=== PATIENT | male | born 1945 | race Caucasian/White ===

== ENCOUNTER 2017-12-29 08:28 | Emergency (ER) | payer MEDICARE, OTHER, SELFPAY ==
[2017-12-29 08:30] VITALS: BP 152/112; PULSE 110; RESP 18; TEMP 36.9; O2SAT 99
--- NOTE | 2017-12-29 08:52 | DI.RAD.S_ITS ---
PROCEDURE: XR CHEST 1V INDICATIONS: chest pain TECHNIQUE: One view of the chest was acquired. COMPARISON: [facility], , CHEST 1 VIEW, 06/30/2017, 16:51. FINDINGS: Surgical changes and devices: Median sternotomy has been performed. Lungs and pleura: No pleural effusions or pneumothorax. Lungs are clear. Mediastinum: Mediastinal contours appear normal. Heart size is normal. Bones and chest wall: No suspicious bony lesions. Overlying soft tissues appear unremarkable. IMPRESSION: No acute process. Dictated by: Mila Strickland M.D. on 12/29/2017 at 9:28 Approved by: Mila Strickland M.D. on 12/29/2017 at 9:28
--- NOTE | 2017-12-29 09:01 | ED_ITS ---
HPI - General Adult General Chief complaint: Hypertension Stated complaint: 'BLOOD PRESSURE PROBLEMS' Time Seen by Provider: 12/29/17 08:34 Source: patient Mode of arrival: ambulatory Limitations: no limitations History of Present Illness HPI narrative: Patient is a 72-year-old male who presents with shaking. He took 6 tablets of AlphaViril over the counter medication for erectile dysfunction. Directions today to take for in the morning and do not exceed 6 in 24 hr. He took the pills at 7:00 a.m. about 30 min later he started shaking. He is shaking and controlled bleed. He denies any chest pain or shortness of breath no tongue swelling lip swelling or difficulty breathing. He is diaphoretic. He has never taking these pills before. He did take Cialis yesterday but no other medications. Related Data Home Medications Medication Instructions Recorded Confirmed tadalafil [Cialis] 20 mg PO PRN #0 03/20/13 irbesartan [Avapro] 300 mg PO QAM #0 11/25/16 acyclovir [Zovirax] 5 % TOPICAL Q4H PRN #0 11/28/16 aspirin 81 mg PO QDAY #0 05/24/17 docusate sodium 3 tab PO QAM #0 05/24/17 arginine HCl (L-arginine) 1,000 mg PO #0 06/09/17 clonidine HCl 0.1 mg PO PRN PRN #0 06/09/17 hydromorphone [Dilaudid] 1 mg PO PRN #0 06/09/17 [CLONIDINE] 750 mcg #0 06/13/17 diltiazem HCl [Cartia XT] 120 mg PO QDAY #0 06/13/17 diltiazem HCl [Cartia XT] 180 mg PO QDAY #0 06/13/17 hydromorphone #112 06/13/17 mupirocin #22 06/13/17 testosterone cypionate #9 06/13/17 [Depo-Testosterone] Allergies Allergy/AdvReac Type Severity Reaction Status Date / Time morphine [MORPHINE] Allergy Intermediate BLISTERS Unverified 10/23/17 12:01 aspartame AdvReac Severe SEVERE Unverified 10/23/17 12:01 [From NUTRASWEET ASPARTAME] HEADACHES gabapentin [GABAPENTIN] AdvReac Severe SEVERE Unverified 10/23/17 12:01 AGITATION, DEPRESSION, ANXIETY hydrochlorothiazide AdvReac Severe HEADACHES Unverified 10/23/17 12:01 [HYDROCHLOROTHIAZIDE] hydrocodone [HYDROCODONE] AdvReac Severe SEVERE Unverified 10/23/17 12:01 HEADACHES metoprolol [METOPROLOL] AdvReac Severe HEADACHES Unverified 10/23/17 12:01 omeprazole [OMEPRAZOLE] AdvReac Severe SEVERE Unverified 10/23/17 12:01 HEADACHES & DIZZINESS oxycodone [OXYCODONE] AdvReac Severe HEADACHES Unverified 10/23/17 12:01 ACID BLOCKERS AdvReac Severe SEVERE Uncoded 10/23/17 12:01 HEADACHES & DIZZINESS Review of Systems Review of Systems All systems reviewed & are unremarkable except as noted in HPI and below Constitutional Reports body ache(s), Denies fever(s) and Denies headache(s) Eyes Denies change in vision, Denies eye discharge, Denies irritation and Denies loss of vision ENT Ears, Nose, Mouth, and Throat: Denies headache(s), Denies lip swelling, Denies throat swelling and Denies tongue swelling Cardiovascular Denies chest pain, Denies irregular heart rhythm, Denies lightheadedness, Denies palpitations and Denies orthopnea Respiratory Denies wheezing Gastrointestinal Gastrointestinal: Denies abdominal pain, Denies change in bowel habits, Denies diarrhea, Denies nausea and Denies vomiting Genitourinary Reports system reviewed and no additional complaints, except as docu, Reports difficulty with ejaculations, Reports erectile dysfunction, Denies testicular mass, Denies testicular pain, Denies urinary frequency and Denies other ( Current Erection) Musculoskeletal Denies back pain, Denies muscle weakness, Denies numbness and Denies tingling Integumentary/Breasts Denies pruritus, Denies erythema, Denies rash and Denies skin swelling Neurologic Denies headache(s), Denies loss of vision, Denies numbness and Denies tingling Endocrine Denies palpitations Allergic/Immunologic Denies lip swelling, Denies throat swelling, Denies tongue swelling and Denies wheezing [facility] Social History Smoking Status: Never smoker Exam Initial Vital Signs Initial Vital Signs: Vital Signs Temperature 98.4 F 12/29/17 08:30 Pulse Rate 110 H 12/29/17 08:30 Respiratory Rate 18 12/29/17 08:30 Blood Pressure 152/112 H 12/29/17 08:30 Pulse Oximetry 99 12/29/17 08:30 GENERAL: Alert elderly male diaphoretic shaking all over his body HEENT: Head atraumatic,EOMI, pupils reactive, face symmetric, moist mucous membranes CARDIOVASCULAR: Regular rate and rhythm without murmurs, rubs or gallops. RESPIRATORY: Breath sounds equal bilaterally, no wheezes rales or rhonchi. ABDOMEN: Soft, nontender. Normoactive bowel sounds all 4 quadrants. No guarding or rebound. : No CVA tenderness EXTREMITIES: Normal range of motion, no clubbing or edema. Neurovascularly intact NEUROLOGICAL: Alert and oriented x4.Normal gait and speech. Cranial nerves II through XII grossly intact. SKIN: Warm, dry, no laceration, no petechiae, no rashes or lesions. No urticaria. Course Orders Ordered: ED Orders 12/29/17 08:41 EKG-12 Lead Stat 12/29/17 08:52 XR chest 1V Stat EKG-12 Lead Stat 12/29/17 09:00 Complete Blood Count AUTO DIFF Stat Comprehensive Metabolic Panel Stat Lipase Stat Troponin with CK Cardiac Panel Stat Discontinued Medications Diphenhydramine HCl (Benadryl) 50 mg PO NOW ONE Stop: 12/29/17 08:53 Last Admin: 12/29/17 09:23 Dose: 50 mg Sodium Chloride (Normal Saline 0.9%) 1,000 mls @ 1,000 mls/hr IV BOLUS ONE Stop: 12/29/17 09:51 Last Infusion: 12/29/17 10:39 Dose: 1,000 mls/hr Admin: 12/29/17 09:22 Dose: 1,000 mls/hr Sodium Chloride (Normal Saline 0.9%) 1,000 mls @ 150 mls/hr IV CONT JENNY Last Admin: 12/29/17 10:40 Dose: Prednisone (Deltasone) 60 mg PO NOW ONE Stop: 12/29/17 08:53 Last Admin: 12/29/17 09:05 Dose: 60 mg Vital Signs - 8 hr 12/29/17 08:30 12/29/17 09:28 12/29/17 09:55 Temperature 98.4 F Pulse Rate 110 H 92 H 93 H Respiratory Rate 18 15 18 Blood Pressure 152/112 H Blood Pressure [Left Arm] 159/76 H 152/88 H Pulse Oximetry 99 97 99 Medical Decision Making MDM Narrative Medical decision making narrative: Patient is feeling much much better. No longer shaking. He likely had a reaction to on this [id number] medication which actually has white but and mushrooms boat straw and other for this. He does have a history of having a reaction to multiple medications. Does not seem to be a severe anaphylactic reaction. I recommend that he not take them anymore. Lab Data Result diagrams: 12/29/17 09:00 12/29/17 09:00 Lab Results 12/29/17 12/29/17 Range/Units 09:00 09:00 WBC 8.3 (4.5-11.0) X10^3/uL RBC 5.51 (4.5-5.9) X10^6/uL Hgb 16.1 (13.5-17.5) g/dL Hct 48.4 (41-53) % MCV 87.8 (80-100) fL MCH 29.3 (26-34) PG MCHC 33.4 (30-36) % RDW 16.0 H (11.6-14.8) % Plt Count 196 (150-400) X10^3/uL Neut % (Auto) 72.6 (50-75) % Lymph % (Auto) 14.9 L (25-40) % [place] % (Auto) 9.9 (3-14) % Eos % (Auto) 2.0 (2-4) % Baso % (Auto) 0.6 (0-2) % Neut # (Auto) 6000 H (1344-3337) /uL Sodium 145 (137-145) mmol/L Potassium 4.0 (3.4-5.1) mmol/L Chloride 106 (98-107) mmol/L Carbon Dioxide 27 (22-32) mmol/L BUN 26 H (9-20) mg/dL Creatinine 1.10 (0.66-1.25) mg/dL Estimated GFR > 60.0 (>60) mL/min BUN/Creatinine Ratio 23.6 H (6-22) Glucose 83 (80-110) mg/dL Calcium 9.8 (8.4-10.2) mg/dL Total Bilirubin 0.6 (0.2-1.3) mg/dL AST 29 (17-59) IU/L ALT 28 (21-72) IU/L Alkaline Phosphatase 96 (38-126) U/L Total Creatine Kinase 209 H (55-170) U/L CK-MB (CK-2) 3.44 H (<2.37) ng/mL CK-MB (CK-2) Rel Index 1.6 (1.5-5.0) % Troponin I < 0.012 (0.01-0.034) ng/mL Total Protein 8.2 (6.3-8.2) g/dL Albumin 4.7 (3.5-5.0) g/dL Globulin 3.5 (1.7-4.1) g/dL Albumin/Globulin Ratio 1.3 (1.0-2.8) Lipase 134 (23-300) U/L Imaging Data Chest x-ray: Radiologist's impression: PROCEDURE: XR CHEST 1V INDICATIONS: chest pain TECHNIQUE: One view of the chest was acquired. COMPARISON: [facility], CHEST 1 VIEW, 06/30/2017, 16:51. FINDINGS: Surgical changes and devices: Median sternotomy has been performed. Lungs and pleura: No pleural effusions or pneumothorax. Lungs are clear. Mediastinum: Mediastinal contours appear normal. Heart size is normal. Bones and chest wall: No suspicious bony lesions. Overlying soft tissues appear unremarkable. IMPRESSION: No acute process. Dictated by: Mila Strickland M.D. on 12/29/2017 at 9:28 ECG Data Attestation: I personally reviewed and interpreted this ECG as follows: Prior ECG tracings: available for review Interpretation: EKG 1. A lot of artifact no acute ST changes appears sinus rate of 105 EKG 2. Sinus rhythm rate 83, much better from previous EKGs Discharge Plan Departure Patient Disposition: Home, Self-Care Clinical Impression: Medication reaction Discharge Date/Time: 12/29/17 10:45 Interventions: ED Discharge Assessment Last Done: 12/29/17 10:41 Instructions: DI for Adverse Drug Reaction -- Other Activity Restrictions/Additional Instructions: *You have been diagnosed with medication reaction *What to do: Do not take this medication any more *Continue to take medications as directed *Follow up with your primary care provider in 2-3 days *Return to ER if you should have any new, worsening or concerning symptoms Prescriptions: No Action tadalafil [Cialis] 20 MG tablet 20 mg PO PRN Qty: 0 RF: 0 irbesartan [Avapro] 300 MG tablet 300 mg PO QAM Qty: 0 RF: 0 acyclovir [Zovirax] 5 % ointment 5 % Topical Q4H PRNQty: 0 RF: 0 aspirin 81 MG tablet,delayed release (DR/EC) 81 mg PO QDAY Qty: 0 RF: 0 docusate sodium 100 MG capsule 3 tab PO QAM Qty: 0 RF: 0 hydromorphone [Dilaudid] 1 MG/1 ML liquid 1 mg PO PRNQty: 0 RF: 0 clonidine HCl 0.1 MG tablet 0.1 mg PO PRN PRNQty: 0 RF: 0 arginine HCl (L-arginine) 1,000 MG tablet 1,000 mg PO Qty: 0 RF: 0 diltiazem HCl [Cartia XT] 120 MG capsule,extended release 24hr 120 mg PO QDAY Qty: 0 RF: 0 diltiazem HCl [Cartia XT] 180 MG capsule,extended release 24hr 180 mg PO QDAY Qty: 0 RF: 0 mupirocin 2 % ointment Qty: 22 RF: 0 testosterone cypionate [Depo-Testosterone] 200 MG/1 ML oil Qty: 9 RF: 0 hydromorphone 4 MG tablet Qty: 112 RF: 0 [CLONIDINE] 750 mcg Qty: 0 RF: 0 Referrals: Raghu Brennan MD [Primary Care Provider] - Franki Correa MD [Non-Staff] -
[2017-12-29] MEDS: predniSONE 20 MG TABLET 60 MG PO (09:05)
[2017-12-29 09:14] LABS: Add Manual Diff / Slide Review NO; Basophils Percent Auto 0.6 % (0-2); Hematocrit 48.4 % (41-53); Hemoglobin 16.1 g/dL (13.5-17.5); Lymphocytes Percent Auto 14.9 % (25-40); Mean Corpuscular HGB Conc 33.4 % (30-36); Mean Corpuscular Hemoglobin 29.3 PG (26-34); Mean Corpuscular Volume 87.8 fL (80-100); Monocytes Percent Auto 9.9 % (3-14); Neutrophils Absolute Auto 6000 /uL (3000-5900); Neutrophils Percent Auto 72.6 % (50-75); Platelet Count 196 X10^3/uL (150-400); Red Blood Cell Count 5.51 X10^6/uL (4.5-5.9); White Blood Cell Count 8.3 X10^3/uL (4.5-11.0)
[2017-12-29] MEDS: SODIUM CHLORIDE 0.9% 1,000 ML 1000 ML IV (09:22)
[2017-12-29] MEDS: diphenhydrAMINE 50 MG CAPSULE PO (09:23)
[2017-12-29 09:25] LABS: Alanine Aminotransferase 28 IU/L (21-72); Albumin 4.7 g/dL (3.5-5.0); Albumin Globulin Ratio 1.3 (1.0-2.8); Alkaline Phosphatase 96 U/L (38-126); Aspartate Aminotransferase 29 IU/L (17-59); BUN Creatinine Ratio 23.6 (6-22); Bilirubin Total 0.6 mg/dL (0.2-1.3); Blood Urea Nitrogen 26 mg/dL (9-20); Calcium 9.8 mg/dL (8.4-10.2); Carbon Dioxide 27 mmol/L (22-32); Chloride 106 mmol/L (98-107); Creatine Kinase 209 U/L (55-170); Estimated Glomerular Filt Rate > 60.0 mL/min (>60); Globulin 3.5 g/dL (1.7-4.1); Glucose 83 mg/dL (80-110); HEMOLYSIS 35 (0-50); Lipase 134 U/L (23-300); Sodium 145 mmol/L (137-145); Total Protein 8.2 g/dL (6.3-8.2)
[2017-12-29 09:28] VITALS: BP 159/76; PULSE 92; RESP 15; O2SAT 97
[2017-12-29 09:40] LABS: CKMB % Relative Index 1.6 % (1.5-5.0); Creatine Kinase MB 3.44 ng/mL (<2.37)
[2017-12-29 09:44] LABS: Troponin I < 0.012 ng/mL (0.01-0.034)
[2017-12-29 09:55] VITALS: BP 152/88; PULSE 93; RESP 18; O2SAT 99
== END 2017-12-29 10:45 | disposition home or self-care (01) ==
PROVIDERS: Emergency Provider Emergency Medicine; Family Provider Family Medicine; PCP Family Medicine
DX: I10 Essential (primary) hypertension (principal); T50.905A Adverse effect of unspecified drugs, medicaments and biological substances, initial encounter
CPT/HCPCS: 36591; 71045; 80053; 81003; 82550; 82553; 83690; 84484; 85025; 93005; 96360; 99283; 99285

== ENCOUNTER 2018-01-19 11:23 | Emergency (ER) | payer MEDICARE, OTHER, SELFPAY ==
--- NOTE | 2018-01-19 11:31 | DI.RAD.S_ITS ---
PROCEDURE: XR CHEST 1V INDICATIONS: chest pain TECHNIQUE: One view of the chest was acquired. COMPARISON: None. FINDINGS: Surgical changes and devices: Sternotomy wires, and spinal electrodes noted.. Lungs and pleura: No pleural effusions or pneumothorax. Lungs are clear. Mediastinum: Mediastinal contours appear normal. Heart size is normal. Bones and chest wall: No suspicious bony lesions. Overlying soft tissues appear unremarkable. IMPRESSION: No acute disease. Dictated by: Samir Bryant M.D. on 01/19/2018 at 13:06 Approved by: Samir Bryant M.D. on 01/19/2018 at 13:07
[2018-01-19 11:40] VITALS: PULSE 82; RESP 19; O2SAT 99
--- NOTE | 2018-01-19 11:56 | ED.CHESTPAIN ---
HPI - Chest Pain General Chief Complaint: Chest Pain Stated Complaint: chest tightness, sweating, high BP/pulse Time Seen by Provider: 01/19/18 11:55 Source: patient Mode of arrival: ambulatory Limitations: no limitations History of Present Illness HPI narrative: Patient is a [age]-year-old male with known coronary artery disease presenting with chest pain. He says he was sitting at [employer] when he felt the chest pain and he got sweaty and decided to come to the ER. His pain did not radiate anywhere he denies any palpable insert. The chest pain lasted until he got to the ER now he is chest pain-free. He said 2 days ago he was helping a friend move and moving boxes he was sweaty and working hard then he will total knee look like he was having a heart attack but he said he felt fine. Related Data Home Medications Medication Instructions Recorded Confirmed tadalafil [Cialis] 20 mg PO PRN #0 03/20/13 irbesartan [Avapro] 300 mg PO QAM #0 11/25/16 acyclovir [Zovirax] 5 % TOPICAL Q4H PRN #0 11/28/16 aspirin 81 mg PO QDAY #0 05/24/17 docusate sodium 3 tab PO QAM #0 05/24/17 arginine HCl (L-arginine) 1,000 mg PO #0 06/09/17 clonidine HCl 0.1 mg PO PRN PRN #0 06/09/17 hydromorphone [Dilaudid] 1 mg PO PRN #0 06/09/17 [CLONIDINE] 750 mcg #0 06/13/17 diltiazem HCl [Cartia XT] 120 mg PO QDAY #0 06/13/17 diltiazem HCl [Cartia XT] 180 mg PO QDAY #0 06/13/17 hydromorphone #112 06/13/17 mupirocin #22 06/13/17 testosterone cypionate #9 06/13/17 [Depo-Testosterone] nifedipine [Procardia] 20 mg PO TID 01/19/18 01/19/18 Allergies Allergy/AdvReac Type Severity Reaction Status Date / Time morphine [MORPHINE] Allergy Intermediate BLISTERS Unverified 10/23/17 12:01 aspartame AdvReac Severe SEVERE Unverified 10/23/17 12:01 [From NUTRASWEET ASPARTAME] HEADACHES gabapentin [GABAPENTIN] AdvReac Severe SEVERE Unverified 10/23/17 12:01 AGITATION, DEPRESSION, ANXIETY hydrochlorothiazide AdvReac Severe HEADACHES Unverified 10/23/17 12:01 [HYDROCHLOROTHIAZIDE] hydrocodone [HYDROCODONE] AdvReac Severe SEVERE Unverified 10/23/17 12:01 HEADACHES metoprolol [METOPROLOL] AdvReac Severe HEADACHES Unverified 10/23/17 12:01 omeprazole [OMEPRAZOLE] AdvReac Severe SEVERE Unverified 10/23/17 12:01 HEADACHES & DIZZINESS oxycodone [OXYCODONE] AdvReac Severe HEADACHES Unverified 10/23/17 12:01 ACID BLOCKERS AdvReac Severe SEVERE Uncoded 10/23/17 12:01 HEADACHES & DIZZINESS Review of Systems Review of Systems GENERAL: Denies chills, fatigue, malaise, fever, sweats, travel HEENT: Denies sinus pain, ear pain, sore throat, difficulty swallowing, neck pain RESPIRATORY: Denies dyspnea, cough, wheezing, hemoptysis, sputum. CARDIOVASCULAR: See HPI GASTROINTESTINAL: Denies nausea, vomiting, abdominal pain, diarrhea, constipation, melena. : Denies dysuria, frequency, incontinence, hematuria, urinary retention, flank pain. MUSCULOSKELETAL: Denies weakness, joint pain, or bony pain SKIN: No rash, no erythema, no pruritus NEUROLOGIC: Denies weakness, dizziness, headache, numbness, change in speech, confusion PSYCHIATRIC: No concerning psychosocial issues. 12 point review of systems is negative except for those stated above and HPI [facility] Social History Smoking Status: Never smoker Exam Initial Vital Signs Initial Vital Signs: Vital Signs Pulse Rate 82 01/19/18 11:40 Respiratory Rate 19 01/19/18 11:40 Pulse Oximetry 99 01/19/18 11:40 GENERAL: Alert Well appearing elderly male HEENT: Head atraumatic,EOMI, pupils reactive neck is supple CARDIOVASCULAR: Regular rate and rhythm without murmurs, rubs or gallops. RESPIRATORY: Breath sounds equal bilaterally, no wheezes rales or rhonchi. ABDOMEN: Soft, nontender. Normoactive bowel sounds all 4 quadrants. No guarding or rebound. EXTREMITIES: Normal range of motion, no clubbing or edema. Neurovascularly intact NEUROLOGICAL: Alert and oriented x4.Normal gait and speech. Cranial nerves II through XII grossly intact. SKIN: Warm, dry, no laceration, no petechiae, no rashes or lesions. Course Orders Ordered: ED Orders 01/19/18 11:31 XR chest 1V Stat EKG-12 Lead Stat 01/19/18 11:50 Comprehensive Metabolic Panel Stat Lipase Stat Troponin & CK Cardiac Panel Stat 01/19/18 12:20 Complete Blood Count AUTO DIFF Stat Partial Thromboplastin Time Stat Prothrombin Time INR Stat 01/19/18 12:33 EKG-12 Lead Stat 01/19/18 13:50 Troponin I Stat Vital Signs - 8 hr 01/19/18 11:40 01/19/18 12:00 01/19/18 13:00 Pulse Rate 82 82 76 Respiratory Rate 19 19 14 Blood Pressure Blood Pressure [Left Arm] 138/96 H 141/97 H Pulse Oximetry 99 95 01/19/18 13:30 01/19/18 14:47 Pulse Rate 75 71 Respiratory Rate 15 16 Blood Pressure 165/76 H Blood Pressure [Left Arm] 146/100 H Pulse Oximetry 100 97 MDM - Chest Pain Medical Records Data Attestation: I reviewed the patient's medical records. Lab Data Attestation: I reviewed the patient's lab results. Result diagrams: 01/19/18 12:20 01/19/18 11:50 Lab Results 01/19/18 01/19/18 01/19/18 Range/Units 11:50 12:20 12:20 WBC 6.2 (4.5-11.0) X10^3/uL RBC 5.42 (4.5-5.9) X10^6/uL Hgb 16.0 (13.5-17.5) g/dL Hct 47.7 (41-53) % MCV 88.1 (80-100) fL MCH 29.5 (26-34) PG MCHC 33.5 (30-36) % RDW 14.2 (11.6-14.8) % Plt Count 207 (150-400) X10^3/uL Neut % (Auto) 72.9 (50-75) % Lymph % (Auto) 16.8 L (25-40) % [place] % (Auto) 8.8 (3-14) % Eos % (Auto) 0.9 L (2-4) % Baso % (Auto) 0.6 (0-2) % Neut # (Auto) 4500 (6340-6435) /uL PT 12.1 (10.1-12.7) SECONDS INR 1.1 (0.9-1.3) APTT 26 L (26.4-36.2) SECONDS Sodium 142 (137-145) mmol/L Potassium 4.6 (3.4-5.1) mmol/L Chloride 104 (98-107) mmol/L Carbon Dioxide 27 (22-32) mmol/L BUN 21 H (9-20) mg/dL Creatinine 1.00 (0.66-1.25) mg/dL Estimated GFR > 60.0 (>60) mL/min BUN/Creatinine Ratio 21.0 (6-22) Glucose 106 (80-110) mg/dL Calcium 9.6 (8.4-10.2) mg/dL Total Bilirubin 1.1 (0.2-1.3) mg/dL AST 28 (17-59) IU/L ALT 26 (21-72) IU/L Alkaline Phosphatase 81 (38-126) U/L Total Creatine Kinase 172 H (55-170) U/L CK-MB (CK-2) 3.10 H (<2.37) ng/mL CK-MB (CK-2) Rel Index 1.8 (1.5-5.0) % Troponin I < 0.012 (0.01-0.034) ng/mL Total Protein 8.0 (6.3-8.2) g/dL Albumin 4.7 (3.5-5.0) g/dL Globulin 3.3 (1.7-4.1) g/dL Albumin/Globulin Ratio 1.4 (1.0-2.8) Lipase 91 (23-300) U/L 01/19/18 Range/Units 13:50 WBC (4.5-11.0) X10^3/uL RBC (4.5-5.9) X10^6/uL Hgb (13.5-17.5) g/dL Hct (41-53) % MCV (80-100) fL MCH (26-34) PG MCHC (30-36) % RDW (11.6-14.8) % Plt Count (150-400) X10^3/uL Neut % (Auto) (50-75) % Lymph % (Auto) (25-40) % [place] % (Auto) (3-14) % Eos % (Auto) (2-4) % Baso % (Auto) (0-2) % Neut # (Auto) (5837-1599) /uL PT (10.1-12.7) SECONDS INR (0.9-1.3) APTT (26.4-36.2) SECONDS Sodium (137-145) mmol/L Potassium (3.4-5.1) mmol/L Chloride (98-107) mmol/L Carbon Dioxide (22-32) mmol/L BUN (9-20) mg/dL Creatinine (0.66-1.25) mg/dL Estimated GFR (>60) mL/min BUN/Creatinine Ratio (6-22) Glucose (80-110) mg/dL Calcium (8.4-10.2) mg/dL Total Bilirubin (0.2-1.3) mg/dL AST (17-59) IU/L ALT (21-72) IU/L Alkaline Phosphatase (38-126) U/L Total Creatine Kinase (55-170) U/L CK-MB (CK-2) (<2.37) ng/mL CK-MB (CK-2) Rel Index (1.5-5.0) % Troponin I < 0.012 (0.01-0.034) ng/mL Total Protein (6.3-8.2) g/dL Albumin (3.5-5.0) g/dL Globulin (1.7-4.1) g/dL Albumin/Globulin Ratio (1.0-2.8) Lipase (23-300) U/L Imaging Data Chest x-ray: Radiologist's impression: PROCEDURE: XR CHEST 1V INDICATIONS: chest pain TECHNIQUE: One view of the chest was acquired. COMPARISON: None. FINDINGS: Surgical changes and devices: Sternotomy wires, and spinal electrodes noted.. Lungs and pleura: No pleural effusions or pneumothorax. Lungs are clear. Mediastinum: Mediastinal contours appear normal. Heart size is normal. Bones and chest wall: No suspicious bony lesions. Overlying soft tissues appear unremarkable. IMPRESSION: No acute disease. Dictated by: Samir Bryant M.D. on 01/19/2018 at 13:06 ECG Data Attestation: I personally reviewed and interpreted this ECG as follows: Prior ECG tracings: available for review Interpretation: EKG 1.: Sinus rhythm rate 78 Q-waves anterior and inferiorly noted similar to previous EKGs, R-wave in AVR an S wave in aVL which is not seen in previous EKG EKG 2. Sinus rhythm rate 79 similar to previous breast not AVR and aVL remained unchanged however these 2 EKGs are just minutes apart The EKG 3. Time 1:06 p.m.. Normal sinus rhythm rate 66 Q-waves remained in inferior leads, AVR and aVL leads now appear as a do in all previous EKG Likely these leads were reversed. MDM Narrative Medical decision making narrative: Patient has 2-troponins no further episodes of chest pain. Though he does have a history of CABG and coronary artery disease. 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 He also is noncompliant with his blood pressure medications and adjust as he sees fit. I also strongly recommend that he discuss all the blood pressure pill regimen with his [employer]person [employer] and take medications as instructed. I discussed all findings with the patient. Education has been performed regarding treatment plan, diagnosis, warning signs and symptoms and all concerns have been addressed. Verbally agree with and understood all of the above. Discharge Plan Departure Patient Disposition: Home, Self-Care Clinical Impression: Atypical chest pain, Hypertension Discharge Date/Time: 01/19/18 14:48 Interventions: ED Discharge Assessment Last Done: 01/19/18 14:47 Instructions: High Blood Pressure, DI for Atypical Chest Pain Activity Restrictions/Additional Instructions: *You have been diagnosed with hypertension, atypical chest pain *What to do: Discussed with your salesperson [employer] about you're blood pressure medications, you may also require a stress test *Continue to take medications as directed *Follow up with your primary care provider in 2-3 days *Return to ER if you should have worsening or atypical chest pain, especially rest or any new, worsening or concerning symptoms Prescriptions: No Action tadalafil [Cialis] 20 MG tablet 20 mg PO PRN Qty: 0 RF: 0 irbesartan [Avapro] 300 MG tablet 300 mg PO QAM Qty: 0 RF: 0 acyclovir [Zovirax] 5 % ointment 5 % Topical Q4H PRNQty: 0 RF: 0 aspirin 81 MG tablet,delayed release (DR/EC) 81 mg PO QDAY Qty: 0 RF: 0 docusate sodium 100 MG capsule 3 tab PO QAM Qty: 0 RF: 0 hydromorphone [Dilaudid] 1 MG/1 ML liquid 1 mg PO PRN (Reason: Breakthrough Pain, Severe) Qty: 0 RF: 0 clonidine HCl 0.1 MG tablet 0.1 mg PO PRN PRNQty: 0 RF: 0 arginine HCl (L-arginine) 1,000 MG tablet 1,000 mg PO Qty: 0 RF: 0 diltiazem HCl [Cartia XT] 120 MG capsule,extended release 24hr 120 mg PO QDAY Qty: 0 RF: 0 diltiazem HCl [Cartia XT] 180 MG capsule,extended release 24hr 180 mg PO QDAY Qty: 0 RF: 0 mupirocin 2 % ointment Qty: 22 RF: 0 testosterone cypionate [Depo-Testosterone] 200 MG/1 ML oil Qty: 9 RF: 0 hydromorphone 4 MG tablet Qty: 112 RF: 0 [CLONIDINE] 750 mcg Qty: 0 RF: 0 nifedipine [Procardia] 10 mg Capsule 20 mg PO TID RF: 0 Referrals: Raghu Brennan MD [Primary Care Provider] - Franki Correa MD [Non-Staff] -
[2018-01-19 12:00] VITALS: BP 138/96; PULSE 82; RESP 19
[2018-01-19 12:16] LABS: Alanine Aminotransferase 26 IU/L (21-72); Albumin 4.7 g/dL (3.5-5.0); Albumin Globulin Ratio 1.4 (1.0-2.8); Alkaline Phosphatase 81 U/L (38-126); Aspartate Aminotransferase 28 IU/L (17-59); Bilirubin Total 1.1 mg/dL (0.2-1.3); Blood Urea Nitrogen 21 mg/dL (9-20); Calcium 9.6 mg/dL (8.4-10.2); Carbon Dioxide 27 mmol/L (22-32); Chloride 104 mmol/L (98-107); Creatine Kinase 172 U/L (55-170); Estimated Glomerular Filt Rate > 60.0 mL/min (>60); Globulin 3.3 g/dL (1.7-4.1); Glucose 106 mg/dL (80-110); HEMOLYSIS 26 (0-50); Lipase 91 U/L (23-300); Potassium 4.6 mmol/L (3.4-5.1); Sodium 142 mmol/L (137-145)
[2018-01-19 12:31] LABS: CKMB % Relative Index 1.8 % (1.5-5.0)
[2018-01-19 12:31] LABS: Add Manual Diff / Slide Review NO; Basophils Percent Auto 0.6 % (0-2); Eosinophils Percent Auto 0.9 % (2-4); Hematocrit 47.7 % (41-53); Lymphocytes Percent Auto 16.8 % (25-40); Mean Corpuscular HGB Conc 33.5 % (30-36); Mean Corpuscular Hemoglobin 29.5 PG (26-34); Mean Corpuscular Volume 88.1 fL (80-100); Monocytes Percent Auto 8.8 % (3-14); Neutrophils Absolute Auto 4500 /uL (3000-5900); Neutrophils Percent Auto 72.9 % (50-75); Platelet Count 207 X10^3/uL (150-400); Red Blood Cell Count 5.42 X10^6/uL (4.5-5.9); Red Cell Distribution Width 14.2 % (11.6-14.8); White Blood Cell Count 6.2 X10^3/uL (4.5-11.0)
[2018-01-19 12:32] LABS: Troponin I < 0.012 ng/mL (0.01-0.034)
[2018-01-19 12:39] LABS: INR 1.1 (0.9-1.3); Prothrombin Time 12.1 SECONDS (10.1-12.7)
[2018-01-19 12:41] LABS: PTT Partial Thromboplastin Tim 26 SECONDS (26.4-36.2)
[2018-01-19 13:00] VITALS: BP 141/97; PULSE 76; RESP 14; O2SAT 95
--- NOTE | 2018-01-19 13:15 | PC.NURSE ---
RT completed second EKG and took to [facility]
[2018-01-19 13:30] VITALS: BP 146/100; PULSE 75; RESP 15; O2SAT 100
[2018-01-19 14:22] LABS: Troponin I < 0.012 ng/mL (0.01-0.034)
[2018-01-19 14:47] VITALS: BP 165/76; PULSE 71; RESP 16; O2SAT 97
== END 2018-01-19 14:48 | disposition home or self-care (01) ==
PROVIDERS: Emergency Provider Emergency Medicine; Family Provider Family Medicine; PCP Family Medicine
DX: I10 Essential (primary) hypertension (principal); R07.89 Other chest pain
CPT/HCPCS: 36415; 36591; 71045; 80053; 82550; 82553; 83690; 84484; 85025; 85610; 85730; 93005; 99283; 99285

== ENCOUNTER → 2018-03-07 13:39 | Outpatient (CLI) | payer MEDICARE, OTHER, SELFPAY ==
--- NOTE | 2018-03-07 15:32 | PM.TREADMILL ---
Cardiac Stress Test Report Referral & Results Date Patient Seen: 03/07/18 Requesting provider: Franki Correa Rest ECG: poor R-wave progression Procedure Note: After both written and verbal informed consent the patient had an IV started by the diagnostic imaging RN and then was hooked up to the treadmill monitoring system. The patient was then injected with the Ana scan material. The Cardiolite was then immediately administered. Additional 2-3 minutes was spent monitoring the patient. The patient had a normal response to all infused materials. Impression: Normal response to infuse materials. Perfusion imaging to be reported separately Please note: Actual ECG tracings can be found in the PACS system.
--- NOTE | 2018-03-12 14:54 | DI.NM.S_ITS ---
DATE OF SERVICE: 03/07/2018 REFERRING PHYSICIAN: Bety Correa MD PROCEDURE: Nuclear cardiac stress study. INDICATIONS: Patient is a 72-year-old male with a prior history of coronary artery bypass graft surgery. Nuclear cardiac stress study is performed to for follow-up evaluation. STRESS TEST: This gentleman is given a pharmacologic stress study using Lexiscan injection. He received 25.6 mCi of technetium-99 Myoview for the pharmacologic stress study on 03/07 and returned on 03/10 for the resting examination receiving an additional 24.5 mCi. No diagnostic EKG changes or complaints of chest discomfort noted on the record. FINDINGS: Raw Data: Raw data imaging demonstrate a mild amount of up-and-down motion artifact. No other significant artifact noted. Overall image quality is fair. Quantitative Gated SPECT Imaging: Gated images demonstrate a normal size ventricle with an end-diastolic volume of 165 cc. Overall ejection fraction estimated at 65%. No clear-cut regional wall motion abnormalities are noted. Quantitative Perfusion SPECT Imaging: Myocardial perfusion imaging demonstrates a mild amount of diaphragmatic tissue attenuation artifact. No other convincing perfusion abnormalities are identified that would suggest ischemia or scar. IMPRESSION: Normal nuclear cardiac stress study with normal-appearing left ventricular function and with no obvious significant perfusion abnormality that would suggest previous infarction or residual or recurrent significant ischemia. Chad Boyd - Hannah/ doc#: [id number]/job#: [id number] dd: 03/10/2018 16:26:00 dt: 03/12/2018 14:41:00 DICTATING MD/COPIES TO: Nicholas Solitario MD COPIES MNE: VALENTINA
--- NOTE | 2018-03-13 07:54 | DI.NM.S_ITS ---
DATE OF SERVICE: 03/07/2018 ORDERING PROVIDER: Franki Correa MD PROCEDURE PERFORMED: Pharmacologic vasodilator stress and rest myocardial perfusion imaging with gating to assess ejection fraction and regional wall motion. INDICATIONS: The patient is a 72-year-old male status post CABG in 07/2015 requires preoperative evaluation prior to ENT surgery. CARDIAC STRESS: Per protocol, 0.4 mg of regadenoson was infused with a normal hemodynamic response. He had no anginal symptoms. His resting ECG shows normal sinus rhythm with normal ST segments and there are no significant ST-segment shifts or arrhythmias with stress. Per protocol, 25.6 mCi of technetium-99 Myoview was injected and the patient was imaged 15 minutes later using a gated SPECT acquisition protocol. He returned 3 days later and was re-injected with an additional 24.5 mCi of technetium-99 Myoview and was imaged 30 minutes later, again using a gated SPECT acquisition protocol. FINDINGS: 1. Raw Data: There is fairly good myocardial tracer uptake, although with a suggestion of some diaphragmatic attenuation. The lung/heart ratio is normal at 0.28 with a normal TID ratio of 0.94. 2. Quantitative Gated SPECT: Post stress ejection fraction is estimated at 65% without any focal wall motion abnormality. Specifically, the proximal inferior wall grossly appears to have normal contractility, although sub-optimally imaged. The resting ejection fraction is 53%, although visually appears to be quite similar to the post stress images. Left ventricular volumes appear to be moderately enlarged with a resting end-diastolic volume of 159 mL. 3. Myocardial Perfusion Imaging: Post stress supine images shows a fairly normal myocardial perfusion, although with a mild perfusion defect in the proximal portion of the inferior wall in a pattern that would be consistent with diaphragmatic attenuation, although this defect persists to a slight degree on the prone images suggesting it could reflect a true perfusion defect. The resting images show an identical perfusion pattern to that of the post stress supine images without any areas of improvement. CONCLUSION: 1. Probable normal myocardial perfusion study for ischemia. 2. Mild fixed proximal inferior perfusion defect that most likely reflects diaphragmatic attenuation, although persists to slight degree on the prone images, and thus a previous nontransmural proximal inferior wall infarction cannot be entirely excluded but there is no evidence for any significant myocardial ischemia. 3. Normal left ventricular systolic function although with moderately enlarged left ventricular volumes. 4. No angina or ECG evidence of ischemia with pharmacologic vasodilator stress. Chad Boyd - Viviana/ doc#: [id number]/job#: [id number] dd: 03/12/2018 16:05:00 dt: 03/12/2018 16:12:00 DICTATING MD/COPIES TO: Sammy Aguila MD; Franki Correa MD; [facility] COPIES MNE: JOYA; Franki Correa MD cc: [facility]
== END ==
PROVIDERS: Family Provider Family Medicine; PCP Family Medicine; Visit Provider Internal Medicine Cardiovascular Disease
DX: I25.10 Atherosclerotic heart disease of native coronary artery without angina pectoris (principal)
CPT/HCPCS: 78452; 93016; 93017; 93018; A9502; J2785

== ENCOUNTER → 2018-03-20 07:37 | Outpatient (CLI) | payer MEDICARE, OTHER, SELFPAY ==
[2018-03-20 08:33] LABS: Cholesterol 160 mg/dL (140-199); HDL Cholesterol 33 mg/dL (40-60); LDL Cholesterol Calculated 110 mg/dL (<100); Triglycerides 84 mg/dL (35-150)
[2018-03-24 10:29] LABS: Testosterone Free 143.6 pg/mL (30.0-135.0); Testosterone Total 655 ng/dL (250-1100)
== END ==
PROVIDERS: Family Provider Family Medicine; PCP Family Medicine; Visit Provider Family Medicine
DX: R79.89 Other specified abnormal findings of blood chemistry (principal); E78.5 Hyperlipidemia, unspecified
CPT/HCPCS: 36415; 80061; 84402; 84403

== ENCOUNTER → 2018-04-19 14:56 | Outpatient (CLI) | payer MEDICARE, OTHER, SELFPAY ==
[2018-04-19 15:21] LABS: Add Manual Diff / Slide Review NO; Basophils Percent Auto 0.7 % (0-2); Eosinophils Percent Auto 1.1 % (2-4); Hematocrit 46.3 % (41-53); Hemoglobin 15.3 g/dL (13.5-17.5); Lymphocytes Percent Auto 13.8 % (25-40); Mean Corpuscular HGB Conc 33.1 % (30-36); Mean Corpuscular Hemoglobin 28.7 PG (26-34); Mean Corpuscular Volume 86.6 fL (80-100); Monocytes Percent Auto 8.1 % (3-14); Neutrophils Absolute Auto 8200 /uL (3000-5900); Neutrophils Percent Auto 76.3 % (50-75); Platelet Count 152 X10^3/uL (150-400); Red Blood Cell Count 5.34 X10^6/uL (4.5-5.9); Red Cell Distribution Width 14.9 % (11.6-14.8); White Blood Cell Count 10.7 X10^3/uL (4.5-11.0)
[2018-04-19 15:37] LABS: C-Reactive Protein Quant 2.1 mg/dL (<1.0)
[2018-04-19 16:23] LABS: Erythrocyte Sedimentation Rate 5 MM/HR (0-15)
== END ==
PROVIDERS: Family Provider Family Medicine; PCP Family Medicine; Visit Provider Physician Assistant
DX: R51 Headache (principal)
CPT/HCPCS: 36415; 85025; 85651; 86140

== ENCOUNTER → 2018-04-30 12:00 | Outpatient (CLI) | payer MEDICARE, OTHER, SELFPAY ==
[2018-04-30 14:28] LABS: Erythrocyte Sedimentation Rate 7 MM/HR (0-15)
== END ==
PROVIDERS: PCP Family Medicine; Visit Provider Family Medicine
DX: R51 Headache (principal)
CPT/HCPCS: 36415; 85651

== ENCOUNTER → 2018-06-18 10:18 | Outpatient (CLI) | payer MEDICARE, OTHER, SELFPAY | PROVIDERS: PCP Family Medicine; Visit Provider Family Medicine | DX: D89.40 Mast cell activation, unspecified (principal) | CPT/HCPCS: 36415; 83520 ==

== ENCOUNTER 2018-07-23 18:34 | Emergency (ER) | payer MEDICARE, OTHER, SELFPAY ==
[2018-07-23 18:39] VITALS: PULSE 99; RESP 20; TEMP 36.6; O2SAT 99
[2018-07-23] MEDS: HYDROMORPHONE 2 MG INJ 1 MG SUBCUT (19:01)
[2018-07-23 19:18] VITALS: BP 144/86
--- NOTE | 2018-07-23 19:57 | ED.OVERDOSE ---
HPI - Overdose General Chief Complaint: Toxicology Problem Stated Complaint: states really bad reaction to C-naltrexone Time Seen by Provider: 07/23/18 18:49 Source: patient Mode of arrival: ambulatory Limitations: no limitations History of Present Illness HPI Narrative: Patient states that he has been having chills and ?jerks? since taking naltrexone for headache. Patient has been seeing a neurologist for ongoing headaches for the last several months. Patient has chronic arachnoiditis of lumbar spinal canal and has a nerve stimulator and a Dilaudid pump for this. He has had extensive workup for his headaches, including MRI and myelogram, with all normal results. Patient states his headaches are present 04/02, and have become debilitating. He states his neurologist told him that he (the neurologist) is at his wits end as far as coming up with ideas for treatment of the headaches, and that the patient will probably need to go to [facility] or some other specialty center. However, the Neurology thought that naltrexone might help with the headache, because it had helped in another case for somebody who had recently been on opiates. Patient took his 1st dose today of 2.5 mg, and thinks it might have helped his headache a little bit, but has given him the current symptoms of jerking and shivering. Patient denies nausea, vomiting, pain, or fevers. He was not ill prior to taking the naltrexone 2.5 hr ago. No other complaints at this time. Related Data Home Medications Medication Instructions Recorded Confirmed tadalafil [Cialis] 20 mg PO PRN #0 03/20/13 07/22/18 acyclovir [Zovirax] 5 % TOPICAL Q4H PRN #0 11/28/16 07/22/18 clonidine HCl 0.1 mg PO PRN PRN #0 06/09/17 07/22/18 [CLONIDINE] 750 mcg #0 06/13/17 07/22/18 mupirocin #22 06/13/17 07/22/18 testosterone cypionate #9 06/13/17 07/22/18 [Depo-Testosterone] amlodipine 5 mg-atorvastatin 10 mg 1 tab PO DAILY 03/18/18 07/22/18 tablet bupivacaine (PF) 0.25 % 2 mL/hour CONTINUOUS EPIDURAL ml 04/19/18 07/22/18 120 mL infiltrat,fix rate elast pump acetazolamide 125 mg tablet 31 mg PO BID tab 06/18/18 07/22/18 carvedilol 12.5 mg tablet 12.5 mg PO ONCE tab 06/18/18 07/22/18 carvedilol 6.25 mg tablet 6.25 mg PO ONCE tab 06/18/18 07/22/18 Previous Rx's Medication Instructions Recorded naltrexone 50 mg tablet 25 mg PO DAILY #30 tab 07/22/18 Allergies Allergy/AdvReac Type Severity Reaction Status Date / Time morphine [MORPHINE] Allergy Intermediate BLISTERS Verified 07/22/18 10:04 aspartame AdvReac Severe SEVERE Verified 07/22/18 10:04 [From NUTRASWEET ASPARTAME] HEADACHES gabapentin [GABAPENTIN] AdvReac Severe SEVERE Verified 07/22/18 10:04 AGITATION, DEPRESSION, ANXIETY hydrochlorothiazide AdvReac Severe HEADACHES Verified 07/22/18 10:04 [HYDROCHLOROTHIAZIDE] hydrocodone [HYDROCODONE] AdvReac Severe SEVERE Verified 07/22/18 10:04 HEADACHES metoprolol [METOPROLOL] AdvReac Severe HEADACHES Verified 07/22/18 10:04 omeprazole [OMEPRAZOLE] AdvReac Severe SEVERE Verified 07/22/18 10:04 HEADACHES & DIZZINESS oxycodone [OXYCODONE] AdvReac Severe HEADACHES Verified 07/22/18 10:04 ACID BLOCKERS AdvReac Severe SEVERE Uncoded 07/22/18 10:04 HEADACHES & DIZZINESS Review of Systems Constitutional Denies chills, Denies fever(s), Denies lethargy and Denies weakness Eyes Denies change in vision, Denies eye discharge, Denies irritation and Denies loss of vision ENT Ears, Nose, Mouth, and Throat: Denies change in voice, Denies neck pain and Denies sore throat Cardiovascular Denies chest pain, Denies irregular heart rhythm, Denies lightheadedness, Denies palpitations, Denies dyspnea, Denies dyspnea on exertion and Denies orthopnea Respiratory Denies cough, Denies dyspnea, Denies dyspnea on exertion and Denies wheezing Gastrointestinal Gastrointestinal: Denies abdominal pain, Denies change in bowel habits, Denies diarrhea, Denies nausea and Denies vomiting Genitourinary Denies hematuria, Denies flank pain, Denies urinary incontinence and Denies urinary urgency Musculoskeletal Denies neck pain Comments: Spasms Integumentary/Breasts Denies pruritus, Denies erythema, Denies rash and Denies wounds Neurologic Denies confusion, Denies loss of vision and Denies weakness Psychiatric Denies anxiety, Denies confusion, Denies depression, Denies homicidal ideation and Denies suicidal ideation Endocrine Denies palpitations Hematologic/Lymphatic Denies easy bruising Allergic/Immunologic Denies wheezing PFSH Medical History Obstructive sleep apnea of adult (Chronic) Hypersomnia (Inactive) Primary insomnia (Chronic) Social History marital status: Smoking Status: Never smoker alcohol intake: never substance use type: does not use Comment: Surgical history: Nerve stimulator placement Pain pump placement Exam Initial Vital Signs Initial Vital Signs: Vital Signs Temperature 97.9 F 07/23/18 18:39 Pulse Rate 99 H 07/23/18 18:39 Respiratory Rate 20 07/23/18 18:39 Pulse Oximetry 99 07/23/18 18:39 Const General: cooperative and well developed Nutritional Appearance: well nourished Orientation: alert, awake, oriented x3 and not confused Other: Patient is in no distress, but appears mildly uncomfortable. HENMT Head: normocephalic and atraumatic Ears: external ears normal and TM's normal bilaterally Nose: external nose normal and No nasal discharge Face and sinus: sinuses nontender, face symmetric, no sinus tenderness and No dry mucous membranes Mouth: oral mucosae normal and moist mucous membranes Teeth and gingiva: dentition normal Throat: tonsils normal and uvula midline Eyes General: appearance normal, both eyes and all related structures Eyelids: eyelids normal Conjunctivae: conjunctivae normal Sclera: sclerae normal Pupils: PERRL EOM: EOM intact bilaterally Neck Neck: normal visual inspection, trachea midline, No lymphadenopathy, No midline deformity and No JVD Lymphatic: No lymphedema Chest Chest: normal inspection of the chest Resp Effort & Inspection: normal respiratory effort, able to speak in complete sentences, no respiratory distress and no use of accessory muscles Auscultation: clear to auscultation bilaterally, no rales, no rhonchi and no wheezes Cardio Rate: regular rate Rhythm: regular rhythm Heart Sounds: no click, no gallops, no murmurs and no rubs Pulses: normal peripheral pulses GI Inspection: non-distended Palpation: soft, no hepatosplenomegaly, No guarding, No pulsatile mass and No tender Auscultation: normal bowel sounds Back/Spine/Pelvis Back: No CVA tenderness Cervical Spine: cervical ROM normal and No pain with cervical ROM Thoracic/Lumbar Spine: thoracic and lumbar spine normal to inspection Skin General: no rashes or lesions noted, No jaundice and No petechiae Neuro General: alert, oriented x3, gait normal and no focal motor deficits Speech: speech normal Gait: normal gait Motor: muscle tone normal throughout and strength 5/5 throughout Sensory Exam: no sensory deficits noted Other: Patient has occasional whole body jerks, and does exhibit piloerection. Extrem General: full ROM, no clubbing, cyanosis or edema, no pedal edema and no calf tenderness Psych Appearance: well kempt Mental Status: mental status grossly normal Attitude: cooperative Thought Content: normal and suicidality Judgment: judgment good Course Course Narrative: Patient was hemodynamically stable, and other than some discomfort and the muscle jerks and peel or erection, did not exhibit severe symptoms of opiate withdrawal. He was given a total of 4 mg of subcutaneous Dilaudid to help fend off symptoms. We have discussed that he will most likely need to speak with his specialist to determine what the next step in his treatment should be. Patient was agreeable to this plan. He stated he felt completely better after receiving the Dilaudid, and I felt he was stable for discharge home. We have discussed the usual indications for return. Orders Ordered: Discontinued Medications Hydromorphone HCl (Dilaudid) 1 mg SUBCUT NOW ONE Stop: 07/23/18 18:46 Last Admin: 07/23/18 19:01 Dose: 1 mg Hydromorphone HCl (Dilaudid) 3 mg SUBCUT NOW ONE Stop: 07/23/18 19:56 Last Admin: 07/23/18 20:04 Dose: 3 mg Vital Signs - 8 hr 07/23/18 18:39 07/23/18 19:18 07/23/18 20:41 Temperature 97.9 F Pulse Rate 99 H 76 Respiratory Rate 20 16 Blood Pressure [Left Arm] 144/86 H 166/92 H Pulse Oximetry 99 100 MDM - Overdose Medical Records Attestation: I reviewed the patient's medical records. Discharge Plan Departure Patient Disposition: Home Clinical Impression: Opiate withdrawal, Adverse drug effect Discharge Date/Time: 07/23/18 21:02 Interventions: ED Discharge Assessment Last Done: 07/23/18 21:12 Instructions: DI for Adverse Drug Reaction -- Other Prescriptions: No Action bupivacaine (PF) 0.25 % 2 mL/hr 120 mL elastomeric pump,fixed rate Continuous Epidural RF: 0 tadalafil [Cialis] 20 MG tablet 20 mg PO PRN Qty: 0 RF: 0 acyclovir [Zovirax] 5 % ointment 5 % Topical Q4H PRNQty: 0 RF: 0 clonidine HCl 0.1 MG tablet 0.1 mg PO PRN PRNQty: 0 RF: 0 mupirocin 2 % ointment Qty: 22 RF: 0 testosterone cypionate [Depo-Testosterone] 200 MG/1 ML oil Qty: 9 RF: 0 [CLONIDINE] 750 mcg Qty: 0 RF: 0 amlodipine-atorvastatin 5-10 mg tablet 1 tab PO DAILY RF: 0 acetazolamide 125 mg tablet 31 mg PO BID RF: 0 carvedilol 6.25 mg tablet 6.25 mg PO ONCE RF: 0 naltrexone 50 mg tablet 25 mg PO DAILY Qty: 30 RF: 1 carvedilol 12.5 mg tablet 12.5 mg PO ONCE RF: 0 Referrals: Raghu Brennan MD [Primary Care Provider] -
[2018-07-23] MEDS: HYDROMORPHONE 2 MG INJ 3 MG SUBCUT (20:04)
[2018-07-23 20:41] VITALS: BP 166/92; PULSE 76; RESP 16; O2SAT 100
== END 2018-07-23 21:02 | disposition home or self-care (01) ==
PROVIDERS: Emergency Provider Emergency Medicine; Family Provider Family Medicine; PCP Family Medicine
DX: F11.23 Opioid dependence with withdrawal (principal); T50.7X1A Poisoning by analeptics and opioid receptor antagonists, accidental (unintentional), initial encounter
CPT/HCPCS: 99282; 99283; J1170

== ENCOUNTER → 2018-10-13 11:35 | Outpatient (CLI) | payer MEDICARE, OTHER, SELFPAY ==
--- NOTE | 2018-10-13 11:42 | DI.CT.S_ITS ---
PROCEDURE: CT LUMBAR SPINE WO CON INDICATIONS: SPINAL STENOSIS LUMBAR REGION TECHNIQUE: Noncontrast 3 mm thick sections acquired from the T12 level to the sacrum. Sagittal and coronal reformats were constructed. For radiation dose reduction, the following was used: automated exposure control. COMPARISON: [facility] [place], CR, XR LUMBAR SPINE 2 OR 3 VIEWS, 01/16/2018, 14:36. [facility], CT, L-SPINE WITHOUT CONTRAST, 02/07/2016, 12:12. [facility] [place], CR, XR LUMBAR SPINE 2 OR 3 VIEWS, 10/09/2018, 16:53. [facility] [place], CR, XR LUMBAR SPINE 2 OR 3 VIEWS, 11/19/2017, 9:06. [facility] [place], CR, XR LUMBAR SPINE 2 OR 3 VIEWS, 09/04/2017, 10:03. [facility] [place], CR, XR LUMBAR SPINE 2 OR 3 VIEWS, 07/03/2017, 13:44. FINDINGS: Image quality: Excellent. Bones: There is normal bony alignment. There is straightening of normal cervical spine curvature. Chronic L3 compression deformity is stable compared to CT scan obtained 02/07/2016. Postsurgical changes compatible with L2-L5 posterior and interbody fusion are noted. Orthopedic hardware is intact. No lucencies at the bone hardware interface. No acute vertebral body compression fractures. No suspicious lytic or blastic bony lesions. No pars defects. A neural stimulator lead enters the spinal canal at the L1-2 level with tip extending to the level of the T12 vertebral body. T12-L1: Slight loss of disc height. Mild, diffuse disc bulge. No central stenosis. No neural foraminal narrowing. No definite neural impingement. L1-L2: Slight loss of disc height. Vacuum disc phenomenon. Mild, diffuse disc bulge. Mild bilateral facet hypertrophy. Mild to moderate narrowing of the central canal. Mild bilateral neural foraminal narrowing. No definite neural impingement. L2-L3: Status post fusion in partial left facetectomy. Posterior disc osteophyte complex. Mild narrowing of the central canal. Mild bilateral neural foraminal narrowing. No definite neural impingement.. L3-L4: Status post fusion and partial left facetectomy. Mild narrowing of the central canal. Moderate right and mild left neural foraminal narrowing. No definite neural impingement. L4-L5: Status post fusion. Moderate bilateral facet hypertrophy. No central stenosis. Mild bilateral neural foraminal narrowing. No definite neural impingement. L5-S1: Status post fusion. Mild bilateral facet hypertrophy. No central stenosis. No neural foraminal narrowing. No definite neural impingement. Soft tissues: No retroperitoneal masses. There is a 3.0 x 8.4 cm walled off fluid collection in the posterior left paraspinal soft tissues the level of the L2-L4 vertebral bodies. Visualized aorta is normal in caliber. Neural stimulator noted in the posterior subcutaneous fat of the right upper pelvis. IMPRESSION: 1. Postsurgical changes. 2. Multilevel degenerative disease. 3. Multilevel facet arthropathy. 4. Mild to moderate L1-L2 Central canal narrowing. Mild L2-L3 and L3-L4 central canal narrowing. 4. Moderate right and mild left L3-L4 neural foraminal narrowing. Mild bilateral L1-L2, L2-L3 and L4-L5 neural foraminal narrowing. 5. No definite neural impingement. 6. 3.8 x 8.4 cm walled fluid collection in the posterior left paraspinal soft tissues the level of the L2-L4 vertebral bodies. Findings represent postsurgical seroma/hematoma, however infected fluid collection cannot be differentiated by imaging alone. Dictated by: Cici Morrison MD, PhD on 10/13/2018 at 15:11 Approved by: Cici Morrison MD, PhD on 10/13/2018 at 15:21
== END ==
PROVIDERS: PCP Family Medicine; Visit Provider Orthopaedic Surgery Orthopaedic Surgery of the Spine
DX: M48.061 Spinal stenosis, lumbar region without neurogenic claudication (principal); M51.36 Other intervertebral disc degeneration, lumbar region; M47.816 Spondylosis without myelopathy or radiculopathy, lumbar region; Z98.1 Arthrodesis status; M96.842 Postprocedural seroma of a musculoskeletal structure following a musculoskeletal system procedure
CPT/HCPCS: 72131

== ENCOUNTER → 2018-10-30 08:11 | Outpatient (CLI) | payer MEDICARE, OTHER, SELFPAY ==
[2018-10-30 09:25] LABS: Hematocrit 48.4 % (41-53); Hemoglobin 16.1 g/dL (13.5-17.5); Mean Corpuscular HGB Conc 33.2 % (30-36); Mean Corpuscular Hemoglobin 29.7 PG (26-34); Mean Corpuscular Volume 89.5 fL (80-100); Platelet Count 164 X10^3/uL (150-400); Red Blood Cell Count 5.41 X10^6/uL (4.5-5.9); Red Cell Distribution Width 14.9 % (11.6-14.8)
[2018-10-30 09:45] LABS: BUN Creatinine Ratio 17.3 (6-22); Blood Urea Nitrogen 19 mg/dL (9-20); Calcium 9.2 mg/dL (8.4-10.2); Carbon Dioxide 29 mmol/L (22-32); Chloride 102 mmol/L (98-107); Estimated Glomerular Filt Rate > 60.0 mL/min (>60); Glucose 104 mg/dL (80-110); HEMOLYSIS < 15 (0-50); Potassium 4.4 mmol/L (3.4-5.1); Sodium 139 mmol/L (137-145)
== END ==
PROVIDERS: PCP Family Medicine; Visit Provider Orthopaedic Surgery Orthopaedic Surgery of the Spine
DX: Z01.818 Encounter for other preprocedural examination (principal); R51 Headache
CPT/HCPCS: 36415; 80048; 85027; 93005; 93010; 99214

== ENCOUNTER 2018-11-10 06:12 | Inpatient (IN) | payer MEDICARE, OTHER, SELFPAY ==
[2018-11-05 13:28] VITALS: BMI 30.3
[2018-11-10] VITALS (19 sets, daily range): BP systolic 113–180; BP diastolic 71–113; PULSE 64–95; RESP 11–98; TEMP 36.2–37.3; O2SAT 92–99; BMI 30.3
--- NOTE | 2018-11-10 | DI.RAD.S_ITS ---
PROCEDURE: XR LUMBAR SPINE 2-3V INDICATIONS: L2-3 TLIF TECHNIQUE: 4 views of the lumbar spine were acquired. COMPARISON: [facility], CR, L-SPINE 2-3 VIEWS, 06/09/2017, 11:50. [facility], CR, L-SPINE 2-3 VIEWS, 05/30/2017, 15:37. FINDINGS: Bones: 5 [id number] vertebrae are present. There is normal bony alignment established by revision of posterior fusion procedure involving the lumbosacral spine. Extension of the right-sided fusion pedicle screws and vertical fixation krystle appears to have been performed in addition to placement of a midline L1-L2 interbody disc prosthesis, cage type. The fixation on the right spans from L1-S1. That on the left spans from L2-L5 as was previously the case.. No vertebral body compression fractures. No suspicious bony lesions. Soft tissues: Overlying bowel gas pattern is normal. No suspicious soft tissue calcifications. IMPRESSION: Revision spine fusion as discussed, normal alignment established. Interbody cage disc fixation devices are seen at L1-2, L2-3, and L4-5. Dictated by: Donnie Fagan M.D. on 11/10/2018 at 11:53 Approved by: Donnie Fagan M.D. on 11/10/2018 at 12:01
[2018-11-10] MEDS: LACTATED RINGERS 1,000 ML 42 ML IV ×2 (07:10→09:34)
[2018-11-10] MEDS: CEFAZOLIN 2 GM/100 ML FROZ.PIGGY IV ×3 (08:06→23:41)
--- NOTE | 2018-11-10 08:37 | SUR.OPER ---
Prone on spine table, head in foam head support, padded chest and pelvic supports, gel pad at knees, lower legs supported by pillows; nipples, genitalia and toes free of pressure, arms secured on foam padded arm boards at <90 degrees abduction. Tape over blanket at thigh secured to table.
[2018-11-10] MEDS: BUPIVACAINE LIPOSOME 266 MG/20 ML VIAL INJ (08:45)
[2018-11-10] MEDS: BUPIVACAINE 0.25% W/ EPI (PF) 10 ML VIAL 30 ML INJ (08:47)
[2018-11-10] MEDS: ACETAMINOPHEN IV 1,000 MG/100 ML VIAL 400 MG IV (09:31)
--- NOTE | 2018-11-10 11:25 | PM.OP.1 ---
Operative Date/Time/Diagnoses Date of procedure: 11/10/18 Time of procedure: 08:03 Pre-op diagnosis: 1. Hx of L2-5 fusion with adjacent level degeneration 2. L2-3, L5-S1 pseudoarthrosis 3. L1-2, L2-3, L3-4, L4-5, L5-S1 spinal stenosis 4. L1-2, L2-3, L3-4, L4-5, L5-S1 spondylosis with radiculopathy Post-op diagnosis: same Procedure & Clinicians Procedure: 1. L1-2 posterolateral and posterior interbody fusion 2. L1-2 interbody cage placement. 3. L2-3, L5-S1 posterolateral fusion 4. L2-5 posterior segmental instrumentation removal 5. L1-2, L2-3, L3-4, L4-5, L5-S1 posterior segemental instrumentation with pedicle screws placement 6. L2-3, L5-S1 right hemilaminectomy 7. [place] of bone marrow from iliac crest using Jamshidi needle 8. Utilization of microsurgical technique and operating microscope Same procedure as scheduled: Yes Indications: Patient has been having chronic back pain and worsening lumbar radiculopathy. Patient had previous lumbar fusion with significantly improved pain until the last 6 months. Patient failed multiple conservative management with worsening pain weakness and numbness in her lower extremity. Patient has been having difficulty performing activity of daily living. After discussing risks benefits of treatment options, patient elected proceed with surgery. Surgeon: Laci Sorensen Surgical Pathologist: Letitia Riggs Click Yes if Unassisted: No Anesthesia Type: General Operative Notes Closure Type: primary Specimen(s): none sent Prosthetic devices, grafts, tissues, transplants, or devices: Globus revolve screws, Rise cage Applied: catheter Estimated Blood Loss (mL): 150 Blood products transfused: none Procedure in detail: Patient was seen in the preoperative area. Risks and benefits of the surgery was discussed with the patient. Informed consent was obtained from the patient and placed in the chart. Surgical site was marked. Patient was taken to the operative room. General anesthesia was administered. Prophylactic antibiotic was given to the patient less than 30 min before the incision was made. Patient was placed into a prone position on the Angelo table. Patient's back was then prepped and draped in the sterile fashion. Time-out was performed at this time. Using patient's previous scar incision was made over the L1-2, L2-3, L3-4, L4-5, L5-S1 interval on the right side. Fascia was incised in line with skin incision. Patient's previously placed hardware over the L2-5 level was identified by dissecting down to the level the hardware using a Bovie and a Almanza. The locking caps which was removed using globus screwdriver. The locking krystle was then removed from the tulips of the pedicle screws using a Gail. The pedicle screws were then removed using the screwdriver. The screws were found to have good purchase. The Globus and MARS retractors was then placed into the wound and docked onto the L1 lamina using C-arm guidance. Using microsurgical technique and operating microscope a laminectomy facetectomy was performed by removing the L1 lamina and the L1-2 facet. The disc space at L1-2 level was identified next. And a total diskectomy was performed at L1-2 level. The endplates were decorticated using a rasp and shaver. The total diskectomy and decortication was performed at L1-2 level in order to to accomplish a L1-2 fusion. The local bone from the laminectomy and facetectomy was saved for local bone grafting. After the total diskectomy and decortication was completed, Bio4 bone graft material was combined with local bone that was harvested earlier. At this time, a separate skin is incision was made over the iliac crest. A Jamshidi needle was inserted into the iliac crest through a separate skin incision. 5 cc of bone marrow aspiration was obtained through the separate skin incision using a Jamshidi needle from the iliac crest. The bone marrow aspiration was combined with local bone and the Bio4 bone grafting material. The bone grafting material was placed into the L1-2 interbody space along with a expandable cage. The cage was expanded to its maximum height using the torque limiting screwdriver. The fusion mass on the left side was exposed by performing a right-sided hemilaminectomy at L2-3, L5-S1 level. The hemilaminectomy was performed using the Kerrison rongeur to undercut the lamina as well removing additional epidural scar tissue for purpose of decompressing the epidural space. The fusion mass was explored and was found have visible motion indicating pseudoarthrosis. Globus MARS retractor was inserted and docked onto the L1-2, L2-3, L5-S1 posterolateral gutter. Using the power drill, posterior-lateral decortication was performed at L1-2, L2-3, L5-S1 level until bleeding cortical bone was identified. The remaining bone grafting material was placed into the L1-2, L2-3, L5-S1 posterior lateral gutter he order to accomplish posterolateral fusion at the L1-2, L2-3, L5-S1 level. Using the double C-arm technique, pedicle screws were placed into the L1, L2, L3, L4, L5, S1 pedicles. This was done by placing the Jamshidi needle into the pedicles, then placing the guidewires over the Jamshidi needle, and finally placing the cannulated screws over the guidewires. After the pedicle screws were placed, a titanium krystle was locked into the heads of the pedicle screws using locking caps and torque limiting screwdriver. After all the hardware was placed, and confirmed with AP and lateral C-arm imaging, the wound was then irrigated with sterile normal saline and packed with Ray-Leobardo gauze for 3 min to accomplish hemostasis. After the gauze was removed the deep fascia was closed with #1 Vicryl suture. The subcutaneous layer was closed with 2-0 Vicryl. The skin was closed with skin suzie. Patient tolerated the procedure well. There were no complications. Complications: none Condition: stable Disposition: PACU Plan for aftercare: Admit to inpatient hospital
[2018-11-10] MEDS: HYDROMORPHONE 2 MG INJ 0.5 MG IV (12:19)
--- NOTE | 2018-11-10 12:27 | SUR.PHASEI ---
awake and responding, BIPAP off per pts. request, states pain at tolerable level declines pain medication, denies nause.
[2018-11-10] MEDS: SODIUM CHLORIDE 0.9% 1,000 ML 100 ML IV ×2 (13:39→23:41)
--- NOTE | 2018-11-10 14:37 | CM.DANOTE ---
DCP/Assessment: Reviewed chart. Patient is a 72yr old male admitted to . for spine surgery peformed today by . PCP is Dr. Brennan. Primary payor is 1)Medicare 2)[employer]. Met with patient explained CM/SW role. Patient alert and oriented during visit but in visible pain. RN aware. Patient reports that he plans to go home when medically stable. Patient resides with his spouse/Tessy and has been primarily I in ADL's. Patient uses a cane on occasion and continues to drive. Patient reports that he has had approximately 9 spinal surgeries and 20 procedures on his back. Patient aware of his limitations and is hopeful that this surgery will help. Patient has a total of 14 stairs at his residence. Patient aware he will need stair training prior to d/c. Notified patient that CM team will continue to follow for any d/c planning needs that may arise. P: Anticipate home when stable. 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 Yes Advance Directives on File Yes History Provided By Patient Medical Record Prior Living Arrangements House Household Members spouse Type of transporation used prior to Drives own vehicle admit Independent with ADL's Yes Is patient alert and oriented? Yes Caregiver for Another No DME Already Rented / Owned Cane Comment Pending progress with therapy. Discharge Plan Home Transportation Arrangement Family to provide transportation. Additional Comment Therapy evaluation pending. Patient had spine surgery today. Whiteboard Updated in Patient Room with Yes name and ext. # of Belt And Link Shop Supervisor Review Status In Process Next Review Type Continued Stay Review Pre-Anesthesia Assessment Start: 11/05/18 13:28 Freq: Status: Active Protocol: Document 11/05/18 13:28 CAB (Rec: 11/05/18 15:08 CAB [id number]) Pre-Anesthesia Assessment PAC Comment Pt has a spinal cord stimulator and pain pump implanted. Patient will bring remote to turn off spinal cord stimulator day of surgery Patient Also Known As (SALAS Webster Patient Information Reviewed Via Phone Assessment Assessment Completed With Patient Diagnostic Results BMP/CMP CBC EKG Comment Labs/ECG @[facility] 4/18/19 Primary Care Provider Raghu Brennan Seen Specialist in Last 12 Months Yes Specialist Seen Infantry Operations Specialist Orthopedist Other Comment Neurology for headaches, pain specialist/Dr. Yang Primary Language Palauan Scrap Worker Required No Height 185.42 cm Weight 104.326 kg Body Mass Index (BMI) 30.3 Hearing Ability Hard of Hearing Use of Hearing Aid Visual Assist Magnifying Glass Barriers to Learning None Other Aids Yes: BiPAP Hx Anesthesia Reactions No Hx Family Anesthesia Reaction No Hx Malignant Hyperthermia No Hx Blood Transfusions No Comment Pt has a spinal cord stimulator and pain pump implanted Anesthesia Review Requested Yes: Prior review, second review r/t comorbidities Elect Equip Maint Eng No alcohol intake never Smoking Status Never smoker Substance Use Type does not use Pain Present Pain Reported Musculoskeletal Symptoms Abnormal Gait Back Pain Difficulty Walking Joint Pain Muscle Cramps Muscle Spasms Muscle Weakness Numbness Tingling History of Falling (Recent or History of No ) Patient is completely paralyzed or No completely immobile Prosthesis or Orthotic Device Cane Mental Status Oriented to own ability Is patient on oxygen? No Does patient have PAUL/SOB No Hx Sleep Apnea Yes CPAP/BIPAP use prescribed and used routinely Will Bring CPAP/BIPAP DOS Yes Currently Taking a Beta Ney Yes: Carvedilol Can You Climb a Flight of Stairs Without Yes SOB Hx Chest Pain No Hx SOB No Hx Syncope or Dizziness No Anti-Coagulant Therapy No Has a Infantry Operations Specialist Yes: Dr. Correa-last visit 03/20 Cardiac Testing Yes: ZIO patch 07/24/17, NUC stress @[facility] 03/07/18 Hx Pacemaker/ICD No Pacemaker Rep Required? No Diet Type At Home Regular dysphagia No Urinary Catheter Present No Hx Urinary Self Catheterization No Diabetes No Hx Drug Resistant Organism No Presence of External or Internal Medical Yes: Spinal cord stimulator, Devices pain pump, bilateral eye lens, BiPAP Have you traveled outside the [place] in the last 30 days? Marital Status Lives With spouse Prior Living Arrangements House Number of Floors (Floors) Two Floors Support System Friend(s) Spouse Does the Patient Have Assistance After Yes Surgery Patient Discharge Plan Description Return Home Comment Pt not advised on length of stay per surgeon's office Feels Safe in Current Environment Yes Been Physically Hurt or Threatened By a No Person in Current Environment Do you have thoughts of harming yourself None or others? Are you currently considering suicide? No Do you have a plan to hurt yourself or No Plan others? Do You Have Any Spiritual Beliefs That No May Affect Your HC Choices? Do You Have Any Cultural Practices That No May Affect Your HC Choices? Who Can We Speak to About Patient's Care Family, friends Identifying Code for Release of Patient Declines to issue Information Health Care Proxy/Next of Kin Xena () Health Care Proxy or [phone] Emergency Contact Name Xena () Emergency Contact or [phone] Advance Directives? Yes Advance Directives on File Yes PAC Instructions Durable medical equipment Medications to take/avoid Nasal antibiotic No ETOH/petroleum product on skin DOS NPO Post-op transportation Pre-surgical wash Sensory aids Sturdy shoes/comfortable clothes Do not bring valuables and remove jewelry
--- NOTE | 2018-11-10 15:28 | PC.NURSE ---
1250 Patient arived from PACU, VSS, on RA, awake and alert but reports this all feels like a dream. Dressing to back CDI. Mcelroy in place and intact, clear yellow urine draining. Moving all extremitites, and +CMS. Tolerating water, denies N/V. Oriented to room and call light, fall precautions in place. Bed alarm active for safety.
--- NOTE | 2018-11-10 16:20 | PT.IIE ---
Current Diagnoses Spinal stenosis, lumbar region without neurogenic claudication (11/10/18) Postlaminectomy syndrome, not elsewhere classified (11/10/18) Other complications of procedures, not elsewhere classified, subsequent encounter (11/10/18) Arthrodesis status (11/10/18) Surgery Performed Operation Date: 11/10/18 07:45 Actual Procedures p L2-3,L3-4,L4-5 HWR,Explor fusion, L1-2 TLIF, L1-S1 PSF w/Instru, I&D of Lumbar - Laci Sorensen MD Surgical History (Last Updated 11/05/18 @ 14:20 by Virginie Montalvo RN) History of bilateral knee arthroplasty (Acute) History of lumbar surgery (Acute) Hx of sinus surgery (Acute 03/12/18) S/P CABG x 2 (Acute ~07/2015) S/P insertion of spinal cord stimulator (Acute ~2002) Status post bilateral cataract extraction (Acute ~10/2014) Medical History (Last Updated 11/05/18 @ 14:25 by Virginie Montalvo RN) Obstructive sleep apnea of adult (Chronic) Hypersomnia (Inactive) Primary insomnia (Chronic) Arachnoiditis (Acute) Cardiac murmur (Acute) KLUTI KAAH (hard of hearing) (Acute) HTN (hypertension) (Acute) Postoperative atrial fibrillation (Acute) Statin intolerance (Acute) Tachycardia (Acute) Physical Therapy Inpatient Evaluation/Re-Eval M1 PT/OT-IP Prior Functional Status Start: 11/10/18 15:53 Freq: NEEDED Status: Active Protocol: Document 11/10/18 15:10 (Rec: 11/10/18 16:20 [id number]) Medical Review Prior Functional Status Medical History Reviewed Yes Diet/Fluid Consistency Regular Communication No deficits noted. Able to make needs known Mobility and Gait Pt was an independent ambulator at home and community. Pt uses SPC sometimes depends on his back pain. Standing upright/ prolonged walking tends to worsen his back pain. Activities of Daily Living and IADL's Independent with ADLs and IADLs. Pt's does assist grocery shop sometimes by carrying groceries. Pt was able to drive, manage medication and go to bank. Social History Household Members spouse Living Arrangements House Number of Floors (Floors) Two Floors Number of Stairs To Enter/Railing? Daylight basement house with no MONTY 7 steps to the landing and 7 after to mainfloor with R railing Home Environment Standard Height Toilet Walk in Shower Home Equipment Front Wheel Walker Straight Cane Tub Transfer Associate Publisher Held Shower Liner Inserter Grab Bars In Shower Employment Status Retired Additional Social History Comment Pt lives with his in [facility]. His is also active and independent with a SPC. Pt had a very complicated surgical hx since 2002. Pt had a total of 46 surgeries in total since then primarily due to his back pain. Pt also had B TKA. Pt states this is his 9th back surgeries and he had internal pain pump and spinal cord neurostimulator for chronic pain management. PMH also includes arachnoiditis. M2 PT-IP Current Condition Start: 11/10/18 15:53 Freq: NEEDED Status: Active Protocol: Document 11/10/18 15:10 HH (Rec: 11/10/18 16:20 [id number]) Physical Therapy Current Condition Current Condition Evaluation Date 11/10/18 Treatment Diagnosis L1-L2 TLIF, I&D, impaired gait and activity tolerance Onset Date 11/10/18 Precautions Lumbar Precautions Log Roll No Twisting Limit Bending Lifting Restriction of 10 lbs Gait Belt above Incisional Area Weight Bearing Status Weight Bearing Status Weight Bear as Tolerated M3 PT-IP Subjective Start: 11/10/18 15:53 Freq: NEEDED Status: Active Protocol: Document 11/10/18 15:10 HH (Rec: 11/10/18 16:20 [id number]) Subjective Physical Therapy Visit Type Type Initial Evaluation Visit Start Time 15:10 Visit Stop Time 16:50 Total Visit Minutes 40 Notes Per RN, pt arrived 1300 pm and has been repositioning himself in bed. Number of TEXTILE COLORIST DYER Visits 0 Physical Therapy Visit Comments Patient Comments My pain is 9/10 but pt does not have any facial grimacing/ screaming for pain during session Patient Goals To return home with his . Therapy Pain Assessment Pain When Pain Assessed During Mobility Pain Present Pain Present Pain Reported Location Lower Back Intensity 9 Scale Used Numeric (1 - 10) Description Acute Pain Management Techniques Modification of Treatment Re-positioning Timing of Activity with Medications M4 PT-IP Mobility and Gait Start: 11/10/18 15:53 Freq: NEEDED Status: Active Protocol: Document 11/10/18 15:10 HH (Rec: 11/10/18 16:20 [id number]) PT-Bed Mobility Assessment Rolling Type of Rolling Log Rolling Roll to Right Level of Assist Standby Assistance Supine to Sit Supine to Sit Standby Assistance Scooting Scooting to Edge of Bed Standby Assistance PT-Transfer Assessment Sit to and From Stand Sit to and from Stand Contact Guard Assistance Use of Upper Extremities Equipment Transfer Assistive Device Gait Belt Front Wheeled Walker Orthotic/Prosthetic Devices or Brace: No Transfers Transfer Destination Bed Chair Transfer Technique Stand Step Pivot Transfer Ability Level of Assist Contact Guard Assistance Comments Mobility Comments Pt's BP 170s/100s upon assessment but returned to 150s/90s after mobility. Pt able to recall precautions 3/3 and performed log roll to get OOB. Pt able to transfer bed< > chair with FWW CGA and stand step pivot. Pt is very steady and mobilize safely. Gait Assessment Gait Gait Assistance Required: Contact Guard Assist Distance (Feet) 150 Able to Maintain Weight Bearing Status Yes During Gait Assistive Devices Assistive Device Gait Belt Front Wheeled Walker Orthotic/Prosthetic Devices or Brace: No Gait Deviations General Gait Pattern Decreased Stride Length Decreased Feet Clearance Flexed Trunk Factors Limiting Gait Function Factors Limiting Gait Function Decreased Activity Tolerance Decreased Strength Limited Range of Motion Pain Comments Gait Comments Pt amb from R side of EOB to hallway and returned to bedside chair for a total of 150 feet with FWW CGA. Pt presents slight flexed trunk during amb but he was very steady and did not show acute distress/ LOB. Stair Climbing Assessment Comments Stair Climbing Comments did not attempt. PT-Balance Assessment Sitting Balance and Reactions Static Sitting Balance Ability Normal Dynamic Sitting Balance Ability Normal Standing Balance and Reactions Static Standing Balance Ability Good Dynamic Standing Balance Ability Good Device Used FWW M5 PT-IP Objective Assessments Start: 11/10/18 15:53 Freq: NEEDED Status: Active Protocol: Document 11/10/18 15:10 (Rec: 11/10/18 16:20 [id number]) Orientation Orientation/Cognition Level of Alertness Alert Orientation Name Age Birthday Month Date Year Day of Week Place Situation Language Function Ability No Deficits Noted Safety Awareness Understands Safety Issues Memory Description No Deficits Noted Gross Range of Motion Upper Extremity ROM Assessment Within Functional Limits Lower Extremity ROM Assessment Within Functional Limits Strength Upper Extremity Strength Assessment Within Functional Limits Lower Extremity Strength Assessment Within Functional Limits Coordination Assessment Gross Coordination Gross Coordination WNL Sensation Assessment Sensation Gross Sensation Right LE Impaired Left LE Impaired Light Touch Intact Proprioception (Position) Intact Sensation Description Numbness Comments Sensation Comments c/o slight numbness at B top of thighs Muscle Tone Muscle Tone WNL Yes M6 PT-IP Treatment Start: 11/10/18 15:53 Freq: NEEDED Status: Active Protocol: Document 11/10/18 15:10 HH (Rec: 11/10/18 16:20 [id number]) Physical Therapy Treatment Exercises Exercises Ankle Pumps Quad Sets Straight Leg Raises Education Education Provided Precautions Weight Bearing Status Post-Op Packet Safety M7 PT-IP Assessment and Plan Start: 11/10/18 15:53 Freq: NEEDED Status: Active Protocol: Document 11/10/18 15:10 HH (Rec: 11/10/18 16:20 [id number]) PT Summary Assessment and Plan Potential Rehabilitation Potential Excellent Status of Condition at Evaluation Stable Summary Impairments Pain ROM Strength Bed Mobility Transfers Gait Activity Tolerance Assessment Summary Pt is a 72yo POD#1 L1-2 TLIF who has chronic and complicated surgical hx for his chronic pain. However, pt is low complexity for PT yuri who needed overall CGA for bed mob, transfer and ambulation with FWW. Pt appears very steady and no acute distress but his BP apparently ranged from 150-170s/ 90-100s during session and asymptomatic. Pt did c/o pain 03/24 but did not show any facial grimacing/ calling out behaviors. Pt is expected to be d/c home with his 's assistance once he is medically stable and able to climb 14 steps with R railing. He might also need DME for raised toilet seat. Goals Bed Mobility Goal Independent Transfer Goal Independent Front Wheeled Walker Gait Goal Independent Front Wheel Walker Gait Distance 300 Other Goals climb stairs 14 steps in total with R railing SBA Days to Meet Goals 5 Frequency of Treatment Frequency Of Treatment Twice a Day Treatment Plan Physical Therapy Treatment Plan Bed Mobility Training Transfer Training Gait Training Therapeutic Exercise Balance Retraining Post Op Education Discharge Planning Hot or Cold Pack Other Recommendations and Next Treatment bed mob, transfer, gait Focus training and stair climbing as neema Recommendations To Nursing Amount of Assist Needed 1 Person Assist Discharge Recommendations PT Discharge Recommendations Home with Assistance Other Discharge Recommendations Pt is expected to be d/c home with his 's assistance once he is medically stable and able to climb 14 steps with R railing. He might also need DME for raised toilet seat with armrest. Equipment Needed for Home Before raised toilet seat with Discharge armrest
[2018-11-10] MEDS: HYDROMORPHONE 2 MG TABLET 4 MG PO (16:41)
[2018-11-10] MEDS: HYDROMORPHONE 0.5 MG INJ IV (18:42)
--- NOTE | 2018-11-10 19:31 | PC.NURSE ---
bakari note pt up ambulating with PT, then sitting in chair. Pt reports that he now has numbness in both legs, new since surgery. Pt able to freely move at ankles, hips and knees. Called Dr. Mey ramos to report. Per her report, if pt is able to move all joints, just continue to monitor. Pt still having 8-9/[address] Ramos again to discuss pain med regimen. New orders received.
[2018-11-10] MEDS: HYDROMORPHONE 4 MG TABLET 8 MG PO (20:01)
[2018-11-10] MEDS: CARVEDILOL 12.5 MG TABLET PO (20:53)
[2018-11-10] MEDS: DOCUSATE 100 MG CAPSULE PO (20:53)
[2018-11-10] MEDS: SENNOSIDES 8.6 MG TABLET 17.2 MG PO (20:53)
[2018-11-10] MEDS: HYDROMORPHONE 0.5 MG INJ 1 MG IV (23:46)
[2018-11-11 05:10] LABS: Hematocrit 43.4 % (41-53); Hemoglobin 14.6 g/dL (13.5-17.5)
[2018-11-11] MEDS: HYDROMORPHONE 0.5 MG INJ 1 MG IV (06:13)
[2018-11-11 06:14] VITALS: BP 152/83; PULSE 74; RESP 18; TEMP 36.8; O2SAT 99
[2018-11-11 07:27] VITALS: BP 151/84; PULSE 74; RESP 18; TEMP 36.6; O2SAT 99
[2018-11-11] MEDS: AMLODIPINE 5 MG TABLET PO (08:49)
[2018-11-11] MEDS: BENAZEPRIL 5 MG TABLET 10 MG PO (08:49)
[2018-11-11] MEDS: DOCUSATE 100 MG CAPSULE PO (08:50)
[2018-11-11] MEDS: CARVEDILOL 6.25 MG TABLET PO (08:50)
[2018-11-11] MEDS: HYDROMORPHONE 2 MG TABLET 8 MG PO (08:51)
--- NOTE | 2018-11-11 09:58 | PM.DS.1 ---
History of Present Illness Date Patient Seen: 11/11/18 Time Patient Seen: 09:58 Chief complaint: [id number] Narrative: Hospital day 2, postop day 1 following L2-3, L5-S1 right hemilaminectomy; L1-2 TLIF; L2 through L5 posterior screw removal and L1 through S1 posterior screw fixation by Dr. Sorensen. Patient has remained stable postoperatively. Has been ambulating out of bed. did well with physical therapy today. the patient feels he is ready to be discharged home today. Discharge Providers Date of admission: 11/10/18 06:12 Discharge Date: 11/11/18 Primary care physician: Raghu Brennan MD Consults: 11/05/18 15:08 Consult to Anesthesiology Routine Comment: Consulting Provider: Anesthesiologist Reason for consultation: PAC Courtesy re: Comorbidities 11/10/18 07:15 Consult to Respiratory Therapy Evaluate & Treat Comment: Physician Instructions: Evaluate and treat 11/10/18 12:50 Consult to Occupational Therapy Evaluate & Treat Comment: Physician Instructions: Evaluate and treat Consult to Physical Therapy Evaluate & Treat Comment: Physician Instructions: Evaluate and Treat Discharge provider: Keenan Aguirre PA-C Summary Discharge Diagnosis: Status post L2-3, L5-S1 right hemilaminectomy; L1-2 TLIF with cage; L2 through L5 posterior screw removal and L1 through S1 posterior screw fixation. Hospital Course: Patient brought to hospital on 11/10/2018 for above-noted surgery. He remained stable postoperatively. Progressed well with physical therapy. Pain well controlled. Ready for discharge home on postop day 1. Status at Discharge Cognitive/behavioral status at discharge: oriented Functional status at discharge: uses cane/walker Overall status at discharge: patient is progressing back to baseline Time Spent with Patient Less than 30 minutes Exam Vital Signs (past 8 hours): - 11/11/18 06:14 11/11/18 07:27 Temperature 98.2 F 98 F Pulse Rate 74 74 Respiratory Rate 18 18 Blood Pressure 152/83 H 151/84 H Pulse Oximetry 99 99 Oxygen Delivery Method Room Air Oxygen Flow Rate 0 Narrative Exam Narrative: Alert, oriented no acute distress sitting in chair having breakfast. Back. Dressing to lumbar area is dry with a small area shadowing. No signs of infection or inflammation. Legs. No calf pain or swelling. Pulses symmetrical. Good sensation to touch to lower legs. Patient able do full leg extension from sitting position bilateral. Good strength on foot dorsiflexion plantar flexion. Objective Labs Result Diagrams: 11/11/18 04:42 Labs: Laboratory Results - last 24 hr 11/10/18 11/11/18 12:00 04:42 Hgb 14.6 Hct 43.4 Nasal Screen MRSA (PCR) Negative for mrsa Discharge Plan Discharge Plan Patient Disposition: Home Discharge comment: Discharge home after cleared by PT. Ambulate as tolerated. Avoid excessive bending or twisting of lumbar spine. no lifting or carrying more than 5-10 lb. Patient to avoid any jarring activity to his back. CovRsite dressing to lumbar incision. Discharge Med Rec/Prescriptions Prescriptions: New hydromorphone 2 mg Tablet 8 mg PO Q6H PRN (Reason: Pain, Severe (7-10)) Qty: 30 RF: 0 Continued bupivacaine (PF) 0.25 % 2 mL/hr 120 mL elastomeric pump,fixed rate 3.15 mg Continuous Epidural DAILY RF: 0 tadalafil [Cialis] 20 MG tablet 20 mg PO PRN PRN (Reason: sexual activity) Qty: 0 RF: 0 acyclovir [Zovirax] 5 % ointment 5 % Topical Q4H PRN (Reason: Fever blisters) Qty: 0 RF: 0 testosterone cypionate [Depo-Testosterone] 200 MG/1 ML oil 0.5 ml subcut [id number] Qty: 9 RF: 0 carvedilol 6.25 mg Tablet 18.75 mg PO SEEINSTR RF: 0 acyclovir 200 mg Capsule 200 mg PO 5XD PRN (Reason: Fever blisters) RF: 0 amlodipine-benazepril 5-10 mg capsule 1 cap PO QAM RF: 0 hydromorphone 4 mg tablet 4 mg PO Q6H PRN (Reason: pain) RF: 0 Emgality Pen 120 mg/mL pen injector 1 dose subcut QMONTH RF: 0 dilaudid Continuous Epidural CONT RF: 0 aspirin [Aspirin Low Dose] 81 mg tablet,delayed release (DR/EC) 81 mg PO DAILY RF: 0 Follow up/Referrals: Raghu Brennan MD [Primary Care Provider] - Provider Discharge Instructions Diet: Diet as Tolerated Activity: Ambulate as tolerated. Use walker as needed. no excessive bending or twisting of lumbar spine. no lifting or carrying more than 5-10 lb. No jarring activity to low back. Cold/Heat Therapy: Cold pack to lumbar areas needed. Skin/Wound/Dressing Care Report to your healthcare provider any signs of infection, such as:: chills, fever, night sweats, increased pain, unusual drainage and unusual redness Dressing: Keep CovRsite dressing to lumbar incision until postop visit. Visit Report/Discharge Packet Instructions: DI for Transforaminal Lumbar Interbody Fusion Discharge Data Primary Care Provider: Raghu Brennan Attending Provider: Laci Sorensen Admit Date/Time: 11/10/18 06:12
--- NOTE | 2018-11-11 10:02 | P.DS_ITS ---
History of Present Illness Date Patient Seen: 11/11/18 Time Patient Seen: 09:58 Chief complaint: [id number] Narrative: Hospital day 2, postop day 1 following L2-3, L5-S1 right hemilaminectomy; L1-2 TLIF; L2 through L5 posterior screw removal and L1 through S1 posterior screw fixation by Dr. Sorensen. Patient has remained stable postoperatively. Has been ambulating out of bed. did well with physical therapy today. the patient feels he is ready to be discharged home today. Discharge Providers Date of admission: 11/10/18 06:12 Discharge Date: 11/11/18 Primary care physician: Raghu Brennan MD Consults: 11/05/18 15:08 Consult to Anesthesiology Routine Comment: Consulting Provider: Anesthesiologist Reason for consultation: PAC Courtesy re: Comorbidities 11/10/18 07:15 Consult to Respiratory Therapy Evaluate & Treat Comment: Physician Instructions: Evaluate and treat 11/10/18 12:50 Consult to Occupational Therapy Evaluate & Treat Comment: Physician Instructions: Evaluate and treat Consult to Physical Therapy Evaluate & Treat Comment: Physician Instructions: Evaluate and Treat Discharge provider: Keenan Aguirre PA-C Summary Discharge Diagnosis: Status post L2-3, L5-S1 right hemilaminectomy; L1-2 TLIF with cage; L2 through L5 posterior screw removal and L1 through S1 posterior screw fixation. Hospital Course: Patient brought to hospital on 11/10/2018 for above-noted surgery. He remained stable postoperatively. Progressed well with physical the rapy. Pain well controlled. Ready for discharge home on postop day 1. Status at Discharge Cognitive/behavioral status at discharge: oriented Functional status at discharge: uses cane/walker Overall status at discharge: patient is progressing back to baseline Time Spent with Patient Less than 30 minutes Exam Vital Signs (past 8 hours): - 11/11/18 06:14 11/11/18 07:27 Temperature 98.2 F 98 F Pulse Rate 74 74 Respiratory Rate 18 18 Blood Pressure 152/83 H 151/84 H Pulse Oximetry 99 99 Oxygen Delivery Method Room Air Oxygen Flow Rate 0 Narrative Exam Narrative: Alert, oriented no acute distress sitting in chair having breakfast. Back. Dressing to lumbar area is dry with a small area shadowing. No signs of infection or inflammation. Legs. No calf pain or swelling. Pulses symmetrical. Good sensation to touch to lower legs. Patient able do full leg extension from sitting position bilateral. Good strength on foot dorsiflexion plantar flexion. Objective Labs Result Diagrams: 11/11/18 04:42 Labs: Laboratory Results - last 24 hr 11/10/18 11/11/18 12:00 04:42 Hgb 14.6 Hct 43.4 Nasal Screen MRSA (PCR) Negative for mrsa Discharge Plan Discharge Plan Patient Disposition: Home Discharge comment: Discharge home after cleared by PT. Ambulate as tolerated. Avoid excessive bending or twisting of lumbar spine. no lifting or carrying more than 5-10 lb. Patient to avoid any jarring activity to his back. CovRsite dressing to lumbar incision. Discharge Med Rec/Prescriptions Prescriptions: New hydromorphone 2 mg Tablet 8 mg PO Q6H PRN (Reason: Pain, Severe (7-10)) Qty: 30 RF: 0 Continued bupivacaine (PF) 0.25 % 2 mL/hr 120 mL elastomeric pump,fixed rate 3.15 mg Continuous Epidural DAILY RF: 0 tadalafil [Cialis] 20 MG tablet 20 mg PO PRN PRN (Reason: sexual activity) Qty: 0 RF: 0 acyclovir [Zovirax] 5 % ointment 5 % Topical Q4H PRN (Reason: Fever blisters) Qty: 0 RF: 0 testosterone cypionate [Depo-Testosterone] 200 MG/1 ML oil 0.5 ml subcut [id number] Qty: 9 RF: 0 carvedilol 6.25 mg Tablet 18.75 mg PO SEEINSTR RF: 0 acyclovir 200 mg Capsule 200 mg PO 5XD PRN (Reason: Fever blisters) RF: 0 amlodipine-benazepril 5-10 mg capsule 1 cap PO QAM RF: 0 hydromorphone 4 mg tablet 4 mg PO Q6H PRN (Reason: pain) RF: 0 Emgality Pen 120 mg/mL pen injector 1 dose subcut QMONTH RF: 0 dilaudid Continuous Epidural CONT RF: 0 aspirin [Aspirin Low Dose] 81 mg tablet,delayed release (DR/EC) 81 mg PO DAILY RF: 0 Follow up/Referrals: Raghu Brennan MD [Primary Care Provider] - Provider Discharge Instructions Diet: Diet as Tolerated Activity: Ambulate as tolerated. Use walker as needed. no excessive bending or twisting of lumbar spine. no lifting or carrying more than 5-10 lb. No jarring activity to low back. Cold/Heat Therapy: Cold pack to lumbar areas needed. Skin/Wound/Dressing Care Report to your healthcare provider any signs of infection, such as:: chills, fever, night sweats, increased pain, unusual drainage and unusual redness Dressing: Keep CovRsite dressing to lumbar incision until postop visit. Visit Report/Discharge Packet Instructions: DI for Transforaminal Lumbar Interbody Fusion Discharge Data Primary Care Provider: Raghu Brennan Attending Provider: Laci Sorensen Admit Date/Time: 11/10/18 06:12
--- NOTE | 2018-11-11 11:42 | PT.IPTN ---
Current Diagnoses Spinal stenosis, lumbar region without neurogenic claudication (11/10/18) Postlaminectomy syndrome, not elsewhere classified (11/10/18) Other complications of procedures, not elsewhere classified, subsequent encounter (11/10/18) Arthrodesis status (11/10/18) Surgery Performed Operation Date: 11/10/18 07:45 Actual Procedures p L2-3,L3-4,L4-5 HWR,Explor fusion, L1-2 TLIF, L1-S1 PSF w/Instru, I&D of Lumbar - Laci Sorensen MD Physical Therapy Treatment Note M2 PT-IP Current Condition Start: 11/10/18 15:53 Freq: NEEDED Status: Active Protocol: Document 11/10/18 15:10 HH (Rec: 11/10/18 16:20 HH [id number]) Physical Therapy Current Condition Current Condition Evaluation Date 11/10/18 Treatment Diagnosis L1-L2 TLIF, I&D, impaired gait and activity tolerance Onset Date 11/10/18 Precautions Lumbar Precautions Log Roll No Twisting Limit Bending Lifting Restriction of 10 lbs Gait Belt above Incisional Area Weight Bearing Status Weight Bearing Status Weight Bear as Tolerated M3 PT-IP Subjective Start: 11/10/18 15:53 Freq: NEEDED Status: Active Protocol: Document 11/11/18 09:25 CLB (Rec: 11/11/18 11:41 CLB [id number]) Subjective Physical Therapy Visit Type Type Treatment Note Visit Start Time 09:25 Visit Stop Time 09:50 Total Visit Minutes 25 Number of SLIMER Visits 1 Physical Therapy Visit Comments Patient Comments Pt refused use of WC use and wanted to ambulate to stairs for stair training. Pt stated pain decreased with ambulation . Therapy Pain Assessment Pain When Pain Assessed During Mobility Pain Present Pain Present Pain Reported Location Lower Back Intensity 7 Scale Used Numeric (1 - 10) Pain Management Techniques Modification of Treatment Re-positioning Timing of Activity with Medications M4 PT-IP Mobility and Gait Start: 11/10/18 15:53 Freq: NEEDED Status: Active Protocol: Document 11/11/18 09:25 CLB (Rec: 11/11/18 11:41 CLB [id number]) PT-Transfer Assessment Sit to and From Stand Sit to and from Stand Standby Assistance 1 Person Assistance Use of Upper Extremities Equipment Transfer Assistive Device Gait Belt Front Wheeled Walker Orthotic/Prosthetic Devices or Brace: No Transfers Transfer Destination Chair Transfer Technique Stand Step Pivot Transfer Ability Level of Assist Standby Assistance Gait Assessment Gait Gait Assistance Required: Standby Assistance Contact Guard Assist Distance (Feet) 500 Able to Maintain Weight Bearing Status Yes During Gait Assistive Devices Assistive Device Gait Belt Front Wheeled Walker Orthotic/Prosthetic Devices or Brace: No Gait Deviations General Gait Pattern Decreased Stride Length Decreased Feet Clearance Flexed Trunk Factors Limiting Gait Function Factors Limiting Gait Function Decreased Activity Tolerance Decreased Strength Limited Range of Motion Pain Comments Gait Comments Pt ambulated to second floor using elevator which providing pt with standing rest breaks. Pt tolerated ambulation well reporting decreased pain during walking. Pt is SBA w/ FWW with good safety awareness and steady with gait. Stair Climbing Assessment Evaluation Level of Assist On Stairs Standby Assistance Contact Guard Assistance Devices Stair Climbing Assistive Devices Right Railing Technique/Endurance Stair Climbing Direction Ascend and Descend Stair Climbing Technique Step Over Step Step to Step Number of Steps Climbed 3 Query Text: Stair Climbing Set # Repetitions (reps) 5 Comments Stair Climbing Comments Pt with posterior LOB self corrected on first descending step. Pt with no other LOB while climbing stairs. M5 PT-IP Objective Assessments Start: 11/10/18 15:53 Freq: NEEDED Status: Active Protocol: Document 11/10/18 15:10 HH (Rec: 11/10/18 16:20 [id number]) Orientation Orientation/Cognition Level of Alertness Alert Orientation Name Age Birthday Month Date Year Day of Week Place Situation Language Function Ability No Deficits Noted Safety Awareness Understands Safety Issues Memory Description No Deficits Noted Gross Range of Motion Upper Extremity ROM Assessment Within Functional Limits Lower Extremity ROM Assessment Within Functional Limits Strength Upper Extremity Strength Assessment Within Functional Limits Lower Extremity Strength Assessment Within Functional Limits Coordination Assessment Gross Coordination Gross Coordination WNL Sensation Assessment Sensation Gross Sensation Right LE Impaired Left LE Impaired Light Touch Intact Proprioception (Position) Intact Sensation Description Numbness Comments Sensation Comments c/o slight numbness at B top of thighs Muscle Tone Muscle Tone WNL Yes M6 PT-IP Treatment Start: 11/10/18 15:53 Freq: NEEDED Status: Active Protocol: Document 11/10/18 15:10 HH (Rec: 11/10/18 16:20 [id number]) Physical Therapy Treatment Exercises Exercises Ankle Pumps Quad Sets Straight Leg Raises Education Education Provided Precautions Weight Bearing Status Post-Op Packet Safety M7 PT-IP Assessment and Plan Start: 11/10/18 15:53 Freq: NEEDED Status: Active Protocol: Document 11/11/18 09:25 CLB (Rec: 11/11/18 11:41 CLB [id number]) PT Summary Assessment and Plan Summary Impairments Pain ROM Strength Bed Mobility Transfers Gait Activity Tolerance Assessment Summary Pt is SBA for mobility and gait and required SBA-CGA for stair climbing. Pt ambulated ~ 500ft to trial stairs with three standing rest breaks, steady gait and good safety awareness. Goals Bed Mobility Goal Independent Transfer Goal Independent Front Wheeled Walker Gait Goal Independent Front Wheel Walker Gait Distance 300 Other Goals climb stairs 14 steps in total with R railing SBA Days to Meet Goals 5 Frequency of Treatment Frequency Of Treatment Twice a Day Treatment Plan Physical Therapy Treatment Plan Bed Mobility Training Transfer Training Gait Training Therapeutic Exercise Balance Retraining Post Op Education Discharge Planning Hot or Cold Pack Other Recommendations and Next Treatment ambulation, bed mobility Focus Recommendations To Nursing Amount of Assist Needed 1 Person Assist Discharge Recommendations PT Discharge Recommendations Home with Assistance Other Discharge Recommendations Pt is expected to be d/c home with his 's assistance once he is medically stable and able to climb 14 steps with R railing. He might also need DME for raised toilet seat with armrest. Equipment Needed for Home Before raised toilet seat with Discharge armrest
--- NOTE | 2018-11-11 12:11 | OT.IP.TRT ---
Current Diagnoses Spinal stenosis, lumbar region without neurogenic claudication (11/10/18) Postlaminectomy syndrome, not elsewhere classified (11/10/18) Other complications of procedures, not elsewhere classified, subsequent encounter (11/10/18) Arthrodesis status (11/10/18) Surgery Performed Operation Date: 11/10/18 07:45 Actual Procedures p L2-3,L3-4,L4-5 HWR,Explor fusion, L1-2 TLIF, L1-S1 PSF w/Instru, I&D of Lumbar - Laci Sorensen MD Occupational Therapy Treatment Note M3 OT- IP Subjective and Pain Start: 11/11/18 12:09 Freq: Status: Active Protocol: Document 11/11/18 12:09 [facility] (Rec: 11/11/18 12:11 [facility] [id number]) OT- Subjective Occupational Therapy Visit Type Type Patient Refusal Notes Pt has had mulitple back surgeries in the past and well aware of back precautions, has all equipment needs, however going to get RTS for the toilet, and to assist at home. Pt to be discharged home today. Therefore discharge OT eval orders.
--- NOTE | 2018-11-11 12:43 | PC.NURSE ---
Discharged to home with at 1150. Escorted to hospital exit by staff member via wheelchair. Home CPAP with pt as well as glasses and clothing. Dressing to lower back changed prior to D/C - incision well approximated with suzie intact. Coversite dressing placed.
== END 2018-11-11 11:50 | disposition home or self-care (01) | DRG 454 ==
LOC: AC 06:18 → ICU 06:26
PROVIDERS: Admitting Provider Orthopaedic Surgery Orthopaedic Surgery of the Spine; PCP Family Medicine; Visit Provider Orthopaedic Surgery Orthopaedic Surgery of the Spine
PROC: 0SG00AJ Fusion of Lumbar Vertebral Joint with Interbody Fusion Device, Posterior Approach, Anterior Column, Open Approach (ICD-10-PCS; principal; 2018-11-10 07:45)
DX: M48.061 Spinal stenosis, lumbar region without neurogenic claudication (principal); G03.1 Chronic meningitis; M96.0 Pseudarthrosis after fusion or arthrodesis; I10 Essential (primary) hypertension; I25.10 Atherosclerotic heart disease of native coronary artery without angina pectoris; M96.1 Postlaminectomy syndrome, not elsewhere classified; E78.5 Hyperlipidemia, unspecified; Z95.1 Presence of aortocoronary bypass graft; Z96.9 Presence of functional implant, unspecified; G47.33 Obstructive sleep apnea (adult) (pediatric); M48.07 Spinal stenosis, lumbosacral region; M47.26 Other spondylosis with radiculopathy, lumbar region; M47.27 Other spondylosis with radiculopathy, lumbosacral region
CPT/HCPCS: 36415; 72100; 76000; 85014; 85018; 86850; 86900; 86901; 87797; 97116; 97161; 97530; C1776; C9290; J0131; J0330; J0690; J1100; J1170; J2250; J2405; J2704; J3010

== ENCOUNTER → 2019-01-09 07:39 | Outpatient (CLI) | payer MEDICARE, OTHER, SELFPAY ==
[2018-11-10 14:32] VITALS: BMI 30.3
[2019-01-09 09:38] LABS: Cholesterol 150 mg/dL (140-199); HDL Cholesterol 35 mg/dL (40-60); LDL Cholesterol Calculated 98 mg/dL (<100); Triglycerides 84 mg/dL (35-150)
== END ==
PROVIDERS: Family Provider Family Medicine; PCP Family Medicine; Visit Provider Internal Medicine Cardiovascular Disease
DX: I25.810 Atherosclerosis of coronary artery bypass graft(s) without angina pectoris (principal)
CPT/HCPCS: 36415; 80061

== ENCOUNTER 2019-01-11 11:24 | Emergency (ER) | payer MEDICARE, OTHER, SELFPAY ==
[2018-11-10 14:32] VITALS: BMI 30.3
[2019-01-11 11:26] VITALS: BP 159/92; PULSE 82; RESP 19; TEMP 36.4; O2SAT 96; BMI 29.2
--- NOTE | 2019-01-11 12:29 | DI.CT.S_ITS ---
PROCEDURE: CT KIDNEY URETER BLADDER (KUB) INDICATIONS: left flank pain TECHNIQUE: Noncontrast 5 mm thick sections acquired from the diaphragms to the symphysis. 5 mm thick coronal and sagittal reformats were then performed. For radiation dose reduction, the following was used: automated exposure control, adjustment of mA and/or kV according to patient size. COMPARISON: [facility], CT, ABDOMEN/PELVIS WITH CONTRAST, 11/25/2016, 20:04. [facility], CT, IVP (ABD & PEL WWO CONTRAST), 09/22/2015, 10:39. FINDINGS: Image quality: Diagnostic. Lung bases: Lung bases are clear. Minimal scarring versus atelectasis within the lingula is incidentally noted. Heart size is normal. Urinary system: The kidneys are normal in size. There is a focal area of low attenuation evident involving the lower aspect of the left kidney, likely representing a simple cyst. The previously seen inferior left renal calculus is no longer identified. However, there is no hydronephrosis or hydroureter. No ureteral calculi are present. No nephrolithiasis or ureterolithiasis is evident on the right. There is no right-sided hydronephrosis. No bladder calculi are present. No significant bladder wall thickening is evident. The prostate is borderline enlarged. Other solid organs: Liver is normal in size. A small hepatic cyst along the posterior-inferior right hepatic lobe is unchanged. Gallbladder is not enlarged or inflamed. Pancreas is normal in contours. Spleen is normal in size. 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 No adrenal nodules. Peritoneum and bowel: There is a small to moderate-sized hiatal hernia. The stomach is otherwise unremarkable. The small bowel loops are nondilated previously noted at dilated proximal small bowel loops are no longer dilated. A moderate to large amount of residual stool is seen within the colon. No free fluid, loculated fluid collection or free air is evident. There is a stimulator apparatus identified within the subcutaneous tissues to the left of the umbilicus. Wires are seen extending posteriorly to the epidural space of the thoracolumbar region. An additional stimulator apparatus is seen overlying the posterior right iliac bone. Nodes and vessels: No retroperitoneal or mesenteric adenopathy by size criteria. Aorta and inferior vena cava are normal in caliber. Aortic atherosclerosis is present. Abdominal wall: No ventral hernias. Pelvis: No free pelvic fluid. No inguinal hernias or adenopathy. Bones: Extensive postoperative changes of the lumbar spine are compatible with the lumbar fusion. There has been interval extension of the previously noted fused vertebral bodies, which now extends from L1-S1. There is moderate lucency surrounding the right L1 pedicle screw, which may extend onto the superior endplate into the disc space. CT involving the inferior T12 and superior L1 endplate are evident. There also is a new fluid collection identified within the posterior left paraspinal soft tissues that measures approximately 3.4 x 3.2 x 6.2 cm, which demonstrates mild peripheral enhancement. No acute fractures or dislocations are evident. IMPRESSION: 1. Small inferior left renal calculus has passed in the interim. There is no hydronephrosis or nephroureterolithiasis bilaterally. 2. Interval postoperative changes of the lumbar spine. There is lucency surrounding the right L1 pedicle screw with developing adjacent lucency within the T12 and L1 vertebral bodies, suspicious for developing osteomyelitis/discitis. Clinical correlation is recommended. 3. Elongated loculated fluid collection within the subcutaneous left paraspinal soft tissues extending from L2-L5. Differential diagnostic considerations would include postoperative hematoma versus seroma. An abscess may also have this appearance. 4. No bowel obstruction. 5. Probable colonic constipation. 6. Small moderate-sized hiatal hernia. Dictated by: Francisco Hanson M.D. on 01/11/2019 at 12:33 Approved by: Francisco Hanson M.D. on 01/11/2019 at 12:47
--- NOTE | 2019-01-11 12:30 | PC.NURSE ---
pt reports, hx of kidney stones, several days ago with right flank pain, increase fluids got better, then 2 days ago developed left flank pain, unable to sleep for 2 days due to pain, has been also drinking alot of water, had dilaudid 8mg at midnoc and again this morning at 6am without relief. hx of arachoiditis with pain pump and with neuro stimulator, also s/p lumbar fusion 2 months ago. denies fever,vomiting or diarrhea.
--- NOTE | 2019-01-11 12:35 | ED.MALEGU ---
HPI - Male Genitourinary General Chief complaint: Urogenital-Male Stated complaint: Kidney Stones Time Seen by Provider: 01/11/19 12:23 Source: patient Mode of arrival: ambulatory Limitations: no limitations History of Present Illness HPI Narrative: Presents with left flank pain pain. He states that he actually had some right flank pain a few days ago however that stopped his left flank pain seems to be progressively worsening it is radiating around to his abdomen. He has got some dark urine. He denies any nausea or vomiting. He takes Dilaudid at home for arachnoiditis he says the Dilaudid does not seem to be helping. He has not had any fever. The pain seems to come and go Duration: intermittent Related Data Home Medications Medication Instructions Recorded Confirmed tadalafil [Cialis] 20 mg PO PRN PRN #0 03/20/13 11/27/18 acyclovir [Zovirax] 5 % TOPICAL Q4H PRN #0 11/28/16 11/27/18 testosterone cypionate 0.5 ml SUBCUT [id number] #9 06/13/17 11/27/18 [Depo-Testosterone] bupivacaine (PF) 0.25 % 2 mL/hour 3.15 mg CONTINUOUS EPIDURAL DAILY 04/19/18 11/27/18 120 mL infiltrat,fix rate elast ml pump aspirin 81 mg tablet,delayed 81 mg PO DAILY 09/03/18 11/27/18 release dilaudid mg CONTINUOUS EPIDURAL CONT 09/03/18 11/27/18 acyclovir 200 mg PO 5XD PRN 11/05/18 11/27/18 carvedilol 18.75 mg PO SEEINSTR 11/05/18 11/27/18 amlodipine-benazepril 1 cap PO QAM 11/10/18 11/27/18 hydromorphone 4 mg PO Q6H PRN 11/10/18 11/27/18 Respironics Dreamstation CPAP #1 ea 11/27/18 11/27/18 Previous Rx's Medication Instructions Recorded hydromorphone 8 mg PO Q6H PRN #30 tab 11/11/18 Allergies Allergy/AdvReac Type Severity Reaction Status Date / Time morphine [MORPHINE] Allergy Intermediate BLISTERS Verified 11/10/18 07:16 aspartame AdvReac Severe SEVERE Verified 11/10/18 07:16 [From NUTRASWEET ASPARTAME] HEADACHES banana AdvReac Severe Severe Verified 11/10/18 07:16 headaches chocolate flavor AdvReac Severe Headaches Verified 11/10/18 07:16 gabapentin [GABAPENTIN] AdvReac Severe SEVERE Verified 11/10/18 07:16 AGITATION, DEPRESSION, ANXIETY hydrochlorothiazide AdvReac Severe HEADACHES Verified 11/10/18 07:16 [HYDROCHLOROTHIAZIDE] hydrocodone [HYDROCODONE] AdvReac Severe SEVERE Verified 11/10/18 07:16 HEADACHES metoprolol [METOPROLOL] AdvReac Severe HEADACHES Verified 11/10/18 07:16 omeprazole [OMEPRAZOLE] AdvReac Severe SEVERE Verified 11/10/18 07:16 HEADACHES & DIZZINESS oxycodone [OXYCODONE] AdvReac Severe HEADACHES Verified 11/10/18 07:16 ACID BLOCKERS AdvReac Severe SEVERE Uncoded 11/10/18 07:16 HEADACHES & DIZZINESS Review of Systems Review of Systems ROS Unobtainable: All systems reviewed & are unremarkable except as noted in HPI and below Constitutional Denies chills, Denies fever(s), Denies lethargy and Denies weakness Eyes Denies change in vision, Denies eye discharge, Denies irritation and Denies loss of vision ENT Ears, Nose, Mouth, and Throat: Denies change in voice, Denies neck pain and Denies sore throat Cardiovascular Denies chest pain, Denies irregular heart rhythm, Denies lightheadedness, Denies palpitations, Denies dyspnea, Denies dyspnea on exertion and Denies orthopnea Respiratory Denies cough, Denies dyspnea, Denies dyspnea on exertion and Denies wheezing Gastrointestinal Gastrointestinal: Denies abdominal pain, Denies change in bowel habits, Denies diarrhea, Denies nausea and Denies vomiting Genitourinary Reports hematuria and Reports flank pain Musculoskeletal Denies neck pain Integumentary/Breasts Denies pruritus, Denies erythema, Denies rash and Denies wounds Neurologic Denies loss of vision and Denies weakness Endocrine Denies palpitations Allergic/Immunologic Denies wheezing PFSH Medical History Central sleep apnea (Chronic) Obstructive sleep apnea of adult (Chronic) Primary insomnia (Chronic) Hypersomnia (Inactive) Tachycardia (Acute) Arachnoiditis (Chronic) Cardiac murmur (Chronic) [place] (hard of hearing) (Chronic) HTN (hypertension) (Chronic) Postoperative atrial fibrillation (Chronic) Statin intolerance (Chronic) Surgical History S/P insertion of spinal cord stimulator (Chronic ~2002) History of bilateral knee arthroplasty (Resolved) History of lumbar surgery (Resolved) Hx of sinus surgery (Resolved 03/12/18) S/P CABG x 2 (Resolved ~07/2015) Status post bilateral cataract extraction (Resolved ~10/2014) Social History marital status: Smoking Status: Never smoker alcohol intake: never substance use type: does not use Social History marital status: Smoking Status: Never smoker alcohol intake: never substance use type: does not use Exam Initial Vital Signs Initial Vital Signs: Vital Signs Temperature 97.5 F L 01/11/19 11:26 Pulse Rate 82 01/11/19 11:26 Respiratory Rate 19 01/11/19 11:26 Blood Pressure 159/92 H 01/11/19 11:26 Pulse Oximetry 96 01/11/19 11:26 GENERAL: Alert male appears in mild discomfort HEENT: Head atraumatic,EOMI, pupils reactive, CARDIOVASCULAR: Regular rate and rhythm without murmurs, rubs or gallops. RESPIRATORY: Breath sounds equal bilaterally, no wheezes rales or rhonchi. ABDOMEN: Soft, nontender. Normoactive bowel sounds all 4 quadrants. No guarding or rebound. BACK: Mild tenderness noted at L1-T12 area no erythema no significant pain. : Left flank pain EXTREMITIES: Normal range of motion, no clubbing or edema. Neurovascularly intact NEUROLOGICAL: Alert and oriented x4.Normal gait and speech. Cranial nerves II through XII grossly intact. SKIN: Warm, dry, no laceration, no petechiae, no rashes or lesions. Course Orders Ordered: ED Orders 01/11/19 12:23 Urine Culture Stat Urine Microscopic Stat 01/11/19 12:29 CT kidney ureter bladder (KUB) Stat 01/11/19 12:30 C-Reactive Protein Quant Stat Complete Blood Count AUTO DIFF Stat Comprehensive Metabolic Panel Stat Erythrocyte Sedimentation Rate Stat Lipase Stat Discontinued Medications Ketorolac Tromethamine (Toradol) 30 mg IV NOW ONE Stop: 01/11/19 12:30 Last Admin: 01/11/19 12:48 Dose: 30 mg Vital Signs - 8 hr 01/11/19 11:26 01/11/19 13:45 01/11/19 14:00 Temperature 97.5 F L Pulse Rate 82 67 77 Respiratory Rate 19 18 18 Blood Pressure 159/92 H Blood Pressure [Left Arm] 143/85 H 137/76 Pulse Oximetry 96 95 95 01/11/19 15:05 Temperature Pulse Rate 70 Respiratory Rate 16 Blood Pressure Blood Pressure [Left Arm] 157/93 H Pulse Oximetry 99 MDM - Male Genitourinary Lab Data Attestation: I reviewed the patient's lab results. Result diagrams: 01/11/19 12:30 01/11/19 12:30 Lab Results 01/11/19 01/11/19 01/11/19 Range/Units 12:23 12:30 12:30 WBC 6.5 (4.5-11.0) X10^3/uL RBC 4.84 (4.5-5.9) X10^6/uL Hgb 14.4 (13.5-17.5) g/dL Hct 42.9 (41-53) % MCV 88.8 (80-100) fL MCH 29.7 (26-34) PG MCHC 33.5 (30-36) % RDW 14.0 (11.6-14.8) % Plt Count 197 (150-400) X10^3/uL Neut % (Auto) 71.5 (50-75) % Lymph % (Auto) 16.7 L (25-40) % [place] % (Auto) 9.9 (3-14) % Eos % (Auto) 1.4 L (2-4) % Baso % (Auto) 0.5 (0-2) % Neut # (Auto) 4700 (3134-4627) /uL Lymph # (Auto) 1100 (8842-8064) /uL [place] # (Auto) 600 (0-900) /uL Eos # (Auto) 100 (0-450) /uL Baso # (Auto) 0 (0-100) /uL ESR (0-15) MM/HR Sodium 141 (137-145) mmol/L Potassium 4.5 (3.4-5.1) mmol/L Chloride 103 (98-107) mmol/L Carbon Dioxide 25 (22-32) mmol/L BUN 14 (9-20) mg/dL Creatinine 1.10 (0.66-1.25) mg/dL Estimated GFR > 60.0 (>60) mL/min BUN/Creatinine Ratio 12.7 (6-22) Glucose 97 (80-110) mg/dL Calcium 9.4 (8.4-10.2) mg/dL Total Bilirubin 0.8 (0.2-1.3) mg/dL AST 24 (17-59) IU/L ALT 19 L (21-72) IU/L Alkaline Phosphatase 112 (38-126) U/L C-Reactive Protein (<1.0) mg/dL Total Protein 8.1 (6.3-8.2) g/dL Albumin 4.4 (3.5-5.0) g/dL Globulin 3.7 (1.7-4.1) g/dL Albumin/Globulin Ratio 1.2 (1.0-2.8) Lipase 54 (23-300) U/L Urine RBC None seen (0-5/HPF) Urine WBC 0-1/hpf (0-5/HPF) Ur Squamous Epith Cells None seen (0-5/HPF) Urine Bacteria None seen (None) Ur Culture Indicated? Specimen cultured 01/11/19 01/11/19 Range/Units 12:30 12:30 WBC (4.5-11.0) X10^3/uL RBC (4.5-5.9) X10^6/uL Hgb (13.5-17.5) g/dL Hct (41-53) % MCV (80-100) fL MCH (26-34) PG MCHC (30-36) % RDW (11.6-14.8) % Plt Count (150-400) X10^3/uL Neut % (Auto) (50-75) % Lymph % (Auto) (25-40) % [place] % (Auto) (3-14) % Eos % (Auto) (2-4) % Baso % (Auto) (0-2) % Neut # (Auto) (7390-9476) /uL Lymph # (Auto) (6627-3033) /uL [place] # (Auto) (0-900) /uL Eos # (Auto) (0-450) /uL Baso # (Auto) (0-100) /uL ESR 40 H (0-15) MM/HR Sodium (137-145) mmol/L Potassium (3.4-5.1) mmol/L Chloride (98-107) mmol/L Carbon Dioxide (22-32) mmol/L BUN (9-20) mg/dL Creatinine (0.66-1.25) mg/dL Estimated GFR (>60) mL/min BUN/Creatinine Ratio (6-22) Glucose (80-110) mg/dL Calcium (8.4-10.2) mg/dL Total Bilirubin (0.2-1.3) mg/dL AST (17-59) IU/L ALT (21-72) IU/L Alkaline Phosphatase (38-126) U/L C-Reactive Protein 3.0 H (<1.0) mg/dL Total Protein (6.3-8.2) g/dL Albumin (3.5-5.0) g/dL Globulin (1.7-4.1) g/dL Albumin/Globulin Ratio (1.0-2.8) Lipase (23-300) U/L Urine RBC (0-5/HPF) Urine WBC (0-5/HPF) Ur Squamous Epith Cells (0-5/HPF) Urine Bacteria (None) Ur Culture Indicated? Urine Dip Bedside Urine Glucose Negative Bedside Urine Bilirubin - Negative Bedside Urine Ketone - Negative Urine Specific [place] 1.020 Bedside Urine Occult Blood - Negative Bedside Urine pH 5.5 Bedside Urine Protein - Negative Bedside Urine Urobilinogen +/- 1mg Bedside Urine Nitrite - Negative Bedside Urine Leukocytes +/- [address] scan - abdomen: Radiologist's impression: PROCEDURE: CT KIDNEY URETER BLADDER (KUB) INDICATIONS: left flank pain TECHNIQUE: Noncontrast 5 mm thick sections acquired from the diaphragms to the symphysis. 5 mm thick coronal and sagittal reformats were then performed. For radiation dose reduction, the following was used: automated exposure control, adjustment of mA and/or kV according to patient size. COMPARISON: [facility], CT, ABDOMEN/PELVIS WITH CONTRAST, 11/25/2016, 20:04. [facility], CT, IVP (ABD & PEL WWO CONTRAST), 09/22/2015, 10:39. FINDINGS: Image quality: Diagnostic. Lung bases: Lung bases are clear. Minimal scarring versus atelectasis within the lingula is incidentally noted. Heart size is normal. Urinary system: The kidneys are normal in size. There is a focal area of low attenuation evident involving the lower aspect of the left kidney, likely representing a simple cyst. The previously seen inferior left renal calculus is no longer identified. However, there is no hydronephrosis or hydroureter. No ureteral calculi are present. No nephrolithiasis or ureterolithiasis is evident on the right. There is no right-sided hydronephrosis. No bladder calculi are present. No significant bladder wall thickening is evident. The prostate is borderline enlarged. Other solid organs: Liver is normal in size. A small hepatic cyst along the posterior-inferior right hepatic lobe is unchanged. Gallbladder is not enlarged or inflamed. Pancreas is normal in contours. Spleen is normal in size. 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 No adrenal nodules. Peritoneum and bowel: There is a small to moderate-sized hiatal hernia. The stomach is otherwise unremarkable. The small bowel loops are nondilated previously noted at dilated proximal small bowel loops are no longer dilated. A moderate to large amount of residual stool is seen within the colon. No free fluid, loculated fluid collection or free air is evident. There is a stimulator apparatus identified within the subcutaneous tissues to the left of the umbilicus. Wires are seen extending posteriorly to the epidural space of the thoracolumbar region. An additional stimulator apparatus is seen overlying the posterior right iliac bone. Nodes and vessels: No retroperitoneal or mesenteric adenopathy by size criteria. Aorta and inferior vena cava are normal in caliber. Aortic atherosclerosis is present. Abdominal wall: No ventral hernias. Pelvis: No free pelvic fluid. No inguinal hernias or adenopathy. Bones: Extensive postoperative changes of the lumbar spine are compatible with the lumbar fusion. There has been interval extension of the previously noted fused vertebral bodies, which now extends from L1-S1. There is moderate lucency surrounding the right L1 pedicle screw, which may extend onto the superior endplate into the disc space. CT involving the inferior T12 and superior L1 endplate are evident. There also is a new fluid collection identified within the posterior left paraspinal soft tissues that measures approximately 3.4 x 3.2 x 6.2 cm, which demonstrates mild peripheral enhancement. No acute fractures or dislocations are evident. IMPRESSION: 1. Small inferior left renal calculus has passed in the interim. There is no hydronephrosis or nephroureterolithiasis bilaterally. 2. Interval postoperative changes of the lumbar spine. There is lucency surrounding the right L1 pedicle screw with developing adjacent lucency within the T12 and L1 vertebral bodies, suspicious for developing osteomyelitis/discitis. Clinical correlation is recommended. 3. Elongated loculated fluid collection within the subcutaneous left paraspinal soft tissues extending from L2-L5. Differential diagnostic considerations would include postoperative hematoma versus seroma. An abscess may also have this appearance. 4. No bowel obstruction. 5. Probable colonic constipation. 6. Small moderate-sized hiatal hernia. Dictated by: Francisco Hanson M.D. on 01/11/2019 at 12:33 MDM Narrative Medical decision making narrative: It appears the patient passed a kidney stone. His pain is pretty well controlled after Toradol. He states that he has been having ongoing back pain off and on since his surgery he seen his surgeon Dr. Arellano [address] did show fluid collection and questionable osteomyelitis diskitis. I discussed this with Dr. Boyd. She recommended ESR CRP just as baseline labs. Patient certainly does not appear to have infection to me he has no white count no fever minimal tenderness over that area of fluid collection. Discharge Plan Departure Patient Disposition: Home Clinical Impression: Kidney stone on left side Discharge Date/Time: 01/11/19 15:33 Interventions: ED Discharge Assessment Last Done: 01/11/19 15:00 Instructions: DI for Kidney Stones Activity Restrictions/Additional Instructions: *You have been diagnosed with kidney stone *What to do: He seems to have passed your kidney stone. No sign of urine infection. You have a fluid collection in her back from surgery this may be normal. Follow-up with Orthopedics *Continue to take medications as directed *Follow up with your primary care provider in 2-3 days *Return to ER if you should have increased pain fevers, weakness in legs or any new, worsening or concerning symptoms Prescriptions: No Action bupivacaine (PF) 0.25 % 2 mL/hr 120 mL elastomeric pump,fixed rate 3.15 mg Continuous Epidural DAILY RF: 0 tadalafil [Cialis] 20 MG tablet 20 mg PO PRN PRN (Reason: sexual activity) Qty: 0 RF: 0 acyclovir [Zovirax] 5 % ointment 5 % Topical Q4H PRN (Reason: Fever blisters) Qty: 0 RF: 0 testosterone cypionate [Depo-Testosterone] 200 MG/1 ML oil 0.5 ml subcut [id number] Qty: 9 RF: 0 carvedilol 6.25 mg Tablet 18.75 mg PO SEEINSTR RF: 0 acyclovir 200 mg Capsule 200 mg PO 5XD PRN (Reason: Fever blisters) RF: 0 amlodipine-benazepril 5-10 mg capsule 1 cap PO QAM RF: 0 hydromorphone 4 mg tablet 4 mg PO Q6H PRN (Reason: pain) RF: 0 hydromorphone 2 mg Tablet 8 mg PO Q6H PRN (Reason: Pain, Severe (7-10)) Qty: 30 RF: 0 dilaudid Continuous Epidural CONT RF: 0 aspirin [Aspirin Low Dose] 81 mg tablet,delayed release (DR/EC) 81 mg PO DAILY RF: 0 Respironics Dreamstation CPAP Qty: 1 RF: 0 Referrals: Raghu Brennan MD [Primary Care Provider] -
[2019-01-11] MEDS: KETOROLAC 60 MG/2 ML VIAL 30 MG IV (12:48)
[2019-01-11 12:56] LABS: Bacteria Urine None Seen; RBC Urine None Seen (0-5/HPF)
[2019-01-11 12:59] LABS: Add Manual Diff / Slide Review NO; Basophils Absolute Auto 0 /uL (0-100); Basophils Percent Auto 0.5 % (0-2); Eosinophils Absolute Auto 100 /uL (0-450); Eosinophils Percent Auto 1.4 % (2-4); Hematocrit 42.9 % (41-53); Hemoglobin 14.4 g/dL (13.5-17.5); Lymphocytes Absolute Auto 1100 /uL (1100-4500); Lymphocytes Percent Auto 16.7 % (25-40); Mean Corpuscular HGB Conc 33.5 % (30-36); Mean Corpuscular Hemoglobin 29.7 PG (26-34); Mean Corpuscular Volume 88.8 fL (80-100); Monocytes Absolute Auto 600 /uL (0-900); Monocytes Percent Auto 9.9 % (3-14); Neutrophils Absolute Auto 4700 /uL (1500-7000); Neutrophils Percent Auto 71.5 % (50-75); Platelet Count 197 X10^3/uL (150-400); Red Blood Cell Count 4.84 X10^6/uL (4.5-5.9); White Blood Cell Count 6.5 X10^3/uL (4.5-11.0)
[2019-01-11 13:12] LABS: Alanine Aminotransferase 19 IU/L (21-72); Albumin 4.4 g/dL (3.5-5.0); Albumin Globulin Ratio 1.2 (1.0-2.8); Alkaline Phosphatase 112 U/L (38-126); Aspartate Aminotransferase 24 IU/L (17-59); BUN Creatinine Ratio 12.7 (6-22); Bilirubin Total 0.8 mg/dL (0.2-1.3); Blood Urea Nitrogen 14 mg/dL (9-20); Calcium 9.4 mg/dL (8.4-10.2); Carbon Dioxide 25 mmol/L (22-32); Chloride 103 mmol/L (98-107); Estimated Glomerular Filt Rate > 60.0 mL/min (>60); Globulin 3.7 g/dL (1.7-4.1); Glucose 97 mg/dL (80-110); HEMOLYSIS < 15 (0-50); Lipase 54 U/L (23-300); Potassium 4.5 mmol/L (3.4-5.1); Sodium 141 mmol/L (137-145); Total Protein 8.1 g/dL (6.3-8.2)
[2019-01-11 13:13] LABS: Culture Indicated Urine Specimen Cultured; Squamous Epithelial Cell Urine None Seen (0-5/HPF); WBC Urine 0-1/HPF (0-5/HPF)
[2019-01-11 13:45] VITALS: BP 143/85; PULSE 67; RESP 18; O2SAT 95
[2019-01-11 14:00] VITALS: BP 137/76; PULSE 77; RESP 18; O2SAT 95
[2019-01-11 15:05] VITALS: BP 157/93; PULSE 70; RESP 16; O2SAT 99
[2019-01-11 15:32] LABS: Erythrocyte Sedimentation Rate 40 MM/HR (0-15)
== END 2019-01-11 15:33 | disposition home or self-care (01) ==
PROVIDERS: Emergency Provider Emergency Medicine; PCP Family Medicine
DX: N20.0 Calculus of kidney (principal)
CPT/HCPCS: 36591; 74176; 80053; 81003; 81015; 83690; 85025; 85651; 86140; 87086; 96374; 99283; 99284; J1885

== ENCOUNTER 2019-01-12 15:20 | Emergency (ER) | payer MEDICARE, OTHER, SELFPAY ==
[2018-11-10 14:32] VITALS: BMI 30.3
[2019-01-12 15:22] VITALS: BP 171/89; PULSE 90; RESP 22; TEMP 37.2; O2SAT 98
--- NOTE | 2019-01-12 16:02 | DI.US.S_ITS ---
PROCEDURE: US RENAL COMPLETE INDICATIONS: FLANK PAIN TECHNIQUE: Real-time scanning was performed of the kidneys and bladder, with image documentation. COMPARISON: [facility], CT, CT KIDNEY URETER BLADDER (KUB), 01/11/2019, 13:19. FINDINGS: Kidneys: Kidneys are normal in size. Right kidney measures 11.5 cm long; left kidney measures 12.3 cm long. Right renal cortical thickness is 1.5 cm; left renal cortical thickness is 1.2 cm. Renal cortical echotexture is normal. No hydronephrosis or nephrolithiasis. No suspicious solid mass lesions. The left renal cysts are noted the largest measuring 24 x 21 x 20 mm in the inferior pole. There is a focus of hyper echogenicity identified in the left kidney. It measures approximately 5 mm. Bladder: Pre-void bladder volume is 317 mL. Post-void residual is 27 mL. Pre-void images demonstrate no intraluminal masses or stones. On pre-void images, both ureteral jets are noted with color Doppler interrogation. (Of note, ureteral jets may not be detectable in up to 25% of cases due to insufficient differences in specific gravity between ureteral and bladder urine). Miscellaneous: No free pelvic fluid. IMPRESSION: 1. 5 mm focus of increased echogenicity within the left kidney. While this could represent a calcification, it is noted that no left renal stones are identified on CT of 01/11/19. No obstruction. Dictated by: Maribel Carballo M.D. on 01/12/2019 at 18:17 Approved by: Maribel Carballo M.D. on 01/12/2019 at 18:33
[2019-01-12] MEDS: SODIUM CHLORIDE 0.9% 1,000 ML 1000 ML IV (16:45)
[2019-01-12] MEDS: KETOROLAC 60 MG/2 ML VIAL 30 MG IV (16:45)
[2019-01-12 16:51] LABS: Add Manual Diff / Slide Review NO; Basophils Absolute Auto 0 /uL (0-100); Basophils Percent Auto 0.4 % (0-2); Eosinophils Absolute Auto 100 /uL (0-450); Eosinophils Percent Auto 1.7 % (2-4); Hematocrit 42.3 % (41-53); Hemoglobin 13.9 g/dL (13.5-17.5); Lymphocytes Absolute Auto 800 /uL (1100-4500); Lymphocytes Percent Auto 12.6 % (25-40); Mean Corpuscular HGB Conc 32.7 % (30-36); Mean Corpuscular Hemoglobin 29.5 PG (26-34); Monocytes Absolute Auto 700 /uL (0-900); Monocytes Percent Auto 10.9 % (3-14); Neutrophils Absolute Auto 4500 /uL (1500-7000); Neutrophils Percent Auto 74.4 % (50-75); Platelet Count 187 X10^3/uL (150-400); Red Cell Distribution Width 13.7 % (11.6-14.8); White Blood Cell Count 6.1 X10^3/uL (4.5-11.0)
[2019-01-12 17:11] LABS: Lactate (Lactic Acid) 0.9 mmol/L (0.7-2.1)
[2019-01-12 17:12] LABS: Alanine Aminotransferase 15 IU/L (21-72); Albumin 4.5 g/dL (3.5-5.0); Albumin Globulin Ratio 1.2 (1.0-2.8); Alkaline Phosphatase 103 U/L (38-126); Aspartate Aminotransferase 26 IU/L (17-59); BUN Creatinine Ratio 16.2 (6-22); Bilirubin Total 0.8 mg/dL (0.2-1.3); Blood Urea Nitrogen 21 mg/dL (9-20); Calcium 9.6 mg/dL (8.4-10.2); Carbon Dioxide 28 mmol/L (22-32); Chloride 102 mmol/L (98-107); Estimated Glomerular Filt Rate 54.3 mL/min (>60); Globulin 3.8 g/dL (1.7-4.1); Glucose 110 mg/dL (80-110); HEMOLYSIS 33 (0-50); Potassium 4.7 mmol/L (3.4-5.1); Sodium 140 mmol/L (137-145); Total Protein 8.3 g/dL (6.3-8.2)
[2019-01-12 17:34] LABS: Bacteria Urine None Seen
[2019-01-12 17:54] LABS: Appearance Urine UA CLEAR; Bilirubin Urine UA NEGATIVE (NEGATIVE); Color Urine UA YELLOW; Glucose Urine UA NEGATIVE (Negative); Ketones Urine UA NEGATIVE (NEGATIVE); Leukocyte Esterase Urine UA NEGATIVE (NEGATIVE); Nitrite Urine UA NEGATIVE (Negative); Occult Blood Urine UA NEGATIVE (Negative); Protein Urine UA NEGATIVE (Negative); Urobilinogen Urine UA 0.2 E.U./dL (0.2)
[2019-01-12 18:02] LABS: Culture Indicated Urine Cult Not Indicated; RBC Urine 0-1/HPF (0-5/HPF); WBC Urine 0-1/HPF (0-5/HPF)
[2019-01-12 18:26] VITALS: BP 162/79; PULSE 94; O2SAT 98
[2019-01-12 19:20] VITALS: BP 153/88; PULSE 81; RESP 18; O2SAT 98
[2019-01-12] MEDS: CYCLOBENZAPRINE 10 MG TABLET PO (19:59)
[2019-01-12] MEDS: LIDOCAINE PATCH 1 EACH ADH..PATCH TOP (20:00)
[2019-01-12 20:47] VITALS: BP 172/95; PULSE 95; O2SAT 97
--- NOTE | 2019-01-12 20:56 | ED.BACK ---
HPI - Back Pain/Injury <Ade Al, GLASS BLOCK BENDER-BC - Last Filed: 01/12/19 21:11> General Chief Complaint: Back Pain/Injury Stated Complaint: Back pain Time Seen by Provider: 01/12/19 15:56 Source: patient and family Mode of arrival: ambulatory Limitations: no limitations History of Present Illness HPI Narrative: The patient is a 73-year-old male with history of kidney stone on the left side as well as back surgery presents with a chief complaint of left-sided flank pain. He states he has a kidney stone and is requesting Toradol. Upon presentation he does request Toradol. He states he does have a history of several back surgeries, but at that his pain is not at his incision site, but is at his kidney. He denies any dysuria urgency or frequency. He denies any hematuria. He states he had a CT scan yesterday. He denies any fevers nausea vomiting or diarrhea. He denies any abdominal pain. He states this is isolated left-sided flank pain. Related Data Home Medications Medication Instructions Recorded Confirmed tadalafil [Cialis] 20 mg PO PRN PRN #0 03/20/13 01/12/19 testosterone cypionate 0.5 ml SUBCUT [id number] #9 06/13/17 01/12/19 [Depo-Testosterone] bupivacaine (PF) 0.25 % 2 mL/hour 3.15 mg CONTINUOUS EPIDURAL DAILY 04/19/18 11/27/18 120 mL infiltrat,fix rate elast ml pump aspirin 81 mg tablet,delayed 81 mg PO DAILY 09/03/18 11/27/18 release dilaudid mg CONTINUOUS EPIDURAL CONT 09/03/18 11/27/18 acyclovir 200 mg PO 5XD PRN 11/05/18 01/12/19 carvedilol 6.25 mg PO QAM 11/05/18 01/12/19 amlodipine-benazepril 1 cap PO QAM 11/10/18 01/12/19 hydromorphone 4 mg PO Q4-6H PRN 11/10/18 01/12/19 Respironics Dreamstation CPAP #1 ea 11/27/18 11/27/18 carvedilol 12.5 mg PO QPM 01/12/19 01/12/19 galcanezumab-gnlm [Emgality Pen] 1 dose SUBCUT QMONTH 01/12/19 01/12/19 hydroxyzine HCl 25 mg PO QID PRN 01/12/19 01/12/19 Previous Rx's Medication Instructions Recorded ketorolac 10 mg PO TID PRN #10 tab 01/12/19 lidocaine 1 patch TOP DAILY #15 each 01/12/19 Allergies Allergy/AdvReac Type Severity Reaction Status Date / Time morphine [MORPHINE] Allergy Intermediate BLISTERS Verified 11/10/18 07:16 aspartame AdvReac Severe SEVERE Verified 11/10/18 07:16 [From NUTRASWEET ASPARTAME] HEADACHES banana AdvReac Severe Severe Verified 11/10/18 07:16 headaches chocolate flavor AdvReac Severe Headaches Verified 11/10/18 07:16 gabapentin [GABAPENTIN] AdvReac Severe SEVERE Verified 11/10/18 07:16 AGITATION, DEPRESSION, ANXIETY hydrochlorothiazide AdvReac Severe HEADACHES Verified 11/10/18 07:16 [HYDROCHLOROTHIAZIDE] hydrocodone [HYDROCODONE] AdvReac Severe SEVERE Verified 11/10/18 07:16 HEADACHES metoprolol [METOPROLOL] AdvReac Severe HEADACHES Verified 11/10/18 07:16 omeprazole [OMEPRAZOLE] AdvReac Severe SEVERE Verified 11/10/18 07:16 HEADACHES & DIZZINESS oxycodone [OXYCODONE] AdvReac Severe HEADACHES Verified 11/10/18 07:16 ACID BLOCKERS AdvReac Severe SEVERE Uncoded 11/10/18 07:16 HEADACHES & DIZZINESS Review of Systems <Ade Al, GLASS BLOCK BENDER-BC - Last Filed: 01/12/19 21:11> Review of Systems GENERAL: Denies chills, fatigue, malaise, fever, sweats. HEENT: Denies sinus pain, ear pain, sore throat, difficulty swallowing, dizziness. RESPIRATORY: Denies dyspnea, cough, wheezing, hemoptysis, sputum. CARDIOVASCULAR: Denies chest pain, palpitations, orthopnea, edema, GASTROINTESTINAL: Denies nausea, vomiting, abdominal pain, diarrhea, constipation, melena. : See HPI MUSCULOSKELETAL: denies weakness, joint pain, or bony pain SKIN: Denies rash, skin lesions, or other NEUROLOGIC: Denies weakness, headache, numbness, change in speech, confusion, seizures, incoordination. PSYCHIATRIC: No concerning psychosocial issues. 12 point review of systems is negative except for those stated above PFSH <SUSAN Dexter - Last Filed: 01/12/19 21:11> Medical History Central sleep apnea (Chronic) Obstructive sleep apnea of adult (Chronic) Primary insomnia (Chronic) Hypersomnia (Inactive) Tachycardia (Acute) Arachnoiditis (Chronic) Cardiac murmur (Chronic) [place] (hard of hearing) (Chronic) HTN (hypertension) (Chronic) Postoperative atrial fibrillation (Chronic) Statin intolerance (Chronic) Surgical History S/P insertion of spinal cord stimulator (Chronic ~2002) History of bilateral knee arthroplasty (Resolved) History of lumbar surgery (Resolved) Hx of sinus surgery (Resolved 03/12/18) S/P CABG x 2 (Resolved ~07/2015) Status post bilateral cataract extraction (Resolved ~10/2014) Social History marital status: Smoking Status: Never smoker alcohol intake: never substance use type: does not use Social History marital status: Smoking Status: Never smoker alcohol intake: never substance use type: does not use Exam <SUSAN Dexter - Last Filed: 01/12/19 21:11> Narrative Exam Narrative: GENERAL: Morbidly obese obese male lying on stretcher HEAD: Atraumatic. Normocephalic. No temporal or scalp tenderness. EYES: Pupils equal round and reactive. Extraocular motions intact. No scleral icterus. No injection or drainage. ENT: Nose without bleeding, purulent drainage or septal hematoma. Throat without erythema, tonsillar hypertrophy or exudate. Uvula midline. Airway patent. NECK: Trachea midline. No JVD or lymphadenopathy. Supple, nontender, no meningeal signs. CARDIOVASCULAR: Regular rate and rhythm without murmurs, gallops, or rubs. RESPIRATORY: Clear to auscultation. Breath sounds equal bilaterally. No wheezes, rales, or rhonchi. No cough. No increased respiratory effort. No accessory muscle use. GASTROINTESTINAL: Abdomen soft, non-tender, nondistended. No hepato-splenomegaly, or palpable masses. No guarding. Active bowel sounds all 4 quadrants. EXTREMITIES: No clubbing, cyanosis, or edema. No joint tenderness, effusion, or edema noted. BACK: Nontender without deformity or crepitance. Pain to palpation of left CVA. No pain to palpation right CVA. No pain to spinal palpation. incision sites at L-spine noted. NEURO: AOx3. SKIN: Warm and dry, no laceration rashes or lesions abrasions noted Initial Vital Signs Initial Vital Signs: Vital Signs Temperature 99.0 F 01/12/19 15:22 Pulse Rate 90 01/12/19 15:22 Respiratory Rate 22 01/12/19 15:22 Blood Pressure 171/89 H 01/12/19 15:22 Pulse Oximetry 98 01/12/19 15:22 <Raghu Sales DO - Last Filed: 01/12/19 22:32> Initial Vital Signs Initial Vital Signs: Vital Signs Temperature 99.0 F 01/12/19 15:22 Pulse Rate 90 01/12/19 15:22 Respiratory Rate 22 01/12/19 15:22 Blood Pressure 171/89 H 01/12/19 15:22 Pulse Oximetry 98 01/12/19 15:22 Course <SUSAN Dexter - Last Filed: 01/12/19 21:11> Orders Ordered: ED Orders 01/12/19 16:02 US renal complete Stat 01/12/19 16:45 Complete Blood Count AUTO DIFF Stat Comprehensive Metabolic Panel Stat Lactate (Lactic Acid) Stat 01/12/19 17:27 Urinalysis and Microscopic Stat Discontinued Medications Cyclobenzaprine HCl (Flexeril) 10 mg PO NOW ONE Stop: 01/12/19 19:58 Last Admin: 01/12/19 19:59 Dose: 10 mg Hydromorphone HCl (Dilaudid) 0.5 mg IV NOW ONE Stop: 01/12/19 19:34 Last Admin: 01/12/19 19:43 Dose: Not Given Sodium Chloride (Normal Saline 0.9%) 1,000 mls @ 1,000 mls/hr IV BOLUS ONE Stop: 01/12/19 17:00 Last Infusion: 01/12/19 18:25 Dose: 0 mls/hr Admin: 01/12/19 16:45 Dose: 1,000 mls/hr Ketorolac Tromethamine (Toradol) 30 mg IV NOW ONE Stop: 01/12/19 16:02 Last Admin: 01/12/19 16:45 Dose: 30 mg Lidocaine (Lidoderm) 1 each TOP NOW ONE Stop: 01/12/19 19:53 Last Admin: 01/12/19 20:00 Dose: 1 each Vital Signs - 8 hr 01/12/19 15:22 01/12/19 18:26 01/12/19 19:20 Temperature 99.0 F Pulse Rate 90 94 H 81 Respiratory Rate 22 18 Blood Pressure 171/89 H Blood Pressure [Right Arm] 162/79 H 153/88 H Pulse Oximetry 98 98 98 01/12/19 20:47 Temperature Pulse Rate 95 H Respiratory Rate Blood Pressure 172/95 H Blood Pressure [Right Arm] Pulse Oximetry 97 <Raghu Sales DO - Last Filed: 01/12/19 22:32> Orders Ordered: ED Orders 01/12/19 16:02 US renal complete Stat 01/12/19 16:45 Complete Blood Count AUTO DIFF Stat Comprehensive Metabolic Panel Stat Lactate (Lactic Acid) Stat 01/12/19 17:27 Urinalysis and Microscopic Stat Discontinued Medications Cyclobenzaprine HCl (Flexeril) 10 mg PO NOW ONE Stop: 01/12/19 19:58 Last Admin: 01/12/19 19:59 Dose: 10 mg Hydromorphone HCl (Dilaudid) 0.5 mg IV NOW ONE Stop: 01/12/19 19:34 Last Admin: 01/12/19 19:43 Dose: Not Given Sodium Chloride (Normal Saline 0.9%) 1,000 mls @ 1,000 mls/hr IV BOLUS ONE Stop: 01/12/19 17:00 Last Infusion: 01/12/19 18:25 Dose: 0 mls/hr Admin: 01/12/19 16:45 Dose: 1,000 mls/hr Ketorolac Tromethamine (Toradol) 30 mg IV NOW ONE Stop: 01/12/19 16:02 Last Admin: 01/12/19 16:45 Dose: 30 mg Lidocaine (Lidoderm) 1 each TOP NOW ONE Stop: 01/12/19 19:53 Last Admin: 01/12/19 20:00 Dose: 1 each Vital Signs - 8 hr 01/12/19 15:22 01/12/19 18:26 01/12/19 19:20 Temperature 99.0 F Pulse Rate 90 94 H 81 Respiratory Rate 22 18 Blood Pressure 171/89 H Blood Pressure [Right Arm] 162/79 H 153/88 H Pulse Oximetry 98 98 98 01/12/19 20:47 Temperature Pulse Rate 95 H Respiratory Rate Blood Pressure 172/95 H Blood Pressure [Right Arm] Pulse Oximetry 97 MDM - Back Pain/Injury <DAVID Dexter- - Last Filed: 01/12/19 21:11> Lab Data Result diagrams: 01/12/19 16:45 01/12/19 16:45 Lab Results 01/12/19 01/12/19 01/12/19 Range/Units 16:45 16:45 16:45 WBC 6.1 (4.5-11.0) X10^3/uL RBC 4.70 (4.5-5.9) X10^6/uL Hgb 13.9 (13.5-17.5) g/dL Hct 42.3 (41-53) % MCV 90.0 (80-100) fL MCH 29.5 (26-34) PG MCHC 32.7 (30-36) % RDW 13.7 (11.6-14.8) % Plt Count 187 (150-400) X10^3/uL Neut % (Auto) 74.4 (50-75) % Lymph % (Auto) 12.6 L (25-40) % George % (Auto) 10.9 (3-14) % Eos % (Auto) 1.7 L (2-4) % Baso % (Auto) 0.4 (0-2) % Neut # (Auto) 4500 (1128-5790) /uL Lymph # (Auto) 800 L (7942-5878) /uL George # (Auto) 700 (0-900) /uL Eos # (Auto) 100 (0-450) /uL Baso # (Auto) 0 (0-100) /uL Sodium 140 (137-145) mmol/L Potassium 4.7 (3.4-5.1) mmol/L Chloride 102 (98-107) mmol/L Carbon Dioxide 28 (22-32) mmol/L BUN 21 H (9-20) mg/dL Creatinine 1.30 H (0.66-1.25) mg/dL Estimated GFR 54.3 L (>60) mL/min BUN/Creatinine Ratio 16.2 (6-22) Glucose 110 (80-110) mg/dL Lactate 0.9 (0.7-2.1) mmol/L Calcium 9.6 (8.4-10.2) mg/dL Total Bilirubin 0.8 (0.2-1.3) mg/dL AST 26 (17-59) IU/L ALT 15 L (21-72) IU/L Alkaline Phosphatase 103 (38-126) U/L Total Protein 8.3 H (6.3-8.2) g/dL Albumin 4.5 (3.5-5.0) g/dL Globulin 3.8 (1.7-4.1) g/dL Albumin/Globulin Ratio 1.2 (1.0-2.8) Urine Color Urine Appearance Urine pH (4.5-8.0) Ur Specific [place] (1.000-1.035) Urine Protein (Negative) Urine Glucose (UA) (Negative) g/dL Urine Ketones (NEGATIVE) Urine Occult Blood (Negative) Urine Nitrate (Negative) Urine Bilirubin (NEGATIVE) Urine Urobilinogen (0.2) E.U./dL Ur Leukocyte Esterase (NEGATIVE) Urine RBC (0-5/HPF) Urine WBC (0-5/HPF) Urine Bacteria (None) Ur Culture Indicated? 01/12/19 Range/Units 17:27 WBC (4.5-11.0) X10^3/uL RBC (4.5-5.9) X10^6/uL Hgb (13.5-17.5) g/dL Hct (41-53) % MCV (80-100) fL MCH (26-34) PG MCHC (30-36) % RDW (11.6-14.8) % Plt Count (150-400) X10^3/uL Neut % (Auto) (50-75) % Lymph % (Auto) (25-40) % George % (Auto) (3-14) % Eos % (Auto) (2-4) % Baso % (Auto) (0-2) % Neut # (Auto) (7284-8387) /uL Lymph # (Auto) (2312-5376) /uL George # (Auto) (0-900) /uL Eos # (Auto) (0-450) /uL Baso # (Auto) (0-100) /uL Sodium (137-145) mmol/L Potassium (3.4-5.1) mmol/L Chloride (98-107) mmol/L Carbon Dioxide (22-32) mmol/L BUN (9-20) mg/dL Creatinine (0.66-1.25) mg/dL Estimated GFR (>60) mL/min BUN/Creatinine Ratio (6-22) Glucose (80-110) mg/dL Lactate (0.7-2.1) mmol/L Calcium (8.4-10.2) mg/dL Total Bilirubin (0.2-1.3) mg/dL AST (17-59) IU/L ALT (21-72) IU/L Alkaline Phosphatase (38-126) U/L Total Protein (6.3-8.2) g/dL Albumin (3.5-5.0) g/dL Globulin (1.7-4.1) g/dL Albumin/Globulin Ratio (1.0-2.8) Urine Color Yellow Urine Appearance Clear Urine pH 7.0 (4.5-8.0) Ur Specific [place] 1.020 (1.000-1.035) Urine Protein Negative (Negative) Urine Glucose (UA) Negative (Negative) g/dL Urine Ketones Negative (NEGATIVE) Urine Occult Blood Negative (Negative) Urine Nitrate Negative (Negative) Urine Bilirubin Negative (NEGATIVE) Urine Urobilinogen 0.2 (0.2) E.U./dL Ur Leukocyte Esterase Negative (NEGATIVE) Urine RBC 0-1/hpf (0-5/HPF) Urine WBC 0-1/hpf (0-5/HPF) Urine Bacteria None seen (None) Ur Culture Indicated? Cult not indicated Imaging Data US - abdomen: Radiologist's impression: [address] [address] Ultrasound Report Signed Patient: Chad Boyd WMR#: [id number] : 7Acct:[id number] Age/Sex: 73 / MDate of Service: 01/12/19 Loc: ED Accession Number: [id number] Procedure: US renal complete Ordering Provider: Ade Al-BC PROCEDURE: US RENAL COMPLETE INDICATIONS: FLANK PAIN TECHNIQUE: Real-time scanning was performed of the kidneys and bladder, with image documentation. COMPARISON: [facility], CT, CT KIDNEY URETER BLADDER (KUB), 01/11/2019, 13:19. FINDINGS: Kidneys: Kidneys are normal in size. Right kidney measures 11.5 cm long; left kidney measures 12.3 cm long. Right renal cortical thickness is 1.5 cm; left renal cortical thickness is 1.2 cm. Renal cortical echotexture is normal. No hydronephrosis or nephrolithiasis. No suspicious solid mass lesions. The left renal cysts are noted the largest measuring 24 x 21 x 20 mm in the inferior pole. There is a focus of hyper echogenicity identified in the left kidney. It measures approximately 5 mm. Bladder: Pre-void bladder volume is 317 mL. Post-void residual is 27 mL. Pre-void images demonstrate no intraluminal masses or stones. On pre-void images, both ureteral jets are noted with color Doppler interrogation. (Of note, ureteral jets may not be detectable in up to 25% of cases due to insufficient differences in specific gravity between ureteral and bladder urine). Miscellaneous: No free pelvic fluid. IMPRESSION: 1. 5 mm focus of increased echogenicity within the left kidney. While this could represent a calcification, it is noted that no left renal stones are identified on CT of 01/11/19. No obstruction. Dictated by: Maribel Carballo M.D. on 01/12/2019 at 18:17 Approved by: Maribel Carballo M.D. on 01/12/2019 at 18:33 MDM Narrative Medical decision making narrative: Patient is a 73-year-old male with history of recent left kidney stone who presents with left flank pain. His renal ultrasound came back with no acute etiology. Of note his BUN and creatinine are slightly increased from his visit yesterday. He did have pain control the single dose of Toradol, IV fluids as well as a lidocaine patch and Flexeril. The patient states he has plenty of narcotics at home, so I did give him a prescription of some Toradol as well as lidocaine patches. I discussed at length follow up with his PCP, which she states he has scheduled for the next day or 2 as well as Orthopedics. It is reassuring that he does not have any pain to palpation of the surgical site. I did not obtain another CT scan as the patient just had 1 yesterday. Discussed return precautions of acute concerns, and we keep down fluids etc. Patient has no questions or concerns upon discharge. The patient did not have an elevated white blood cell count her lactate during his ER stay. <Raghu Sales, DO - Last Filed: 01/12/19 22:32> Lab Data Lab Results 01/12/19 01/12/19 01/12/19 Range/Units 16:45 16:45 16:45 WBC 6.1 (4.5-11.0) X10^3/uL RBC 4.70 (4.5-5.9) X10^6/uL Hgb 13.9 (13.5-17.5) g/dL Hct 42.3 (41-53) % MCV 90.0 (80-100) fL MCH 29.5 (26-34) PG MCHC 32.7 (30-36) % RDW 13.7 (11.6-14.8) % Plt Count 187 (150-400) X10^3/uL Neut % (Auto) 74.4 (50-75) % Lymph % (Auto) 12.6 L (25-40) % George % (Auto) 10.9 (3-14) % Eos % (Auto) 1.7 L (2-4) % Baso % (Auto) 0.4 (0-2) % Neut # (Auto) 4500 (4292-7347) /uL Lymph # (Auto) 800 L (1896-8753) /uL George # (Auto) 700 (0-900) /uL Eos # (Auto) 100 (0-450) /uL Baso # (Auto) 0 (0-100) /uL Sodium 140 (137-145) mmol/L Potassium 4.7 (3.4-5.1) mmol/L Chloride 102 (98-107) mmol/L Carbon Dioxide 28 (22-32) mmol/L BUN 21 H (9-20) mg/dL Creatinine 1.30 H (0.66-1.25) mg/dL Estimated GFR 54.3 L (>60) mL/min BUN/Creatinine Ratio 16.2 (6-22) Glucose 110 (80-110) mg/dL Lactate 0.9 (0.7-2.1) mmol/L Calcium 9.6 (8.4-10.2) mg/dL Total Bilirubin 0.8 (0.2-1.3) mg/dL AST 26 (17-59) IU/L ALT 15 L (21-72) IU/L Alkaline Phosphatase 103 (38-126) U/L Total Protein 8.3 H (6.3-8.2) g/dL Albumin 4.5 (3.5-5.0) g/dL Globulin 3.8 (1.7-4.1) g/dL Albumin/Globulin Ratio 1.2 (1.0-2.8) Urine Color Urine Appearance Urine pH (4.5-8.0) Ur Specific [place] (1.000-1.035) Urine Protein (Negative) Urine Glucose (UA) (Negative) g/dL Urine Ketones (NEGATIVE) Urine Occult Blood (Negative) Urine Nitrate (Negative) Urine Bilirubin (NEGATIVE) Urine Urobilinogen (0.2) E.U./dL Ur Leukocyte Esterase (NEGATIVE) Urine RBC (0-5/HPF) Urine WBC (0-5/HPF) Urine Bacteria (None) Ur Culture Indicated? 01/12/19 Range/Units 17:27 WBC (4.5-11.0) X10^3/uL RBC (4.5-5.9) X10^6/uL Hgb (13.5-17.5) g/dL Hct (41-53) % MCV (80-100) fL MCH (26-34) PG MCHC (30-36) % RDW (11.6-14.8) % Plt Count (150-400) X10^3/uL Neut % (Auto) (50-75) % Lymph % (Auto) (25-40) % George % (Auto) (3-14) % Eos % (Auto) (2-4) % Baso % (Auto) (0-2) % Neut # (Auto) (8889-9133) /uL Lymph # (Auto) (0018-5057) /uL George # (Auto) (0-900) /uL Eos # (Auto) (0-450) /uL Baso # (Auto) (0-100) /uL Sodium (137-145) mmol/L Potassium (3.4-5.1) mmol/L Chloride (98-107) mmol/L Carbon Dioxide (22-32) mmol/L BUN (9-20) mg/dL Creatinine (0.66-1.25) mg/dL Estimated GFR (>60) mL/min BUN/Creatinine Ratio (6-22) Glucose (80-110) mg/dL Lactate (0.7-2.1) mmol/L Calcium (8.4-10.2) mg/dL Total Bilirubin (0.2-1.3) mg/dL AST (17-59) IU/L ALT (21-72) IU/L Alkaline Phosphatase (38-126) U/L Total Protein (6.3-8.2) g/dL Albumin (3.5-5.0) g/dL Globulin (1.7-4.1) g/dL Albumin/Globulin Ratio (1.0-2.8) Urine Color Yellow Urine Appearance Clear Urine pH 7.0 (4.5-8.0) Ur Specific [place] 1.020 (1.000-1.035) Urine Protein Negative (Negative) Urine Glucose (UA) Negative (Negative) g/dL Urine Ketones Negative (NEGATIVE) Urine Occult Blood Negative (Negative) Urine Nitrate Negative (Negative) Urine Bilirubin Negative (NEGATIVE) Urine Urobilinogen 0.2 (0.2) E.U./dL Ur Leukocyte Esterase Negative (NEGATIVE) Urine RBC 0-1/hpf (0-5/HPF) Urine WBC 0-1/hpf (0-5/HPF) Urine Bacteria None seen (None) Ur Culture Indicated? Cult not indicated Discharge Plan Departure Patient Disposition: Home Clinical Impression: Acute flank pain Discharge Date/Time: 01/12/19 20:49 Interventions: ED Discharge Assessment Last Done: 01/12/19 20:47 Instructions: DI for Low Back Pain, DI for Flank Pain Activity Restrictions/Additional Instructions: Your ultrasound shows no acute kidney etiology at this point time Your elevated and your urine shows no signs of infection. I have given you a prescription of NSAIDs. Do not combine this with anti-inflammatories such as Aleve, ibuprofen etc I have also given her prescription of pain Patches. Please follow up with primary care provider as soon as possible. Please follow up with your surgeon as discussed. Please come back to the emergency department for any acute concerns. Prescriptions: New ketorolac 10 mg tablet 10 mg PO TID PRN (Reason: pain) Qty: 10 RF: 0 lidocaine 5 % adhesive patch,medicated 1 patch TOP DAILY Qty: 15 RF: 0 No Action bupivacaine (PF) 0.25 % 2 mL/hr 120 mL elastomeric pump,fixed rate 3.15 mg Continuous Epidural DAILY RF: 0 tadalafil [Cialis] 20 MG tablet 20 mg PO PRN PRN (Reason: sexual activity) Qty: 0 RF: 0 testosterone cypionate [Depo-Testosterone] 200 MG/1 ML oil 0.5 ml subcut [id number] Qty: 9 RF: 0 carvedilol 6.25 mg tablet 12.5 mg PO QPM RF: 0 hydroxyzine HCl 25 mg tablet 25 mg PO QID PRN (Reason: Spasms) RF: 0 Emgality Pen 120 mg/mL pen injector 1 dose subcut QMONTH RF: 0 carvedilol 6.25 mg Tablet 6.25 mg PO QAM RF: 0 acyclovir 200 mg Capsule 200 mg PO 5XD PRN (Reason: Fever blisters) RF: 0 amlodipine-benazepril 5-10 mg capsule 1 cap PO QAM RF: 0 hydromorphone 4 mg tablet 4 mg PO Q4-6H PRN (Reason: Breakthrough Pain) RF: 0 dilaudid Continuous Epidural CONT RF: 0 aspirin [Aspirin Low Dose] 81 mg tablet,delayed release (DR/EC) 81 mg PO DAILY RF: 0 Respironics Dreamstation CPAP Qty: 1 RF: 0 Referrals: Raghu Brennan MD [Primary Care Provider] - <Raghu Sales DO - Last Filed: 01/12/19 22:32> [facility] Attestation: I was available for consultation during this patient's emergency department encounter
--- NOTE | 2019-01-12 21:01 | ED_ITS ---
HPI - Back Pain/Injury <Ade Al, L[employer]IN[employer] - Last Filed: 01/12/19 21:11> General Chief Complaint: Back Pain/Injury Stated Complaint: Back pain Time Seen by Provider: 01/12/19 15:56 Source: patient and family Mode of arrival: ambulatory Limitations: no limitations History of Present Illness HPI Narrative: The patient is a 73-year-old male with history of kidney stone on the left side as well as back surgery presents with a chief complaint of left- sided flank pain. He states he has a kidney stone and is requesting Toradol. Upon presentation he does request Toradol. He states he does have a history of several back surgeries, but at that his pain is not at his incision site, but is at his kidney. He denies any dysuria urgency or frequency. He denies any hematuria. He states he had a CT scan yesterday. He denies any fevers nausea vomiting or diarrhea. He denies any abdominal pain. He states this is isolated left-sided flank pain. Related Data Home Medications Medication Instructions Recorded Confirmed tadalafil [Cialis] 20 mg PO PRN PRN #0 03/20/13 01/12/19 testosterone cypionate 0.5 ml SUBCUT [id number] #9 06/13/17 01/12/19 [Depo-Testosterone] bupivacaine (PF) 0.25 % 2 mL/hour 3.15 mg CONTINUOUS EPIDURAL DAILY 04/19/18 11/27/18 120 mL infiltrat,fix rate elast ml pump aspirin 81 mg tablet,delayed 81 mg PO DAILY 09/03/18 11/27/18 release dilaudid mg CONTINUOUS EPIDURAL CONT 09/03/18 11/27/18 acyclovir 200 mg PO 5XD PRN 11/05/18 01/12/19 carvedilol 6.25 mg PO QAM 11/05/18 01/12/19 amlodipine-benazepril 1 cap PO QAM 11/10/18 01/12/19 hydromorphone 4 mg PO Q4-6H PRN 11/10/18 01/12/19 Respironics Dreamstation CPAP #1 ea 11/27/18 11/27/18 carvedilol 12.5 mg PO QPM 01/12/19 01/12/19 galcanezumab-gnlm [Emgality Pen] 1 dose SUBCUT QMONTH 01/12/19 01/12/19 hydroxyzine HCl 25 mg PO QID PRN 01/12/19 01/12/19 Previous Rx's Medication Instructions Recorded ketorolac 10 mg PO TID PRN #10 tab 01/12/19 lidocaine 1 patch TOP DAILY #15 each 01/12/19 Allergies Allergy/AdvReac Type Severity Reaction Status Date / Time morphine [MORPHINE] Allergy Intermediate BLISTERS Verified 11/10/18 07:16 aspartame AdvReac Severe SEVERE Verified 11/10/18 07:16 [From NUTRASWEET ASPARTAME] HEADACHES banana AdvReac Severe Severe Verified 11/10/18 07:16 headaches chocolate flavor AdvReac Severe Headaches Verified 11/10/18 07:16 gabapentin [GABAPENTIN] AdvReac Severe SEVERE Verified 11/10/18 07:16 AGITATION, DEPRESSION, ANXIETY hydrochlorothiazide AdvReac Severe HEADACHES Verified 11/10/18 07:16 [HYDROCHLOROTHIAZIDE] hydrocodone [HYDROCODONE] AdvReac Severe SEVERE Verified 11/10/18 07:16 HEADACHES metoprolol [METOPROLOL] AdvReac Severe HEADACHES Verified 11/10/18 07:16 omeprazole [OMEPRAZOLE] AdvReac Severe SEVERE Verified 11/10/18 07:16 HEADACHES & DIZZINESS oxycodone [OXYCODONE] AdvReac Severe HEADACHES Verified 11/10/18 07:16 ACID BLOCKERS AdvReac Severe SEVERE Uncoded 11/10/18 07:16 HEADACHES & DIZZINESS Review of Systems <Ade Al, L[employer]ATOR [employer] - Last Filed: 01/12/19 21:11> Review of Systems GENERAL: Denies chills, fatigue, malaise, fever, sweats. HEENT: Denies sinus pain, ear pain, sore throat, difficulty swallowing, dizziness. RESPIRATORY: Denies dyspnea, cough, wheezing, hemoptysis, sputum. CARDIOVASCULAR: Denies chest pain, palpitations, orthopnea, edema, GASTROINTESTINAL: Denies nausea, vomiting, abdominal pain, diarrhea, constipation, melena. : See HPI MUSCULOSKELETAL: denies weakness, joint pain, or bony pain SKIN: Denies rash, skin lesions, or other NEUROLOGIC: Denies weakness, headache, numbness, change in speech, confusion, seizures, incoordination. PSYCHIATRIC: No concerning psychosocial issues. 12 point review of systems is negative except for those stated above PFSH <SUSAN Dexter - Last Filed: 01/12/19 21:11> Medical History Central sleep apnea (Chronic) Obstructive sleep apnea of adult (Chronic) Primary insomnia (Chronic) Hypersomnia (Inactive) Tachycardia (Acute) Arachnoiditis (Chronic) Cardiac murmur (Chronic) [place] (hard of hearing) (Chronic) HTN (hypertension) (Chronic) Postoperative atrial fibrillation (Chronic) Statin intolerance (Chronic) Surgical History S/P insertion of spinal cord stimulator (Chronic ~2002) History of bilateral knee arthroplasty (Resolved) History of lumbar surgery (Resolved) Hx of sinus surgery (Resolved 03/12/18) S/P CABG x 2 (Resolved ~07/2015) Status post bilateral cataract extraction (Resolved ~10/2014) Social History marital status: Smoking Status: Never smoker alcohol intake: never substance use type: does not use Social History marital status: Smoking Status: Never smoker alcohol intake: never substance use type: does not use Exam <SUSAN Dexter - Last Filed: 01/12/19 21:11> Narrative Exam Narrative: GENERAL: Morbidly obese obese male lying on stretcher HEAD: Atraumatic. Normocephalic. No temporal or scalp tenderness. EYES: Pupils equal round and reactive. Extraocular motions intact. No scleral icterus. No injection or drainage. ENT: Nose without bleeding, purulent drainage or septal hematoma. Throat without erythema, tonsillar hypertrophy or exudate. Uvula midline. Airway patent. NECK: Trachea midline. No JVD or lymphadenopathy. Supple, nontender, no meningeal signs. CARDIOVASCULAR: Regular rate and rhythm without murmurs, gallops, or rubs. RESPIRATORY: Clear to auscultation. Breath sounds equal bilaterally. No wheezes, rales, or rhonchi. No cough. No increased respiratory effort. No accessory muscle use. GASTROINTESTINAL: Abdomen soft, non-tender, nondistended. No hepato- splenomegaly, or palpable masses. No guarding. Active bowel sounds all 4 quadrants. EXTREMITIES: No clubbing, cyanosis, or edema. No joint tenderness, effusion, or edema noted. BACK: Nontender without deformity or crepitance. Pain to palpation of left CVA. No pain to palpation right CVA. No pain to spinal palpation. incision sites at L-spine noted. NEURO: AOx3. SKIN: Warm and dry, no laceration rashes or lesions abrasions noted Initial Vital Signs Initial Vital Signs: Vital Signs Temperature 99.0 F 01/12/19 15:22 Pulse Rate 90 01/12/19 15:22 Respiratory Rate 22 01/12/19 15:22 Blood Pressure 171/89 H 01/12/19 15:22 Pulse Oximetry 98 01/12/19 15:22 <Raghu Sales DO - Last Filed: 01/12/19 22:32> Initial Vital Signs Initial Vital Signs: Vital Signs Temperature 99.0 F 01/12/19 15:22 Pulse Rate 90 01/12/19 15:22 Respiratory Rate 22 01/12/19 15:22 Blood Pressure 171/89 H 01/12/19 15:22 Pulse Oximetry 98 01/12/19 15:22 Course <SUSAN Dexter - Last Filed: 01/12/19 21:11> Orders Ordered: ED Orders 01/12/19 16:02 US renal complete Stat 01/12/19 16:45 Complete Blood Count AUTO DIFF Stat Comprehensive Metabolic Panel Stat Lactate (Lactic Acid) Stat 01/12/19 17:27 Urinalysis and Microscopic Stat Discontinued Medications Cyclobenzaprine HCl (Flexeril) 10 mg PO NOW ONE Stop: 01/12/19 19:58 Last Admin: 01/12/19 19:59 Dose: 10 mg Hydromorphone HCl (Dilaudid) 0.5 mg IV NOW ONE Stop: 01/12/19 19:34 Last Admin: 01/12/19 19:43 Dose: Not Given Sodium Chloride (Normal Saline 0.9%) 1,000 mls @ 1,000 mls/hr IV BOLUS ONE Stop: 01/12/19 17:00 Last Infusion: 01/12/19 18:25 Dose: 0 mls/hr Admin: 01/12/19 16:45 Dose: 1,000 mls/hr Ketorolac Tromethamine (Toradol) 30 mg IV NOW ONE Stop: 01/12/19 16:02 Last Admin: 01/12/19 16:45 Dose: 30 mg Lidocaine (Lidoderm) 1 each TOP NOW ONE Stop: 01/12/19 19:53 Last Admin: 01/12/19 20:00 Dose: 1 each Vital Signs - 8 hr 01/12/19 15:22 01/12/19 18:26 01/12/19 19:20 Temperature 99.0 F Pulse Rate 90 94 H 81 Respiratory Rate 22 18 Blood Pressure 171/89 H Blood Pressure [Right Arm] 162/79 H 153/88 H Pulse Oximetry 98 98 98 01/12/19 20:47 Temperature Pulse Rate 95 H Respiratory Rate Blood Pressure 172/95 H Blood Pressure [Right Arm] Pulse Oximetry 97 <Raghu Sales DO - Last Filed: 01/12/19 22:32> Orders Ordered: ED Orders 01/12/19 16:02 US renal complete Stat 01/12/19 16:45 Complete Blood Count AUTO DIFF Stat Comprehensive Metabolic Panel Stat Lactate (Lactic Acid) Stat 01/12/19 17:27 Urinalysis and Microscopic Stat Discontinued Medications Cyclobenzaprine HCl (Flexeril) 10 mg PO NOW ONE Stop: 01/12/19 19:58 Last Admin: 01/12/19 19:59 Dose: 10 mg Hydromorphone HCl (Dilaudid) 0.5 mg IV NOW ONE Stop: 01/12/19 19:34 Last Admin: 01/12/19 19:43 Dose: Not Given Sodium Chloride (Normal Saline 0.9%) 1,000 mls @ 1,000 mls/hr IV BOLUS ONE Stop: 01/12/19 17:00 Last Infusion: 01/12/19 18:25 Dose: 0 mls/hr Admin: 01/12/19 16:45 Dose: 1,000 mls/hr Ketorolac Tromethamine (Toradol) 30 mg IV NOW ONE Stop: 01/12/19 16:02 Last Admin: 01/12/19 16:45 Dose: 30 mg Lidocaine (Lidoderm) 1 each TOP NOW ONE Stop: 01/12/19 19:53 Last Admin: 01/12/19 20:00 Dose: 1 each Vital Signs - 8 hr 01/12/19 15:22 01/12/19 18:26 01/12/19 19:20 Temperature 99.0 F Pulse Rate 90 94 H 81 Respiratory Rate 22 18 Blood Pressure 171/89 H Blood Pressure [Right Arm] 162/79 H 153/88 H Pulse Oximetry 98 98 98 01/12/19 20:47 Temperature Pulse Rate 95 H Respiratory Rate Blood Pressure 172/95 H Blood Pressure [Right Arm] Pulse Oximetry 97 MDM - Back Pain/Injury <DAVID Dexter- - Last Filed: 01/12/19 21:11> Lab Data Result diagrams: 01/12/19 16:45 01/12/19 16:45 Lab Results 01/12/19 01/12/19 01/12/19 Range/Units 16:45 16:45 16:45 WBC 6.1 (4.5-11.0) X10^3/uL RBC 4.70 (4.5-5.9) X10^6/uL Hgb 13.9 (13.5-17.5) g/dL Hct 42.3 (41-53) % MCV 90.0 (80-100) fL MCH 29.5 (26-34) PG MCHC 32.7 (30-36) % RDW 13.7 (11.6-14.8) % Plt Count 187 (150-400) X10^3/uL Neut % (Auto) 74.4 (50-75) % Lymph % (Auto) 12.6 L (25-40) % [place] % (Auto) 10.9 (3-14) % Eos % (Auto) 1.7 L (2-4) % Baso % (Auto) 0.4 (0-2) % Neut # (Auto) 4500 (2048-4264) /uL Lymph # (Auto) 800 L (5649-8182) /uL [place] # (Auto) 700 (0-900) /uL Eos # (Auto) 100 (0-450) /uL Baso # (Auto) 0 (0-100) /uL Sodium 140 (137-145) mmol/L Potassium 4.7 (3.4-5.1) mmol/L Chloride 102 (98-107) mmol/L Carbon Dioxide 28 (22-32) mmol/L BUN 21 H (9-20) mg/dL Creatinine 1.30 H (0.66-1.25) mg/dL Estimated GFR 54.3 L (>60) mL/min BUN/Creatinine Ratio 16.2 (6-22) Glucose 110 (80-110) mg/dL Lactate 0.9 (0.7-2.1) mmol/L Calcium 9.6 (8.4-10.2) mg/dL Total Bilirubin 0.8 (0.2-1.3) mg/dL AST 26 (17-59) IU/L ALT 15 L (21-72) IU/L Alkaline Phosphatase 103 (38-126) U/L Total Protein 8.3 H (6.3-8.2) g/dL Albumin 4.5 (3.5-5.0) g/dL Globulin 3.8 (1.7-4.1) g/dL Albumin/Globulin Ratio 1.2 (1.0-2.8) Urine Color Urine Appearance Urine pH (4.5-8.0) Ur Specific [place] (1.000-1.035) Urine Protein (Negative) Urine Glucose (UA) (Negative) g/dL Urine Ketones (NEGATIVE) Urine Occult Blood (Negative) Urine Nitrate (Negative) Urine Bilirubin (NEGATIVE) Urine Urobilinogen (0.2) E.U./dL Ur Leukocyte Esterase (NEGATIVE) Urine RBC (0-5/HPF) Urine WBC (0-5/HPF) Urine Bacteria (None) Ur Culture Indicated? 01/12/19 Range/Units 17:27 WBC (4.5-11.0) X10^3/uL RBC (4.5-5.9) X10^6/uL Hgb (13.5-17.5) g/dL Hct (41-53) % MCV (80-100) fL MCH (26-34) PG MCHC (30-36) % RDW (11.6-14.8) % Plt Count (150-400) X10^3/uL Neut % (Auto) (50-75) % Lymph % (Auto) (25-40) % [place] % (Auto) (3-14) % Eos % (Auto) (2-4) % Baso % (Auto) (0-2) % Neut # (Auto) (3363-6788) /uL Lymph # (Auto) (9649-7478) /uL [place] # (Auto) (0-900) /uL Eos # (Auto) (0-450) /uL Baso # (Auto) (0-100) /uL Sodium (137-145) mmol/L Potassium (3.4-5.1) mmol/L Chloride (98-107) mmol/L Carbon Dioxide (22-32) mmol/L BUN (9-20) mg/dL Creatinine (0.66-1.25) mg/dL Estimated GFR (>60) mL/min BUN/Creatinine Ratio (6-22) Glucose (80-110) mg/dL Lactate (0.7-2.1) mmol/L Calcium (8.4-10.2) mg/dL Total Bilirubin (0.2-1.3) mg/dL AST (17-59) IU/L ALT (21-72) IU/L Alkaline Phosphatase (38-126) U/L Total Protein (6.3-8.2) g/dL Albumin (3.5-5.0) g/dL Globulin (1.7-4.1) g/dL Albumin/Globulin Ratio (1.0-2.8) Urine Color Yellow Urine Appearance Clear Urine pH 7.0 (4.5-8.0) Ur Specific [place] 1.020 (1.000-1.035) Urine Protein Negative (Negative) Urine Glucose (UA) Negative (Negative) g/dL Urine Ketones Negative (NEGATIVE) Urine Occult Blood Negative (Negative) Urine Nitrate Negative (Negative) Urine Bilirubin Negative (NEGATIVE) Urine Urobilinogen 0.2 (0.2) E.U./dL Ur Leukocyte Esterase Negative (NEGATIVE) Urine RBC 0-1/hpf (0-5/HPF) Urine WBC 0-1/hpf (0-5/HPF) Urine Bacteria None seen (None) Ur Culture Indicated? Cult not indicated Imaging Data US - abdomen: Radiologist's impression: [address] [address] Ultrasound Report Signed Patient: Chad Boyd WMR#: [id number] : 7Acct:[id number] Age/Sex: 73 / MDate of Service: 01/12/19 Loc: ED Accession Number: [id number] Procedure: US renal complete Ordering Provider: Ade Al-BC PROCEDURE: US RENAL COMPLETE INDICATIONS: FLANK PAIN TECHNIQUE: Real-time scanning was performed of the kidneys and bladder, with image documentation. COMPARISON: [facility], CT, CT KIDNEY URETER BLADDER (KUB), 01/11/2019, 13:19. FINDINGS: Kidneys: Kidneys are normal in size. Right kidney measures 11.5 cm long; left kidney measures 12.3 cm long. Right renal cortical thickness is 1.5 cm; left renal co rtical thickness is 1.2 cm. Renal cortical echotexture is normal. No hydronephrosis or nephrolithiasis. No suspicious solid mass lesions. The left renal cysts are noted the largest measuring 24 x 21 x 20 mm in the inferior pole. There is a focus of hyper echogenicity identified in the left kidney. It measures approximately 5 mm. Bladder: Pre-void bladder volume is 317 mL. Post-void residual is 27 mL. Pre- void images demonstrate no intraluminal masses or stones. On pre-void images, both ureteral jets are noted with color Doppler interrogation. (Of note, ureteral jets may not be detectable in up to 25% of cases due to insufficient differences in specific gravity between ureteral and bladder urine). Miscellaneous: No free pelvic fluid. IMPRESSION: 1. 5 mm focus of increased echogenicity within the left kidney. While this could represent a calcification, it is noted that no left renal stones are identified on CT of 01/11/19. No obstruction. Dictated by: Maribel Carballo M.D. on 01/12/2019 at 18:17 Approved by: Maribel Carballo M.D. on 01/12/2019 at 18:33 MDM Narrative Medical decision making narrative: Patient is a 73-year-old male with history of recent left kidney stone who presents with left flank pain. His renal ultrasound came back with no acute etiology. Of note his BUN and creatinine are slightly increased from his visit yesterday. He did have pain control the single dose of Toradol, IV fluids as well as a lidocaine patch and Flexeril. The patient states he has plenty of narcotics at home, so I did give him a prescription of some Toradol as well as lidocaine patches. I discussed at length follow up with his PCP, which she states he has scheduled for the next day or 2 as well as Orthopedics. It is reassuring that he does not have any pain to palpation of the surgical site. I did not obtain another CT scan as the patient just had 1 yesterday. Discussed return precautions of acute concerns, and we keep down fluids etc. Patient has no questions or concerns upon discharge. The patient did not have an elevated white blood cell count her lactate during his ER stay. <Raghu Sales, DO - Last Filed: 01/12/19 22:32> Lab Data Lab Results 01/12/19 01/12/19 01/12/19 Range/Units 16:45 16:45 16:45 WBC 6.1 (4.5-11.0) X10^3/uL RBC 4.70 (4.5-5.9) X10^6/uL Hgb 13.9 (13.5-17.5) g/dL Hct 42.3 (41-53) % MCV 90.0 (80-100) fL MCH 29.5 (26-34) PG MCHC 32.7 (30-36) % RDW 13.7 (11.6-14.8) % Plt Count 187 (150-400) X10^3/uL Neut % (Auto) 74.4 (50-75) % Lymph % (Auto) 12.6 L (25-40) % [place] % (Auto) 10.9 (3-14) % Eos % (Auto) 1.7 L (2-4) % Baso % (Auto) 0.4 (0-2) % Neut # (Auto) 4500 (7549-5532) /uL Lymph # (Auto) 800 L (0472-2719) /uL [place] # (Auto) 700 (0-900) /uL Eos # (Auto) 100 (0-450) /uL Baso # (Auto) 0 (0-100) /uL Sodium 140 (137-145) mmol/L Potassium 4.7 (3.4-5.1) mmol/L Chloride 102 (98-107) mmol/L Carbon Dioxide 28 (22-32) mmol/L BUN 21 H (9-20) mg/dL Creatinine 1.30 H (0.66-1.25) mg/dL Estimated GFR 54.3 L (>60) mL/min BUN/Creatinine Ratio 16.2 (6-22) Glucose 110 (80-110) mg/dL Lactate 0.9 (0.7-2.1) mmol/L Calcium 9.6 (8.4-10.2) mg/dL Total Bilirubin 0.8 (0.2-1.3) mg/dL AST 26 (17-59) IU/L ALT 15 L (21-72) IU/L Alkaline Phosphatase 103 (38-126) U/L Total Protein 8.3 H (6.3-8.2) g/dL Albumin 4.5 (3.5-5.0) g/dL Globulin 3.8 (1.7-4.1) g/dL Albumin/Globulin Ratio 1.2 (1.0-2.8) Urine Color Urine Appearance Urine pH (4.5-8.0) Ur Specific [place] (1.000-1.035) Urine Protein (Negative) Urine Glucose (UA) (Negative) g/dL Urine Ketones (NEGATIVE) Urine Occult Blood (Negative) Urine Nitrate (Negative) Urine Bilirubin (NEGATIVE) Urine Urobilinogen (0.2) E.U./dL Ur Leukocyte Esterase (NEGATIVE) Urine RBC (0-5/HPF) Urine WBC (0-5/HPF) Urine Bacteria (None) Ur Culture Indicated? 01/12/19 Range/Units 17:27 WBC (4.5-11.0) X10^3/uL RBC (4.5-5.9) X10^6/uL Hgb (13.5-17.5) g/dL Hct (41-53) % MCV (80-100) fL MCH (26-34) PG MCHC (30-36) % RDW (11.6-14.8) % Plt Count (150-400) X10^3/uL Neut % (Auto) (50-75) % Lymph % (Auto) (25-40) % [place] % (Auto) (3-14) % Eos % (Auto) (2-4) % Baso % (Auto) (0-2) % Neut # (Auto) (6108-1238) /uL Lymph # (Auto) (4175-7102) /uL [place] # (Auto) (0-900) /uL Eos # (Auto) (0-450) /uL Baso # (Auto) (0-100) /uL Sodium (137-145) mmol/L Potassium (3.4-5.1) mmol/L Chloride (98-107) mmol/L Carbon Dioxide (22-32) mmol/L BUN (9-20) mg/dL Creatinine (0.66-1.25) mg/dL Estimated GFR (>60) mL/min BUN/Creatinine Ratio (6-22) Glucose (80-110) mg/dL Lactate (0.7-2.1) mmol/L Calcium (8.4-10.2) mg/dL Total Bilirubin (0.2-1.3) mg/dL AST (17-59) IU/L ALT (21-72) IU/L Alkaline Phosphatase (38-126) U/L Total Protein (6.3-8.2) g/dL Albumin (3.5-5.0) g/dL Globulin (1.7-4.1) g/dL Albumin/Globulin Ratio (1.0-2.8) Urine Color Yellow Urine Appearance Clear Urine pH 7.0 (4.5-8.0) Ur Specific [place] 1.020 (1.000-1.035) Urine Protein Negative (Negative) Urine Glucose (UA) Negative (Negative) g/dL Urine Ketones Negative (NEGATIVE) Urine Occult Blood Negative (Negative) Urine Nitrate Negative (Negative) Urine Bilirubin Negative (NEGATIVE) Urine Urobilinogen 0.2 (0.2) E.U./dL Ur Leukocyte Esterase Negative (NEGATIVE) Urine RBC 0-1/hpf (0-5/HPF) Urine WBC 0-1/hpf (0-5/HPF) Urine Bacteria None seen (None) Ur Culture Indicated? Cult not indicated Discharge Plan Departure Patient Disposition: Home Clinical Impression: Acute flank pain Discharge Date/Time: 01/12/19 20:49 Interventions: ED Discharge Assessment Last Done: 01/12/19 20:47 Instructions: DI for Low Back Pain, DI for Flank Pain Activity Restrictions/Additional Instructions: Your ultrasound shows no acute kidney etiology at this point time Your elevated and your urine shows no signs of infection. I have given you a prescription of NSAIDs. Do not combine this with anti- inflammatories such as Aleve, ibuprofen etc I have also given her prescription of pain Patches. Please follow up with primary care provider as soon as possible. Please follow up with your surgeon as discussed. Please come back to the emergency department for any acute concerns. Prescriptions: New ketorolac 10 mg tablet 10 mg PO TID PRN (Reason: pain) Qty: 10 RF: 0 lidocaine 5 % adhesive patch,medicated 1 patch TOP DAILY Qty: 15 RF: 0 No Action bupivacaine (PF) 0.25 % 2 mL/hr 120 mL elastomeric pump,fixed rate 3.15 mg Continuous Epidural DAILY RF: 0 tadalafil [Cialis] 20 MG tablet 20 mg PO PRN PRN (Reason: sexual activity) Qty: 0 RF: 0 testosterone cypionate [Depo-Testosterone] 200 MG/1 ML oil 0.5 ml subcut [id number] Qty: 9 RF: 0 carvedilol 6.25 mg tablet 12.5 mg PO QPM RF: 0 hydroxyzine HCl 25 mg tablet 25 mg PO QID PRN (Reason: Spasms) RF: 0 Emgality Pen 120 mg/mL pen injector 1 dose subcut QMONTH RF: 0 carvedilol 6.25 mg Tablet 6.25 mg PO QAM RF: 0 acyclovir 200 mg Capsule 200 mg PO 5XD PRN (Reason: Fever blisters) RF: 0 amlodipine-benazepril 5-10 mg capsule 1 cap PO QAM RF: 0 hydromorphone 4 mg tablet 4 mg PO Q4-6H PRN (Reason: Breakthrough Pain) RF: 0 dilaudid Continuous Epidural CONT RF: 0 aspirin [Aspirin Low Dose] 81 mg tablet,delayed release (DR/EC) 81 mg PO DAILY RF: 0 Respironics Dreamstation CPAP Qty: 1 RF: 0 Referrals: Raghu Brennan MD [Primary Care Provider] - <Raghu Sales DO - Last Filed: 01/12/19 22:32> [facility] Attestation: I was available for consultation during this patient's emergency department encounter
== END 2019-01-12 20:49 | disposition home or self-care (01) ==
PROVIDERS: Emergency Provider Nurse Practitioner Family; PCP Family Medicine
DX: R10.9 Unspecified abdominal pain (principal); Z95.1 Presence of aortocoronary bypass graft
CPT/HCPCS: 36591; 76770; 80053; 81001; 83605; 85025; 96361; 96374; 99283; 99284; J1885

== ENCOUNTER → 2019-01-14 09:37 | Outpatient (CLI) | payer MEDICARE, OTHER, SELFPAY ==
[2018-11-10 14:32] VITALS: BMI 30.3
[2019-01-14 10:21] LABS: Add Manual Diff / Slide Review NO; Basophils Absolute Auto 0 /uL (0-100); Basophils Percent Auto 0.3 % (0-2); Eosinophils Absolute Auto 0 /uL (0-450); Eosinophils Percent Auto 0.6 % (2-4); Hematocrit 42.3 % (41-53); Lymphocytes Absolute Auto 900 /uL (1100-4500); Lymphocytes Percent Auto 13.5 % (25-40); Mean Corpuscular HGB Conc 33.2 % (30-36); Mean Corpuscular Hemoglobin 29.8 PG (26-34); Mean Corpuscular Volume 89.7 fL (80-100); Monocytes Absolute Auto 600 /uL (0-900); Monocytes Percent Auto 9.6 % (3-14); Neutrophils Absolute Auto 4900 /uL (1500-7000); Platelet Count 203 X10^3/uL (150-400); Red Blood Cell Count 4.71 X10^6/uL (4.5-5.9); Red Cell Distribution Width 13.7 % (11.6-14.8); White Blood Cell Count 6.4 X10^3/uL (4.5-11.0)
[2019-01-14 11:11] LABS: C-Reactive Protein Quant 7.6 mg/dL (<1.0); Erythrocyte Sedimentation Rate 17 MM/HR (0-15)
== END ==
PROVIDERS: PCP Family Medicine; Visit Provider Orthopaedic Surgery Orthopaedic Surgery of the Spine
DX: M48.061 Spinal stenosis, lumbar region without neurogenic claudication (principal)
CPT/HCPCS: 36415; 85025; 85651; 86140

== ENCOUNTER 2019-01-15 22:25 | Emergency (ER) | payer MEDICARE, OTHER, SELFPAY ==
[2018-11-10 14:32] VITALS: BMI 30.3
[2019-01-15 22:30] VITALS: BMI 29.0
--- NOTE | 2019-01-15 22:32 | ED.MALEGU ---
HPI - Male Genitourinary General Chief complaint: Urogenital-Male Stated complaint: blood in urine Time Seen by Provider: 01/15/19 22:30 Source: patient Mode of arrival: ambulatory Limitations: no limitations History of Present Illness HPI Narrative: 73-year-old male nonsmoker department with ongoing left flank pain. He has been here few times this week and has had evaluations including imaging and labs. He was told to return to the emergency department if he developed any hematuria which happened today. He is not dizzy nor weak or lightheaded. He denies any fever or chills. He states his left flank pain is worse with motion and improves with rest. In the end of October he had a lumbar surgery and had trouble with ongoing pain in the aftermath which required 4 subsequent visits to the Orthopedics office. In the past week during his visits here he had a CT suggesting a kidney stone and on a follow-up visit and ultrasound suggesting and had past. He does have, as stated a history of kidney stones and states this pain feels different than what he has become accustomed to. Onset (ago): hour(s) Duration: constant Location: left flank Severity: moderate Quality: aching Relieving factors: rest Exacerbating factors: movement recent surgery Reports blood in urine Related Data Home Medications Medication Instructions Recorded Confirmed tadalafil [Cialis] 20 mg PO PRN PRN #0 03/20/13 01/12/19 testosterone cypionate 0.5 ml SUBCUT [id number] #9 06/13/17 01/12/19 [Depo-Testosterone] bupivacaine (PF) 0.25 % 2 mL/hour 3.15 mg CONTINUOUS EPIDURAL DAILY 04/19/18 11/27/18 120 mL infiltrat,fix rate elast ml pump aspirin 81 mg tablet,delayed 81 mg PO DAILY 09/03/18 11/27/18 release dilaudid mg CONTINUOUS EPIDURAL CONT 09/03/18 11/27/18 acyclovir 200 mg PO 5XD PRN 11/05/18 01/12/19 carvedilol 6.25 mg PO QAM 11/05/18 01/12/19 amlodipine-benazepril 1 cap PO QAM 11/10/18 01/12/19 hydromorphone 4 mg PO Q4-6H PRN 11/10/18 01/12/19 Respironics Dreamstation CPAP #1 ea 05/16/19 05/16/19 carvedilol 12.5 mg PO QPM 01/12/19 01/12/19 galcanezumab-gnlm [Emgality Pen] 1 dose SUBCUT QMONTH 01/12/19 01/12/19 hydroxyzine HCl 25 mg PO QID PRN 01/12/19 01/12/19 Previous Rx's Medication Instructions Recorded ketorolac 10 mg PO TID PRN #10 tab 01/12/19 lidocaine 1 patch TOP DAILY #15 each 01/12/19 Allergies Allergy/AdvReac Type Severity Reaction Status Date / Time morphine [MORPHINE] Allergy Intermediate BLISTERS Verified 11/10/18 07:16 aspartame AdvReac Severe SEVERE Verified 11/10/18 07:16 [From NUTRASWEET ASPARTAME] HEADACHES banana AdvReac Severe Severe Verified 11/10/18 07:16 headaches chocolate flavor AdvReac Severe Headaches Verified 11/10/18 07:16 gabapentin [GABAPENTIN] AdvReac Severe SEVERE Verified 11/10/18 07:16 AGITATION, DEPRESSION, ANXIETY hydrochlorothiazide AdvReac Severe HEADACHES Verified 11/10/18 07:16 [HYDROCHLOROTHIAZIDE] hydrocodone [HYDROCODONE] AdvReac Severe SEVERE Verified 11/10/18 07:16 HEADACHES metoprolol [METOPROLOL] AdvReac Severe HEADACHES Verified 11/10/18 07:16 omeprazole [OMEPRAZOLE] AdvReac Severe SEVERE Verified 11/10/18 07:16 HEADACHES & DIZZINESS oxycodone [OXYCODONE] AdvReac Severe HEADACHES Verified 11/10/18 07:16 ACID BLOCKERS AdvReac Severe SEVERE Uncoded 11/10/18 07:16 HEADACHES & DIZZINESS Review of Systems Constitutional Denies chills, Denies fever(s), Denies lethargy and Denies weakness Eyes Denies change in vision, Denies eye discharge, Denies irritation and Denies loss of vision ENT Ears, Nose, Mouth, and Throat: Denies change in voice, Denies neck pain and Denies sore throat Cardiovascular Denies chest pain, Denies irregular heart rhythm, Denies lightheadedness, Denies palpitations, Denies dyspnea, Denies dyspnea on exertion and Denies orthopnea Respiratory Denies cough, Denies dyspnea, Denies dyspnea on exertion and Denies wheezing Gastrointestinal Gastrointestinal: Denies abdominal pain, Denies change in bowel habits, Denies diarrhea, Denies nausea and Denies vomiting Genitourinary Reports hematuria, Reports flank pain, Denies urinary incontinence and Denies urinary urgency Musculoskeletal Denies neck pain Integumentary/Breasts Denies pruritus, Denies erythema, Denies rash and Denies wounds Neurologic Denies confusion, Denies loss of vision and Denies weakness Psychiatric Denies anxiety, Denies confusion, Denies depression, Denies homicidal ideation and Denies suicidal ideation Endocrine Denies palpitations Hematologic/Lymphatic Denies easy bruising Allergic/Immunologic Denies wheezing PFSH Medical History Central sleep apnea (Chronic) Obstructive sleep apnea of adult (Chronic) Primary insomnia (Chronic) Hypersomnia (Inactive) Tachycardia (Acute) Arachnoiditis (Chronic) Cardiac murmur (Chronic) [place] (hard of hearing) (Chronic) HTN (hypertension) (Chronic) Postoperative atrial fibrillation (Chronic) Statin intolerance (Chronic) Surgical History S/P insertion of spinal cord stimulator (Chronic ~2002) History of bilateral knee arthroplasty (Resolved) History of lumbar surgery (Resolved) Hx of sinus surgery (Resolved 03/12/18) S/P CABG x 2 (Resolved ~07/2015) Status post bilateral cataract extraction (Resolved ~10/2014) Social History marital status: Smoking Status: Never smoker alcohol intake: never substance use type: does not use Social History marital status: Smoking Status: Never smoker alcohol intake: never substance use type: does not use Exam Narrative Exam Narrative: GENERAL: 73-year-old male appears stated age, obviously quite uncomfortable and splinting his left flank HEAD: Atraumatic. Normocephalic. No temporal or scalp tenderness. EYES: Pupils equal round and reactive. Extraocular motions intact. No scleral icterus. No injection or drainage. ENT: Nose without bleeding, purulent drainage or septal hematoma. Throat without erythema, tonsillar hypertrophy or exudate. Uvula midline. Airway patent. NECK: Trachea midline. No JVD or lymphadenopathy. Supple, nontender, no meningeal signs. CARDIOVASCULAR: Regular rate and rhythm without murmurs, gallops, or rubs. RESPIRATORY: Clear to auscultation. Breath sounds equal bilaterally. No wheezes, rales, or rhonchi. GASTROINTESTINAL: Abdomen soft, non-tender, nondistended. No hepato-splenomegaly, or palpable masses. No guarding. EXTREMITIES: No clubbing, cyanosis, or edema. No joint tenderness, effusion, or edema noted. BACK: Surgical scars are very well healed. Erythema, warmth, swelling or drainage. No dehiscence, induration or fluctuance. Pain is reproduceable to even slight touch over L flank. No external evidence of injury. No swelling, redness, or induration. No rash, blisters or other suggestion of shingles NEURO: AOx3. SKIN: No rash or erythema. Initial Vital Signs Initial Vital Signs: Vital Signs Pulse Rate 80 01/15/19 22:33 Respiratory Rate 16 01/15/19 22:33 Blood Pressure 182/97 H 01/15/19 22:33 Pulse Oximetry 96 01/15/19 22:33 Course Orders Ordered: ED Orders 01/15/19 22:30 Urinalysis and Microscopic Stat 01/15/19 22:48 CT abdomen pelvis w con Stat 01/15/19 23:00 Basic Metabolic Panel Stat C-Reactive Protein Quant Stat Complete Blood Count AUTO DIFF Stat Creatine Kinase Stat Erythrocyte Sedimentation Rate Stat Ondansetron HCl (Zofran) 4 mg IV Q4HR PRN PRN Reason: Nausea And Vomiting Last Admin: 01/15/19 23:11 Dose: 4 mg Discontinued Medications Sodium Chloride (Normal Saline 0.9%) 1,000 mls @ 1,000 mls/hr IV BOLUS ONE Stop: 01/15/19 23:46 Last Infusion: 01/16/19 00:39 Dose: 1,000 mls/hr Admin: 01/15/19 23:18 Dose: 1,000 mls/hr Ketorolac Tromethamine (Toradol) 15 mg IV NOW ONE Stop: 01/15/19 22:48 Last Admin: 01/15/19 23:11 Dose: 15 mg Reevaluation(s) Reevaluation #1: after discussion, patient states he drank a can of beet juice at lunch, likely causing the red appearance of his urine Consultations Consultation #1: call to ortho to discuss imaging findings. Labs are reassuring and patient is not septic. There is very little pain in the midline, overlying lytic process and therefore less likely to be discitis or osteomyelitis. MRI not possible given nerve stimulators. Pain is largely in region of fluid collection. No overlying warmth, redness or induration. NO fever or elevated WBC. Dr. Palacios suggests pain control and call to office in the morning. He will relay findings to Dr. Sorensen / [place] and suggests he will be seen later in the day as an outpatient. no indication for admission Vital Signs - 8 hr 01/15/19 22:33 Pulse Rate 80 Respiratory Rate 16 Blood Pressure [Left Arm] 182/97 H Pulse Oximetry 96 MDM - Male Genitourinary Lab Data Result diagrams: 01/15/19 23:00 01/15/19 23:00 Lab Results 01/15/19 01/15/19 01/15/19 Range/Units 22:30 23:00 23:00 WBC 5.7 (4.5-11.0) X10^3/uL RBC 4.60 (4.5-5.9) X10^6/uL Hgb 13.6 (13.5-17.5) g/dL Hct 40.9 L (41-53) % MCV 88.9 (80-100) fL MCH 29.6 (26-34) PG MCHC 33.3 (30-36) % RDW 13.7 (11.6-14.8) % Plt Count 205 (150-400) X10^3/uL Neut % (Auto) 64.5 (50-75) % Lymph % (Auto) 21.4 L (25-40) % [place] % (Auto) 10.9 (3-14) % Eos % (Auto) 2.4 (2-4) % Baso % (Auto) 0.8 (0-2) % Neut # (Auto) 3700 (3568-5360) /uL Lymph # (Auto) 1200 (2796-8472) /uL [place] # (Auto) 600 (0-900) /uL Eos # (Auto) 100 (0-450) /uL Baso # (Auto) 0 (0-100) /uL ESR 29 H (0-15) MM/HR Sodium 139 (137-145) mmol/L Potassium 4.4 (3.4-5.1) mmol/L Chloride 105 (98-107) mmol/L Carbon Dioxide 27 (22-32) mmol/L BUN 19 (9-20) mg/dL Creatinine 1.50 H (0.66-1.25) mg/dL Estimated GFR 46.0 L (>60) mL/min BUN/Creatinine Ratio 12.7 (6-22) Glucose 105 (80-110) mg/dL Calcium 8.9 (8.4-10.2) mg/dL Total Creatine Kinase (55-170) U/L C-Reactive Protein 6.3 H (<1.0) mg/dL Urine Color Ruby Urine Appearance Clear Urine pH 5.0 (4.5-8.0) Ur Specific [place] 1.025 (1.000-1.035) Urine Protein Negative (Negative) Urine Glucose (UA) Negative (Negative) g/dL Urine Ketones Negative (NEGATIVE) Urine Occult Blood Negative (Negative) Urine Nitrate Negative (Negative) Urine Bilirubin Negative (NEGATIVE) Urine Urobilinogen 1.0 (0.2) E.U./dL Ur Leukocyte Esterase Negative (NEGATIVE) Urine RBC None seen (0-5/HPF) Urine WBC None seen (0-5/HPF) Calcium Oxalate Crystal Few H Urine Bacteria None seen (None) Ur Culture Indicated? Cult not indicated 01/15/19 Range/Units 23:00 WBC (4.5-11.0) X10^3/uL RBC (4.5-5.9) X10^6/uL Hgb (13.5-17.5) g/dL Hct (41-53) % MCV (80-100) fL MCH (26-34) PG MCHC (30-36) % RDW (11.6-14.8) % Plt Count (150-400) X10^3/uL Neut % (Auto) (50-75) % Lymph % (Auto) (25-40) % [place] % (Auto) (3-14) % Eos % (Auto) (2-4) % Baso % (Auto) (0-2) % Neut # (Auto) (7813-7812) /uL Lymph # (Auto) (4217-6314) /uL [place] # (Auto) (0-900) /uL Eos # (Auto) (0-450) /uL Baso # (Auto) (0-100) /uL ESR (0-15) MM/HR Sodium (137-145) mmol/L Potassium (3.4-5.1) mmol/L Chloride (98-107) mmol/L Carbon Dioxide (22-32) mmol/L BUN (9-20) mg/dL Creatinine (0.66-1.25) mg/dL Estimated GFR (>60) mL/min BUN/Creatinine Ratio (6-22) Glucose (80-110) mg/dL Calcium (8.4-10.2) mg/dL Total Creatine Kinase 77 (55-170) U/L C-Reactive Protein (<1.0) mg/dL Urine Color Urine Appearance Urine pH (4.5-8.0) Ur Specific [place] (1.000-1.035) Urine Protein (Negative) Urine Glucose (UA) (Negative) g/dL Urine Ketones (NEGATIVE) Urine Occult Blood (Negative) Urine Nitrate (Negative) Urine Bilirubin (NEGATIVE) Urine Urobilinogen (0.2) E.U./dL Ur Leukocyte Esterase (NEGATIVE) Urine RBC (0-5/HPF) Urine WBC (0-5/HPF) Calcium Oxalate Crystal Urine Bacteria (None) Ur Culture Indicated? Imaging Data CT scan - abdomen: Radiologist's impression: Lytic process involving the inferior endplate of T12 and the superior endplate of L1, discitis and osteomyelitis cannot be excluded Left paraspinal subcutaenous fluid collection at L4, question seroma vs. abscess Discharge Plan Departure Patient Disposition: Home Clinical Impression: Acute left flank pain Instructions: DI for Flank Pain Activity Restrictions/Additional Instructions: *You have been diagnosed with [ acute left flank pain, which is likely from a fluid collection in the tissue. Your urine had no blood and it's color is likely a combination of concentrated urine and the beet juice you consumed] *What to do: *Continue to take medications as directed *Follow up with Dr. Sorensen later today as planned. Let them know you were seen in the Emergency Department tonigt *Return to ER if you should have any new, worsening or concerning symptoms Prescriptions: No Action bupivacaine (PF) 0.25 % 2 mL/hr 120 mL elastomeric pump,fixed rate 3.15 mg Continuous Epidural DAILY RF: 0 tadalafil [Cialis] 20 MG tablet 20 mg PO PRN PRN (Reason: sexual activity) Qty: 0 RF: 0 testosterone cypionate [Depo-Testosterone] 200 MG/1 ML oil 0.5 ml subcut [id number] Qty: 9 RF: 0 carvedilol 6.25 mg tablet 12.5 mg PO QPM RF: 0 hydroxyzine HCl 25 mg tablet 25 mg PO QID PRN (Reason: Spasms) RF: 0 Emgality Pen 120 mg/mL pen injector 1 dose subcut QMONTH RF: 0 ketorolac 10 mg tablet 10 mg PO TID PRN (Reason: pain) Qty: 10 RF: 0 lidocaine 5 % adhesive patch,medicated 1 patch TOP DAILY Qty: 15 RF: 0 carvedilol 6.25 mg Tablet 6.25 mg PO QAM RF: 0 acyclovir 200 mg Capsule 200 mg PO 5XD PRN (Reason: Fever blisters) RF: 0 amlodipine-benazepril 5-10 mg capsule 1 cap PO QAM RF: 0 hydromorphone 4 mg tablet 4 mg PO Q4-6H PRN (Reason: Breakthrough Pain) RF: 0 dilaudid Continuous Epidural CONT RF: 0 aspirin [Aspirin Low Dose] 81 mg tablet,delayed release (DR/EC) 81 mg PO DAILY RF: 0 Respironics Dreamstation CPAP Qty: 1 RF: 0 Referrals: Raghu Brennan MD [Primary Care Provider] - Laci Sorensen MD [Physician] -
[2019-01-15 22:33] VITALS: BP 182/97; PULSE 80; RESP 16; O2SAT 96
--- NOTE | 2019-01-15 22:48 | DI.CT.S_ITS ---
PROCEDURE: CT ABDOMEN PELVIS W CON INDICATIONS: severe, much worse Left flank pain, recent stone, lumbar surgery TECHNIQUE: After the administration of intravenous contrast, 5 mm thick sections acquired from the diaphragm to the symphysis. 5 mm coronal and sagittal reformats were acquired. For radiation dose reduction, the following was used: automated exposure control, adjustment of mA and/or kV according to patient size. COMPARISON: [facility], CR, XR LUMBAR SPINE 2 OR 3 VIEWS, 10/09/2018, 16:53. [facility], CT, CT LUMBAR SPINE WO CON, 10/13/2018, 11:41. [facility], CT, CT KIDNEY URETER BLADDER (KUB), 01/11/2019, 13:19. FINDINGS: Image quality: Excellent. ABDOMEN: Lung bases: Lung bases are clear. Heart size is normal. There is a small hiatal hernia. Solid organs: There is a 1.5 cm low-density nodule in the inferior liver, likely a hepatic cyst. Mild hepatic fatty infiltration. Liver is normal in size and enhancement. Gallbladder is normal. Biliary system is non dilated. Pancreas enhances normally. Spleen is normal in size and enhancement. No adrenal nodules. Kidneys demonstrate normal size and enhancement, without hydronephrosis. A couple of low-density nodules in the left kidney are most likely renal cysts. Peritoneum and bowel: Bowel loops demonstrate normal wall thickness and caliber. No free fluid or air. Nodes and vessels: No retroperitoneal or mesenteric adenopathy by size criteria. Aorta and inferior vena cava are normal in size. Miscellaneous: Tiny fat-containing umbilical hernia. Nerve stimulators are noted. PELVIS: Genitourinary: Bladder wall thickness is normal. Enlarged prostate. Miscellaneous: No inguinal hernias or adenopathy. Soft tissue edema and fluid collection posterior to lumbar spine are present. There is a 1.8 x 3.1 x 5.6 cm rim-enhancing fluid collection in the left paraspinous area at the level of L2-L4, suspicious for an abscess. Bones: Mild chronic L2 vertebral body compression fracture. There are degenerative and postsurgical changes in lumbar spine. The right pedicular screw at L1 traversing through the superior endplate of L1 vertebral body. Lucencies in the inferior endplate of T12 and superior endplate of L1 are present, new since 10/13/2018, but present on 01/11/2019. IMPRESSION: 1. Lucencies has developed in the inferior endplate of T12 and superior endplate of L1, both are new since 10/13/2018. Cannot rule out vertebral osteomyelitis. 2. There is a 1.8 x 3.1 x 5.6 cm rim-enhancing fluid collection in the left paraspinous area at the level of L2-L4, suspicious for an abscess. 3. The right L1 superior pedicular screw traverses through the superior endplate of L1. 4. No renal stone or hydronephrosis. 5. Hepatic and left adrenal hypodensities are most likely cysts. 6. A small hiatal hernia. No significant discrepancy with the mobile ui/ux designer radiology preliminary report. Dictated by: Kourtney Thomas M.D. on 01/16/2019 at 8:05 Approved by: Kourtney Thomas M.D. on 01/16/2019 at 8:24
[2019-01-15 22:53] LABS: Bacteria Urine None Seen; RBC Urine None Seen (0-5/HPF); WBC Urine None Seen (0-5/HPF)
[2019-01-15] MEDS: KETOROLAC 60 MG/2 ML VIAL 15 MG IV (23:11)
[2019-01-15] MEDS: ONDANSETRON 4 MG/2 ML INJ IV (23:11)
[2019-01-15 23:15] LABS: Add Manual Diff / Slide Review NO; Basophils Absolute Auto 0 /uL (0-100); Basophils Percent Auto 0.8 % (0-2); Eosinophils Absolute Auto 100 /uL (0-450); Eosinophils Percent Auto 2.4 % (2-4); Hematocrit 40.9 % (41-53); Hemoglobin 13.6 g/dL (13.5-17.5); Lymphocytes Absolute Auto 1200 /uL (1100-4500); Lymphocytes Percent Auto 21.4 % (25-40); Mean Corpuscular HGB Conc 33.3 % (30-36); Mean Corpuscular Hemoglobin 29.6 PG (26-34); Mean Corpuscular Volume 88.9 fL (80-100); Monocytes Absolute Auto 600 /uL (0-900); Monocytes Percent Auto 10.9 % (3-14); Neutrophils Absolute Auto 3700 /uL (1500-7000); Neutrophils Percent Auto 64.5 % (50-75); Platelet Count 205 X10^3/uL (150-400); Red Cell Distribution Width 13.7 % (11.6-14.8); White Blood Cell Count 5.7 X10^3/uL (4.5-11.0)
[2019-01-15 23:17] LABS: Appearance Urine UA CLEAR; Bilirubin Urine UA NEGATIVE (NEGATIVE); Glucose Urine UA NEGATIVE (Negative); Leukocyte Esterase Urine UA NEGATIVE (NEGATIVE); Occult Blood Urine UA NEGATIVE (Negative); Protein Urine UA NEGATIVE (Negative); Specific Gravity Urine UA 1.025 (1.000-1.035)
[2019-01-15] MEDS: SODIUM CHLORIDE 0.9% 1,000 ML 1000 ML IV (23:18)
--- NOTE | 2019-01-15 23:19 | PC.NURSE ---
pt to CT with tech on stretcher
[2019-01-15 23:20] LABS: Color Urine UA Amber; Ketones Urine UA NEGATIVE (NEGATIVE); Nitrite Urine UA NEGATIVE (Negative)
[2019-01-15 23:23] LABS: BUN Creatinine Ratio 12.7 (6-22); Blood Urea Nitrogen 19 mg/dL (9-20); C-Reactive Protein Quant 6.3 mg/dL (<1.0); Calcium 8.9 mg/dL (8.4-10.2); Carbon Dioxide 27 mmol/L (22-32); Chloride 105 mmol/L (98-107); Glucose 105 mg/dL (80-110); HEMOLYSIS < 15 (0-50); Potassium 4.4 mmol/L (3.4-5.1); Sodium 139 mmol/L (137-145)
[2019-01-15 23:27] LABS: Calcium Oxalate Crystals Urine Few; Culture Indicated Urine Cult Not Indicated
[2019-01-15 23:38] LABS: Creatine Kinase 77 U/L (55-170)
[2019-01-15 23:41] LABS: Erythrocyte Sedimentation Rate 29 MM/HR (0-15)
[2019-01-16 01:11] VITALS: BP 158/75; PULSE 74; RESP 18; TEMP 36.8; O2SAT 97
== END 2019-01-16 01:12 | disposition home or self-care (01) ==
PROVIDERS: Emergency Provider Emergency Medicine; PCP Family Medicine
DX: R10.9 Unspecified abdominal pain (principal)
CPT/HCPCS: 36591; 74177; 80048; 81001; 82550; 85025; 85651; 86140; 96361; 96374; 96375; 99283; 99284; J1885; J2405; Q9967

== ENCOUNTER 2019-01-27 12:04 | Day surgery (SDC) | payer MEDICARE, OTHER, SELFPAY ==
[2018-11-10 14:32] VITALS: BMI 30.3
[2019-01-23 12:13] VITALS: BMI 30.3
[2019-01-27] VITALS (9 sets, daily range): BP systolic 123–147; BP diastolic 65–90; PULSE 83–104; RESP 9–20; TEMP 36.2–37.7; O2SAT 93–98; BMI 30.3
--- NOTE | 2019-01-27 | PATH_ITS ---
[facility] Accession Number: [id number] . 01 Material submitted: . bone - T12 VERTEBRAL BONE BIOPSY . 02 Diagnosis: T-12 Vertebral Bone Biopsy: Very scant bone spicules with abundant blood and fibrin. No active inflammation identified. No neoplasia identified. Scant, possible hematopoietic elements present; no significant cytomorphologic abnormality identified. Please see comment. MRV/01/29/2019 . 02 Comment: Blood and fibrin constitute greater than 90% of the biopsy specimen. . 02 Electronically signed: . Shae Sheridan MD, Pathologist NPI- [id number] . 01 Gross description: . Received in formalin, labeled T-12 vertebral bone, is a piece of red-brown focally gritty tissue (length-3.3 cm, diameter-0.2 cm). Decalcified and submitted intact in cassette A1. ([id number]) /MRV . 02 Pathologist provided ICD-10: M96.1, T81.89XD, M48.061 . 02 CPT . 488485, 237561 Performed at: [address] [facility] [address], [place], [place] [id number] MD Godfrey Ricci MD Phone: [phone] Performed at: 02 [facility] [address] [place], [place] [id number] MD Bety Gomes MD Phone: [phone]
--- NOTE | 2019-01-27 | DI.RAD.S_ITS ---
PROCEDURE: XR THORACIC SPINE 2V INDICATIONS: T-12 BIOPSY TECHNIQUE: 2 views of the thoracic spine were acquired. COMPARISON: [facility] [place], CR, XR LUMBAR SPINE 2 OR 3 VIEWS, 12/05/2018, 10:39. [facility], CT, CT ABDOMEN PELVIS W CON, 01/15/2019, 22:56. FINDINGS: 2 fluoroscopy images were obtained of the thoracolumbar junction line T12 biopsy. No stimulator leads are noted in the lower thoracic spine. There are surgical fusion in lumbar spine, partially visualized. IMPRESSION: Fluoroscopy support for T12 biopsy. Dictated by: Kourtney Thomas M.D. on 01/27/2019 at 17:13 Approved by: Kourtney Thomas M.D. on 01/27/2019 at 17:16
[2019-01-27] MEDS: LACTATED RINGERS 1,000 ML 42 ML IV ×2 (12:20→16:38)
--- NOTE | 2019-01-27 14:20 | SUR.PREOP ---
Have checked in periodically with the patient (mostly dozing); states that he is doing fine.
--- NOTE | 2019-01-27 15:15 | PM.PREOP ---
Pre-operative Note Interval Note History & Physical reviewed/Exam performed by Physician: Yes Changes to H&P: No
--- NOTE | 2019-01-27 16:30 | P.OP_ITS ---
Operative Date/Time/Diagnoses Date of procedure: 01/27/19 Time of procedure: 13:21 Pre-op diagnosis: 1. T12 vertebral bony lesion 2. Back pain Post-op diagnosis: same Procedure & Clinicians Procedure: 1. T12 vertebral bony biopsy 2. T12 bone pathology and culture Same procedure as scheduled: Yes Indications: Mr. Boyd is a 73 yo M with chronic back pain and hx of multiple lumbar surgeries. He has been having worsening pain over the last two weeks, significantly limiting him. His recent CT shows T12 vertebral lesion that is slightly larger than previously seen. After discussing risks and benefits of treatment options, patient elected to proceed with surgery for biopsy of T12 lesion and culture with pathology. Surgeon: Laci Sorensen Click Yes if Unassisted: No Anesthesia Type: General Operative Notes Closure Type: primary Specimen(s): other (T12 vertebral body) Estimated Blood Loss (mL): 1 Blood products transfused: none Procedure in detail: Patient was seen in the preoperative area. Risks and benefits of the surgery was discussed with the patient. Informed consent was obtained from the patient and placed in the chart. Surgical site was marked. Patient was taken to the operative room. General anesthesia was administered. Prophylactic antibiotic was given to the patient less than 30 min before the incision was made. Patient was placed into a prone position on the Angelo table. Patient's back was then prepped and draped in the sterile fashion. Time- out was performed at this time. Using AP and lateral C-arm imaging the T12 pedicle on the left was identified and marked on patient's back. A 2 mm incision was made using a 11 blade. Jamshide needle was inserted into the T12 left pedicle under AP and lateral C- arm guidance and tapping with a hammer. The biopsy needle was inserted into the vertebral body at the location of bony lesion without any difficulty. Syringe was used to aspirate fluid from the lesion. Only bloody aspirate was obtained and was sent off for culture and sensitivity. The biopsy needle was advanced further and then withdrew to try to retain bony masses for pathology purpose. The stylet was inserted after the Jamshide needle was removed. A long strip of clot along with some whitish tissue was removed from the needle and was sent off for both pathology and culture. The tissue removed was odorless and solid. The skin was closed with 3-0 nylon suture. Patient tolerated the procedure well. There were no complications. Patient was transferred recovery room in stable condition. Complications: none Condition: stable Disposition: PACU Plan for aftercare: Discharge to home
[2019-01-27] MEDS: HYDROMORPHONE 2 MG INJ 1 MG IM (16:32)
== END 2019-01-27 17:17 | disposition home or self-care (01) ==
PROVIDERS: PCP Family Medicine; Visit Provider Orthopaedic Surgery Orthopaedic Surgery of the Spine
PROC: (CPT 20225; principal; 2019-01-27 14:15)
DX: M96.1 Postlaminectomy syndrome, not elsewhere classified (principal); M54.9 Dorsalgia, unspecified; T81.89XD Other complications of procedures, not elsewhere classified, subsequent encounter; M48.061 Spinal stenosis, lumbar region without neurogenic claudication
CPT/HCPCS: 20225; 72070; 76000; 87070; 87075; 87102; 87176; 87205; 88305; 88311; J1100; J1170; J2704; J2765

== ENCOUNTER 2019-02-11 07:26 | Emergency (ER) | payer MEDICARE, OTHER, SELFPAY ==
[2018-11-10 14:32] VITALS: BMI 30.3
[2019-02-11 07:35] VITALS: BP 181/85; PULSE 90; RESP 16; TEMP 37.1; O2SAT 99; BMI 28.2
--- NOTE | 2019-02-11 07:53 | ED.BACK ---
HPI - Back Pain/Injury General Chief Complaint: Back Pain/Injury Stated Complaint: pain around waist Time Seen by Provider: 02/11/19 07:27 Source: patient Mode of arrival: ambulatory Limitations: no limitations History of Present Illness HPI Narrative: Patient is a 73-year-old male. Does have a significant history of lower back pain having had multiple surgeries in the past. He has been seen here in the emergency department for left-sided flank pain and lower back pain. Had a CT scan performed earlier this month which showed a potential spinal lesion. Earlier this month he had that lesion biopsied which review the report shows that it is non malignant. Patient states that he has had multiple CT scans in the past. Two days ago patient had a CT scan performed at an outside facility of his lumbar spine without contrast which was concerning for a break in the tubing of his pain pump. He returns today for continued pain. Describes it as both sides of his lower back both flanks and lower abdomen. No change in urination or bowel movements. No fevers. He states that he tried to contact his pain management provider however was unable to get a hold of him. He states that his is unable to drive him to his pain management provider because he is out of town and his cannot do this for him. He comes to the emergency department asking to be admitted to the hospital or potentially transferred to [place] where his pain management provider is to have this pain pump fixed. Related Data Home Medications Medication Instructions Recorded Confirmed tadalafil [Cialis] 20 mg PO PRN PRN #0 03/20/13 01/12/19 testosterone cypionate 0.5 ml SUBCUT [id number] #9 06/13/17 01/12/19 [Depo-Testosterone] bupivacaine (PF) 0.25 % 2 mL/hour 3.15 mg CONTINUOUS EPIDURAL DAILY 04/19/18 01/27/19 120 mL infiltrat,fix rate elast ml pump aspirin 81 mg tablet,delayed 81 mg PO DAILY 09/03/18 01/27/19 release acyclovir 200 mg PO 5XD PRN 11/05/18 01/27/19 carvedilol 6.25 mg PO QAM 11/05/18 01/27/19 amlodipine-benazepril 1 cap PO QAM 11/10/18 01/27/19 hydromorphone 4 mg PO Q4-6H PRN 11/10/18 01/27/19 Respironics Dreamstation CPAP #1 ea 11/27/18 11/27/18 hydroxyzine HCl 25 mg PO QID PRN 01/12/19 01/12/19 ketorolac 10 mg PO TID PRN 01/27/19 01/27/19 methylprednisolone 10 mg PO SEEINSTR 01/27/19 01/27/19 Previous Rx's Medication Instructions Recorded lidocaine 1 patch TOP DAILY #15 each 01/12/19 hydromorphone [Dilaudid] 2 mg PO Q6H PRN #30 tab 01/27/19 Allergies Allergy/AdvReac Type Severity Reaction Status Date / Time morphine [MORPHINE] Allergy Intermediate BLISTERS Verified 02/11/19 07:35 aspartame AdvReac Severe SEVERE Verified 02/11/19 07:35 [From NUTRASWEET ASPARTAME] HEADACHES banana AdvReac Severe Severe Verified 02/11/19 07:35 headaches chocolate flavor AdvReac Severe Headaches Verified 02/11/19 07:35 gabapentin [GABAPENTIN] AdvReac Severe SEVERE Verified 02/11/19 07:35 AGITATION, DEPRESSION, ANXIETY hydrochlorothiazide AdvReac Severe HEADACHES Verified 02/11/19 07:35 [HYDROCHLOROTHIAZIDE] hydrocodone [HYDROCODONE] AdvReac Severe SEVERE Verified 02/11/19 07:35 HEADACHES metoprolol [METOPROLOL] AdvReac Severe HEADACHES Verified 02/11/19 07:35 omeprazole [OMEPRAZOLE] AdvReac Severe SEVERE Verified 02/11/19 07:35 HEADACHES & DIZZINESS oxycodone [OXYCODONE] AdvReac Severe HEADACHES Verified 02/11/19 07:35 ACID BLOCKERS AdvReac Severe SEVERE Uncoded 02/11/19 07:35 HEADACHES & DIZZINESS Review of Systems Constitutional Denies fever(s) ENT Ears, Nose, Mouth, and Throat: Denies neck pain and Denies disequilibrium Cardiovascular Denies chest pain and Denies dyspnea Respiratory Denies dyspnea Gastrointestinal Gastrointestinal: Reports abdominal pain, Denies nausea and Denies vomiting Genitourinary Denies dysuria and Reports flank pain Musculoskeletal Reports back pain and Denies neck pain Integumentary/Breasts Denies rash Neurologic Denies disequilibrium Hematologic/Lymphatic Denies easy bleeding and Denies easy bruising [facility] Medical History Central sleep apnea (Chronic) Obstructive sleep apnea of adult (Chronic) Primary insomnia (Chronic) Hypersomnia (Inactive) Tachycardia (Acute) Arachnoiditis (Chronic) Cardiac murmur (Chronic) [place] (hard of hearing) (Chronic) HTN (hypertension) (Chronic) Postoperative atrial fibrillation (Chronic) Statin intolerance (Chronic) Surgical History (Updated 01/27/19 @ 12:51 by Erendira Cristina RN) S/P CABG x 3 (Acute) S/P lumbar spinal fusion (Acute 11/10/18) S/P insertion of spinal cord stimulator (Chronic ~2002) History of bilateral knee arthroplasty (Resolved) History of lumbar surgery (Resolved) Hx of sinus surgery (Resolved 03/12/18) Status post bilateral cataract extraction (Resolved ~10/2014) Social History marital status: household members: spouse Smoking Status: Never smoker alcohol intake: never substance use type: does not use Social History marital status: household members: spouse Smoking Status: Never smoker alcohol intake: never substance use type: does not use Exam Initial Vital Signs Initial Vital Signs: Vital Signs Temperature 98.8 F 02/11/19 07:35 Pulse Rate 90 02/11/19 07:35 Respiratory Rate 16 02/11/19 07:35 Blood Pressure 181/85 H 02/11/19 07:35 Pulse Oximetry 99 02/11/19 07:35 Const General: cooperative, well groomed and No acute distress Orientation: alert and awake HENMT Head: normal to inspection and normocephalic Resp Effort & Inspection: normal respiratory effort Cardio Rate: regular rate GI Inspection: non-distended Palpation: soft and tender (Lower abdomen is nontender to palpation) Back/Spine/Pelvis Other: Lower lumbar is tender to palpation Skin Other: Well-healed surgical scars lower lumbar region consistent with his stated prior history is Psych Appearance: grossly normal and well kempt Course Vital Signs - 8 hr 02/11/19 07:35 Temperature 98.8 F Pulse Rate 90 Respiratory Rate 16 Blood Pressure 181/85 H Pulse Oximetry 99 MDM - Back Pain/Injury MDM Narrative Medical decision making narrative: Patient has no new symptoms. I did discuss the case with his pain management provider who stated that in order to definitively states that the pain pump is broken is to do a dye study. He stated he is out of town and is unable to do until Saturday. Patient already has an appointment for Saturday. Do not feel the patient needs emergent transfer to facility to have this done. He has pain medication at home which he states he does not take because it does not work for him. Unfortunately not much more can be offered to him out of the emergency department. He will keep his follow-up appointment on Saturday. He expressed understanding and agreement with plan. Discharge Plan Departure Patient Disposition: Home Clinical Impression: Chronic back pain Qualifiers: Back pain location: low back pain Back pain laterality: midline Sciatica presence: without sciatica Qualified Code(s): M54.5 - Low back pain Instructions: DI for Low Back Pain Activity Restrictions/Additional Instructions: Continue all of your medications as directed. Be sure to keep your follow-up appointment on Saturday with your sign painter. Return to the emergency department for any new symptoms Prescriptions: No Action bupivacaine (PF) 0.25 % 2 mL/hr 120 mL elastomeric pump,fixed rate 3.15 mg Continuous Epidural DAILY RF: 0 tadalafil [Cialis] 20 MG tablet 20 mg PO PRN PRN (Reason: sexual activity) Qty: 0 RF: 0 testosterone cypionate [Depo-Testosterone] 200 MG/1 ML oil 0.5 ml subcut [id number] Qty: 9 RF: 0 hydroxyzine HCl 25 mg tablet 25 mg PO QID PRN (Reason: Spasms) RF: 0 lidocaine 5 % adhesive patch,medicated 1 patch TOP DAILY Qty: 15 RF: 0 carvedilol 6.25 mg Tablet 6.25 mg PO QAM RF: 0 acyclovir 200 mg Capsule 200 mg PO 5XD PRN (Reason: Fever blisters) RF: 0 amlodipine-benazepril 5-10 mg capsule 1 cap PO QAM RF: 0 hydromorphone 4 mg tablet 4 mg PO Q4-6H PRN (Reason: Breakthrough Pain) RF: 0 ketorolac 10 mg Tablet 10 mg PO TID PRN (Reason: Pain) RF: 0 methylprednisolone 8 mg Tablet 10 mg PO SEEINSTR RF: 0 hydromorphone [Dilaudid] 2 mg tablet 2 mg PO Q6H PRN (Reason: pain) Qty: 30 RF: 0 aspirin [Aspirin Low Dose] 81 mg tablet,delayed release (DR/EC) 81 mg PO DAILY RF: 0 Respironics Dreamstation CPAP Qty: 1 RF: 0 Referrals: Raghu Brennan MD [Primary Care Provider] -
[2019-02-11 08:43] VITALS: BP 143/93; PULSE 67; RESP 16; O2SAT 100
== END 2019-02-11 08:44 | disposition home or self-care (01) ==
PROVIDERS: Emergency Provider Emergency Medicine; PCP Family Medicine
DX: M54.5 Low back pain (principal); Z96.89 Presence of other specified functional implants
CPT/HCPCS: 99282

== ENCOUNTER → 2019-02-13 13:08 | Outpatient (CLI) | payer MEDICARE, OTHER, SELFPAY ==
[2018-11-10 14:32] VITALS: BMI 30.3
--- NOTE | 2019-02-13 | DI.CT.S_ITS ---
PROCEDURE: CT LUMBAR SPINE WO/W CON INDICATIONS: spinal lesion TECHNIQUE: Prior to and after the administration of intravenous Isovue contrast, 3 mm thick sections acquired through the levels of interest. Sagittal and coronal reformats were then constructed. For radiation dose reduction, the following was used: automated exposure control. COMPARISON: [facility], CT, CT LUMBAR SPINE WO CON, 10/13/2018, 11:41. [facility], CT, CT LUMBAR SPINE WITHOUT CONTRAST, 02/09/2019, 14:52. FINDINGS: Image quality: Excellent. Bones: Postsurgical changes compatible with L1-S1 posterior and interbody fusion noted with bilateral L2, L3, L4 and L5 transpedicular screws and right L1 and S1 transpedicular screws. Neural stimulator noted in the right buttock subcutaneous fat with stimulator lead projecting into the spinal canal the level of the L1-L2 interspinous space with stimulator leads terminating at the level of the T8 vertebral body. Chronic L3 compression deformity is stable compared to prior exams. Multilevel degenerative disc changes and facet arthropathy are stable compared to prior exams. Erosive changes are noted in the inferior endplate of the T12 and superior endplate of the T11 vertebral bodies. There is lucency adjacent to the right L1 transpedicular screw that measures 6 mm in thickness. Findings are most compatible with discitis-osteomyelitis. Soft tissues: Postsurgical scarring noted in the posterior paraspinous soft tissues extending from L1-S1. There is a 3.4 x 3.6 x 7.9 cm fluid collection in the posterior left paraspinous soft tissues at the level of the L3 and L4 vertebral bodies. Fluid collection is definitely changed in size compared to 10/13/1989 are present seroma, however infected fluid collection cannot be excluded by imaging alone. IMPRESSION: 1. Marked erosive changes involving the T12 inferior endplate and the L1 superior endplate is compatible with T12-L1 discitis-osteomyelitis. 2. Lucency adjacent to right L1 transpedicular screw most compatible with infection. 3. 0.4 x 3.6 x 7.9 cm fluid collection in the left posterior paraspinal soft tissues at the level of the L3 and L4 vertebral bodies represent a seroma, however infected fluid collection cannot be differentiated by imaging alone. 4. Findings discussed with Rose Marie Walter LPN of ordering physician Dr. Sorensen's office on 02/13/2019 at 1557 hrs. Dictated by: Cici Morrison MD, PhD on 02/13/2019 at 15:47 Approved by: Cici Morrison MD, PhD on 02/13/2019 at 16:04
[2019-02-13 13:42] LABS: Blood Urea Nitrogen 25 mg/dL (9-20); Estimated Glomerular Filt Rate > 60.0 mL/min (>60)
== END ==
PROVIDERS: PCP Family Medicine; Visit Provider Orthopaedic Surgery Orthopaedic Surgery of the Spine
DX: M96.1 Postlaminectomy syndrome, not elsewhere classified (principal); M54.5 Low back pain; M96.842 Postprocedural seroma of a musculoskeletal structure following a musculoskeletal system procedure; Z98.1 Arthrodesis status
CPT/HCPCS: 36415; 72133; 82565; 84520; Q9967

== ENCOUNTER → 2019-02-16 12:34 | Outpatient (CLI) | payer MEDICARE, OTHER, SELFPAY ==
[2018-11-10 14:32] VITALS: BMI 30.3
[2019-02-16 13:03] LABS: Add Manual Diff / Slide Review NO; Basophils Absolute Auto 100 /uL (0-100); Basophils Percent Auto 0.3 % (0-2); Eosinophils Absolute Auto 0 /uL (0-450); Eosinophils Percent Auto 0.1 % (2-4); Hematocrit 44.3 % (41-53); Hemoglobin 14.7 g/dL (13.5-17.5); Lymphocytes Absolute Auto 1100 /uL (1100-4500); Mean Corpuscular HGB Conc 33.2 % (30-36); Mean Corpuscular Volume 87.3 fL (80-100); Monocytes Absolute Auto 600 /uL (0-900); Monocytes Percent Auto 3.5 % (3-14); Neutrophils Absolute Auto 14100 /uL (1500-7000); Neutrophils Percent Auto 89.1 % (50-75); Platelet Count 349 X10^3/uL (150-400); Red Blood Cell Count 5.07 X10^6/uL (4.5-5.9); White Blood Cell Count 15.8 X10^3/uL (4.5-11.0)
[2019-02-16 13:28] LABS: Erythrocyte Sedimentation Rate 38 MM/HR (0-15)
[2019-02-16 14:09] LABS: C-Reactive Protein Quant 3.7 mg/dL (<1.0)
== END ==
PROVIDERS: PCP Family Medicine; Visit Provider Orthopaedic Surgery Orthopaedic Surgery of the Spine
DX: M46.20 Osteomyelitis of vertebra, site unspecified (principal); M96.1 Postlaminectomy syndrome, not elsewhere classified
CPT/HCPCS: 36415; 85025; 85651; 86140

== ENCOUNTER → 2019-02-26 10:08 | Outpatient (CLI) | payer MEDICARE, OTHER, SELFPAY ==
[2018-11-10 14:32] VITALS: BMI 30.3
[2019-02-26 11:19] LABS: BUN Creatinine Ratio 23.6 (6-22); Blood Urea Nitrogen 26 mg/dL (9-20); Calcium 9.7 mg/dL (8.4-10.2); Carbon Dioxide 26 mmol/L (22-32); Chloride 102 mmol/L (98-107); Estimated Glomerular Filt Rate > 60.0 mL/min (>60); Glucose 93 mg/dL (80-110); HEMOLYSIS 21 (0-50); Sodium 140 mmol/L (137-145)
[2019-02-26 11:32] LABS: Potassium 5.6 mmol/L (3.4-5.1)
== END ==
PROVIDERS: PCP Family Medicine; Visit Provider Orthopaedic Surgery Orthopaedic Surgery of the Spine
DX: Z01.818 Encounter for other preprocedural examination (principal)
CPT/HCPCS: 36415; 80048; 86850; 86900; 86901

== ENCOUNTER → 2019-03-05 15:35 | Outpatient (CLI) | payer MEDICARE, OTHER, SELFPAY ==
[2018-11-10 14:32] VITALS: BMI 30.3
[2019-03-05 16:21] LABS: Add Manual Diff / Slide Review NO; Basophils Absolute Auto 0 /uL (0-100); Basophils Percent Auto 0.5 % (0-2); Eosinophils Absolute Auto 100 /uL (0-450); Hemoglobin 15.3 g/dL (13.5-17.5); Lymphocytes Absolute Auto 1500 /uL (1100-4500); Lymphocytes Percent Auto 17.6 % (25-40); Mean Corpuscular HGB Conc 33.3 % (30-36); Mean Corpuscular Hemoglobin 29.1 PG (26-34); Mean Corpuscular Volume 87.4 fL (80-100); Monocytes Absolute Auto 800 /uL (0-900); Monocytes Percent Auto 9.2 % (3-14); Neutrophils Absolute Auto 6000 /uL (1500-7000); Neutrophils Percent Auto 71.7 % (50-75); Platelet Count 285 X10^3/uL (150-400); Red Blood Cell Count 5.26 X10^6/uL (4.5-5.9); Red Cell Distribution Width 14.8 % (11.6-14.8); White Blood Cell Count 8.4 X10^3/uL (4.5-11.0)
[2019-03-05 16:37] LABS: BUN Creatinine Ratio 26.4 (6-22); Blood Urea Nitrogen 29 mg/dL (9-20); Calcium 9.5 mg/dL (8.4-10.2); Carbon Dioxide 24 mmol/L (22-32); Chloride 104 mmol/L (98-107); Estimated Glomerular Filt Rate > 60.0 mL/min (>60); Glucose 126 mg/dL (80-110); HEMOLYSIS 24 (0-50); Potassium 5.2 mmol/L (3.4-5.1); Sodium 138 mmol/L (137-145)
[2019-03-05 16:54] LABS: Erythrocyte Sedimentation Rate 11 MM/HR (0-15)
== END ==
PROVIDERS: PCP Family Medicine; Visit Provider Physician Assistant
DX: M48.04 Spinal stenosis, thoracic region (principal); M96.1 Postlaminectomy syndrome, not elsewhere classified; Z01.818 Encounter for other preprocedural examination
CPT/HCPCS: 36415; 80048; 85025; 85651; 86850; 86900; 86901

== ENCOUNTER 2019-03-09 06:18 | Inpatient (IN) | payer MEDICARE, OTHER, SELFPAY ==
[2018-11-10 14:32] VITALS: BMI 30.3
[2019-03-06 08:30] VITALS: BMI 31.4
[2019-03-09] VITALS (34 sets, daily range): BP systolic 105–168; BP diastolic 68–106; PULSE 65–135; RESP 8–22; TEMP 36.4–37.8; O2SAT 96–100; BMI 31.4
--- NOTE | 2019-03-09 | DI.RAD.S_ITS ---
PROCEDURE: XR LUMBAR SPINE 2-3V INDICATIONS: T11-L3 TLIF TECHNIQUE: 4 views of the lumbar spine were acquired. COMPARISON: [facility], [place], XR LUMBAR SPINE 2-3V, 11/10/2018, 8:57. [facility], [place], L-SPINE 2-3 VIEWS, 06/09/2017, 11:50. FINDINGS: Bones: Imaging from 11/10/18 had shown extensive posterior spine fusion from L1-S1, with revision noted on the current study showing addition of fusion through transverse pedicle screws and vertical rods canal beginning at T11 and extending contiguously through T3. Normal alignment is established. It appears that the fusion rods and transverse pedicle screws below the L3 level are now removed. Soft tissues: Overlying bowel gas pattern is normal. No suspicious soft tissue calcifications. IMPRESSION: Spine fusion revision as discussed above, adding fusion devices more superiorly and removing fusion devices more inferiorly. Dictated by: Donnie Fagan M.D. on 03/09/2019 at 13:25 Approved by: Donnie Fagan M.D. on 03/09/2019 at 13:38
--- NOTE | 2019-03-09 | PATH_ITS ---
[facility] Accession Number: [id number] . 01 Material submitted: . vertebral column - L1 VERTEBRAE . 02 Diagnosis: Tissue from L1 Vertebra: Chronic active osteomyelitis with fibrosis and prominent bone necrosis with associated fibrosis and necrosis of adjacent soft tissues with acute and chronic inflammation. MRV/03/11/2019 . 02 Electronically signed: . Jack Fitzpatrick MD, Pathologist NPI- [id number] . 01 Gross description: . Received in formalin, labeled L1 vertebrae, are multiple fragments of walker-mak rubbery and focally gritty hard tissue (1.3 x 0.7 x 0.3 cm in aggregate). Filtered, decalcified, and entirely submitted in cassette A1. ([id number]) /MRV . 02 Microscopic: . Sections are of tissue stated to be from the L1 vertebra. The tissue consists of bone and adjacent fibrous tissue, as well as loose myxomatous appearing tissue suggestive of possible intervertebral disc. The main change present here is one of severe chronic active inflammation which involves both the soft tissue as well as the bone. There is extensive fibrous reaction and there is prominent bone necrosis as well as soft tissue necrosis. There is no evidence for neoplasm. The changes are those of a chronic active osteomyelitis with associated adjacent soft tissue inflammation with necrosis. . 02 Pathologist provided ICD-10: M86.68 . 02 CPT . 185501, [id number] Performed at: 01 [facility] [address] [id number] MD Godfrey Ricci MD Phone: [phone] Performed at: 02 [facility] [address] [place] [id number] MD Bety Gomes MD Phone: [phone]
[2019-03-09] MEDS: LACTATED RINGERS 1,000 ML 42 ML IV ×3 (07:46→12:07)
[2019-03-09] MEDS: CEFAZOLIN 2 GM/100 ML FROZ.PIGGY IV ×2 (07:57→11:59)
--- NOTE | 2019-03-09 08:18 | SUR.PREOP ---
Dr. Hall reviewed EKG done in pre op area prior to pt going into the OR.
--- NOTE | 2019-03-09 08:19 | SUR.PREOP ---
Spoke with Jeri in the lab regarding order for type and screen. Per Jeri in the lab pt type and screen completed and didn't need to be done in pre op.
--- NOTE | 2019-03-09 08:22 | PM.PREOP ---
Pre-operative Note Interval Note History & Physical reviewed/Exam performed by Physician: Yes Changes to H&P: No
[2019-03-09] MEDS: BUPIVACAINE 0.25% W/ EPI 30 ML VIAL INJ (08:50)
[2019-03-09] MEDS: BUPIVACAINE LIPOSOME 266 MG/20 ML VIAL INJ (08:50)
[2019-03-09] MEDS: SODIUM CHLORIDE IRRIG SOLUTION 3,000 ML, GENTAMICIN 240 MG IRR (09:55)
--- NOTE | 2019-03-09 14:02 | SUR.PHASEI ---
Pt arousing, attempting to sit up, doesn't open eyes upon command, periods of obstruction, minimal response when told to deep breath. Shook head that yes, he is having pain, unable to obtain any more information regarding pain.
[2019-03-09] MEDS: fentaNYL 100 MCG/2 ML INJ 50 MCG IV ×3 (14:06→15:05)
[2019-03-09] MEDS: HYDROMORPHONE 2 MG INJ 0.5 MG IV ×4 (14:12→15:05)
--- NOTE | 2019-03-09 14:24 | P.OP_ITS ---
Operative Date/Time/Diagnoses Date of procedure: 03/09/19 Time of procedure: 08:05 Pre-op diagnosis: 1. T12-L1 discitis with L1 osteomyelitis 2. Loosened hardware lumbar spine 3. 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 Spinal stenosis T11-L3 5. Leaking/broken pain pump 6. Chronic back pain syndrome Post-op diagnosis: same Procedure & Clinicians Procedure: 1. L1 lumbar vertebral corpectomy through posterolateral approach 2. T12-L1 vertebral interbody fusion and posterolateral fusion 3. T11-T12 posterolateral fusion 4. L1-2 posterolateral fusion 5. L1-S1 posterior segmental instrumentation removal 6. T11-L3 posteror segmental instrumentation insertion 7. L1-2, L2-3 revision laminectomies with debridement of scar tissue 8. T12-L1 interbody cage placement 9. Utilization of microsurgical technique and operating microscope Same procedure as scheduled: Yes Indications: Patient has been having chronic back pain and worsening lumbar radiculopathy. Patient has been having worsening back pain not improving with conservative management. Patient's CT shows osteolysis at the T12-L1 disc space concern for diskitis osteomyelitis. Patient failed multiple conservative management with worsening pain weakness and numbness in her lower extremity. Patient has been having difficulty performing activity of daily living. After discussing risks benefits of treatment options, patient elected proceed with surgery. Surgeon: Laci Sorensen Grain Operations Manager: Letitia Riggs Click Yes if Unassisted: No Anesthesia Type: General Operative Notes Closure Type: primary Specimen(s): none sent Prosthetic devices, grafts, tissues, transplants, or devices: Globus revolve screws, Rise cage Applied: catheter Estimated Blood Loss (mL): 600 Blood products transfused: none Procedure in detail: Patient was seen in the preoperative area. Risks and benefits of the surgery was discussed with the patient. Informed consent was obtained from the patient and placed in the chart. Surgical site was marked. Patient was taken to the operative room. General anesthesia was administered. Prophylactic antibiotic was given to the patient less than 30 min before the incision was made. Patient was placed into a prone position on the Angelo table. Patient's back was then prepped and draped in the sterile fashion. Time- out was performed at this time. Using patient's previous scar incision was made over the T11-S1 interval on the right side. Fascia was incised in line with skin incision. Patient's previously placed hardware over the L1-S1 level was identified by dissecting down to the level the hardware using a Bovie and a Almanza. The locking caps which was removed using globus screwdriver. The locking krystle was then removed from the tulips of the pedicle screws using a Gail. The pedicle screws were then removed using the screwdriver. The screws were found to have good purchase except L1, which was grossly loose. The Globus and MARS retractors was then placed into the wound and docked onto the T12, L1 and L2 lamina using C-arm guidance. Using microsurgical technique and operating microscope a laminectomy facetectomy was performed by removing the T12-L1, L1-2, L2-3 lamina and the T12-L1, L1-2, L2-3 facet. The disc space at T12-L1 level was identified next. And a total diskectomy was performed at T12-L1 level. The endplates were decorticated using a rasp and shaver. The total diskectomy and decortication was performed at T12-L1 level in order to to accomplish a T12-L1 fusion. During the process of T12-L1 diskectomy, there was no gross pus identified. However the endplate and the vertebral bodies of T12 and L1 has multiple areas of osteolysis with soft tissue material instead of hard bone. Multiple cultures was taken as well as bony specimen was sent for path pathological examination. During the process of the debridement more than 50% of the L1 vertebral body was resected since there were pathologically soft with soft tissue that is suspicious for osteomyelitis. The local bone from the laminectomy and facetectomy was saved for local bone grafting. After the total diskectomy and decortication was completed, DBM bone graft material was combined with local bone that was harvested earlier. The bone grafting material was placed into the T12-L1 interbody space along with a expandable cage. The cage was expanded to its maximum height using the torque limiting screwdriver. At this time a mirror image incision was made on the left side. The fascia was incised in line with the skin incision. Patient's previously placed hardware on the left side was then removed in the same fashion as it was on the right side. The hardware was also found to have good purchase. The fusion mass on the left side was exposed by performing a left-sided hemilaminectomy at L1-2, L2-3 level. The hemilaminectomy was performed using the Kerrison rongeur to undercut the lamina as well removing additional epidural scar tissue for purpose of decompressing the epidural space. The fusion mass at both level was explored and was found have visible motion indicating pseudoarthrosis at L1-2. Globus MARS retractor was inserted and docked onto the T11-T12, T12-L1, L1-2 posterolateral gutter. Using the power drill, posterior-lateral decortication was performed at T11-T12, T12-L1, L1-2level until bleeding cortical bone was identified. The remaining bone grafting material was placed into the T11-T12, T12-L1, L1-2 posterior lateral gutter he order to accomplish posterolateral fusion at the T11-T12, T12-L1, L1-2 level. On patient's left side after making through the subcutaneous layer with the incision, there was 200 cc of clear liquids in the subcutaneous layer. There is also 2 broken ends of the pain pump with one end pumping slowly drip by drip into the wound. The subcutaneous tissue shows significant reaction to this chronic problem with what appears to be like a fistula structure going from the subcutaneous layer into were the hardware is positioned. The clear subcutaneous liquid was previously identified in the clinic by aspiration. This information was given to the patient. He was instructed to discuss with his doctor that placed a pain pump and inform him of active leak. His pain management doctor that was managing his pain pump did not do anything with this information. Now we have a visual of the clearly broken pain pump with and the catheter pumping into the soft tissue he will need this replaced or removed. Using the double C-arm technique, pedicle screws were placed into the T11, T12, L1, L2, L3 pedicles bilaterally. This was done by placing the Jamshidi needle into the pedicles, then placing the guidewires over the Jamshidi needle, and finally placing the cannulated screws over the guidewires bilaterally. After the pedicle screws were placed, 2 titanium rods was locked into the heads of the pedicle screws using locking caps and torque limiting screwdriver. After all the hardware was placed, and confirmed with AP and lateral C-arm imaging, the wound was then irrigated with sterile normal saline and packed with Ray-Leobardo gauze for 3 min to accomplish hemostasis. After the gauze was removed the deep fascia was closed with #1 Vicryl suture. The subcutaneous layer was closed with 2-0 Vicryl. The skin was closed with skin suzie. Patient tolerated the procedure well. There were no complications. EMG with motor monitoring was used throught the entire case, the monitoring signal was baseline throughout the entire case without disturbance. Complications: none Condition: stable Disposition: PACU Plan for aftercare: Admit to inpatient hospital
--- NOTE | 2019-03-09 14:24 | SUR.PHASEI ---
1412 rx for pain, attempting to sit up , reminded not to twist back. assisted with positioning on left side with pillow between knees and behind back. dressing remains cdi.
--- NOTE | 2019-03-09 14:31 | SUR.PHASEI ---
Dr. Sánchez checked on the patient x2.
[2019-03-09] MEDS: LORazepam 2 MG/ML INJ 0.25 MG IV (14:35)
--- NOTE | 2019-03-09 14:37 | SUR.PHASEI ---
1435 rx for restlessness;, sleeping on left side; pts glasses placed in his clothing bag (on the bed to go upstairs w/pt).
--- NOTE | 2019-03-09 14:49 | SUR.PHASEI ---
Report called to floor, questions answered. Pt rates pain 8/10, states that 9/10 is his norm.
--- NOTE | 2019-03-09 15:02 | SUR.PHASEI ---
Addendum entered by Erendira Cirstina R.N. 03/09/19 15:12: No diaphoresis, shortness of breath of other symptoms cardiac related. Original Note: ST depression noted on monitor, rhythm strip and EKG from this morning shown to anesthesia. 12 lead ordered, pt. denies chest pain/pressure, only location of pain is in his back. VS within his range of VS in pacu.
--- NOTE | 2019-03-09 15:11 | SUR.PHASEI ---
RT here for EKG, Pt unchanged with only back pain, Sending to obtain nerve stimulator so that he can turn it on.
--- NOTE | 2019-03-09 15:19 | SUR.PHASEI ---
EKG is done, taken to anesthesia by another RN, Pt presently dozing, no symptoms other than back pain. Order obtain for cardiac enzymes, lab notified.
--- NOTE | 2019-03-09 15:27 | SUR.PHASEI ---
lab here to draw enzymes, pt drowsy, unable to focus to turn on nerve stimulator. dozing intermittently
[2019-03-09 15:54] LABS: Creatine Kinase 607 U/L (55-170)
[2019-03-09] MEDS: LABETALOL 20 MG/4 ML SYRINGE IV ×2 (16:03→16:12)
--- NOTE | 2019-03-09 16:05 | SUR.PHASEI ---
1552 HR increasing, up in 130's. RN notified Dr. Sánchez, verbal order given; went to enter verbal order and saw possible interaction. Asked to enter order and override. 1603 Rx given after approved by pharmacy
[2019-03-09 16:06] LABS: Troponin I < 0.012 ng/mL (0.01-0.034)
[2019-03-09 16:10] LABS: CKMB % Relative Index 2.2 % (1.5-5.0)
--- NOTE | 2019-03-09 16:14 | SUR.PHASEI ---
lying comfortably on right side. no longer c/o pain, no grimace, sleeping. HR responding to medication.
--- NOTE | 2019-03-09 16:26 | SUR.PHASEI ---
attempted multiple times to view labs, called lab, who stated the results are available and elevated. Anesthesia notified to view labs and call back with a plan.
--- NOTE | 2019-03-09 16:35 | SUR.PHASEI ---
Dr. Dickson(aron)man called per Dr. Sánchez, will consult patient. Patient stood at bedside with assist
--- NOTE | 2019-03-09 17:06 | SUR.PHASEI ---
appros 1640 late entry, hospitalist here, reviewed EKG and labs, no cardiac symptoms, viewed VS. Saw no significant changed and OKd transfer to acute care. Dr. Hall notified per phone via [facility]. [phone] Patient taken to room 205, bed down and locked, call light within reach, present. Nerve stimulator controller, CPAP, and clothing to room with the patient. Pt. requested a basin of water to put his hands in just prior to transfer; explained that we were transporting him and that they could get it for him upstairs. Upon arrival, became demanding and aggitated, insisting on basin of water. C/o his eyes burning. stated that his eyes have been bothering him for some time and are dry and that they only thing that he has found to help is to rinse them with water. Has not complained of back pain significantly since last medication dose. Tried multiple times, unsuccessfully, to assist patient with turning on the nerve stimulator.
[2019-03-09] MEDS: HYDROMORPHONE 0.5 MG INJ IV ×2 (19:16→21:03)
[2019-03-09] MEDS: SODIUM CHLORIDE 0.9% 1,000 ML 100 ML IV (19:24)
[2019-03-09] MEDS: HYDROMORPHONE 2 MG TABLET 4 MG PO (20:10)
[2019-03-09 21:27] LABS: Estimated Glomerular Filt Rate > 60.0 mL/min (>60)
[2019-03-09] MEDS: VANCOMYCIN 1,000 MG/200 ML PIGGYBACK 200 MG IV (22:07)
--- NOTE | 2019-03-09 23:26 | PC.NURSE ---
Pt c/o dry eyes with severe pain, in addition to severe pain to back; pt says that eye pain has been an issue for 2 months; moderate pain to back and eyes following PO and IV pain medication; bulky drsg saturated and marked with Denise, intact; C/M/S to BLLEs positive; O2 RA=93%, IS 2500 X10 breaths/hour; patient oriented to room and call light
[2019-03-10] VITALS (7 sets, daily range): BP systolic 100–145; BP diastolic 60–76; PULSE 103–118; RESP 12–20; TEMP 36.8–37.7; O2SAT 97–100
[2019-03-10] MEDS: HYDROMORPHONE 0.5 MG INJ IV ×4 (00:36→23:05)
[2019-03-10] MEDS: HYDROMORPHONE 2 MG TABLET 4 MG PO (06:38)
[2019-03-10] MEDS: SODIUM CHLORIDE 0.9% 1,000 ML 100 ML IV ×2 (06:55→19:07)
--- NOTE | 2019-03-10 06:57 | PM.PNPO.1 ---
Subjective Date Patient Seen: 03/10/19 Time Patient Seen: 06:57 Interval history: Patient is POD#1 s/p L1 lumbar vertebral corpectomy through posterolateral approach, T12-L1 vertebral interbody fusion and posterolateral fusion with Dr. Sorensen. He was found to have leaking pain pump and bone degeneration consistent with osteomyelitis, cultures pending. He continues to have severe back pain which is responding to hourly IV Dilaudid and Q4h PO Dilaudid. He has not yet mobilized. Mcelroy catheter in place. No chest pain, shortness of breath. Complaining of some nausea when he attempts to sit up in bed. Exam Vital Signs (past 8 hours): - 03/09/19 23:06 03/09/19 23:26 03/10/19 06:02 Temperature 99.1 F 98.4 F Pulse Rate 65 113 H 115 H Respiratory Rate 18 20 Blood Pressure 134/98 H 123/77 145/70 H Pulse Oximetry 99 100 Oxygen Delivery Method Room Air Narrative Exam Narrative: 73 year old male resting in bed, alert and oriented in no acute distress. Dressing in place over L/Tspine is intact. Significant diffuse shadow drainage. SILT in LE. Calves soft compressible. Palpable pedal pulses. Objective Labs Result Diagrams: 03/10/19 06:29 03/09/19 21:09 Labs: Laboratory Results - last 24 hr 03/09/19 03/09/19 15:32 21:09 Creatinine 1.10 Estimated GFR > 60.0 Total Creatine Kinase 607 H CK-MB (CK-2) 13.50 H CK-MB (CK-2) Rel Index 2.2 Troponin I < 0.012 Assessment & Plan Post-op Postoperative Procedures Operation Date: 03/09/19 07:45 Actual Procedures Side Surgeon p T12-L1 TLIF, poss. T12 corpectomy, L1-S1 HWR, T11-L3 posterior instrumentation and PSF Laci Sorensen MD s Hardware Removal Spine L1-S1 Laci Sorensen MD Will give 1L fluid bolus as patient continues to be hypotensive with tachycardia and symptomatic with positional change. Dressing changed once in the AM shift and again in the afternoon due to significant drainage. Will continue to monitor. Implant card information taken today and passed along to Dr. Sorensen, awaiting response from Dr. Shell who manages his pain pump in regards to definitive management for the broken pump. Quality VTE Deep Vein Thrombosis/Pulmonary Embolism Present on Admission: No
[2019-03-10 06:58] LABS: Hematocrit 38.4 % (41-53); Hemoglobin 12.6 g/dL (13.5-17.5)
[2019-03-10] MEDS: CARVEDILOL 6.25 MG TABLET PO (08:37)
[2019-03-10] MEDS: AMLODIPINE 5 MG TABLET PO (08:37)
[2019-03-10] MEDS: BENAZEPRIL 5 MG TABLET 10 MG PO (08:38)
[2019-03-10] MEDS: VANCOMYCIN 1,000 MG/200 ML PIGGYBACK 200 MG IV (08:52)
--- NOTE | 2019-03-10 10:24 | PC.NURSE ---
Addendum entered by Galina Johnson R.N. 03/10/19 14:44: [facility]TE[facility]/GI - pt lying on r side, has been asleep and states no nausea at this time, has a cool cloth behind neck, coversite dsg has shadow drainage at proximal end, no leakage at this time. Addendum entered by Galina Johnson R.N. 03/10/19 13:34: GI/MS - pt continues to have underlying nausea and req up to br, discussed w/Taylor in PT and a bsc brought out, pt up to dangle w/o dizziness, some clamminess to skin, passing flatus and belching, did have a some parts of sandwich for lunch, msg left with YULIANA Douglass [phone]. Addendum entered by Galina Johnson R.N. 03/10/19 11:18: MS/PAIN/GI - up to dangle position with PT, incr nausea, dizziness, states pain back is managed, ret to bed, ivf continued w/bp 100/60, given 650mg po tylenol for headache discomfort and 4mg iv zofran. Original Note: AM NOTE - pt is alert, earlier dilaudid has provided adequate relief, pain 3 on scale 0/10, moving extremities, ra 98%, discussed pain mgt, dosage and timing, declines prior to phys therapy but will call when needed, per order, bulky barrier dsg removed, saturated with old serosang, parallel staplied incisions intact, some surrounding bruising, no active drainage, replaced with coversite dsg.
--- NOTE | 2019-03-10 10:46 | PT.IIE ---
Current Diagnoses Osteomyelitis of vertebra, thoracic region (03/09/19) Spinal stenosis, thoracic region (03/09/19) Postlaminectomy syndrome, not elsewhere classified (03/09/19) Other mechanical complication of other internal orthopedic devices, implants and grafts, initial encounter (03/09/19) Surgery Performed Operation Date: 03/09/19 07:45 Actual Procedures p T12-L1 TLIF, poss. T12 corpectomy, L1-S1 HWR, T11-L3 posterior instrumentation and PSF - Laci Sorensen MD s Hardware Removal Spine L1-S1 - Laci Sorensen MD Surgical History (Last Updated 03/06/19 @ 08:36 by Virginie Montalvo RN) S/P CABG x 2 (Acute) S/P lumbar spinal fusion (Acute 11/10/18) S/P insertion of spinal cord stimulator (Chronic ~2002) History of bilateral knee arthroplasty (Resolved) History of lumbar surgery (Resolved) Hx of sinus surgery (Resolved 03/12/18) Status post bilateral cataract extraction (Resolved ~10/2014) Medical History (Last Updated 03/06/19 @ 08:36 by Virginie Montalvo RN) Central sleep apnea (Chronic) Obstructive sleep apnea of adult (Chronic) Primary insomnia (Chronic) Hypersomnia (Inactive) Tachycardia (Acute) Arachnoiditis (Chronic) Cardiac murmur (Chronic) LITTLE TRAVERSE (hard of hearing) (Chronic) HTN (hypertension) (Chronic) Postoperative atrial fibrillation (Chronic) Statin intolerance (Chronic ~07/2015) Physical Therapy Inpatient Evaluation/Re-Eval M1 PT/OT-IP Prior Functional Status Start: 03/10/19 09:21 Freq: NEEDED Status: Active Protocol: Document 03/10/19 10:46 DLM (Rec: 03/10/19 12:06 DLM [id number]) Medical Review Prior Functional Status Medical History Reviewed Yes Diet/Fluid Consistency Regular Communication WNL Mobility and Gait Independent gait with fWW, distances limited by his back pain before sx, he has not been doing his stairs at home due to pain issues but has been independent with stairs before this recent increase in back pain Activities of Daily Living and IADL's Independent Prior Functional Level (Other details) His often uses a cane for gait Social History Household Members spouse Living Arrangements House Number of Floors (Floors) Two Floors Number of Stairs To Enter/Railing? 7+7 with landing between, no steps to enter house Home Environment High Toilet Home Equipment Front Wheel Walker Straight Cane Shower Seat with Backrest Additional Social History Comment he has been sleeping on the main level of the house in a zero gravity recliner to manage his pain M2 PT-IP Current Condition Start: 03/10/19 09:21 Freq: NEEDED Status: Active Protocol: Document 03/10/19 10:46 DLM (Rec: 03/10/19 12:06 DL [id number]) Physical Therapy Current Condition Current Condition Evaluation Date 03/10/19 Treatment Diagnosis T11-L3 post instrumentation, T11-L1 TLIF, T12-L1 cage, impaired gait/mob Onset Date 03/09/19 Precautions Other Precautions pt has a pain pump implanted that is broken Weight Bearing Status Weight Bearing Status Weight Bear as Tolerated M3 PT-IP Subjective Start: 03/10/19 09:21 Freq: NEEDED Status: Active Protocol: Document 03/10/19 10:46 DLM (Rec: 03/10/19 12:06 DL [id number]) Subjective Physical Therapy Visit Type Type Initial Evaluation Visit Start Time 10:15 Visit Stop Time 10:46 Total Visit Minutes 31 Number of GRIT REMOVAL OPERATOR Visits 0 Physical Therapy Visit Comments Patient Comments He is primarily worried about his pain pump today Patient Goals return home, wants his pain pumps fixed/removed Therapy Pain Assessment Pain When Pain Assessed At Rest Pain Present Pain Present Pain Reported Location Lower Back Intensity 3 Scale Used Numeric (1 - 10) Description Aching Pain Behaviors Facial Grimacing M4 PT-IP Mobility and Gait Start: 03/10/19 09:21 Freq: NEEDED Status: Active Protocol: Document 03/10/19 10:46 DLM (Rec: 03/10/19 12:06 DLM [id number]) PT-Bed Mobility Assessment Rolling Type of Rolling Roll to Right Level of Assist Standby Assistance Supine to Sit Supine to Sit Standby Assistance Sit to Supine Sit to Supine Minimal Assistance Scooting Scooting to Edge of Bed Standby Assistance PT-Transfer Assessment Comments Mobility Comments pt sat edge of bed, c/o nausae that increased as he sat, vitals taken with pt back in bed with BP 100/60 and HR 103, repeated vitals in supine show BP 106/58 and HR 103. Pt' s nurse was notified. His nausea slowly decreased once back in bed. No vomiting at this time. Gait Assessment Comments Gait Comments unable this visit due to severe nausea with sitting up PT-Balance Assessment Sitting Balance and Reactions Static Sitting Balance Ability Normal Dynamic Sitting Balance Ability Normal M5 PT-IP Objective Assessments Start: 03/10/19 09:21 Freq: NEEDED Status: Active Protocol: Document 03/10/19 10:46 DLM (Rec: 03/10/19 12:06 DLM [id number]) Orientation Orientation/Cognition Level of Alertness Alert Orientation Name Age Birthday Month Date Year Day of Week Place Situation Language Function Ability No Deficits Noted Safety Awareness Understands Safety Issues Memory Description No Deficits Noted Gross Range of Motion Upper Extremity ROM Assessment Within Functional Limits Lower Extremity ROM Assessment Within Functional Limits Strength Upper Extremity Strength Assessment Within Functional Limits Comments Strength Comments did not fully assess LE's due to nausea limiting his activity tolerance Coordination Assessment Gross Coordination Gross Coordination WNL Sensation Assessment Sensation Gross Sensation Right LE Impaired Left LE Impaired Sensation Description Numbness Comments Sensation Comments chronic numbness in his feet Muscle Tone Muscle Tone WNL Yes M6 PT-IP Treatment Start: 03/10/19 09:21 Freq: NEEDED Status: Active Protocol: Document 03/10/19 10:46 DLM (Rec: 03/10/19 12:06 DLM [id number]) Physical Therapy Treatment Exercises Exercises Ankle Pumps Education Education Provided Precautions Post-Op Packet Safety M7 PT-IP Assessment and Plan Start: 03/10/19 09:21 Freq: NEEDED Status: Active Protocol: Document 03/10/19 10:46 DLM (Rec: 03/10/19 12:06 DLM [id number]) PT Summary Assessment and Plan Potential Rehabilitation Potential Good Status of Condition at Evaluation Unstable Summary Impairments Pain ROM Strength Bed Mobility Transfers Gait Activity Tolerance Assessment Summary Mr Boyd is alert and showed good effort with therapy this AM. He developed severe nausea with sitting up edge of bed that prevented more activity. His symptoms gradually improved when he returned to supine. Educated pt in his spine precautions. Notified his nurse of his limited activity tolerance at this time. Will see him again in the afternoon. Goals Bed Mobility Goal Independent Transfer Goal Independent Front Wheeled Walker Gait Goal Independent Front Wheel Walker Gait Distance 150 feet Frequency of Treatment Frequency Of Treatment Twice a Day Treatment Plan Physical Therapy Treatment Plan Bed Mobility Training Transfer Training Gait Training Therapeutic Exercise Post Op Education Discharge Planning Recommendations To Nursing Amount of Assist Needed 1 Person Assist Discharge Recommendations PT Discharge Recommendations Home with Assistance
[2019-03-10] MEDS: ACETAMINOPHEN 325 MG TABLET 650 MG PO (10:54)
[2019-03-10] MEDS: ONDANSETRON 4 MG/2 ML INJ IV ×3 (10:55→23:00)
--- NOTE | 2019-03-10 11:14 | CM.DANOTE ---
DCP/Assessment: Reviewed chart. Patient is a 73yr old male admitted to [facility] for elective L1 lumbar vertebral corpectomy performed on 03-09-[address] Sorensen. PCP is Dr. Brennan. Primary payor is 1)Medicare 2)[employer]. Met with patient explained CM/SW role. Patient in some discomfort at time of visit. Patient reports that he has not yet been seen by therapy. Patient reports that he has long history of back surgeries (approximately 10) and knows what to expect. Patient concerned about his pain pump not properly working/leaking. RN and Charge/RN Justice aware. Patient reports that he does not feel comfortable discharging until that is resolved? Patient reports that he has all needed DME from previous surgeries. Patient does not anticipate any issue with discharging home once stable and pain pump resolved. P: Anticipate home when stable. CM team to follow closely if needs were to arise. Patient currently with therapy evaluation pending. MIKEY Lovett Discharge Planning/Care Management Advanced directive, confirm from FAMILY Start: 03/09/19 17:28 Freq: Q24H Status: Active Protocol: Document 03/09/19 17:28 KMD (Rec: 03/09/19 17:31 KMD [id number]) Advance Directive, confirm on record Time 17:31 Person contacted Family Copy received No CM Discharge Assessment Start: 03/10/19 11:10 Freq: Status: Active Protocol: Document 03/10/19 11:10 KJS (Rec: 03/10/19 11:13 KJS [id number]) Discharge Planning Assessment Assigned Cathead Operator MIKEY Lovett Contact Information Tessy Boyd (spouse) Advance Directives? Yes Advance Directives on File Yes History Provided By Patient Medical Record Prior Living Arrangements House Household Members spouse Independent with ADL's No: Therapy evaluation(s) pending Is patient alert and oriented? Yes Caregiver for Another No DME Already Rented / Owned FWW / Walker Comment Patient has pain pump secondary to chronic back pain syndrome. Discharge Plan Home Transportation Arrangement Family to provide transportation. Whiteboard Updated in Patient Room with Yes name and ext. # of Cathead Operator Review Status In Process Next Review Type Continued Stay Review Pre-Anesthesia Assessment Start: 03/06/19 08:30 Freq: Status: Active Protocol: Document 03/06/19 08:30 CAB (Rec: 03/06/19 08:50 CAB [id number]) Pre-Anesthesia Assessment PAC Comment Pt has a spinal cord stimulator and pain pump implanted. Patient states spinal cord stim is off battery and he has not recharged it. Patient Also Known As Webster (AKA) Patient Information Reviewed Via Phone Assessment Assessment Completed With Patient Diagnostic Results BMP/CMP CBC EKG Comment Labs/EKG @ [facility] Primary Care Provider Raghu Brennan Seen Specialist in Last 12 Months Yes Specialist Seen Low Altitude Air Defense Gunner Orthopedist Other Comment Neurology for headaches, pain specialist/Dr. Yang Primary Language Bruneian Preferred Language Bruneian President Ceo & Founder Required No Height 185.42 cm Weight 107.955 kg Body Mass Index (BMI) 31.4 Hearing Ability Hard of Hearing Use of Hearing Aid Visual Assist Magnifying Glass Dentition Type Teeth, Natural Present Barriers to Learning None Other Aids Yes: BiPAP Hx Anesthesia Reactions No: Pt has a spinal cord stimulator and pain pump implanted Hx Family Anesthesia Reaction No Hx Malignant Hyperthermia No Hx Blood Transfusions No Hx Blood Transfusion Reaction No Anesthesia Review Requested No: Prior reviews Administrative Underwriter No alcohol intake never Smoking Status Never smoker Substance Use Type does not use Pain Present Pain Reported Musculoskeletal Symptoms Abnormal Gait Back Pain Difficulty Walking Joint Pain Muscle Cramps Muscle Spasms Muscle Weakness Numbness Tingling History of Falling (Recent or History of No ) Patient is completely paralyzed or No completely immobile Prosthesis or Orthotic Device Cane Mental Status Oriented to own ability Is patient on oxygen? No Does patient have PAUL/SOB No Hx Sleep Apnea Yes CPAP/BIPAP use prescribed and used routinely Will Bring CPAP/BIPAP DOS Yes Currently Taking a Beta Ney Yes: Carvedilol Can You Climb a Flight of Stairs Without Yes SOB Hx Chest Pain No Hx SOB No Hx Syncope or Dizziness No Anti-Coagulant Therapy No Has a Low Altitude Air Defense Gunner Yes: Dr. Correa-last visit Hx Pacemaker/ICD No Pacemaker Rep Required? No Cardiac Clearance Received No Diet Type At Home Regular dysphagia No Urinary Catheter Present No Hx Urinary Self Catheterization No Diabetes No Hx Drug Resistant Organism No Presence of External or Internal Medical Yes: Spinal cord stimulator, Devices pain pump, bilat eye lens, BiPAP, lumbar hardware Have you traveled outside the [facility] in the last 30 days? Marital Status Lives With spouse Prior Living Arrangements House Number of Floors (Floors) Two Floors Support System Friend(s) Spouse Does the Patient Have Assistance After Yes Surgery Patient Discharge Plan Description Return Home Feels Safe in Current Environment Yes Been Physically Hurt or Threatened By a No Person in Current Environment Do you have thoughts of harming yourself None or others? Are you currently considering suicide? No Do you have a plan to hurt yourself or No Plan others? Do You Have Any Spiritual Beliefs That No May Affect Your HC Choices? Do You Have Any Cultural Practices That No May Affect Your HC Choices? Who Can We Speak to About Patient's Care Family, friends Identifying Code for Release of Patient Declines to issue Information Health Care Proxy/Next of Kin Xena () Health Care Proxy or [phone] Emergency Contact Name Xena () Emergency Contact or [phone] Advance Directives? Yes Advance Directives on File Yes PAC Instructions Bring CPAP/BIPAP Durable medical equipment Medications to take/avoid Nasal antibiotic No ETOH/petroleum product on skin DOS NPO Pre-surgical wash Sensory aids Sturdy shoes/comfortable clothes Do not bring valuables and remove jewelry
--- NOTE | 2019-03-10 11:31 | OT.IP.EVAL ---
Current Diagnoses Osteomyelitis of vertebra, thoracic region (03/09/19) Spinal stenosis, thoracic region (03/09/19) Postlaminectomy syndrome, not elsewhere classified (03/09/19) Other mechanical complication of other internal orthopedic devices, implants and grafts, initial encounter (03/09/19) Surgery Performed Operation Date: 03/09/19 07:45 Actual Procedures p T12-L1 TLIF, poss. T12 corpectomy, L1-S1 HWR, T11-L3 posterior instrumentation and PSF - Laci Sorensen MD s Hardware Removal Spine L1-S1 - Laci Sorensen MD Past Medical History (Last Updated 03/06/19 @ 08:36 by Virginie Montalvo RN) Central sleep apnea (Chronic) Obstructive sleep apnea of adult (Chronic) Primary insomnia (Chronic) Hypersomnia (Inactive) Tachycardia (Acute) Arachnoiditis (Chronic) Cardiac murmur (Chronic) [id number] (hard of hearing) (Chronic) HTN (hypertension) (Chronic) Postoperative atrial fibrillation (Chronic) Statin intolerance (Chronic ~07/2015) Surgical History (Last Updated 03/06/19 @ 08:36 by Virginie Montalvo RN) S/P CABG x 2 (Acute) S/P lumbar spinal fusion (Acute 11/10/18) S/P insertion of spinal cord stimulator (Chronic ~2002) History of bilateral knee arthroplasty (Resolved) History of lumbar surgery (Resolved) Hx of sinus surgery (Resolved 03/12/18) Status post bilateral cataract extraction (Resolved ~10/2014) Occupational Therapy Inpatient Evaluation/Re-Eval M1 PT/OT-IP Prior Functional Status Start: 03/10/19 09:21 Freq: NEEDED Status: Active Protocol: Document 03/10/19 11:31 PJAmita (Rec: 03/10/19 12:24 PJM [id number]) Medical Review Prior Functional Status Medical History Reviewed Yes Diet/Fluid Consistency Regular Communication WNL Mobility and Gait Pt states he has been very sedentary for last 2 months due to severe LBP. He has been using FWW for mobility due to pain level. Activities of Daily Living and IADL's Pt states he was independent with all self care except his assists him with drying off after shower. Pt drives when feeling well, but has not done so recently do to pain level. Prior Functional Level (Other details) Pt's has balance issues and walks with cane , but does all cooking, shopping, vessel scrapper helper and driving. She manages the finances. Pt manages his own medications. Social History Household Members spouse Living Arrangements House Number of Floors (Floors) Two Floors Number of Stairs To Enter/Railing? There are no stairs to enter the home, but 7+7 stairs to access bedroom and larger shower stall that pt prefers. Pt can sleep in zero gravity chair on lower level with bathroom if needed. Main floor shower too small to use shower seat per pt. Home Environment High Toilet Walk in Shower Home Equipment Front Wheel Walker Straight Cane Shower Seat without Backrest Hand Held Shower Tuck Pointer Helper Employment Status Retired Additional Social History Comment is retired and can assist PRN after d/c. M2 OT-IP Current Condition Start: 03/10/19 12:04 Freq: Status: Active Protocol: Document 03/10/19 11:31 PJM (Rec: 03/10/19 12:24 PJ [email or web address]) Occupational Therapy Current Condition Current Condition Evaluation Date 03/10/19 Treatment Diagnosis decr'd self care, mobility s/p L1 corpectomy, T11-L3 fusion Diagnosis Onset Date 03/09/19 Post Operative Precautions Lumbar Precautions Log Roll No Twisting Limit Bending Lifting Restriction of 10 lbs Gait Belt above Incisional Area M3 OT- IP Subjective and Pain Start: 03/10/19 12:04 Freq: Status: Active Protocol: Document 03/10/19 11:31 PJM (Rec: 03/10/19 12:24 PJ [email or web address]) OT- Subjective Occupational Therapy Visit Type Type Initial Evaluation Visit Start Time 11:02 Visit Stop Time 11:31 Total Visit Minutes 29 Occupational Therapy Visit Comments Patient Comments 'I have had 10 other back surgeries so I know the drill. Patient/Caregiver Goals to have pain pump repaired, have less pain, and return to independent living at home OT Pain Assessment Pain When Pain Assessed At Rest Pain Present Pain Present Pain Reported Location Lower Back Intensity 2 Scale Used Numeric (1 - 10) Description Aching Acute M4 OT- IP ADL's Start: 03/10/19 12:04 Freq: Status: Active Protocol: Document 03/10/19 11:31 PJM (Rec: 03/10/19 12:24 PJ [email or web address]) OT [id number] General Evaluation Self-Feeding Ability Independent Comments OT Self-Feeding Comments after set up in bed OT ADL-Grooming General Evaluation Grooming Ability Independent Comments OT Grooming Comments after set up in bed OT ADL-Oral Care General Eval Oral Care Ability Independent OT ADL-Dressing Comments OT Dressing Comments Pt very familiar with adapted ADL techniques from many previous lumbar surgeries. Pt has arc furnace operator to assist with donning and doffing pants. He is aware of sock aids, but declines one as he prefers to have assist him PRN. Pt also declines long shoe horn. assists with shoes PRN. Provided brief education with pt re: adapted techniques to reduce strain on his when she is assisting him with socks and shoes. OT ADL-Toileting Comments OT Toileting Comments did not occur, pt still has cotton; pt familiar with adapted ADL techniques and body mechanics OT ADL-Bathing Comments OT Bathing Comments did not occur, pt has all necessary bathroom safety equipt at home, declines shower sponge, to assist PRN with drying per pt preference M5 OT- IP IADL's Start: 03/10/19 12:04 Freq: Status: Active Protocol: Document 03/10/19 11:31 PJ (Rec: 03/10/19 12:24 PJ [email or web address]) OT-Instrumental Activities of Daily Living Deficits IADL Deficits Identified Deficits Home Safety Awareness Awareness of Need for Assistance at Home Good Awareness Ability to Problem Solve Emergency Able to Problem Solve Situations Medication Management Medication Management No Deficits Identified Money Management Money Management Caregiver Provides Assistance Meal Preparation Meal Preparation Caregiver Provides Assist Supervisor Agricultural Education Supervisor Agricultural Education Caregiver Provides Assist Driving Driving Caregiver Provides Assist M6 OT- IP Functional Cognition Start: 03/10/19 12:04 Freq: Status: Active Protocol: Document 03/10/19 11:31 PJM (Rec: 03/10/19 12:24 [facility] [email or web address]) Cognitive Factors Limiting Selfcare Function Cognitive Ability Level of Alertness Alert Patient Orientation Name Age Birthday Month Date Year Day of Week Place Situation Attention Span Ability Capable of Focused Attention Capable of Sustained Attention Ability to Follow Commands Able to Follow One Step Commands Memory Description No Deficits Noted Safety Awareness No Deficits Noted Cognitive Comments Cognitive Assessment Comments Cognition appears WNL; pt verbalizes understanding of current lumbar spine precautions OT- Vision and Hearing OT- Hearing Assessment OT- Hearing Assessment WFL OT- Vision Assessment Visual Acuity WFL Glasses For Reading Visual Attentiveness WFL Vision Assessment Comments No new deficits identified M7 OT- IP Mobility and Balance Start: 03/10/19 12:04 Freq: Status: Active Protocol: Document 03/10/19 11:31 PJM (Rec: 03/10/19 12:24 PJM [email or web address]) OT-Transfer Assessment Comments Mobility Comments see P.T. notes OT- Gait Assessment Comments Gait Ability Comments pt has not yet mobilized out of bed OT- Balance Assessment Comments Other Balance Tests/Deviations/Treatment see P.T. notes : M8 OT- IP Objective Assessments Start: 03/10/19 12:04 Freq: Status: Active Protocol: Document 03/10/19 11:31 PJM (Rec: 03/10/19 12:24 PJM [email or web address]) OT Gross Range of Motion Upper Extremity Range of Motion Assessment Within Functional Limits OT Strength Upper Extremity Strength Assessment Within Functional Limits OT- Coordination Assessment Comments Coordination Comments BUE WNL OT-Muscle Tone Assessment Muscle Tone WNL Yes OT Sensation Assessment Comments Summary Comments BUE WNL per pt Edema Edema Absent M9 OT- IP Assessment and Plan Start: 03/10/19 12:04 Freq: Status: Active Protocol: Document 03/10/19 11:31 PJM (Rec: 03/10/19 12:24 PJM [email or web address]) OT Summary Assessment and Plan Potential Rehabilitation Potential Good Analytic Complexity at Evaluation Low Summary OT Impairments Pain Assessment Summary Pt seen for low complexity assessment after complicated multi level lumbar surgery. Pt very familiar with adapted ADL techniques as he has had many previous lumbar surgeries. Pt has all necessary equipment at home and prefers to assist with some ADL's such as donning and doffing socks and shoes. Pt does not feel he needs any OT services at this time. He hopes to d/c home when medically stable and clears P.T. Frequency of Treatment Frequency Of Treatment Discharge Discharge Recommendations OT Discharge Recommendations Home with 04/02 Assist Other Discharge Recommendations pending progress here Home Equipment Needs none
--- NOTE | 2019-03-10 13:20 | PT.IPTN ---
Current Diagnoses Osteomyelitis of vertebra, thoracic region (03/09/19) Spinal stenosis, thoracic region (03/09/19) Postlaminectomy syndrome, not elsewhere classified (03/09/19) Other mechanical complication of other internal orthopedic devices, implants and grafts, initial encounter (03/09/19) Surgery Performed Operation Date: 03/09/19 07:45 Actual Procedures p T12-L1 TLIF, poss. T12 corpectomy, L1-S1 HWR, T11-L3 posterior instrumentation and PSF - Laci Sorensen MD s Hardware Removal Spine L1-S1 - Laci Sorensen MD Physical Therapy Treatment Note M2 PT-IP Current Condition Start: 03/10/19 09:21 Freq: NEEDED Status: Active Protocol: Document 03/10/19 10:46 DLM (Rec: 03/10/19 12:06 DLM [id number]) Physical Therapy Current Condition Current Condition Evaluation Date 03/10/19 Treatment Diagnosis T11-L3 post instrumentation, T11-L1 TLIF, T12-L1 cage, impaired gait/mob Onset Date 03/09/19 Precautions Other Precautions pt has a pain pump implanted that is broken Weight Bearing Status Weight Bearing Status Weight Bear as Tolerated M3 PT-IP Subjective Start: 03/10/19 09:21 Freq: NEEDED Status: Active Protocol: Document 03/10/19 13:20 DLM (Rec: 03/10/19 13:45 DLM [email or web address]) Subjective Physical Therapy Visit Type Type Treatment Note Visit Start Time 13:05 Visit Stop Time 13:20 Total Visit Minutes 15 Number of BUCKLER AND LACER Visits 0 Physical Therapy Visit Comments Patient Comments He complains of severe nausea, feels like he could vomit M4 PT-IP Mobility and Gait Start: 03/10/19 09:21 Freq: NEEDED Status: Active Protocol: Document 03/10/19 13:20 DLM (Rec: 03/10/19 13:45 DLM [email or web address]) PT-Bed Mobility Assessment Supine to Sit Supine to Sit Standby Assistance Sit to Supine Sit to Supine Standby Assistance Scooting Scooting to Edge of Bed Independent PT-Transfer Assessment Sit to and From Stand Sit to and from Stand Standby Assistance Contact Guard Assistance Equipment Transfer Assistive Device Front Wheeled Walker Transfers Transfer Destination Bedside Commode Transfer Technique Stand Step Pivot Transfer Ability Level of Assist Standby Assistance Contact Guard Assistance Comments Mobility Comments pt feels like he needed to have a BM so got up to bedside commode, pt only passed gas while on bedside commode, severe nausea throughout, noted pt feels sweaty/clammy this visit, his nurse is aware of his current symptoms Gait Assessment Comments Gait Comments unable to ambulate due to severe nausea M5 PT-IP Objective Assessments Start: 03/10/19 09:21 Freq: NEEDED Status: Active Protocol: Document 03/10/19 10:46 DLM (Rec: 03/10/19 12:06 DLM [id number]) Orientation Orientation/Cognition Level of Alertness Alert Orientation Name Age Birthday Month Date Year Day of Week Place Situation Language Function Ability No Deficits Noted Safety Awareness Understands Safety Issues Memory Description No Deficits Noted Gross Range of Motion Upper Extremity ROM Assessment Within Functional Limits Lower Extremity ROM Assessment Within Functional Limits Strength Upper Extremity Strength Assessment Within Functional Limits Comments Strength Comments did not fully assess LE's due to nausea limiting his activity tolerance Coordination Assessment Gross Coordination Gross Coordination WNL Sensation Assessment Sensation Gross Sensation Right LE Impaired Left LE Impaired Sensation Description Numbness Comments Sensation Comments chronic numbness in his feet Muscle Tone Muscle Tone WNL Yes M6 PT-IP Treatment Start: 03/10/19 09:21 Freq: NEEDED Status: Active Protocol: Document 03/10/19 10:46 DLM (Rec: 03/10/19 12:06 DLM [id number]) Physical Therapy Treatment Exercises Exercises Ankle Pumps Education Education Provided Precautions Post-Op Packet Safety M7 PT-IP Assessment and Plan Start: 03/10/19 09:21 Freq: NEEDED Status: Active Protocol: Document 03/10/19 13:20 DLM (Rec: 03/10/19 13:45 DLM [email or web address]) PT Summary Assessment and Plan Summary Impairments Pain ROM Strength Balance Bed Mobility Transfers Gait Activity Tolerance Progress Towards Goals Slow Progress due to Medical Issues Assessment Summary Mr Boyd continues to have severe nausea that limits his activity. His nausea is now constant including in bed at rest. Pt able to get up to bedside commode this visit but unable to progress activity further. Goals Bed Mobility Goal Independent Transfer Goal Independent Front Wheeled Walker Gait Goal Independent Front Wheel Walker Gait Distance 150 feet Days to Meet Goals 3 Frequency of Treatment Frequency Of Treatment Twice a Day Treatment Plan Physical Therapy Treatment Plan Bed Mobility Training Transfer Training Gait Training Therapeutic Exercise Post Op Education Discharge Planning Recommendations To Nursing Amount of Assist Needed 1 Person Assist Discharge Recommendations PT Discharge Recommendations Home with Assistance
[2019-03-10] MEDS: SODIUM CHLORIDE 0.9% 1,000 ML 1000 ML IV (17:19)
[2019-03-10] MEDS: VANCOMYCIN 1,500 MG/300 ML FROZ.PIGGY 200 MG IV (19:06)
--- NOTE | 2019-03-10 22:24 | PC.NURSE ---
BPs wnl status post IV Bolus for positional dependent hypotension, although patient has been supine and sleeping for most of shift; one episode of nausea, no emesis, administered Zofran; Pt did not tolerate dinner; Drsg applied during day shift saturated and changed; 2 lateral to spine incisions with suzie well-approximated except for 1 cm slight opening between staple on left, distal incision; petroleum gauze ribbon applied to each incision, 4 X 4 Gauze and ABD pads secured with Hypafix tape; IV pain med administered after drsg change for severe pain; LS clear, O2 BZ=037%; Mcelroy draining clear, yellow to gravity; bed alarm active; pt declines foot scds
[2019-03-11] VITALS (9 sets, daily range): BP systolic 133–152; BP diastolic 22–91; PULSE 90–110; RESP 16–20; TEMP 36.8–37.7; O2SAT 98–100
[2019-03-11] MEDS: HYDROMORPHONE 2 MG TABLET 4 MG PO ×3 (00:53→20:05)
--- NOTE | 2019-03-11 00:58 | PC.NURSE ---
Electron Beam Welder Note: 0000: Resting in bed. Vital signs stable. Not disturbed at this time. 0100: Awake, having pain in legs and back. IV in place in lt AC with NS infusing at 100cc/hr. Vital signs stable. Dressing to back intact, with small amt drainage. Medicated for pain with Dilaudid 4mg po.
[2019-03-11] MEDS: VANCOMYCIN 1,500 MG/300 ML FROZ.PIGGY 200 MG IV ×2 (05:30→18:42)
--- NOTE | 2019-03-11 08:49 | PM.PNPO.1 ---
Subjective Subjective Date Patient Seen: 03/11/19 Time Patient Seen: 08:49 Interval history: Hospital day 3, postop day 2 following T12-L1 TLIF with cage, L1 corpectomy, L1 through S1 HWR, T11 through L3 instrumentation and L1 and L2 revision laminectomy by Dr. Sorensen. 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 There was concern about possible osteomyelitis. G stain of operative wound noted many WBC but no organisms. Culture notes no growth on aerobic and pending on anaerobic. He is currently on vancomycin. He has been getting Dilaudid 4 mg p.o. and Dilaudid 0.5 [address] Sorensen did talk with Dr. Shell who manages the patient's pain pump. There is a his spinal cord leak where 1 of the catheters enters and this needs to be tied off to prevent further leaking. Dr. Sorensen plans to do surgery tomorrow to tie off the spinal cord leak. Dr. Shell plans to replace the pain pump at a later date once his spine is healed from this surgery. Exam Vital Signs (past 8 hours): - 03/11/19 03:53 03/11/19 08:00 Temperature 99.8 F H 99.8 F H Pulse Rate 99 H 110 H Respiratory Rate 18 16 Blood Pressure 142/22 H 133/64 Pulse Oximetry 98 98 Oxygen Delivery Method Room Air Oxygen Flow Rate 0 Narrative Exam Narrative: Alert, oriented in no acute distress lying in bed. Patient complains of persisting low back pain with relief by the Dilaudid. Back. Dressing to lumbar area is dry without drainage or inflammation. Objective Labs Result Diagrams: 03/10/19 06:29 03/09/19 21:09 Assessment & Plan Post-op Postoperative Procedures: Procedures Operation Date: 03/09/19 07:45 Actual Procedures Side Surgeon p T12-L1 TLIF, poss. T12 corpectomy, L1-S1 HWR, T11-L3 posterior instrumentation and PSF Laci Sorensen MD s Hardware Removal Spine L1-S1 Laci Sorensen MD Operation Date: 03/12/19 15:45 <No data on this case meets the specified criteria> Plan: Patient will be taken to the OR tomorrow by Dr. Sorensen to tie off the spinal cord leak. Patient will be NPO after midnight tonight. Continue with pain management. Will wait on inserting a PICC line pending culture results to determine if she has a need for long-term antibiotic. Will keep Mcelroy catheter and today since he is not very active and for surgery tomorrow. Quality VTE Deep Vein Thrombosis/Pulmonary Embolism Present on Admission: No
--- NOTE | 2019-03-11 09:15 | PT.IPTN ---
Current Diagnoses Osteomyelitis of vertebra, thoracic region (03/09/19) Spinal stenosis, thoracic region (03/09/19) Postlaminectomy syndrome, not elsewhere classified (03/09/19) Other mechanical complication of other internal orthopedic devices, implants and grafts, initial encounter (03/09/19) Surgery Performed Operation Date: 03/09/19 07:45 Actual Procedures p T12-L1 TLIF, poss. T12 corpectomy, L1-S1 HWR, T11-L3 posterior instrumentation and PSF - Laci Sorensen MD s Hardware Removal Spine L1-S1 - Laci Sorensen MD Operation Date: 03/12/19 15:45 <No data on this case meets the specified criteria> Physical Therapy Treatment Note M2 PT-IP Current Condition Start: 03/10/19 09:21 Freq: NEEDED Status: Active Protocol: Document 03/10/19 10:46 DLM (Rec: 03/10/19 12:06 DLM [id number]) Physical Therapy Current Condition Current Condition Evaluation Date 03/10/19 Treatment Diagnosis T11-L3 post instrumentation, T11-L1 TLIF, T12-L1 cage, impaired gait/mob Onset Date 03/09/19 Precautions Other Precautions pt has a pain pump implanted that is broken Weight Bearing Status Weight Bearing Status Weight Bear as Tolerated M3 PT-IP Subjective Start: 03/10/19 09:21 Freq: NEEDED Status: Active Protocol: Document 03/11/19 09:15 GGD (Rec: 03/11/19 11:45 GGD [id number]) Subjective Physical Therapy Visit Type Type Treatment Note Visit Start Time 09:00 Visit Stop Time 09:16 Total Visit Minutes 16 Number of COOKER SULFITE Visits 1 Physical Therapy Visit Comments Patient Comments Pt states he is feeling better . Therapy Pain Assessment Location Lower Back Intensity 6 Scale Used Numeric (1 - 10) M4 PT-IP Mobility and Gait Start: 03/10/19 09:21 Freq: NEEDED Status: Active Protocol: Document 03/11/19 09:15 GGD (Rec: 03/11/19 11:45 GGD [id number]) PT-Bed Mobility Assessment Supine to Sit Supine to Sit Standby Assistance Sit to Supine Sit to Supine Standby Assistance Scooting Scooting to Edge of Bed Independent PT-Transfer Assessment Sit to and From Stand Sit to and from Stand Standby Assistance,Contact Guard Assistance Equipment Transfer Assistive Device Bed Rail,Front Wheeled Walker Transfers Transfer Destination Chair Transfer Technique Stand Step Pivot Transfer Ability Level of Assist Standby Assistance,Contact Guard Assistance Gait Assessment Gait Gait Assistance Required: Contact Guard Assist Distance (Feet) 35 Assistive Devices Assistive Device Gait Belt,Front Wheeled Walker Gait Deviations General Gait Pattern Decreased Stride Length, Decreased Feet Clearance, Flexed Trunk Factors Limiting Gait Function Factors Limiting Gait Function Decreased Strength,Pain,Poor Balance M5 PT-IP Objective Assessments Start: 03/10/19 09:21 Freq: NEEDED Status: Active Protocol: Document 03/10/19 10:46 DLM (Rec: 03/10/19 12:06 DLM [id number]) Orientation Orientation/Cognition Level of Alertness Alert Orientation Name,Age,Birthday,Month,Date, Year,Day of Week,Place, Situation Language Function Ability No Deficits Noted Safety Awareness Understands Safety Issues Memory Description No Deficits Noted Gross Range of Motion Upper Extremity ROM Assessment Within Functional Limits Lower Extremity ROM Assessment Within Functional Limits Strength Upper Extremity Strength Assessment Within Functional Limits Comments Strength Comments did not fully assess LE's due to nausea limiting his activity tolerance Coordination Assessment Gross Coordination Gross Coordination WNL Sensation Assessment Sensation Gross Sensation Right LE Impaired,Left LE Impaired Sensation Description Numbness Comments Sensation Comments chronic numbness in his feet Muscle Tone Muscle Tone WNL Yes M6 PT-IP Treatment Start: 03/10/19 09:21 Freq: NEEDED Status: Active Protocol: Document 03/11/19 09:15 GGD (Rec: 03/11/19 11:45 GGD [id number]) Physical Therapy Treatment Exercises Exercises Ankle Pumps M7 PT-IP Assessment and Plan Start: 03/10/19 09:21 Freq: NEEDED Status: Active Protocol: Document 03/11/19 09:15 GGD (Rec: 03/11/19 11:45 GGD [id number]) PT Summary Assessment and Plan Summary Assessment Summary Pt improving with mobility. He was able to progress gait. He needed less assist for bed mobility. He need cues for sit <> stand. Frequency of Treatment Frequency Of Treatment Twice a Day Treatment Plan Physical Therapy Treatment Plan Bed Mobility Training,Transfer Training,Gait Training, Therapeutic Exercise,Post Op Education,Discharge Planning Recommendations To Nursing Amount of Assist Needed 1 Person Assist Discharge Recommendations PT Discharge Recommendations Home with Assistance
[2019-03-11] MEDS: AMLODIPINE 5 MG TABLET PO (09:35)
[2019-03-11] MEDS: BENAZEPRIL 5 MG TABLET 10 MG PO (09:35)
[2019-03-11] MEDS: CARVEDILOL 6.25 MG TABLET PO (09:36)
[2019-03-11] MEDS: HYDROMORPHONE 0.5 MG INJ IV ×6 (09:36→23:39)
--- NOTE | 2019-03-11 14:10 | PT.IPTN ---
Current Diagnoses Osteomyelitis of vertebra, thoracic region (03/09/19) Spinal stenosis, thoracic region (03/09/19) Postlaminectomy syndrome, not elsewhere classified (03/09/19) Other mechanical complication of other internal orthopedic devices, implants and grafts, initial encounter (03/09/19) Surgery Performed Operation Date: 03/09/19 07:45 Actual Procedures p T12-L1 TLIF, poss. T12 corpectomy, L1-S1 HWR, T11-L3 posterior instrumentation and PSF - Laci Soernsen MD s Hardware Removal Spine L1-S1 - Laci Sorensen MD Operation Date: 03/12/19 15:45 <No data on this case meets the specified criteria> Physical Therapy Treatment Note M2 PT-IP Current Condition Start: 03/10/19 09:21 Freq: NEEDED Status: Active Protocol: Document 03/10/19 10:46 DLM (Rec: 03/10/19 12:06 DLM [id number]) Physical Therapy Current Condition Current Condition Evaluation Date 03/10/19 Treatment Diagnosis T11-L3 post instrumentation, T11-L1 TLIF, T12-L1 cage, impaired gait/mob Onset Date 03/09/19 Precautions Other Precautions pt has a pain pump implanted that is broken Weight Bearing Status Weight Bearing Status Weight Bear as Tolerated M3 PT-IP Subjective Start: 03/10/19 09:21 Freq: NEEDED Status: Active Protocol: Document 03/11/19 15:59 GGD (Rec: 03/11/19 16:00 GGD [id number]) Subjective Physical Therapy Visit Type Notes Pt asleep, ONLINE RETAILER states to let pt sleep due to having increase in pain. Recommendations To Nursing Amount of Assist Needed 1 Person Assist Discharge Recommendations PT Discharge Recommendations Home with Assistance
[2019-03-11] MEDS: OXYCODONE IR 10 MG TABLET PO (17:17)
[2019-03-11] MEDS: VANCOMYCIN TROUGH 1 REQUEST MISC (17:35)
[2019-03-11] MEDS: ACETAMINOPHEN 325 MG TABLET 650 MG PO (18:43)
--- NOTE | 2019-03-11 18:59 | PC.NURSE ---
1900- Vanco infusing, back bulky gauze/tape aminata CDI. Dr Shell's pain nurse Arline, in to turn pt's intrathecal pain pump down to minimum dosing r/t to broken tubing, plan to surgically tie off the tubing in the AM tomorrow, pt NPO at midnight. Pt rates pain 8/10 and requests pain medications when available. dangled in bed for comfort then back to lying down indep. Bed alarm on for safety.
[2019-03-11] MEDS: SODIUM CHLORIDE 0.9% 1,000 ML 100 ML IV (22:10)
[2019-03-12] VITALS (20 sets, daily range): BP systolic 118–168; BP diastolic 73–102; PULSE 92–126; RESP 12–32; TEMP 36.6–38.3; O2SAT 96–100; BMI 31.4
[2019-03-12] MEDS: HYDROMORPHONE 2 MG TABLET 4 MG PO ×4 (00:48→22:31)
[2019-03-12] MEDS: HYDROMORPHONE 0.5 MG INJ IV ×6 (00:53→06:58)
[2019-03-12] MEDS: OXYCODONE IR 10 MG TABLET PO (03:36)
[2019-03-12] MEDS: VANCOMYCIN 1,500 MG/300 ML FROZ.PIGGY 200 MG IV (05:56)
--- NOTE | 2019-03-12 06:41 | PC.NURSE ---
A/o. Mcelroy intact draining yellow urine. Pt complaining of unresolved pain and crying out in pain at times. Administered all ordered pain meds as prescribed with no change. Pt requesting to be emergency transferred to pain MD's office for pain pump surgery repair immediately. Pt calling pain doctor and reporting I need my pain pump surgery now. Pt able to be distracted from pain with conversation. Dr Boyd paged and notified. Per Dr Boyd PA with see patient in AM.
[2019-03-12] MEDS: HYDROMORPHONE 1 MG INJ IV ×2 (08:08→13:55)
[2019-03-12] MEDS: ACETAMINOPHEN 325 MG TABLET 650 MG PO (08:09)
[2019-03-12] MEDS: BENAZEPRIL 5 MG TABLET 10 MG PO (08:09)
[2019-03-12] MEDS: AMLODIPINE 5 MG TABLET PO (08:09)
[2019-03-12] MEDS: CARVEDILOL 6.25 MG TABLET PO (08:09)
[2019-03-12] MEDS: SODIUM CHLORIDE 0.9% 1,000 ML 100 ML IV (08:30)
--- NOTE | 2019-03-12 08:50 | PM.PNPO.1 ---
Subjective Subjective Date Patient Seen: 03/12/19 Time Patient Seen: 08:50 Interval history: Hospital day 4, postop day 3 following T12-L1 TLIF, cage; L1 corpectomy; L5 through S1 HWR; T11 through L3 posterior instrumentation; L1, L2 revision laminectomy. Patient has been experiencing increasing back and leg pain over the last 24 hours. Has been receiving Dilaudid IV 0.5 mg q.1h, oxycodone 10 mg q.3h and Dilaudid 4 mg p.o. q.4h with continued pain. He is also on vancomycin. His pain pump was turned down to minimal drainage by the Pain Pump nurse last night on the order of Dr. Shell his pain doctor. Patient is scheduled to go back to the OR today by Dr. Sorensen to have the catheter in to his spinal cord tight off. He is having a CSF leak around this. Wound culture notes like growth of a Gram-positive cocci. Patient is NPO this morning. He was also seen by Dr. Sorensen during rounds. Exam Vital Signs (past 8 hours): - 03/12/19 03:23 03/12/19 07:30 03/12/19 08:08 Temperature 98.6 F 100.0 F H 100.0 F H Pulse Rate 107 H 101 H Respiratory Rate 32 H 17 Blood Pressure 148/89 H 157/93 H Pulse Oximetry 99 100 03/12/19 08:09 Temperature 100.0 F H Pulse Rate Respiratory Rate Blood Pressure Pulse Oximetry Fraction of Inspired Oxygen 21 Oxygen Delivery Method Room Air Oxygen Flow Rate 0 Narrative Exam Narrative: Patient is alert and responsive appearing and moderate discomfort complaining of left leg pain and lying in bed. Back. Dressing to thoracolumbar area is dry without drainage or signs of inflammation. Objective Labs Result Diagrams: 03/12/19 08:40 03/09/19 21:09 Labs: Laboratory Results - last 24 hr 03/11/19 16:25 Vancomycin Trough 13.0 Assessment & Plan Post-op Postoperative Procedures: Procedures Operation Date: 03/09/19 07:45 Actual Procedures Side Surgeon p T12-L1 TLIF, poss. T12 corpectomy, L1-S1 HWR, T11-L3 posterior instrumentation and PSF Laci Sorensen MD s Hardware Removal Spine L1-S1 Laci Sorensen MD Operation Date: 03/12/19 15:45 <No data on this case meets the specified criteria> Plan: Patient will be NPO until surgery. May take medications with sips of water. Increase IV Dilaudid 1 mg q.1h for breakthrough pain. Patient will have surgery later today by Dr. Sorensen to stop the CSF leak. Await final on culture results to plan further antibiotic treatment. Quality VTE Deep Vein Thrombosis/Pulmonary Embolism Present on Admission: No
[2019-03-12 08:57] LABS: Add Manual Diff / Slide Review NO; Basophils Absolute Auto 0 /uL (0-100); Basophils Percent Auto 0.4 % (0-2); Eosinophils Absolute Auto 0 /uL (0-450); Eosinophils Percent Auto 0.2 % (2-4); Hematocrit 34.2 % (41-53); Hemoglobin 11.5 g/dL (13.5-17.5); Lymphocytes Absolute Auto 900 /uL (1100-4500); Lymphocytes Percent Auto 11.6 % (25-40); Mean Corpuscular HGB Conc 33.5 % (30-36); Mean Corpuscular Hemoglobin 28.7 PG (26-34); Mean Corpuscular Volume 85.7 fL (80-100); Monocytes Absolute Auto 700 /uL (0-900); Monocytes Percent Auto 8.1 % (3-14); Neutrophils Absolute Auto 6400 /uL (1500-7000); Neutrophils Percent Auto 79.7 % (50-75); Platelet Count 188 X10^3/uL (150-400); Red Blood Cell Count 3.99 X10^6/uL (4.5-5.9); Red Cell Distribution Width 14.1 % (11.6-14.8); White Blood Cell Count 8.1 X10^3/uL (4.5-11.0)
--- NOTE | 2019-03-12 11:25 | PT.IPTN ---
Current Diagnoses Osteomyelitis of vertebra, thoracic region (03/09/19) Spinal stenosis, thoracic region (03/09/19) Postlaminectomy syndrome, not elsewhere classified (03/09/19) Other mechanical complication of other internal orthopedic devices, implants and grafts, initial encounter (03/09/19) Surgery Performed Operation Date: 03/09/19 07:45 Actual Procedures p T12-L1 TLIF, poss. T12 corpectomy, L1-S1 HWR, T11-L3 posterior instrumentation and PSF - Laci Sorensen MD s Hardware Removal Spine L1-S1 - Laci Sorensen MD Operation Date: 03/12/19 15:45 <No data on this case meets the specified criteria> Physical Therapy Treatment Note M2 PT-IP Current Condition Start: 03/10/19 09:21 Freq: NEEDED Status: Active Protocol: Document 03/10/19 10:46 DLM (Rec: 03/10/19 12:06 DLM [id number]) Physical Therapy Current Condition Current Condition Evaluation Date 03/10/19 Treatment Diagnosis T11-L3 post instrumentation, T11-L1 TLIF, T12-L1 cage, impaired gait/mob Onset Date 03/09/19 Precautions Other Precautions pt has a pain pump implanted that is broken Weight Bearing Status Weight Bearing Status Weight Bear as Tolerated M3 PT-IP Subjective Start: 03/10/19 09:21 Freq: NEEDED Status: Active Protocol: Document 03/12/19 11:25 GGD (Rec: 03/12/19 11:55 GGD [id number]) Subjective Physical Therapy Visit Type Type Treatment Note Visit Start Time 11:14 Visit Stop Time 11:26 Total Visit Minutes 12 Physical Therapy Visit Comments Patient Comments Pt willing to try to walk, but states he had a bad night and not feeling good. Therapy Pain Assessment Pain When Pain Assessed At Rest Pain Present Pain Present Pain Reported Location Lower Back Intensity 6 Scale Used Numeric (1 - 10) M4 PT-IP Mobility and Gait Start: 03/10/19 09:21 Freq: NEEDED Status: Active Protocol: Document 03/12/19 11:25 GGD (Rec: 03/12/19 11:55 GGD [email or web address]) PT-Bed Mobility Assessment Supine to Sit Supine to Sit Standby Assistance Sit to Supine Sit to Supine Standby Assistance Scooting Scooting to Edge of Bed Independent PT-Transfer Assessment Sit to and From Stand Sit to and from Stand Standby Assistance,Contact Guard Assistance Equipment Transfer Assistive Device Front Wheeled Walker Transfers Transfer Destination Bed Transfer Technique Stand Step Pivot Transfer Ability Level of Assist Standby Assistance,Contact Guard Assistance Gait Assessment Comments Gait Comments unable due to nausea M5 PT-IP Objective Assessments Start: 03/10/19 09:21 Freq: NEEDED Status: Active Protocol: Document 03/10/19 10:46 DLM (Rec: 03/10/19 12:06 DLM [id number]) Orientation Orientation/Cognition Level of Alertness Alert Orientation Name,Age,Birthday,Month,Date, Year,Day of Week,Place, Situation Language Function Ability No Deficits Noted Safety Awareness Understands Safety Issues Memory Description No Deficits Noted Gross Range of Motion Upper Extremity ROM Assessment Within Functional Limits Lower Extremity ROM Assessment Within Functional Limits Strength Upper Extremity Strength Assessment Within Functional Limits Comments Strength Comments did not fully assess LE's due to nausea limiting his activity tolerance Coordination Assessment Gross Coordination Gross Coordination WNL Sensation Assessment Sensation Gross Sensation Right LE Impaired,Left LE Impaired Sensation Description Numbness Comments Sensation Comments chronic numbness in his feet Muscle Tone Muscle Tone WNL Yes M6 PT-IP Treatment Start: 03/10/19 09:21 Freq: NEEDED Status: Active Protocol: Document 03/12/19 11:25 GGD (Rec: 03/12/19 11:55 GGD [id number]) Physical Therapy Treatment Education Education Provided Precautions M7 PT-IP Assessment and Plan Start: 03/10/19 09:21 Freq: NEEDED Status: Active Protocol: Document 03/12/19 11:25 GGD (Rec: 03/12/19 11:55 GGD [email or web address]) PT Summary Assessment and Plan Summary Assessment Summary Pt unable to progress mobility due to nausea. He is SBA for bed mobility and sit <> stand. He able to recall precautions . Frequency of Treatment Frequency Of Treatment Twice a Day Treatment Plan Physical Therapy Treatment Plan Bed Mobility Training,Transfer Training,Gait Training, Therapeutic Exercise,Post Op Education,Discharge Planning Recommendations To Nursing Amount of Assist Needed 1 Person Assist Discharge Recommendations PT Discharge Recommendations Home with Assistance
[2019-03-12] MEDS: VANCOMYCIN 1,000 MG/200 ML PIGGYBACK 200 MG IV ×2 (13:56→22:31)
[2019-03-12] MEDS: ONDANSETRON 4 MG/2 ML INJ IV (14:04)
--- NOTE | 2019-03-12 14:33 | PC.NURSE ---
1430 Pt gone to OR via bed.
--- NOTE | 2019-03-12 15:01 | PM.PREOP ---
Pre-operative Note Interval Note History & Physical reviewed/Exam performed by Physician: Yes Changes to H&P: No
[2019-03-12] MEDS: LACTATED RINGERS 1,000 ML 42 ML IV (15:30)
[2019-03-12] MEDS: BUPIVACAINE 0.25% W/ EPI 30 ML VIAL INJ (16:43)
--- NOTE | 2019-03-12 16:48 | PM.OP.1 ---
Operative Date/Time/Diagnoses Date of procedure: 03/12/19 Time of procedure: 16:06 Pre-op diagnosis: 1. Pain pump catheter breakage 2. 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 Pain pump catheter ligation 2. Irrigtation and debridement of skin, muscle and fascia Same procedure as scheduled: Yes Indications: Mr. Boyd is 2 days post op from lumbar revision fusion. During the surgery, he was confirmed to have pain pump catheter breakage and leakage of CSF into his soft tissue. He has a large CSF fistula that is progressing anterior into his spinal hardware and possible more anteriorly. After discussing with his pain doctor, Dr. Godfrey Shell in [place], I was instructed by him to simply ligate the catheter end coming from his thecal sac to stop the CSF leakage. He will later perform pain pump catheter revision on a different date when Mr. Boyd's surgical wound from my surgery is healed. I think it is a fair options considering the acute nature of his recent surgery with me and the ongoing CSF leakage. Risks and benefits of surgery was discussed and he elected to proceed with surgery. Surgeon: Laci Sorensen Water Pollution Scientist: Supa Yanez Click Yes if Unassisted: No Anesthesia Type: General Operative Notes Closure Type: primary Specimen(s): none sent Prosthetic devices, grafts, tissues, transplants, or devices: Vascular clips Estimated Blood Loss (mL): 25 Blood products transfused: none Procedure in detail: Patient was seen in the preoperative area. Risks and benefits of the surgery was discussed with the patient. Informed consent was obtained from the patient and placed in the chart. Surgical site was marked. Patient was taken to the operative room. General anesthesia was administered. Prophylactic antibiotic was given to the patient less than 30 min before the incision was made. Patient was placed into a prone position on the Angelo table. Patient's back was then prepped and draped in the sterile fashion. Time-out was performed at this time. Patient's previously placed skin suzie and subcutaneous suture was removed. Two ends of the catheter was identified after the subcutaneous suture was removed. There is slow trickling of CSF from the broken and the catheter connected to his thecal sac. After assessing the structure of the catheter it was determined using suture to tie off the catheter it has high risk of failure rate since the catheter has a very slippery surface and the catheter end is triangular and is quite unstable for suture stabilization. Decision was made at this time to obtain a vascular clip set and clip off the catheter and stop the CSF leakage. Three suzie was placed in serial fashion along the distal and of the broken catheter connected to patient's thecal sac. The wound was inspected. There is no CSF leakage after the 3 clips was placed the clips are stable. And the catheter itself was securely connected to the metal piece coming from his thecal sac. The wound was debrided using the [place]za of clots and scar tissue. Leksell rongeur was used to excise unhealthy appearing tissue from the subcutaneous and also fascial muscle layer until healthy tissue was exposed. The wound was then irrigated with sterile normal saline. The subcutaneous layer was closed with 2-0 Vicryl. The skin was closed with skin suzie. Patient tolerated the procedure well. There were no complications. Complications: none Post-operative Condition: stable Disposition: PACU Plan for aftercare: Admit to inpatient hospital
[2019-03-12] MEDS: HYDROMORPHONE 2 MG INJ 0.5 MG IV (17:15)
[2019-03-12] MEDS: METOCLOPRAMIDE 10 MG/2 ML INJ IV (17:15)
--- NOTE | 2019-03-12 18:48 | PC.NURSE ---
Addendum entered by Maern Pelayo R.N. 03/12/19 22:58: Continue to refuse SCDs. Discussed importance of use, will continue to encourage movement and mobility. Addendum entered by Maren Pelayo R.N. 03/12/19 22:06: No post op orders upon transfer to AC floor. Obtained orders for IVF, diet, and pain control by Dr. Boyd, grounds person surgeon. Kalpesh (pharmacy) confirmed antibiotic orders with Dr. Boyd. Original Note: Kiara shift note: Patient return to room 205 S/P Repair of Pain Pump catheter breakage. Awake, alert, pleasant. No c/o pain or discomfort. Dressing to back CDI, YIMI dressing x 2, one attached to functioning unit. x2 4 x 4 to the right of the YIMI dressings. CMS to bilateral lower extremities intact. Neurological WNL.
[2019-03-12] MEDS: LACTATED RINGERS 1,000 ML 100 ML IV (19:50)
[2019-03-12] MEDS: hydrOXYzine pamoate 25 MG CAPSULE PO (21:43)
[2019-03-13] MEDS: HYDROMORPHONE 2 MG TABLET 4 MG PO ×4 (01:41→16:54)
[2019-03-13] MEDS: hydrOXYzine pamoate 25 MG CAPSULE PO ×2 (03:53→16:53)
[2019-03-13 04:10] VITALS: BP 149/83; PULSE 97; RESP 16; TEMP 37.1; O2SAT 97
[2019-03-13] MEDS: VANCOMYCIN 1,000 MG/200 ML PIGGYBACK 200 MG IV (06:39)
[2019-03-13] MEDS: LACTATED RINGERS 1,000 ML 100 ML IV (06:43)
[2019-03-13 07:26] LABS: Estimated Glomerular Filt Rate > 60.0 mL/min (>60)
[2019-03-13] MEDS: BENAZEPRIL 5 MG TABLET 10 MG PO (08:05)
[2019-03-13] MEDS: AMLODIPINE 5 MG TABLET PO (08:05)
[2019-03-13] MEDS: CARVEDILOL 6.25 MG TABLET PO (08:05)
[2019-03-13] MEDS: ACYCLOVIR 200 MG CAPSULE PO (08:06)
[2019-03-13 08:11] VITALS: BP 143/93; PULSE 101; RESP 20; TEMP 36.8; O2SAT 97
--- NOTE | 2019-03-13 09:30 | PT.IPTN ---
Current Diagnoses Osteomyelitis of vertebra, thoracic region (03/09/19) Spinal stenosis, thoracic region (03/09/19) Postlaminectomy syndrome, not elsewhere classified (03/09/19) Other mechanical complication of other internal orthopedic devices, implants and grafts, initial encounter (03/09/19) Surgery Performed Operation Date: 03/09/19 07:45 Actual Procedures p T12-L1 TLIF, poss. T12 corpectomy, L1-S1 HWR, T11-L3 posterior instrumentation and PSF - Laci Sorensen MD s Hardware Removal Spine L1-S1 - Laci Sorensen MD Operation Date: 03/12/19 15:45 Actual Procedures p Pain pump catheter ligation, wound exploration, irrigation and debridement - Laci Sorensen MD Physical Therapy Treatment Note M2 PT-IP Current Condition Start: 03/10/19 09:21 Freq: NEEDED Status: Active Protocol: Document 03/13/19 09:30 DLM (Rec: 03/13/19 10:29 DLM [id number]) Physical Therapy Current Condition Current Condition Evaluation Date 03/10/19 Treatment Diagnosis T11-L3 post instrumentation, T11-L1 TLIF, T12-L1 cage, impaired gait/mob Onset Date 03/09/19, second sx 03/12/19 Precautions Lumbar Precautions Log Roll,No Twisting,Limit Bending,Lifting Restriction of 10 lbs,Gait Belt above Incisional Area Other Precautions YIMI dressing on back, Cerebral spinal fluid leak repaired on 03/12/19 that was associated with pain pump M3 PT-IP Subjective Start: 03/10/19 09:21 Freq: NEEDED Status: Active Protocol: Document 03/13/19 09:30 DLM (Rec: 03/13/19 10:29 DLM [id number]) Subjective Physical Therapy Visit Type Type Treatment Note Visit Start Time 09:13 Visit Stop Time 09:30 Total Visit Minutes 17 Notes reassessment due to second sx 03/12/19 Physical Therapy Visit Comments Patient Comments He feels better since having surgery yesterday. Therapy Pain Assessment Pain When Pain Assessed After Treatment Pain Present Pain Present Pain Reported Location Lower Back Intensity 2 Scale Used Numeric (1 - 10) Description Aching Pain Management Techniques Re-positioning M4 PT-IP Mobility and Gait Start: 03/10/19 09:21 Freq: NEEDED Status: Active Protocol: Document 03/13/19 09:30 DLM (Rec: 03/13/19 10:29 [facility] [id number]) PT-Bed Mobility Assessment Rolling Type of Rolling Log Rolling Level of Assist Independent Supine to Sit Supine to Sit Independent Sit to Supine Sit to Supine Independent Scooting Scooting to Edge of Bed Independent PT-Transfer Assessment Sit to and From Stand Sit to and from Stand Standby Assistance Equipment Transfer Assistive Device Gait Belt,Front Wheeled Walker Transfers Transfer Destination Bed Transfer Technique Stand Step Pivot Transfer Ability Level of Assist Standby Assistance Comments Mobility Comments he needs reminders to slow down Gait Assessment Gait Gait Assistance Required: Standby Assistance,Contact Guard Assist Distance (Feet) 120 Assistive Devices Assistive Device Gait Belt,Front Wheeled Walker Gait Deviations General Gait Pattern Flexed Trunk Factors Limiting Gait Function Factors Limiting Gait Function Decreased Activity Tolerance, Pain,Poor Balance Comments Gait Comments nausea with first sitting up today but got better with activity, no vomiting at this time Stair Climbing Assessment Comments Stair Climbing Comments pt will be staying on main floor when first gets home PT-Balance Assessment Sitting Balance and Reactions Static Sitting Balance Ability Good Dynamic Sitting Balance Ability Good Standing Balance and Reactions Static Standing Balance Ability Good Dynamic Standing Balance Ability Fair Device Used FWW M5 PT-IP Objective Assessments Start: 03/10/19 09:21 Freq: NEEDED Status: Active Protocol: Document 03/13/19 09:30 DL (Rec: 03/13/19 10:29 [facility] [id number]) Orientation Orientation/Cognition Level of Alertness Alert Orientation Name,Age,Birthday,Month,Date, Year,Day of Week,Place, Situation Language Function Ability Hard of Hearing Safety Awareness Understands Safety Issues Memory Description No Deficits Noted Gross Range of Motion Upper Extremity ROM Assessment Within Functional Limits Lower Extremity ROM Assessment Within Functional Limits Strength Upper Extremity Strength Assessment Within Functional Limits Lower Extremity Strength Assessment Bilaterally Impaired Comments Strength Comments mild generalized weakness in LE's associated with his back pain but no focal deficits, good tolerance for weight bearing for gait Coordination Assessment Gross Coordination Gross Coordination WNL Sensation Assessment Comments Sensation Comments BUE WNL per pt, no changes since second sx per pt report Muscle Tone Muscle Tone WNL Yes M6 PT-IP Treatment Start: 03/10/19 09:21 Freq: NEEDED Status: Active Protocol: Document 03/13/19 09:30 DL (Rec: 03/13/19 10:29 [facility] [id number]) Physical Therapy Treatment Exercises Exercises Ankle Pumps Education Education Provided Precautions,Safety M7 PT-IP Assessment and Plan Start: 03/10/19 09:21 Freq: NEEDED Status: Active Protocol: Document 03/13/19 09:30 DLM (Rec: 03/13/19 10:29 DLM [id number]) PT Summary Assessment and Plan Potential Rehabilitation Potential Good Status of Condition at Evaluation Evolving Summary Impairments Pain,ROM,Strength,Balance,Bed Mobility,Transfers,Gait, Activity Tolerance Progress Towards Goals Slow Progress due to Medical Issues Assessment Summary Darin is alert and reports feeling better today. He tolerated gait in the phan well with fWW. He needs reminders to slow down for safety during mobility. He had mild nausea with first getting out of bed but is improved with mobility. Activity order not clarified on the chart post-op. His nurse reports pt is to be getting up and she will get order clarified. Continue to plan for discharge home with assist from his Spouse. Goals Bed Mobility Goal Independent Transfer Goal Independent,Front Wheeled Walker Gait Goal Independent,Front Wheel Walker Gait Distance 150 feet Days to Meet Goals 5 Frequency of Treatment Frequency Of Treatment Twice a Day Treatment Plan Physical Therapy Treatment Plan Bed Mobility Training,Transfer Training,Gait Training, Therapeutic Exercise,Post Op Education,Discharge Planning Recommendations To Nursing Amount of Assist Needed 1 Person Assist Discharge Recommendations PT Discharge Recommendations Home with Assistance
--- NOTE | 2019-03-13 13:07 | PC.NURSE ---
Mcelroy removed at 1300.
--- NOTE | 2019-03-13 13:37 | PT.IPTN ---
Current Diagnoses Osteomyelitis of vertebra, thoracic region (03/09/19) Spinal stenosis, thoracic region (03/09/19) Postlaminectomy syndrome, not elsewhere classified (03/09/19) Other mechanical complication of other internal orthopedic devices, implants and grafts, initial encounter (03/09/19) Surgery Performed Operation Date: 03/09/19 07:45 Actual Procedures p T12-L1 TLIF, poss. T12 corpectomy, L1-S1 HWR, T11-L3 posterior instrumentation and PSF - Laci Sorensen MD s Hardware Removal Spine L1-S1 - Laci Sorensen MD Operation Date: 03/12/19 15:45 Actual Procedures p Pain pump catheter ligation, wound exploration, irrigation and debridement - Laci Sorensen MD Physical Therapy Treatment Note M2 PT-IP Current Condition Start: 03/10/19 09:21 Freq: NEEDED Status: Active Protocol: Document 03/13/19 09:30 DLM (Rec: 03/13/19 10:29 DLM [id number]) Physical Therapy Current Condition Current Condition Evaluation Date 03/10/19 Treatment Diagnosis T11-L3 post instrumentation, T11-L1 TLIF, T12-L1 cage, impaired gait/mob Onset Date 03/09/19, second sx 03/12/19 Precautions Lumbar Precautions Log Roll,No Twisting,Limit Bending,Lifting Restriction of 10 lbs,Gait Belt above Incisional Area Other Precautions YIMI dressing on back, Cerebral spinal fluid leak repaired on 03/12/19 that was associated with pain pump M3 PT-IP Subjective Start: 03/10/19 09:21 Freq: NEEDED Status: Active Protocol: Document 03/13/19 13:15 LJ (Rec: 03/13/19 13:37 [id number]) Subjective Physical Therapy Visit Type Type Treatment Note Visit Start Time 13:15 Visit Stop Time 13:31 Total Visit Minutes 16 Physical Therapy Visit Comments Patient Comments Pt willing to walk. States he will d/c lter today. M4 PT-IP Mobility and Gait Start: 03/10/19 09:21 Freq: NEEDED Status: Active Protocol: Document 03/13/19 13:15 LJ (Rec: 03/13/19 13:37 LJ [id number]) PT-Bed Mobility Assessment Rolling Level of Assist Independent Supine to Sit Supine to Sit Independent Sit to Supine Sit to Supine Independent Scooting Scooting to Edge of Bed Independent PT-Transfer Assessment Sit to and From Stand Sit to and from Stand Standby Assistance Equipment Transfer Assistive Device Gait Belt,Front Wheeled Walker Transfers Transfer Destination Bed Transfer Technique Stand Step Pivot Transfer Ability Level of Assist Standby Assistance Comments Mobility Comments he needs reminders to slow down Gait Assessment Gait Gait Assistance Required: Standby Assistance,Contact Guard Assist Distance (Feet) 210 Assistive Devices Assistive Device Gait Belt,Front Wheeled Walker Gait Deviations General Gait Pattern Flexed Trunk Factors Limiting Gait Function Factors Limiting Gait Function Decreased Activity Tolerance, Pain,Poor Balance Comments Gait Comments Pt had no nausea this tx. Independent with mobility with SBA during transfers and gait d/t pt moving and walking quickly. Cues for slowing down . M5 PT-IP Objective Assessments Start: 03/10/19 09:21 Freq: NEEDED Status: Active Protocol: Document 03/13/19 09:30 DLM (Rec: 03/13/19 10:29 DL [id number]) Orientation Orientation/Cognition Level of Alertness Alert Orientation Name,Age,Birthday,Month,Date, Year,Day of Week,Place, Situation Language Function Ability Hard of Hearing Safety Awareness Understands Safety Issues Memory Description No Deficits Noted Gross Range of Motion Upper Extremity ROM Assessment Within Functional Limits Lower Extremity ROM Assessment Within Functional Limits Strength Upper Extremity Strength Assessment Within Functional Limits Lower Extremity Strength Assessment Bilaterally Impaired Comments Strength Comments mild generalized weakness in LE's associated with his back pain but no focal deficits, good tolerance for weight bearing for gait Coordination Assessment Gross Coordination Gross Coordination WNL Sensation Assessment Comments Sensation Comments BUE WNL per pt, no changes since second sx per pt report Muscle Tone Muscle Tone WNL Yes M6 PT-IP Treatment Start: 03/10/19 09:21 Freq: NEEDED Status: Active Protocol: Document 03/13/19 09:30 DLM (Rec: 03/13/19 10:29 DL [id number]) Physical Therapy Treatment Exercises Exercises Ankle Pumps Education Education Provided Precautions,Safety M7 PT-IP Assessment and Plan Start: 03/10/19 09:21 Freq: NEEDED Status: Active Protocol: Document 03/13/19 13:15 LJ (Rec: 03/13/19 13:37 LJ [id number]) PT Summary Assessment and Plan Summary Impairments Pain,ROM,Strength,Balance,Bed Mobility,Transfers,Gait, Activity Tolerance Progress Towards Goals Slow Progress due to Medical Issues Assessment Summary Pt had no nausea this tx. Reports he feels well and wants to go home today. Pt is independent with mobility but needs reminders to slow down Goals Bed Mobility Goal Independent Transfer Goal Independent,Front Wheeled Walker Gait Goal Independent,Front Wheel Walker Gait Distance 150 feet Days to Meet Goals 5 Frequency of Treatment Frequency Of Treatment Twice a Day Treatment Plan Physical Therapy Treatment Plan Bed Mobility Training,Transfer Training,Gait Training, Therapeutic Exercise,Post Op Education,Discharge Planning
[2019-03-13 13:46] LABS: Vancomycin Trough 15.9 ug/mL (10-20)
--- NOTE | 2019-03-13 15:55 | DI.RAD.S_ITS ---
PROCEDURE: XR CHEST FOR PICC 1V INDICATIONS: check for PICC placement COMPARISON: [facility], CR, XR CHEST 1V, 01/19/2018, 11:36. FINDINGS: PICC was placed by the intravenous therapy team from the left side. Fluoroscopic spot film demonstrates tip of PICC projecting to the SVC right atrial junction. Remote CABG, thoracolumbar fixation, dorsal column stimulator. IMPRESSION: Tip of PICC projects to the SVC right atrial junction. Dictated by: London Watson M.D. on 03/13/2019 at 16:24 Approved by: London Watson M.D. on 03/13/2019 at 16:26
[2019-03-13 16:29] VITALS: BP 165/104; PULSE 126; RESP 21; TEMP 36.3; O2SAT 98
[2019-03-13 17:00] VITALS: PULSE 104
--- NOTE | 2019-03-13 17:13 | P.PN_ITS ---
Exam Vital Signs (past 8 hours): - 03/13/19 16:29 Temperature 97.4 F L Pulse Rate 126 H Respiratory Rate 21 Blood Pressure 165/104 H Pulse Oximetry 98 Fraction of Inspired Oxygen 21 Oxygen Delivery Method Room Air Oxygen Flow Rate 0 Objective Labs Result Diagrams: 03/12/19 08:40 03/13/19 06:38 Labs: Laboratory Results - last 24 hr 03/13/19 03/13/19 06:38 13:15 Creatinine 0.90 Estimated GFR > 60.0 Vancomycin Trough 15.9 Assessment & Plan Assessment & Plan narrative: Patient's lumbar cultures showed Staph epi. After discussing with inpatient pharmacist patient was switched to daptomycin 650 mg IV q day. Vancomycin was discontinued. The plan will be to treat patient's possible osteomyelitis/discitis with 6 weeks of IV daptomycin 650 mg IV q day. Order has been placed for PICC line placement. We will have criminal justice social worker facilitate arrangement for patient's IV medication therapy. Patient has failed pain pump has been ligated currently with no CSF leakage. Patient's pain management doctor will assess patient's status in 2-3 month with possible reinsertion of pain pump catheter. Quality VTE Deep Vein Thrombosis/Pulmonary Embolism Present on Admission: No
[2019-03-13] MEDS: HYDROMORPHONE 2 MG INJ 1 MG IV ×3 (17:43→23:44)
[2019-03-13 20:07] VITALS: BP 147/105; PULSE 106; RESP 20; TEMP 36.6; O2SAT 99
[2019-03-13] MEDS: HYDROMORPHONE 2 MG TABLET PO (20:08)
--- NOTE | 2019-03-13 21:55 | PC.NURSE ---
Pt has had issues with pain this shift, needing IVP dilaudid q 2 hours while awake. Pt is hoping he can get his infusion arrangement made so he can discharge Saturday. Pt is voiding qs clear yellow.
[2019-03-13 23:40] VITALS: BP 148/97; PULSE 101; RESP 16; TEMP 36.9; O2SAT 98
--- NOTE | 2019-03-14 01:24 | PC.NURSE ---
Addendum entered by Gloria Narvaez R.N. 03/14/19 06:01: Patient restless, c/o leg spasms. Pt refused Dilaudid initially at 0500 for fear the restlessness was a side effect. Dr. Singh made aware. Pt desired Dilaudid dose at 0545. Administered, will follow up. Original Note: Patient educated on importance of SCD's. Patient continues to refuse.
[2019-03-14] MEDS: HYDROMORPHONE 1 MG INJ IV ×3 (03:24→07:07)
[2019-03-14] MEDS: LACTATED RINGERS 1,000 ML 100 ML IV (03:28)
[2019-03-14] MEDS: hydrOXYzine pamoate 25 MG CAPSULE PO (04:10)
[2019-03-14 04:45] VITALS: BP 149/86; PULSE 138; RESP 17; TEMP 36.8; O2SAT 99
[2019-03-14] MEDS: ACYCLOVIR 200 MG CAPSULE PO (08:58)
[2019-03-14] MEDS: AMLODIPINE 5 MG TABLET PO (08:58)
[2019-03-14] MEDS: CARVEDILOL 6.25 MG TABLET PO (08:58)
[2019-03-14] MEDS: BENAZEPRIL 5 MG TABLET 10 MG PO (08:58)
[2019-03-14] MEDS: HYDROMORPHONE 2 MG TABLET 4 MG PO ×2 (08:58→13:26)
--- NOTE | 2019-03-14 09:36 | P.DS_ITS ---
History of Present Illness History of Present Illness Date Patient Seen: 03/14/19 Time Patient Seen: 09:36 Chief complaint: [id number] Narrative: March 09, 2019 Pre-op diagnosis: 1. T12-L1 discitis with L1 osteomyelitis 2. Loosened hardware lumbar spine 3. 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 Spinal stenosis T11-L3 5. Leaking/broken pain pump 6. Chronic back pain syndrome Post-op diagnosis: same Procedure & Clinicians Procedure: 1. L1 lumbar vertebral corpectomy through posterolateral approach 2. T12-L1 vertebral interbody fusion and posterolateral fusion 3. T11-T12 posterolateral fusion 4. L1-2 posterolateral fusion 5. L1-S1 posterior segmental instrumentation removal 6. T11-L3 posteror segmental instrumentation insertion 7. L1-2, L2-3 revision laminectomies with debridement of scar tissue 8. T12-L1 interbody cage placement 9. Utilization of microsurgical technique and operating microscope March 12, 2019 Pre-op diagnosis: 1. Pain pump catheter breakage 2. 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 Pain pump catheter ligation 2. Irrigtation and debridement of skin, muscle and fascia March 13, 2019 Patient's lumbar cultures showed Staph epi. After discussing with inpatient pharmacist patient was switched to daptomycin 650 mg IV q day. Vancomycin was discontinued. Discharge Providers Provider Date of admission: 03/09/19 06:18 Discharge Date: 03/14/19 Primary care physician: Raghu Brennan MD Consults: 03/09/19 07:39 Consult to Respiratory Therapy Evaluate & Treat Comment: Physician Instructions: Evaluate and treat 03/09/19 18:50 Consult to Occupational Therapy Evaluate & Treat Comment: Physician Instructions: Evaluate and treat Consult to Physical Therapy Evaluate & Treat Comment: Physician Instructions: Evaluate and Treat 03/12/19 14:54 Consult to Respiratory Therapy Evaluate & Treat Comment: Physician Instructions: Evaluate and treat 03/13/19 13:26 Consult to PICC Line RN Routine Comment: Discharge provider: Supa Yanez PA-C Summary Hospital Course Discharge Diagnosis: T 12 through L1 diskitis with L1 osteomyelitis, loosened hardware lumbar spine, pseudoarthrosis L1 through L2, spinal stenosis T11 through L3, leaking/broken pain pump, chronic back pain syndrome Pain pump catheter breakage, 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 T12-L1 discitis with L1 osteomyelitis 2. Loosened hardware lumbar spine 3. 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 Spinal stenosis T11-L3 5. Leaking/broken pain pump 6. Chronic back pain syndrome Post-op diagnosis: same Procedure & Clinicians Procedure: 1. L1 lumbar vertebral corpectomy through posterolateral approach 2. T12-L1 vertebral interbody fusion and posterolateral fusion 3. T11-T12 posterolateral fusion 4. L1-2 posterolateral fusion 5. L1-S1 posterior segmental instrumentation removal 6. T11-L3 posteror segmental instrumentation insertion 7. L1-2, L2-3 revision laminectomies with debridement of scar tissue 8. T12-L1 interbody cage placement 9. Utilization of microsurgical technique and operating microscope Same procedure as scheduled: Yes Indications: Patient has been having chronic back pain and worsening lumbar radiculopathy. Patient has been having worsening back pain not improving with conservative management. Patient's CT shows osteolysis at the T12-L1 disc space concern for diskitis osteomyelitis. Patient failed multiple conservative management with worsening pain weakness and numbness in her lower extremity. Patient has been having difficulty performing activity of daily living. After discussing risks benefits of treatment options, patient elected proceed with surgery. Surgeon: Laci Sorensen Telecommunications Technician: Letitia Riggs Click Yes if Unassisted: No Anesthesia Type: General Operative Notes Closure Type: primary Specimen(s): none sent Prosthetic devices, grafts, tissues, transplants, or devices: Globus revolve screws, Rise cage Applied: catheter Estimated Blood Loss (mL): 600 Blood products transfused: none March 12, 2019 Procedure & Clinicians Procedure: 1. Pain pump catheter ligation 2. Irrigtation and debridement of skin, muscle and fascia Same procedure as scheduled: Yes Indications: Mr. Boyd is 2 days post op from lumbar revision fusion. During the surgery, he was confirmed to have pain pump catheter breakage and leakage of CSF into his soft tissue. He has a large CSF fistula that is progressing anterior into his spinal hardware and possible more anteriorly. After discussing with his pain doctor, Dr. Godfrey Shell in [place], I was instructed by him to simply ligate the catheter end coming from his thecal sac to stop the CSF leakage. He will later perform pain pump catheter revision on a different date when Mr. Boyd's surgical wound from my surgery is healed. I think it is a fair options considering the acute nature of his recent surgery with me and the ongoing CSF leakage. Risks and benefits of surgery was discussed and he elected to proceed with surge ry. Surgeon: Laci Sorensen Telecommunications Technician: Supa Yanez Click Yes if Unassisted: No Anesthesia Type: General Operative Notes Closure Type: primary Specimen(s): none sent Prosthetic devices, grafts, tissues, transplants, or devices: Vascular clips Estimated Blood Loss (mL): 25 Blood products transfused: none March 13, 2019 patient's lumbar culture shows Staph epi and patient will be switched to daptomycin 650 mg IV q.d.. Vancomycin was discontinued. Exam Vital Signs (past 8 hours): - 03/14/19 04:45 Temperature 98.3 F Pulse Rate 138 H Respiratory Rate 17 Blood Pressure 149/86 H Pulse Oximetry 99 Fraction of Inspired Oxygen 21 Oxygen Delivery Method Room Air Oxygen Flow Rate 0 Narrative Exam Narrative: 73-year-old male resting comfortably in bed in no apparent distress. Varun dressing on and functioning left incision. Right incision c overed by gauze and Tegaderm. Both dressings clean, dry and intact. Neurovascular status is intact bilateral lower extremities. Both legs are warm and dry. Objective Labs Result Diagrams: 03/12/19 08:40 03/13/19 06:38 Labs: Laboratory Results - last 24 hr 03/13/19 13:15 Vancomycin Trough 15.9 SPEC #: [id number] BRIDGER: 03/09/19 STATUS: RES REQ #: [id number] SPDESC: RECD: 03/09/[address]: Laci Sorensen MD SOURCE: Back ENTR: 03/09/[address]: FAX TO: ORDERED: WOUND Cx and GS COMMENTS: Comment right L1 pedicle for culture ansd sensitivity Procedure Result Verified Site Gram Stain Final 03/09/19951 No Organism Seen No organisms seen White blood cells Many WBCs seen Aerobic Culture for wounds Final 03/12/19734 Organism 1 Staphylococcus epidermidis Growth LIGHT 1. Staphylococcus epidermidis M.I.C. RX --------- --- * Daptomycin S * Vancomycin S * Ciprofloxacin R * Clindamycin S * Doxycycline S * Erythromycin S * Gentamicin R * Levofloxacin R * Linezolid S * Moxifloxacin R * Nitrofurantoin S * Rifampin S * Tetracycline S * Tigecycline S * Trimethoprim/Sulfamethoxazole R Anaerobic Culture Preliminary 03/13/19 114 <No reportable results for this procedure> Discharge Plan Discharge Plan Patient Disposition: Home Discharge comment: DC home today after PT Discharge Med Rec/Prescriptions Prescriptions: New daptomycin [Cubicin] 500 mg Recon Soln 650 mg IV Q24H 42 Days Qty: 42 RF: 0 hydromorphone 2 mg Tablet 4 mg PO Q4-6H PRN (Reason: Breakthrough Pain) Qty: 60 RF: 0 hydroxyzine pamoate 25 mg Capsule 25 mg PO Q6HR PRN (Reason: Nausea) Qty: 30 RF: 1 hydromorphone 2 mg Tablet 2 mg PO Q6H PRN (Reason: pain) Qty: 30 RF: 0 Continued tadalafil [Cialis] 20 MG tablet 20 mg PO PRN PRN (Reason: sexual activity) Qty: 0 RF: 0 testosterone cypionate [Depo-Testosterone] 200 MG/1 ML oil 0.5 ml subcut SEEINSTR Qty: 9 RF: 0 clonidine (PF) 1,000 mcg/10 mL (100 mcg/mL) Solution 180 mcg continuous epidural DAILY RF: 0 carvedilol 6.25 mg Tablet 6.25 mg PO QAM RF: 0 acyclovir 200 mg Capsule 200 mg PO 5XD PRN (Reason: Fever blisters) RF: 0 amlodipine-benazepril 5-10 mg capsule 1 cap PO QAM RF: 0 hydromorphone 4 mg tablet 4 mg PO Q4-6H PRN (Reason: Breakthrough Pain) RF: 0 ketorolac 10 mg Tablet 10 mg PO TID PRN (Reason: Pain) RF: 0 hydromorphone [Dilaudid] 2 mg tablet 2 mg PO Q6H PRN (Reason: pain) Qty: 30 RF: 0 aspirin [Aspirin Low Dose] 81 mg tablet,delayed release (DR/EC) 81 mg PO DAILY RF: 0 (DME) Respironics Dreamstation CPAP Qty: 1 RF: 0 Discontinued bupivacaine (PF) 0.25 % 2 mL/hr 120 mL elastomeric pump,fixed rate 3.465 mg Continuous Epidural DAILY RF: 0 hydromorphone (PF)-0.9 % NaCl 20 mg/100 mL (0.2 mg/mL) Prefilled Pump [place] 2.97 mg continuous subcutaneous infusion DAILY RF: 0 Follow up/Referrals: Raghu Brennan MD [Primary Care Provider] - Laci Sorensen MD [Physician] - (Follow up 1 wk) Provider Discharge Instructions Diet: Diet as Tolerated Activity: No bending, lifting or twisting Cold/Heat Therapy: Ice packs as needed Other treatments: Daptomycin IV as directed. Skin/Wound/Dressing Care Report to your healthcare provider any signs of infection, such as:: chills, fever, night sweats, unusual drainage and unusual redness Dressing: Please leave dressing in place. This will be removed at post op visit. If dressing becomes saturated please notify the office. Discharge Data Primary Care Provider: Raghu Brennan Quality VTE Deep Vein Thrombosis/Pulmonary Embolism Present on Admission: No
[2019-03-14] MEDS: hydrOXYzine pamoate 25 MG CAPSULE 50 MG PO (10:19)
--- NOTE | 2019-03-14 11:00 | PT.IPTN ---
Current Diagnoses Osteomyelitis of vertebra, thoracic region (03/09/19) Spinal stenosis, thoracic region (03/09/19) Postlaminectomy syndrome, not elsewhere classified (03/09/19) Other mechanical complication of other internal orthopedic devices, implants and grafts, initial encounter (03/09/19) Surgery Performed Operation Date: 03/09/19 07:45 Actual Procedures p T12-L1 TLIF, poss. T12 corpectomy, L1-S1 HWR, T11-L3 posterior instrumentation and PSF - Laci Sorensen MD s Hardware Removal Spine L1-S1 - Laci Sorensen MD Operation Date: 03/12/19 15:45 Actual Procedures p Pain pump catheter ligation, wound exploration, irrigation and debridement - Laci Sorensen MD Physical Therapy Treatment Note M2 PT-IP Current Condition Start: 03/10/19 09:21 Freq: NEEDED Status: Active Protocol: Document 03/13/19 09:30 DLM (Rec: 03/13/19 10:29 DLM [id number]) Physical Therapy Current Condition Current Condition Evaluation Date 03/10/19 Treatment Diagnosis T11-L3 post instrumentation, T11-L1 TLIF, T12-L1 cage, impaired gait/mob Onset Date 03/09/19, second sx 03/12/19 Precautions Lumbar Precautions Log Roll,No Twisting,Limit Bending,Lifting Restriction of 10 lbs,Gait Belt above Incisional Area Other Precautions YIMI dressing on back, Cerebral spinal fluid leak repaired on 03/12/19 that was associated with pain pump M3 PT-IP Subjective Start: 03/10/19 09:21 Freq: NEEDED Status: Active Protocol: Document 03/14/19 11:00 GGD (Rec: 03/14/19 12:31 GGD [email or web address]) Subjective Physical Therapy Visit Type Type Treatment Note Visit Start Time 10:30 Visit Stop Time 10:57 Total Visit Minutes 27 Number of [employer] SUPERVISOR Visits 2 Physical Therapy Visit Comments Patient Comments Pt states his legs have been hurting. Therapy Pain Assessment Pain When Pain Assessed At Rest Pain Present Pain Present Pain Reported Location Lower Back Intensity 5 Scale Used Numeric (1 - 10) Pain Management Techniques Modification of Treatment,Re- positioning M4 PT-IP Mobility and Gait Start: 03/10/19 09:21 Freq: NEEDED Status: Active Protocol: Document 03/14/19 11:00 GGD (Rec: 03/14/19 12:31 GGD [email or web address]) PT-Bed Mobility Assessment Rolling Level of Assist Independent Supine to Sit Supine to Sit Independent Sit to Supine Sit to Supine Independent Scooting Scooting to Edge of Bed Independent PT-Transfer Assessment Sit to and From Stand Sit to and from Stand Standby Assistance Equipment Transfer Assistive Device Gait Belt,Front Wheeled Walker Transfers Transfer Destination Bed,Toilet Transfer Technique Stand Step Pivot Transfer Ability Level of Assist Standby Assistance Gait Assessment Gait Gait Assistance Required: Standby Assistance,Contact Guard Assist Distance (Feet) 210 Assistive Devices Assistive Device Gait Belt,Front Wheeled Walker Gait Deviations General Gait Pattern Flexed Trunk Factors Limiting Gait Function Factors Limiting Gait Function Decreased Activity Tolerance, Pain,Poor Balance Comments Gait Comments Pt needed cues for mobility. M5 PT-IP Objective Assessments Start: 03/10/19 09:21 Freq: NEEDED Status: Active Protocol: Document 03/13/19 09:30 DLM (Rec: 03/13/19 10:29 DLM [id number]) Orientation Orientation/Cognition Level of Alertness Alert Orientation Name,Age,Birthday,Month,Date, Year,Day of Week,Place, Situation Language Function Ability Hard of Hearing Safety Awareness Understands Safety Issues Memory Description No Deficits Noted Gross Range of Motion Upper Extremity ROM Assessment Within Functional Limits Lower Extremity ROM Assessment Within Functional Limits Strength Upper Extremity Strength Assessment Within Functional Limits Lower Extremity Strength Assessment Bilaterally Impaired Comments Strength Comments mild generalized weakness in LE's associated with his back pain but no focal deficits, good tolerance for weight bearing for gait Coordination Assessment Gross Coordination Gross Coordination WNL Sensation Assessment Comments Sensation Comments BUE WNL per pt, no changes since second sx per pt report Muscle Tone Muscle Tone WNL Yes M6 PT-IP Treatment Start: 03/10/19 09:21 Freq: NEEDED Status: Active Protocol: Document 03/13/19 09:30 DLM (Rec: 03/13/19 10:29 DLM [id number]) Physical Therapy Treatment Exercises Exercises Ankle Pumps Education Education Provided Precautions,Safety M7 PT-IP Assessment and Plan Start: 03/10/19 09:21 Freq: NEEDED Status: Active Protocol: Document 03/14/19 11:00 GGD (Rec: 03/14/19 12:31 GGD [email or web address]) PT Summary Assessment and Plan Summary Assessment Summary Pt improving with mobility. He need cues for posture and pace with gait. Pt safe for home D/C when medically stable . Frequency of Treatment Frequency Of Treatment Twice a Day Treatment Plan Physical Therapy Treatment Plan Bed Mobility Training,Transfer Training,Gait Training, Therapeutic Exercise,Post Op Education,Discharge Planning Recommendations To Nursing Amount of Assist Needed 1 Person Assist Discharge Recommendations PT Discharge Recommendations Home with Assistance
--- NOTE | 2019-03-14 14:08 | PC.NURSE ---
Discharge pt states pain controlled with PO dilaudid. Did request steroids at one point today, PA spoke with MD and order for methylprednisilone at d/c, to give pt 50 mg Vistaril which seemed to help pt a little. He was up with SBA or independent in room. present for d/c instructions. pt states he is taking all belongings home with him. pt left in w/c with RN and [employer] escort.
--- NOTE | 2019-03-14 14:22 | CM.DPC ---
DCP Discharge Home Per Ortho PA, pt medically stable to d/c home today with ongoing IV-Abx for 6 weeks. Per RN, pt adamant that he is going home today. PAULA faxed infusion solutions pt's Dapto Q24 to review to determine coverage and likely out of pocket expense. PAULA met bedside with pt and explained role and pt confirms that he would like to go home today and he has had over 24 surgeries in the past 15 years and is confident of going home with outpt infusion and is agreeable with outpt infusion at the hospital this weekend with the [facility] taking over on Saturday after the and would prefer this rather than home infusion. Pt states he is also agreeable with paying out of pocket if Medicare and do not cover the cost. PAULA provided pt's Medicare Rights and he gave verbal signature on his Medicare Message since he was eating and getting his infusion. PAULA spoke with banana grader who was helpful in tracking down [facility] staff (since they are closed on s and s) and PAULA spoke to ADAMS Hwang who confirms that Medicare does not require a pre-auth and requested SW to fax [facility] pt's H&P, MD prog notes, d/c summary, chest xray, and medication and dosing to their clinic and they will call pt on Saturday morning to schedule him for his dose that day and that pt should come to the hospital for his infusion for Sat and Saturday as regular. banana grader kindly set up infusion for the pt for the and aware that [facility] will call pt Saturday. PAULA faxed requested clinicals to [facility] and updated pt on above information and pt very appreciative. Plan: Patient to d/c home today after his daily Dapto dose and aware that he should come to the hospital for his weekend daily dose of IV-Abx. MIKEY Chand
== END 2019-03-14 13:55 | disposition home or self-care (01) | DRG 453 ==
PROVIDERS: Anesthesiology; Physician Assistant; Admitting Provider Orthopaedic Surgery Orthopaedic Surgery of the Spine; PCP Family Medicine; Visit Provider Orthopaedic Surgery Orthopaedic Surgery of the Spine
PROC: 0RGA0AJ Fusion of Thoracolumbar Vertebral Joint with Interbody Fusion Device, Posterior Approach, Anterior Column, Open Approach (ICD-10-PCS; principal; 2019-03-09 07:45)
PROC: 0RGA0AJ Fusion of Thoracolumbar Vertebral Joint with Interbody Fusion Device, Posterior Approach, Anterior Column, Open Approach (ICD-10-PCS; 2019-03-09 07:45)
PROC: 0KBF0ZZ Excision of Right Trunk Muscle, Open Approach (ICD-10-PCS; principal; 2019-03-12 15:45)
DX: M46.24 Osteomyelitis of vertebra, thoracic region (principal); G03.9 Meningitis, unspecified; M96.0 Pseudarthrosis after fusion or arthrodesis; T85.615A Breakdown (mechanical) of other nervous system device, implant or graft, initial encounter; G96.0 Cerebrospinal fluid leak; T81.83XA Persistent postprocedural fistula, initial encounter; M96.1 Postlaminectomy syndrome, not elsewhere classified; I95.9 Hypotension, unspecified; B95.7 Other staphylococcus as the cause of diseases classified elsewhere; M48.061 Spinal stenosis, lumbar region without neurogenic claudication; I10 Essential (primary) hypertension; K21.9 Gastro-esophageal reflux disease without esophagitis; I25.10 Atherosclerotic heart disease of native coronary artery without angina pectoris; G47.33 Obstructive sleep apnea (adult) (pediatric); Z95.1 Presence of aortocoronary bypass graft; R00.0 Tachycardia, unspecified; Y75.2 Prosthetic and other implants, materials and neurological devices associated with adverse incidents
CPT/HCPCS: 36415; 36569; 72100; 76000; 80202; 82550; 82553; 82565; 84484; 85014; 85018; 85025; 87070; 87075; 87077; 87186; 87205; 88305; 88311; 93005; 94760; 97116; 97162; 97165; 97530; 97535; C1776; C9290; J0330; J0690; J0878; J1100; J1170; J2060; J2405; J2704; J2765; J3010

== ENCOUNTER → 2019-03-15 12:44 | Outpatient (RCR) | payer MEDICARE, OTHER, SELFPAY ==
[2019-03-09 17:26] VITALS: BMI 31.4
[2019-03-15 13:11] VITALS: BP 135/88; PULSE 106; RESP 20; TEMP 36.6
--- NOTE | 2019-03-15 13:12 | PC.NURSE ---
Pt arrived via home somewhat uncomfortable. Settled to recliner and wrapped in blankets.
[2019-03-16 12:56] VITALS: BP 127/80; PULSE 91; RESP 18; TEMP 36.7; O2SAT 99
== END ==
LOC: INF 12:44
PROVIDERS: PCP Family Medicine; Visit Provider Orthopaedic Surgery Orthopaedic Surgery of the Spine
DX: M46.46 Discitis, unspecified, lumbar region (principal); M46.24 Osteomyelitis of vertebra, thoracic region; B95.7 Other staphylococcus as the cause of diseases classified elsewhere
CPT/HCPCS: 96365; J0878

== ENCOUNTER 2019-03-19 06:07 | Emergency (ER) | payer MEDICARE, OTHER, SELFPAY ==
[2019-03-09 17:26] VITALS: BMI 31.4
[2019-03-19 06:14] VITALS: BP 174/85; PULSE 96; RESP 20; TEMP 37.1; O2SAT 100
--- NOTE | 2019-03-19 06:21 | ED.GENADULT ---
HPI - General Adult General Chief complaint: Hypertension Stated complaint: High blood pressure Time Seen by Provider: 03/19/19 06:10 Source: patient Mode of arrival: ambulatory Limitations: no limitations History of Present Illness HPI narrative: 73-year-old male nonsmoker with history of hypertension and chronic back pain presents to the emergency department with a chief complaint of asymptomatic hypertension over the past day or 2. He has been frequently checking his blood pressures which have been climbing up into the 180s over 90s and even as high as two hundred systolic. At no point has he had any symptoms such as blurred vision, headache, chest pain, shortness of breath, nausea, vomiting or abdominal pain. Onset (ago): hour(s) Relieving factors: none Exacerbating factors: none Associated symptoms: denies other symptoms Treatments prior to arrival: none Related Data Home Medications Medication Instructions Recorded Confirmed tadalafil [Cialis] 20 mg PO PRN PRN #0 03/20/13 03/06/19 testosterone cypionate 0.5 ml SUBCUT SEEINSTR #9 06/13/17 03/09/19 [Depo-Testosterone] aspirin 81 mg tablet,delayed 81 mg PO DAILY 09/03/18 03/09/19 release acyclovir 200 mg PO 5XD PRN 11/05/18 03/09/19 carvedilol 6.25 mg PO QAM 11/05/18 03/09/19 amlodipine-benazepril 1 cap PO QAM 11/10/18 03/09/19 hydromorphone 4 mg PO Q4-6H PRN 11/10/18 03/09/19 Respironics Dreamstation CPAP #1 ea 11/27/18 03/09/19 ketorolac 10 mg PO TID PRN 01/27/19 03/09/19 clonidine (PF) 180 mcg CONTINUOUS EPIDURAL DAILY 03/06/19 03/06/19 Previous Rx's Medication Instructions Recorded hydromorphone [Dilaudid] 2 mg PO Q6H PRN #30 tab 01/27/19 daptomycin [Cubicin] 650 mg IV Q24H 42 Days #42 each 03/13/19 hydromorphone 2 mg PO Q6H PRN #30 tab 03/14/19 hydromorphone 4 mg PO Q4-6H PRN #60 tab 03/14/19 hydroxyzine pamoate 25 mg PO Q6HR PRN #30 cap 03/14/19 methylprednisolone [Medrol (Robbin)] See Rx Instructions .ROUTE 03/14/19 .COMPLEX #21 each Allergies Allergy/AdvReac Type Severity Reaction Status Date / Time morphine [MORPHINE] Allergy Intermediate BLISTERS Verified 03/09/19 07:16 aspartame AdvReac Severe SEVERE Verified 03/09/19 07:16 [From NUTRASWEET ASPARTAME] HEADACHES banana AdvReac Severe Severe Verified 03/09/19 07:16 headaches chocolate flavor AdvReac Severe Headaches Verified 03/09/19 07:16 gabapentin [GABAPENTIN] AdvReac Severe SEVERE Verified 03/09/19 07:16 AGITATION, DEPRESSION, ANXIETY hydrochlorothiazide AdvReac Severe HEADACHES Verified 03/09/19 07:16 [HYDROCHLOROTHIAZIDE] hydrocodone [HYDROCODONE] AdvReac Severe SEVERE Verified 03/09/19 07:16 HEADACHES metoprolol [METOPROLOL] AdvReac Severe HEADACHES Verified 03/09/19 07:16 omeprazole [OMEPRAZOLE] AdvReac Severe SEVERE Verified 03/09/19 07:16 HEADACHES & DIZZINESS oxycodone [OXYCODONE] AdvReac Severe HEADACHES Verified 03/09/19 07:16 nifedipine [From Procardia] AdvReac Gastrointestinal Verified 03/09/19 07:16 Upset Qoyufum-Deo-Vru Reductase AdvReac Gastrointestinal Verified 03/09/19 07:16 Inhibitor Upset ACID BLOCKERS AdvReac Severe SEVERE Uncoded 03/09/19 07:16 HEADACHES & DIZZINESS Review of Systems Constitutional Constitutional: Denies chills, Denies fatigue, Denies fever(s), Denies frequent falls, Denies lethargy and Denies weakness Eyes Eyes: Denies change in vision, Denies eye discharge, Denies irritation and Denies loss of vision ENT Ears, Nose, Mouth, and Throat: Denies change in voice, Denies dizziness, Denies neck pain, Denies sore throat and Denies throat swelling Cardiovascular Cardiovascular: Denies chest pain, Denies irregular heart rhythm, Denies lightheadedness, Denies palpitations, Denies dyspnea, Denies dyspnea on exertion and Denies orthopnea Respiratory Respiratory: Denies cough, Denies dyspnea, Denies dyspnea on exertion and Denies wheezing Gastrointestinal Gastrointestinal: Denies abdominal pain, Denies change in bowel habits, Denies diarrhea, Denies nausea and Denies vomiting Genitourinary Genitourinary: Denies hematuria, Denies flank pain, Denies urinary incontinence and Denies urinary urgency Musculoskeletal Musculoskeletal: Denies back pain, Denies muscle weakness, Denies neck pain, Denies numbness and Denies tingling Integumentary/Breasts Skin/Breast: Denies pruritus, Denies erythema, Denies rash and Denies wounds Neurologic Neurologic: Denies behavioral changes, Denies confusion, Denies dizziness, Denies frequent falls, Denies loss of vision, Denies numbness, Denies tingling and Denies weakness Psychiatric Psychiatric: Denies anxiety, Denies behavioral changes, Denies confusion, Denies depression, Denies homicidal ideation and Denies suicidal ideation Endocrine Endocrine: Denies fatigue, Denies flushing and Denies palpitations Hematologic/Lymphatic Hematologic/Lymphatic: Denies easy bruising Allergic/Immunologic Allergic/Immunologic: Denies urticaria, Denies throat swelling and Denies wheezing PFSH Medical History Arachnoiditis (Chronic) Cardiac murmur (Chronic) Central sleep apnea (Chronic) [place] [employer] (hard of hearing) (Chronic) HTN (hypertension) (Chronic) Hypersomnia (Inactive) Obstructive sleep apnea of adult (Chronic) Postoperative atrial fibrillation (Chronic) Primary insomnia (Chronic) Statin intolerance (Chronic ~07/2015) Tachycardia (Acute) Surgical History History of bilateral knee arthroplasty (Resolved) History of lumbar surgery (Resolved) Hx of sinus surgery (Resolved 03/12/18) S/P CABG x 2 (Acute) S/P insertion of spinal cord stimulator (Chronic ~2002) S/P lumbar spinal fusion (Acute 11/10/18) Status post bilateral cataract extraction (Resolved ~10/2014) Social History marital status: household members: spouse Smoking Status: Never smoker alcohol intake: never substance use type: does not use Social History marital status: household members: spouse Smoking Status: Never smoker alcohol intake: never substance use type: does not use Exam Narrative Exam Narrative: GEN: AOx3 and in mild distress, anxiety EYES: Pupils are equal, round, and reactive to light and accommodation. Extraoccular muscles are intact bilaterally. There is no subconjunctival hemorrhage or exudate. CHEST: Lungs are clear to auscultation bilaterally and free of wheezes, rales, or rhonchi. Heart rate is regular rhythm, there are no murmurs, clicks, rubs, or gallops. There is no chest wall tenderness. ABD: Abdomen is soft and nontender. There is no guarding or rebound. Bowel sounds are normal in all 4 quadrants. There is no mass or organomegaly. EXT: Full painless ROM of all extremities with no loss of sensation or strength. BACK: no drainage from surgical site SKIN: Warm, pink, and dry. No erythema or rash Initial Vital Signs Initial Vital Signs: Vital Signs Temperature 98.8 F 03/19/19 06:14 Pulse Rate 96 H 03/19/19 06:14 Respiratory Rate 20 03/19/19 06:14 Blood Pressure 174/85 H 03/19/19 06:14 Pulse Oximetry 100 03/19/19 06:14 Course Consultations Consultation #1: call to Dr. Bhatia whom shares opinion that no intervention or evaluation needed for asymptomatic HTN. BP down to 160s while I'm on phone Vital Signs Vital signs: Vital Signs - 8 hr 03/19/19 06:14 03/19/19 06:27 Temperature 98.8 F Pulse Rate 96 H 92 H Respiratory Rate 20 18 Blood Pressure 174/85 H Blood Pressure [Right Arm] 166/91 H Pulse Oximetry 100 100 Discharge Plan Departure Patient Disposition: Home Clinical Impression: Hypertension Qualifiers: Hypertension type: essential hypertension Qualified Code(s): I10 - Essential (primary) hypertension Discharge Date/Time: 03/19/19 06:35 Instructions: DI for High Blood Pressure Activity Restrictions/Additional Instructions: *You have been diagnosed with [ asymptomatic hypertension ] *What to do: *Continue to take medications as directed *Follow up with your primary care provider in 2-3 days, call for an appointment. Let them know you were seen in the Emergency Department and that we ask that you be seen in follow up *Return to ER if you should have any new, worsening or concerning symptoms, such as [headache, chest pain, shortness of breath or neurologic symptoms such as extremity numbness, weakness or tingling ] Prescriptions: No Action tadalafil [Cialis] 20 MG tablet 20 mg PO PRN PRN (Reason: sexual activity) Qty: 0 RF: 0 testosterone cypionate [Depo-Testosterone] 200 MG/1 ML oil 0.5 ml subcut SEEINSTR Qty: 9 RF: 0 clonidine (PF) 1,000 mcg/10 mL (100 mcg/mL) Solution 180 mcg continuous epidural DAILY RF: 0 daptomycin [Cubicin] 500 mg Recon Soln 650 mg IV Q24H 42 Days Qty: 42 RF: 0 hydromorphone 2 mg Tablet 4 mg PO Q4-6H PRN (Reason: Breakthrough Pain) Qty: 60 RF: 0 hydroxyzine pamoate 25 mg Capsule 25 mg PO Q6HR PRN (Reason: Nausea) Qty: 30 RF: 1 hydromorphone 2 mg Tablet 2 mg PO Q6H PRN (Reason: pain) Qty: 30 RF: 0 methylprednisolone [Medrol (Robbin)] 4 mg tablets,dose pack See Rx Instructions .ROUTE .COMPLEX Qty: 21 RF: 0 carvedilol 6.25 mg Tablet 6.25 mg PO QAM RF: 0 acyclovir 200 mg Capsule 200 mg PO 5XD PRN (Reason: Fever blisters) RF: 0 amlodipine-benazepril 5-10 mg capsule 1 cap PO QAM RF: 0 hydromorphone 4 mg tablet 4 mg PO Q4-6H PRN (Reason: Breakthrough Pain) RF: 0 ketorolac 10 mg Tablet 10 mg PO TID PRN (Reason: Pain) RF: 0 hydromorphone [Dilaudid] 2 mg tablet 2 mg PO Q6H PRN (Reason: pain) Qty: 30 RF: 0 aspirin [Aspirin Low Dose] 81 mg tablet,delayed release (DR/EC) 81 mg PO DAILY RF: 0 (DME) Respironics Dreamstation CPAP Qty: 1 RF: 0 Referrals: Raghu Brennan MD [Primary Care Provider] -
[2019-03-19 06:27] VITALS: BP 166/91; PULSE 92; RESP 18; O2SAT 100
== END 2019-03-19 06:35 | disposition home or self-care (01) ==
LOC: ED 06:42
PROVIDERS: Emergency Provider Emergency Medicine; PCP Family Medicine
DX: I10 Essential (primary) hypertension (principal); M46.46 Discitis, unspecified, lumbar region; M46.24 Osteomyelitis of vertebra, thoracic region; B97.7 Papillomavirus as the cause of diseases classified elsewhere
CPT/HCPCS: 96365; 96523; 99282; J0878

== ENCOUNTER → 2019-06-24 11:21 | Outpatient (CLI) | payer MEDICARE, OTHER, SELFPAY ==
[2019-03-09 17:26] VITALS: BMI 31.4
[2019-06-24 12:31] LABS: Add Manual Diff / Slide Review NO; Basophils Absolute Auto 0 /uL (0-100); Basophils Percent Auto 0.5 % (0-2); Eosinophils Absolute Auto 200 /uL (0-450); Eosinophils Percent Auto 4.8 % (2-4); Hematocrit 38.7 % (41-53); Hemoglobin 12.9 g/dL (13.5-17.5); Lymphocytes Absolute Auto 800 /uL (1100-4500); Lymphocytes Percent Auto 21.5 % (25-40); Mean Corpuscular HGB Conc 33.3 % (30-36); Mean Corpuscular Hemoglobin 28.7 PG (26-34); Mean Corpuscular Volume 86.3 fL (80-100); Monocytes Absolute Auto 500 /uL (0-900); Neutrophils Absolute Auto 2100 /uL (1500-7000); Neutrophils Percent Auto 59.2 % (50-75); Platelet Count 131 X10^3/uL (150-400); Red Blood Cell Count 4.48 X10^6/uL (4.5-5.9); Red Cell Distribution Width 14.3 % (11.6-14.8); White Blood Cell Count 3.6 X10^3/uL (4.5-11.0)
[2019-06-24 12:38] LABS: Alanine Aminotransferase 13 IU/L (<50); Albumin 4.2 g/dL (3.5-5.0); Albumin Globulin Ratio 1.4 (1.0-2.8); Alkaline Phosphatase 107 U/L (38-126); Aspartate Aminotransferase 30 IU/L (17-59); Bilirubin Total 0.5 mg/dL (0.2-1.3); Bilirubin Unconjugated 0.3 mg/dL (0.0-1.1); C-Reactive Protein Quant 2.2 mg/dL (<1.0); Globulin 2.9 g/dL (1.7-4.1); HEMOLYSIS < 15 (0-50); Total Protein 7.1 g/dL (6.3-8.2)
== END ==
PROVIDERS: PCP Family Medicine; Visit Provider Internal Medicine Infectious Disease
DX: M46.26 Osteomyelitis of vertebra, lumbar region (principal)
CPT/HCPCS: 36415; 80076; 85025; 86140

== ENCOUNTER → 2019-08-18 13:30 | Outpatient (CLI) | payer MEDICARE, OTHER, SELFPAY ==
[2019-03-09 17:26] VITALS: BMI 31.4
[2019-08-18 14:19] LABS: Add Manual Diff / Slide Review NO; Basophils Absolute Auto 0 /uL (0-100); Basophils Percent Auto 0.4 % (0-2); Eosinophils Absolute Auto 100 /uL (0-450); Eosinophils Percent Auto 1.3 % (2-4); Hematocrit 41.8 % (41-53); Hemoglobin 13.7 g/dL (13.5-17.5); Lymphocytes Absolute Auto 1100 /uL (1100-4500); Lymphocytes Percent Auto 23.5 % (25-40); Mean Corpuscular HGB Conc 32.7 % (30-36); Mean Corpuscular Hemoglobin 28.1 PG (26-34); Mean Corpuscular Volume 85.7 fL (80-100); Monocytes Absolute Auto 300 /uL (0-900); Monocytes Percent Auto 7.5 % (3-14); Neutrophils Absolute Auto 3100 /uL (1500-7000); Neutrophils Percent Auto 67.3 % (50-75); Platelet Count 157 X10^3/uL (150-400); Red Blood Cell Count 4.87 X10^6/uL (4.5-5.9); Red Cell Distribution Width 15.5 % (11.6-14.8); White Blood Cell Count 4.6 X10^3/uL (4.5-11.0)
[2019-08-18 14:44] LABS: Alanine Aminotransferase 16 IU/L (<50); Albumin 4.3 g/dL (3.5-5.0); Albumin Globulin Ratio 1.4 (1.0-2.8); Alkaline Phosphatase 117 U/L (38-126); Aspartate Aminotransferase 32 IU/L (17-59); Bilirubin Total 0.6 mg/dL (0.2-1.3); Bilirubin Unconjugated 0.5 mg/dL (0.0-1.1); HEMOLYSIS < 15 (0-50); Total Protein 7.3 g/dL (6.3-8.2)
== END ==
PROVIDERS: PCP Family Medicine; Referring Provider Internal Medicine Infectious Disease; Visit Provider Internal Medicine Infectious Disease
DX: M46.26 Osteomyelitis of vertebra, lumbar region (principal)
CPT/HCPCS: 36415; 80076; 85025

== ENCOUNTER → 2019-09-10 13:34 | Outpatient (CLI) | payer MEDICARE, OTHER, SELFPAY ==
[2019-03-09 17:26] VITALS: BMI 31.4
--- NOTE | 2019-09-10 | DI.US.S_ITS ---
PROCEDURE: US ABD AORTA ANEURYSM SCREEN INDICATIONS: ESSENTIAL HTN TECHNIQUE: Real time scanning was performed of the aorta and iliac arteries, with image documentation. COMPARISON: None. FINDINGS: Aorta: Proximal aortic diameter measures 3.1 cm. Mid-aorta measures 1.9 cm. Distal aortic diameter is 1.8 cm. Iliac arteries: Right common iliac artery measures 1.3 cm. Left common iliac artery measures 1.3 cm. IMPRESSION: Negative examination as above. No aneurysm seen Dictated by: Samir Bryant M.D. on 09/10/2019 at 16:47 Approved by: Samir Bryant M.D. on 09/10/2019 at 16:47
== END ==
PROVIDERS: PCP Family Medicine; Referring Provider Family Medicine; Visit Provider Family Medicine
DX: Z13.6 Encounter for screening for cardiovascular disorders (principal); I10 Essential (primary) hypertension
CPT/HCPCS: 76706

== ENCOUNTER → 2019-09-14 13:10 | Outpatient (CLI) | payer MEDICARE, OTHER, SELFPAY ==
[2019-03-09 17:26] VITALS: BMI 31.4
--- NOTE | 2019-09-14 | DI.CT.S_ITS ---
PROCEDURE: CT LUMBAR SPINE WO CON INDICATIONS: Other spondylosis with radiculopathy, lumbosacral TECHNIQUE: Noncontrast 3 mm thick sections acquired from the T12 level to the sacrum. Sagittal and coronal reformats were constructed. For radiation dose reduction, the following was used: automated exposure control. COMPARISON: [facility], CT, CT LUMBAR SPINE WO/W CON, 02/13/2019, 14:19. [facility], CT, CT LUMBAR SPINE WO CON, 10/13/2018, 11:41. FINDINGS: Image quality: Excellent. Bones: Posterior fusion is present from T11-L3 with pedicular screw tracts noted at L4 and L5 as well as S1 consistent with previous removal. Prosthetic discs are noted at T12-L1, L1-L2, L2-3 and L4-5. All hardware appears intact. It is noted that left uni-pedicular fusion is noted at L1 with bilateral at all other levels. The left pedicular screw at T11 terminates immediately distal to the superior endplate cortex at T11. There remains compression fracture which is unchanged at L3. Prominent anterior bridging osteophytes are present at T11-12, L1-L2 as well as L3-4. Neurostimulator leads are present and terminate at approximately T8. Erosive endplate changes are noted along the inferior endplate of T12 and superior endplate of L1. The prominent lucencies within the vertebral body are noted at L1 and right pedicular screw is no longer present within this region. Destructive osseous changes have been progressive at this level compared to prior exam. No significant spinal stenosis is identified. Foramina are poorly visualized secondary to significant metallic streak artifact from surgical hardware. There is felt to be moderate left foraminal narrowing at L3-4, mild right L4-5, L5-S1. Soft tissues: There is been marked interval reduction of the left posterior paraspinous fluid collection at the level of L3-4 now measuring approximately 14 mm compared to 79 mm in greatest dimension.. Visualized aorta is normal in caliber. IMPRESSION: 1. Postsurgical changes as above. Marked interval decrease in size of paraspinous fluid collection as above. Given interval of time since 02/13/19, this likely represents a focus of stroma or walled off abscess. 2. Progressive destructive changes at L3 likely sequela of previous osteomyelitis. Dictated by: Maribel Carballo M.D. on 09/14/2019 at 16:20 Approved by: Maribel Carballo M.D. on 09/14/2019 at 16:38
== END ==
PROVIDERS: PCP Family Medicine; Referring Provider Family Medicine; Visit Provider Orthopaedic Surgery Orthopaedic Surgery of the Spine
DX: M47.27 Other spondylosis with radiculopathy, lumbosacral region (principal); Z98.1 Arthrodesis status
CPT/HCPCS: 72131

== ENCOUNTER → 2019-12-30 10:59 | Outpatient (CLI) | payer MEDICARE, OTHER, SELFPAY ==
[2019-03-09 17:26] VITALS: BMI 31.4
--- NOTE | 2019-12-30 | DI.CT.S_ITS ---
PROCEDURE: CT CERVICAL SPINE WO CON INDICATIONS: Radiculopathy, cervical region TECHNIQUE: Noncontrast 3 mm thick sections acquired from the skull base to the T4 level. Sagittal and coronal reformats were then constructed. For radiation dose reduction, the following was used: automated exposure control, adjustment of mA and/or kV according to patient size. COMPARISON: None. FINDINGS: Image quality: Excellent. Bones: No fractures or dislocations. Visualized superior ribs are intact. Moderate disc space narrowing is seen at C6-C7, with associated endplate irregularity and sclerosis. Vacuum disc phenomenon is seen at this level. Partially bridging anterior osteophytes are seen at C6-C7 and at C4-C5. At C7-T1, there is calcification of the posterior aspect of the annulus fibrosis, as on series 4 image 24. There is focal degenerative change seen involving C1-C2 interface anteriorly. Several levels of bridging anterior osteophytes can be seen within the visualized thoracic spine. Milder degenerative changes are seen elsewhere. Soft tissues: Prevertebral soft tissues are normal in thickness. No paravertebral hematomas. No apical pneumothoraces. IMPRESSION: Degenerative changes are seen, which are most prominent at the C6-C7 level. The degenerative changes appear slightly progressed compared to 2017. Dictated by: Ruben Padgett M.D. on 12/30/2019 at 11:22 Approved by: Ruben Padgett M.D. on 12/30/2019 at 11:24
== END ==
PROVIDERS: PCP Family Medicine; Referring Provider Orthopaedic Surgery Orthopaedic Surgery of the Spine; Visit Provider Orthopaedic Surgery Orthopaedic Surgery of the Spine
DX: M47.22 Other spondylosis with radiculopathy, cervical region (principal)
CPT/HCPCS: 72125

== ENCOUNTER → 2020-02-18 09:58 | Outpatient (CLI) | payer MEDICARE, OTHER, SELFPAY ==
[2019-03-09 17:26] VITALS: BMI 31.4
--- NOTE | 2020-02-18 | DI.NM.S_ITS ---
PROCEDURE: NM BONE 3 PHASE RADIOPHARMACEUTICAL: 19.7 mCi Tc-99m MDP IV. INDICATIONS: Presence of right artificial knee joint TECHNIQUE: Multiple bone scintigrams were obtained after intravenous injection of Tc-99m MDP, including flow, blood pool, and delayed images centered to the region of interest. COMPARISON: [facility], CR, XR KNEE ARTHRITIC SERIES RT, 02/08/2020, 15:52. FINDINGS: The flow and blood pool images demonstrate symmetrical vascular activities in the lower extremities centered to the knees. Delayed images demonstrate bilateral total knee arthroplasties. Low-level increased activities around knee prostheses are indistinguishable from postsurgical change. IMPRESSION: Bilateral total knee arthroplasties. Low-level increased activities around knee prostheses are indistinguishable from postsurgical change. No definitive scintigraphic findings to suggest prosthesis loosening or infection. Dictated by: Kourtney Thomas M.D. on 02/18/2020 at 15:18 Approved by: Kourtney Thomas M.D. on 02/18/2020 at 15:22
== END ==
PROVIDERS: PCP Family Medicine; Referring Provider Family Medicine; Visit Provider Orthopaedic Surgery
DX: Z47.1 Aftercare following joint replacement surgery (principal); Z96.653 Presence of artificial knee joint, bilateral
CPT/HCPCS: 78315; A9503

== ENCOUNTER → 2020-03-01 11:43 | Outpatient (CLI) | payer MEDICARE, OTHER, SELFPAY ==
[2019-03-09 17:26] VITALS: BMI 31.4
[2020-03-02 09:38] LABS: COVID19 Sendout Not Detected (Not Detect)
== END ==
PROVIDERS: PCP Family Medicine; Visit Provider Physician Assistant
DX: Z11.59 Encounter for screening for other viral diseases (principal)
CPT/HCPCS: 87635

== ENCOUNTER 2020-03-04 12:10 | Day surgery (SDC) | payer MEDICARE, OTHER, SELFPAY ==
[2019-03-09 17:26] VITALS: BMI 31.4
--- NOTE | 2020-03-04 | PATH_ITS ---
[facility] Accession Number: [id number] . 01 Material submitted: . colon - ASCENDING COLON 2 MM . 01 Clinical history: . SDC . 02 Diagnosis: Ascending Colon, 2 mm, Biopsy: Tubular adenoma. MRV 03/07/2020 0928 Local . 02 Electronically signed: . Bety Gomes MD, Pathologist NPI- [id number] . 01 Gross description: . ASCENDING COLON 2 MM: Received in formalin is 1 fragment(s) of mak, soft tissue measuring 0.4 x 0.3 x 0.1 cm submitted entirely in 1 cassette(s) /QBJ 03/05/2020 0758 Local . 02 Pathologist provided ICD-10: D12.2 . 02 CPT . 801637 Performed at: 01 [facility] [address] [id number] MD Godfrey Ricci MD Phone: [phone] Performed at: 02 [facility] [address] [place], [place] [id number] MD Bety Gomes MD Phone: [phone]
--- NOTE | 2020-03-04 11:39 | PM.HP.1 ---
History of Present Illness History of Present Illness Date Patient Seen: 03/04/20 Chief complaint: SDC Narrative: 74 year old male comes in today for consideration of a screening colonoscopy. Has had 5-6 lifetime colonoscopies, only one colonoscopy resulted in polyps. Last colonoscopy on 04/19/14, indicated for history of colon polyps, was unremarkable except for small internal hemorrhoids. Prior colonoscopy on 12/28/07, indicated for screening, revealed a 5 mm sessile polyp in the sigmoid colon. Pathology not available at time of dictation. Patient has chronic pain syndrome with a history of 11 back surgeries, implanted pain pump, and implanted neurostimulator. He has required general anesthesia for past colonoscopies to achieve sedation. There have been no lower GI symptoms suggesting disease such as change in bowel habits, bleeding, abdominal pain or anemia. There's been no family history of colon cancer or colon polyps. Overall health issues have been stable, including no major cardiac events for at least 6 weeks. PCP: Dr. 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 Patient History Medical History (Updated 09/13/19 @ 13:10 by CAM Zacarias) Arachnoiditis (Chronic) Cardiac murmur (Chronic) Central sleep apnea (Chronic) [place] (hard of hearing) (Chronic) HTN (hypertension) (Chronic) Hypersomnia (Inactive) Obstructive sleep apnea of adult (Chronic) Opioid dependence with current use (Chronic) Postoperative atrial fibrillation (Chronic) Primary insomnia (Chronic) Statin intolerance (Chronic ~07/2015) Tachycardia (Acute) Surgical History History of bilateral knee arthroplasty (Resolved) History of lumbar surgery (Resolved) Hx of sinus surgery (Resolved 03/12/18) S/P CABG x 2 (Acute) S/P insertion of spinal cord stimulator (Chronic ~2002) S/P lumbar spinal fusion (Acute 11/10/18) Status post bilateral cataract extraction (Resolved ~10/2014) Family & Social History Social History: household members spouse Tobacco & Substance use: Smoking Status Never smoker alcohol intake never alcohol intake frequency other Substance Use Type does not use Meds Home Medications and Allergies Home Medications Medication Instructions Recorded Confirmed Type tadalafil [Cialis] 20 mg PO PRN PRN #0 03/20/13 03/04/20 History testosterone cypionate 0.5 ml SUBCUT SEEINSTR #9 06/13/17 03/04/20 History [Depo-Testosterone] aspirin 81 mg tablet,delayed 81 mg PO DAILY 09/03/18 03/04/20 History release acyclovir 200 mg PO 5XD PRN 11/05/18 03/04/20 History carvedilol 6.25 mg PO QAM 11/05/18 03/04/20 History amlodipine-benazepril 1 cap PO QAM 11/10/18 03/04/20 History hydromorphone 4 mg PO Q4-6H PRN 11/10/18 03/04/20 History Respironics Dreamstation CPAP #1 ea 11/27/18 03/04/20 History clonidine (PF) 180 mcg CONTINUOUS EPIDURAL DAILY 03/06/19 03/04/20 History hydromorphone 2 mg PO Q6H PRN #30 tab 03/14/19 05/01/19 Rx Allergies Allergy/AdvReac Type Severity Reaction Status Date / Time morphine [MORPHINE] Allergy Intermediate BLISTERS Verified 03/01/20 11:42 aspartame AdvReac Severe SEVERE Verified 03/01/20 11:42 [From NUTRASWEET ASPARTAME] HEADACHES banana AdvReac Severe Severe Verified 03/01/20 11:42 headaches chocolate flavor AdvReac Severe Headaches Verified 03/01/20 11:42 gabapentin [GABAPENTIN] AdvReac Severe SEVERE Verified 03/01/20 11:42 AGITATION, DEPRESSION, ANXIETY hydrochlorothiazide AdvReac Severe HEADACHES Verified 03/01/20 11:42 [HYDROCHLOROTHIAZIDE] hydrocodone [HYDROCODONE] AdvReac Severe SEVERE Verified 03/01/20 11:42 HEADACHES metoprolol [METOPROLOL] AdvReac Severe HEADACHES Verified 03/01/20 11:42 omeprazole [OMEPRAZOLE] AdvReac Severe SEVERE Verified 03/01/20 11:42 HEADACHES & DIZZINESS oxycodone [OXYCODONE] AdvReac Severe HEADACHES Verified 03/01/20 11:42 nifedipine [From Procardia] AdvReac Gastrointestinal Verified 03/01/20 11:42 Upset Kxydqnt-Yyz-Dao Reductase AdvReac Gastrointestinal Verified 03/01/20 11:42 Inhibitor Upset ACID BLOCKERS AdvReac Severe SEVERE Uncoded 03/01/20 11:42 HEADACHES & DIZZINESS Review of Systems Review of Systems ROS: Yes All systems reviewed with the patient and are negative except as otherwise documented Exam Narrative Exam Narrative: GENERAL: Alert and oriented, appearing stated age and in no acute distress. HEENT: Head normocephalic/atraumatic. Pupils equal, round, and reactive to light and accomodation. Extraocular muscles intact. Nasal mucosa moist, septum midline. Oral mucosa moist, no lesions. Neck soft and supple, no lymphadenopathy. LUNGS: Clear to ausculation bilaterally, no wheezes, rhonchi or rales. CV: Normal S1 and S2 with regular rate and rhythm, no audible murmurs, rubs or gallops. ABDOMEN: Soft, non-tender, non-distended, no organomegaly. Positive bowel sounds. EXTREMITIES: No clubbing, cyanosis, or edema. NEURO: Cranial nerves II through XII grossly intact, no focal deficits. PSYCH: Alert and oriented x 3. SKIN: No concerning lesions. Assessment & Plan Assessment & Plan narrative: 1. History of colon polyps 2. Screening for colon cancer 3. History of external hemorrhoids 4. Chronic pain syndrome with history of need for general anesthesia during colonoscopy Plan for colonoscopy. The nature and character of the procedure as well as anticipated results were discussed. The possibility of not completing the procedure was also discussed. Possible complications including aspiration pneumonia, bleeding, perforation and reaction to medications either for sedation or preparation and missed lesions were discussed. Questions were answered and proceeding to the colonoscopy was elected. Informed consent signed. MD anesthesia will be consulted for pain control during procedure secondary to patient's very complicated pain history; he is a poor candidate for conscious sedation. I sincerely appreciate the referral allowing me to participate in this patient's care. Please contact me with any questions or concerns.
--- NOTE | 2020-03-04 12:24 | PM.OP.ENDO ---
Operative Date/Time/Diagnoses Date of procedure: 03/04/20 Procedure & Clinicians Study performed: Colonoscopy Same procedure as scheduled: Yes Surgeon: Lizz Bhatia Procedure Notes SCOAP/Timeout: 16:54 Procedure in detail: ENDOSCOPIST: Lizz Bhatia MD Anesthesiologist: Dr. Hall Sedation start time: 4:55 p.m. Sedation end time: 5:31 p.m. PROCEDURE: Colonoscopy with biopsy INDICATIONS: 1. History of colon polyps 2. Screening for colon cancer 3. History of internal hemorrhoids 4. Chronic pain syndrome with history of need for general anesthesia during colonoscopy MEDICATION: Levsin 0.125 mg sublingual, incremental doses of propofol until appropriate level of sedation achieved. ASA CLASS: 2 CECAL WITHDRAWAL TIME: 14 COMPLICATIONS: None. EXTENT OF PROCEDURE: Cecum. QUALITY OF PREP: Good with portions of liquid stool. PROCEDURE: Prior to insertion of the colonoscope, a digital rectal examination was accomplished with circumferential palpation of the distal rectal mucosa without significant findings being noted. The high-definition colonoscope was passed into the rectum in the usual fashion and advanced over to the cecum without difficulty. The ileocecal valve, appendiceal stoma, and medial wall all could be inspected and no abnormalities were seen. ASCENDING COLON: As the colonoscope was withdrawn, care was taken to expose and inspect the haustral folds and a 2 mm polyp was seen and removed with cold biopsy forceps. Excellent hemostasis. HEPATIC FLEXURE: Normal, no polyps, diverticula or other abnormalities. TRANSVERSE COLON: Normal, no polyps, diverticula or other abnormalities. DESCENDING COLON: Normal, no polyps, diverticula or other abnormalities. SIGMOID COLON: Normal, no polyps, diverticula or other abnormalities. RECTUM: Normal. J maneuver was produced. There was no significant perianal disease. The J maneuver was broken. The remainder of the rectum was inspected and there was no external hemorrhoid disease. The scope was withdrawn. IMPRESSION: 1. Ascending polyp x1, 2 mm, removed with cold biopsy forceps PLAN: 1. Follow-up in clinic status post pathology results. The possibility of a missed lesion including a malignancy has been discussed with the patient previously. Potential alarm symptoms have been discussed and should be reported immediately. Complications: none Post-procedure Recommendations: Will call with biopsy results Follow up: weeks (2) Disposition: PACU
[2020-03-04] MEDS: LACTATED RINGERS 1,000 ML 200 ML IV (12:33)
[2020-03-04] MEDS: HYOSCYAMINE 0.125 MG TABLET PO (12:33)
[2020-03-04 12:35] VITALS: BP 135/78; PULSE 65; RESP 16; TEMP 36.6; O2SAT 98; BMI 27.0
[2020-03-04] MEDS: LACTATED RINGERS 1,000 ML 42 ML IV (17:30)
[2020-03-04 17:38] VITALS: BP 128/73; PULSE 50; RESP 13; TEMP 36.9; O2SAT 98
[2020-03-04 17:43] VITALS: BP 125/69; PULSE 50; RESP 13; O2SAT 98
[2020-03-04 17:48] VITALS: BP 129/75; PULSE 47; RESP 14; O2SAT 99
[2020-03-04 17:54] VITALS: BP 135/77; PULSE 45; RESP 12; TEMP 36.6; O2SAT 99
[2020-03-04 18:00] VITALS: BP 131/72; PULSE 51; RESP 16; TEMP 36.7; O2SAT 99
--- NOTE | 2020-03-04 18:48 | SUR.PHASEII ---
Pt left when ready and left in stable condition.
== END 2020-03-04 18:20 | disposition home or self-care (01) ==
PROVIDERS: PCP Family Medicine; Referring Provider Family Medicine; Visit Provider Student in an Organized Health Care Education/Training Program
PROC: 0DJD8ZZ Inspection of Lower Intestinal Tract, Via Natural or Artificial Opening Endoscopic (ICD-10-PCS; CPT 45378; principal; 2020-03-04 13:45)
DX: Z12.11 Encounter for screening for malignant neoplasm of colon (principal); Z86.010 Personal history of colon polyps; G89.4 Chronic pain syndrome; I10 Essential (primary) hypertension; I25.10 Atherosclerotic heart disease of native coronary artery without angina pectoris; Z95.1 Presence of aortocoronary bypass graft; G47.33 Obstructive sleep apnea (adult) (pediatric); D12.2 Benign neoplasm of ascending colon
CPT/HCPCS: 45380; J2704

== ENCOUNTER → 2020-05-05 15:12 | Outpatient (CLI) | payer MEDICARE, OTHER, SELFPAY ==
[2019-03-09 17:26] VITALS: BMI 31.4
--- NOTE | 2020-05-05 | DI.RAD.S_ITS ---
PROCEDURE: XR CHEST 2V INDICATIONS: cough TECHNIQUE: 2 views of the chest were acquired. COMPARISON: [facility], CR, XR CHEST 1V, 01/19/2018, 11:36. [facility], CR, XR CHEST FOR PICC 1V, 03/13/2019, 15:59. FINDINGS: Surgical changes and devices: Sternotomy and CABG. There is fusion in the lumbar spine. Nerve stimulating leads are noted. Lungs and pleura: Lungs are clear. No pleural effusions or pneumothorax. Mediastinum: Mediastinal contours are normal. Heart size is normal. Bones and chest wall: No suspicious bony abnormalities. Soft tissues appear unremarkable. IMPRESSION: No acute cardiopulmonary disease. Dictated by: Kourtney Thomas M.D. on 05/05/2020 at 17:17 Approved by: Kourtney Thomas M.D. on 05/05/2020 at 17:19
== END ==
PROVIDERS: PCP Student in an Organized Health Care Education/Training Program; Referring Provider Student in an Organized Health Care Education/Training Program; Visit Provider Student in an Organized Health Care Education/Training Program
DX: R05 Cough (principal)
CPT/HCPCS: 71046

== ENCOUNTER 2020-06-02 11:41 | Emergency (ER) | payer MEDICARE, OTHER, SELFPAY ==
[2019-03-09 17:26] VITALS: BMI 31.4
[2020-06-02] VITALS (13 sets, daily range): BP systolic 149–181; BP diastolic 81–104; PULSE 72–98; RESP 14–23; TEMP 36.4–36.7; O2SAT 96–100; BMI 27.1
--- NOTE | 2020-06-02 12:37 | DI.CT.S_ITS ---
PROCEDURE: CT HEAD/BRAIN WO CON INDICATIONS: severe headache TECHNIQUE: Noncontrast 4.5 mm thick angled axial sections acquired from the foramen magnum to the vertex, with coronal and sagittal reformats. For radiation dose reduction, the following was used: automated exposure control, adjustment of mA and/or kV according to patient size. COMPARISON: [facility], MR, MR BRAIN WITH/WITHOUT CONTRAST, 07/16/2018, 14:08. Merged With [facility], CT, SINUS SCREEN WO CONTRAST, 11/15/2016, 9:16. Merged With [facility], CT, HEAD WITHOUT CONTRAST, 12/23/2013, 16:11. FINDINGS: Image quality: Excellent. CSF spaces: Basal cisterns are patent. No extra-axial fluid collections. The ventricles are symmetric in size and shape. Brain: No intracranial bleeds or masses. There is cerebral volume loss for age, with resultant ventricular and sulcal prominence. There are periventricular and deep white matter chronic small vessel ischemic changes. There is intracranial internal carotid artery atherosclerosis. Skull and face: Calvarium and visualized facial bones appear intact, without suspicious lesions. Sinuses: Mild air-fluid levels are seen within the maxillary sinuses. Visualized sinuses and mastoids are otherwise is clear. IMPRESSION: No acute intracranial hemorrhage is seen. Unremarkable intracranial study, without an imaging explanation found for the patient's presenting history of headache. Note is made of age-appropriate brain parenchymal volume loss and chronic small vessel ischemic changes. Mild air-fluid levels are seen within the maxillary sinuses. Please correlate with paranasal sinus disease. Dictated by: Ruben Padgett M.D. on 06/02/2020 at 11:50 Approved by: Ruben Padgett M.D. on 06/02/2020 at 11:52
[2020-06-02] MEDS: ONDANSETRON 4 MG/2 ML INJ IV (12:56)
[2020-06-02] MEDS: SODIUM CHLORIDE 0.9% 1,000 ML 150 ML IV (12:57)
[2020-06-02 13:11] LABS: Add Manual Diff / Slide Review NO; Basophils Absolute Auto 0 /uL (0-100); Basophils Percent Auto 0.4 % (0-2); Eosinophils Absolute Auto 0 /uL (0-450); Eosinophils Percent Auto 0.5 % (2-4); Hematocrit 48.4 % (41-53); Hemoglobin 16.1 g/dL (13.5-17.5); Lymphocytes Absolute Auto 1000 /uL (1100-4500); Lymphocytes Percent Auto 13.9 % (25-40); Mean Corpuscular HGB Conc 33.3 % (30-36); Mean Corpuscular Hemoglobin 30.5 PG (26-34); Mean Corpuscular Volume 91.4 fL (80-100); Monocytes Absolute Auto 600 /uL (0-900); Monocytes Percent Auto 7.4 % (3-14); Neutrophils Absolute Auto 5800 /uL (1500-7000); Neutrophils Percent Auto 77.8 % (50-75); Platelet Count 175 X10^3/uL (150-400); Red Cell Distribution Width 15.5 % (11.6-14.8); White Blood Cell Count 7.5 X10^3/uL (4.5-11.0)
[2020-06-02 13:18] LABS: Prothrombin Time 11.5 SECONDS (10.1-12.7)
[2020-06-02 13:24] LABS: Alanine Aminotransferase 22 IU/L (<50); Albumin 4.3 g/dL (3.5-5.0); Albumin Globulin Ratio 1.4 (1.0-2.8); Alkaline Phosphatase 80 U/L (38-126); Aspartate Aminotransferase 28 IU/L (17-59); BUN Creatinine Ratio 21.7 (6-22); Bilirubin Total 0.7 mg/dL (0.2-1.3); Blood Urea Nitrogen 23 mg/dL (9-20); Calcium 9.6 mg/dL (8.4-10.2); Carbon Dioxide 25 mmol/L (22-32); Chloride 107 mmol/L (98-107); Creatine Kinase 83 U/L (55-170); Estimated Glomerular Filt Rate > 60.0 mL/min (>60); Glucose 110 mg/dL (80-110); HEMOLYSIS < 15 (0-50); Lipase 125 U/L (23-300); Potassium 4.4 mmol/L (3.4-5.1); Sodium 138 mmol/L (137-145); Total Protein 7.3 g/dL (6.3-8.2)
[2020-06-02 13:26] LABS: PTT Partial Thromboplastin Tim 29 SECONDS (26.4-36.2)
[2020-06-02 13:35] LABS: Troponin I 0.019 ng/mL (0.01-0.034)
--- NOTE | 2020-06-02 13:59 | ED.GENADULT ---
HPI - General Adult General Chief complaint: Hypertension Stated complaint: HEADACHE,HIGH BLOOD PRESURE Time Seen by Provider: 06/02/20 12:23 Source: patient Mode of arrival: Ambulatory Limitations: no limitations History of Present Illness HPI narrative: Patient is a 74-year-old male history of coronary artery disease presenting with worsening headache. He states that he has had episodes where he sleeps for 30-36 hours at a time and has extreme fatigue and last evening hit the worse headache of his life. He now feels like his headache is coming on. Any weakness numbness or tingling. No facial droop or difficulty speaking. He denies any chest pain or heart palpitations. He denies any history of migraines or photosensitivity. Does have a history of arachnoiditis, this feels nothing like that. The he has not had any fever he has no neck pain Related Data Home Medications Medication Instructions Recorded Confirmed tadalafil [Cialis] 20 mg PO PRN PRN #0 03/20/13 03/04/20 testosterone cypionate 0.5 ml SUBCUT SEEINSTR #9 06/13/17 03/04/20 [Depo-Testosterone] aspirin 81 mg tablet,delayed 81 mg PO DAILY 09/03/18 03/04/20 release acyclovir 200 mg PO 5XD PRN 11/05/18 03/04/20 carvedilol 6.25 mg PO QAM 11/05/18 03/04/20 amlodipine-benazepril 1 cap PO QAM 11/10/18 03/04/20 hydromorphone 4 mg PO Q4-6H PRN 11/10/18 03/04/20 Respironics Dreamstation CPAP #1 ea 11/27/18 03/04/20 clonidine (PF) 180 mcg CONTINUOUS EPIDURAL DAILY 03/06/19 03/04/20 Previous Rx's Medication Instructions Recorded hydromorphone 2 mg PO Q6H PRN #30 tab 03/14/19 Allergies Allergy/AdvReac Type Severity Reaction Status Date / Time morphine [MORPHINE] Allergy Intermediate BLISTERS Verified 06/02/20 12:11 aspartame AdvReac Severe SEVERE Verified 06/02/20 12:11 [From NUTRASWEET ASPARTAME] HEADACHES banana AdvReac Severe Severe Verified 06/02/20 12:11 headaches chocolate flavor AdvReac Severe Headaches Verified 06/02/20 12:11 gabapentin [GABAPENTIN] AdvReac Severe SEVERE Verified 06/02/20 12:11 AGITATION, DEPRESSION, ANXIETY hydrochlorothiazide AdvReac Severe HEADACHES Verified 06/02/20 12:11 [HYDROCHLOROTHIAZIDE] hydrocodone [HYDROCODONE] AdvReac Severe SEVERE Verified 06/02/20 12:11 HEADACHES metoprolol [METOPROLOL] AdvReac Severe HEADACHES Verified 06/02/20 12:11 omeprazole [OMEPRAZOLE] AdvReac Severe SEVERE Verified 06/02/20 12:11 HEADACHES & DIZZINESS oxycodone [OXYCODONE] AdvReac Severe HEADACHES Verified 06/02/20 12:11 nifedipine [From Procardia] AdvReac Gastrointestinal Verified 06/02/20 12:11 Upset Skzawof-Ebr-Fsf Reductase AdvReac Gastrointestinal Verified 06/02/20 12:11 Inhibitor Upset ACID BLOCKERS AdvReac Severe SEVERE Uncoded 03/01/20 11:42 HEADACHES & DIZZINESS Review of Systems Review of Systems ROS Unobtainable: All systems reviewed & are unremarkable except as noted in HPI and below Constitutional Constitutional: Denies chills, Denies fever(s), Reports headache(s), Denies lethargy and Denies weakness ENT Ears, Nose, Mouth, and Throat: Denies change in voice, Denies dizziness, Reports headache(s), Denies neck pain and Denies sore throat Cardiovascular Cardiovascular: Denies chest pain, Denies syncope, Denies irregular heart rhythm, Denies lightheadedness, Denies palpitations and Denies orthopnea Gastrointestinal Gastrointestinal: Denies abdominal pain, Denies change in bowel habits, Denies diarrhea, Denies nausea and Denies vomiting Musculoskeletal Musculoskeletal: Denies myalgias and Denies neck pain Integumentary/Breasts Skin/Breast: Denies pruritus, Denies erythema, Denies rash and Denies wounds Neurologic Neurologic: Reports as per HPI, Denies confusion, Denies dizziness, Denies syncope, Reports headache(s) and Denies weakness Psychiatric Psychiatric: Denies confusion Endocrine Endocrine: Denies palpitations Patient History Medical History Arachnoiditis Cardiac murmur Central sleep apnea [place] (hard of hearing) HTN (hypertension) Hypersomnia Obstructive sleep apnea of adult Opioid dependence with current use Postoperative atrial fibrillation Primary insomnia Statin intolerance (~07/2015) Tachycardia Surgical History History of bilateral knee arthroplasty History of lumbar surgery Hx of sinus surgery (03/12/18) S/P CABG x 2 S/P insertion of spinal cord stimulator (~2002) S/P lumbar spinal fusion (11/10/18) Status post bilateral cataract extraction (~10/2014) Social History marital status: household members: spouse Smoking Status: Never smoker alcohol intake: never substance use type: does not use Smoking Status: Never smoker alcohol intake frequency: other Substance Use Type: does not use Exam Initial Vital Signs Initial Vital Signs: Vital Signs Temperature 97.5 F L 06/02/20 12:00 Pulse Rate 98 H 06/02/20 12:00 Respiratory Rate 15 06/02/20 12:00 Blood Pressure 181/104 H 06/02/20 12:00 Pulse Oximetry 100 06/02/20 12:00 GENERAL: Alert well-appearing elderly male and in no acute distress. HEENT: Head atraumatic,EOMI, pupils reactive, face symmetric, moist mucous membranes, no meningeal signs CARDIOVASCULAR: Regular rate and rhythm without murmurs, rubs or gallops. RESPIRATORY: Breath sounds equal bilaterally, no wheezes rales or rhonchi. ABDOMEN: Soft, nontender. Normoactive bowel sounds all 4 quadrants. No guarding or rebound. EXTREMITIES: Normal range of motion, no clubbing or edema. Neurovascularly intact NEUROLOGICAL: Alert and oriented x4.Normal gait and speech. Cranial nerves II through XII grossly intact. Good lluobu-wo-uobf, good [id number], strength equal bilaterally, no dysarthria or aphasia, sensation in tact to soft touch bilaterally, no visual changes, no facial droop SKIN: Warm, dry, no laceration, no petechiae, no rashes or lesions. Scores NIH Stroke Scale Level of Conciousness: Alert, keenly responsive Ask month/age: Answers both questions correctly. Open/close eyes, close hand: Performs both tasks correctly Best gaze horizontal: Normal Visual medrano: No visual loss Facial palsy: Normal symetrical movement Left arm drift: No drift for full 10 sec Right arm drift: No drift for full 10 sec Left leg drift: No drift for full 5 sec Right leg drift: No drift for full 5 sec Limb ataxia: Absent Sensory on face/arms/legs: Normal, no sensory loss Best language: No aphasia, normal Dysarthria: Normal Extinction or inattention: No abnormality Total NIH Stroke scale score: 0 Course Orders Ordered: ED Orders 06/02/20 12:09 EKG-12 Lead Stat 06/02/20 12:37 CT head/brain wo con Stat 06/02/20 13:05 Complete Blood Count AUTO DIFF Stat Comprehensive Metabolic Panel Stat Lipase Stat Partial Thromboplastin Time Stat Prothrombin Time INR Stat Troponin & CK Cardiac Panel Stat Discontinued Medications Sodium Chloride (Normal Saline 0.9%) 1,000 mls @ 150 mls/hr IV CONT JENNY Last Infusion: 06/02/20 14:34 Dose: 0 mls/hr Documented by: Admin: 06/02/20 12:57 Dose: 150 mls/hr Documented by: KAILEE Ketorolac Tromethamine (Ketorolac 60 Mg/2 Ml Vial) 30 mg IV NOW ONE Stop: 06/02/20 14:29 Last Admin: 06/02/20 14:31 Dose: 30 mg Documented by: KAILEE Ondansetron HCl (Ondansetron 4 Mg/2 Ml Inj) 4 mg IV NOW ONE Stop: 06/02/20 12:30 Last Admin: 06/02/20 12:56 Dose: 4 mg Documented by: KAILEE Vital Signs Vital signs: Vital Signs - 8 hr 06/02/20 12:00 06/02/20 12:08 06/02/20 12:09 Temperature 97.5 F L Pulse Rate 98 H 97 H Respiratory Rate 15 19 Blood Pressure 181/104 H 181/104 H Pulse Oximetry 100 99 06/02/20 12:30 06/02/20 12:44 06/02/20 13:00 Temperature Pulse Rate 77 81 82 Respiratory Rate 14 Blood Pressure 161/90 H 159/97 H Pulse Oximetry 99 100 99 06/02/20 13:01 06/02/20 13:30 06/02/20 14:00 Temperature Pulse Rate 80 81 81 Respiratory Rate 21 19 19 Blood Pressure 167/95 H 164/88 H 155/89 H Pulse Oximetry 99 100 97 06/02/20 14:30 06/02/20 15:00 06/02/20 15:30 Temperature Pulse Rate 78 83 72 Respiratory Rate 23 22 16 Blood Pressure 154/83 H 171/95 H 149/81 H Pulse Oximetry 97 96 97 06/02/20 15:41 Temperature 98.1 F Pulse Rate Respiratory Rate Blood Pressure Pulse Oximetry Medical Decision Making Lab Data Lab results reviewed: Yes I reviewed the patient's lab results. Result diagrams: 06/02/20 13:05 06/02/20 13:05 Labs: Lab Results 06/02/20 06/02/20 06/02/20 Range/Units 13:05 13:05 13:05 WBC 7.5 (4.5-11.0) X10^3/uL RBC 5.30 (4.5-5.9) X10^6/uL Hgb 16.1 (13.5-17.5) g/dL Hct 48.4 (41-53) % MCV 91.4 (80-100) fL MCH 30.5 (26-34) PG MCHC 33.3 (30-36) % RDW 15.5 H (11.6-14.8) % Plt Count 175 (150-400) X10^3/uL Neut % (Auto) 77.8 H (50-75) % Lymph % (Auto) 13.9 L (25-40) % Stone % (Auto) 7.4 (3-14) % Eos % (Auto) 0.5 L (2-4) % Baso % (Auto) 0.4 (0-2) % Neut # (Auto) 5800 (2967-0754) /uL Lymph # (Auto) 1000 L (0382-6625) /uL Stone # (Auto) 600 (0-900) /uL Eos # (Auto) 0 (0-450) /uL Baso # (Auto) 0 (0-100) /uL PT 11.5 (10.1-12.7) SECONDS INR 1.0 (0.9-1.3) APTT 29 D (26.4-36.2) SECONDS Sodium 138 (137-145) mmol/L Potassium 4.4 (3.4-5.1) mmol/L Chloride 107 (98-107) mmol/L Carbon Dioxide 25 (22-32) mmol/L BUN 23 H (9-20) mg/dL Creatinine 1.06 (0.66-1.25) mg/dL Estimated GFR > 60.0 (>60) mL/min BUN/Creatinine Ratio 21.7 (6-22) Glucose 110 (80-110) mg/dL Calcium 9.6 (8.4-10.2) mg/dL Total Bilirubin 0.7 (0.2-1.3) mg/dL AST 28 (17-59) IU/L ALT 22 (<50) IU/L Alkaline Phosphatase 80 (38-126) U/L Total Creatine Kinase 83 (55-170) U/L CK-MB (CK-2) TNP CK-MB (CK-2) Rel Index TNP Troponin I 0.019 (0.01-0.034) ng/mL Total Protein 7.3 (6.3-8.2) g/dL Albumin 4.3 (3.5-5.0) g/dL Globulin 3.0 (1.7-4.1) g/dL Albumin/Globulin Ratio 1.4 (1.0-2.8) Lipase 125 (23-300) U/L Imaging Data CT scan - head: Radiologist's Impression: PROCEDURE: CT HEAD/BRAIN WO CON INDICATIONS: severe headache TECHNIQUE: Noncontrast 4.5 mm thick angled axial sections acquired from the foramen magnum to the vertex, with coronal and sagittal reformats. For radiation dose reduction, the following was used: automated exposure control, adjustment of mA and/or kV according to patient size. COMPARISON: [facility], MR, MR BRAIN WITH/WITHOUT CONTRAST, 07/16/2018, 14:08. [facility], CT, SINUS SCREEN WO CONTRAST, 11/15/2016, 9:16. [facility], CT, HEAD WITHOUT CONTRAST, 12/23/2013, 16:11. FINDINGS: Image quality: Excellent. CSF spaces: Basal cisterns are patent. No extra-axial fluid collections. The ventricles are symmetric in size and shape. Brain: No intracranial bleeds or masses. There is cerebral volume loss for age, with resultant ventricular and sulcal prominence. There are periventricular and deep white matter chronic small vessel ischemic changes. There is intracranial internal carotid artery atherosclerosis. Skull and face: Calvarium and visualized facial bones appear intact, without suspicious lesions. Sinuses: Mild air-fluid levels are seen within the maxillary sinuses. Visualized sinuses and mastoids are otherwise is clear. IMPRESSION: No acute intracranial hemorrhage is seen. Unremarkable intracranial study, without an imaging explanation found for the patient's presenting history of headache. Note is made of age-appropriate brain parenchymal volume loss and chronic small vessel ischemic changes. Mild air-fluid levels are seen within the maxillary sinuses. Please correlate with paranasal sinus disease. Dictated by: Ruben Padgett M.D. on 06/02/2020 at 11:50 ECG Data Attestation: I personally reviewed and interpreted this ECG as follows: Interpretation: EKG number sinus rhythm rate [address] changes V2 V3 similar to previous EKG in 2019 EKG 2. Sinus rhythm rate 70 no changes from prior MDM Narrative Medical decision making narrative: Patient has no focal deficits no fever no sign is meningitis. He received Toradol and had significant improvement. He called is ENT and has an appointment with them tomorrow. He is currently on clindamycin for sinusitis. He is found to have sinusitis on CT but denies any facial pressure. He is more concerned about why he is sleeping so much 30-36 hours at a time. However this is been ongoing for months. Unclear of the reason today Discharge Plan Departure Patient Disposition: Home Clinical Impression: Headache Qualifiers: Headache type: unspecified Headache chronicity pattern: acute headache Intractability: not intractable Qualified Code(s): R51.9 - Headache, unspecified Instructions: DI for Headache Activity Restrictions/Additional Instructions: *You have been diagnosed with headache *What to do: The CT scan and blood work is overall reassuring. Recommend resting and sleeping as needed *Continue to take medications as directed Tylenol 650 mg every 4 6 hours if needed for [id number] *Follow up with your primary care provider in 2-3 days *Return to ER if you should have worsening headache, neck pain, fever, weakness numbness tingling or difficulty or any new, worsening or concerning symptoms Prescriptions: No Action tadalafil [Cialis] 20 MG tablet 20 mg PO PRN PRN (Reason: sexual activity) Qty: 0 RF: 0 testosterone cypionate [Depo-Testosterone] 200 MG/1 ML oil 0.5 ml subcut SEEINSTR Qty: 9 RF: 0 clonidine (PF) 1,000 mcg/10 mL (100 mcg/mL) Solution 180 mcg continuous epidural DAILY RF: 0 hydromorphone 2 mg Tablet 2 mg PO Q6H PRN (Reason: pain) Qty: 30 RF: 0 carvedilol 6.25 mg Tablet 6.25 mg PO QAM RF: 0 acyclovir 200 mg Capsule 200 mg PO 5XD PRN (Reason: Fever blisters) RF: 0 amlodipine-benazepril 5-10 mg capsule 1 cap PO QAM RF: 0 hydromorphone 4 mg tablet 4 mg PO Q4-6H PRN (Reason: Breakthrough Pain) RF: 0 aspirin [Aspirin Low Dose] 81 mg tablet,delayed release (DR/EC) 81 mg PO DAILY RF: 0 (DME) Respironics Dreamstation CPAP Qty: 1 RF: 0 Referrals: Lizz Bhatia MD [Primary Care Provider] -
[2020-06-02] MEDS: KETOROLAC 60 MG/2 ML VIAL 30 MG IV (14:31)
== END 2020-06-02 15:42 | disposition home or self-care (01) ==
PROVIDERS: Emergency Provider Emergency Medicine; PCP Student in an Organized Health Care Education/Training Program
DX: R51.9 Headache, unspecified (principal); I10 Essential (primary) hypertension; I25.10 Atherosclerotic heart disease of native coronary artery without angina pectoris; R07.9 Chest pain, unspecified; G47.10 Hypersomnia, unspecified; R00.0 Tachycardia, unspecified; G47.31 Primary central sleep apnea; G47.33 Obstructive sleep apnea (adult) (pediatric); F11.20 Opioid dependence, uncomplicated
CPT/HCPCS: 36415; 70450; 80053; 82550; 83690; 84484; 85025; 85610; 85730; 93005; 96361; 96374; 96375; 99214; 99281; 99284; J1885; J2405

== ENCOUNTER 2020-10-01 17:23 | Observation (INO) | payer MEDICARE, OTHER, SELFPAY ==
[2019-03-09 17:26] VITALS: BMI 31.4
[2020-10-01] VITALS (8 sets, daily range): BP systolic 128–194; BP diastolic 58–89; PULSE 78–99; RESP 18–20; TEMP 36.6–37; O2SAT 92–98; BMI 29.0; BMI 29.9
--- NOTE | 2020-10-01 17:33 | DI.CT.S_ITS ---
PROCEDURE: CT HEAD/BRAIN WO CON INDICATIONS: Fall TECHNIQUE: Noncontrast 4.5 mm thick angled axial sections acquired from the foramen magnum to the vertex, with coronal and sagittal reformats. For radiation dose reduction, the following was used: automated exposure control, adjustment of mA and/or kV according to patient size. COMPARISON: [facility], CT, CT HEAD/BRAIN WO CON, 06/02/2020, 12:30. FINDINGS: Image quality: Excellent. CSF spaces: Basal cisterns are patent. No extra-axial fluid collections. Ventricles are normal in size and shape. Brain: No midline shift. No intracranial masses or hemorrhage. Barra[place]-white matter interface is normal. Skull and face: Calvarium and visualized facial bones are intact, without suspicious lesions. Sinuses: Visualized sinuses and mastoids are clear. IMPRESSION: No acute intracranial finding. Dictated by: Juwan Weber M.D. on 10/01/2020 at 18:11 Approved by: Juwan Weber M.D. on 10/01/2020 at 18:13
--- NOTE | 2020-10-01 17:33 | DI.CT.S_ITS ---
PROCEDURE: CT CERVICAL SPINE WO CON INDICATIONS: Fall cannot clear neck by nexus TECHNIQUE: Noncontrast 3 mm thick sections acquired from the skull base to the T4 level. Sagittal and coronal reformats were then constructed. For radiation dose reduction, the following was used: automated exposure control, adjustment of mA and/or kV according to patient size. COMPARISON: None. FINDINGS: Image quality: Excellent. Bones: No fractures or dislocations. Visualized superior ribs are intact. Soft tissues: Prevertebral soft tissues are normal in thickness. No paravertebral hematomas. No apical pneumothoraces. IMPRESSION: No CT evidence of acute traumatic cervical spine injury. Nonspecific ground-glass opacity in the right lung apex with interlobular septal thickening, most likely infectious versus inflammatory versus, although pulmonary edema or potentially an traumatic etiology could cause a similar appearance. Dictated by: Juwan Weber M.D. on 10/01/2020 at 18:13 Approved by: Juwan Weber M.D. on 10/01/2020 at 18:14
--- NOTE | 2020-10-01 17:33 | DI.CT.S_ITS ---
PROCEDURE: CT ABDOMEN PELVIS W CON INDICATIONS: Fall, lower abdomen and lower back pain TECHNIQUE: After the administration of intravenous contrast, 5 mm thick sections acquired from the diaphragm to the symphysis. 5 mm coronal and sagittal reformats were acquired. For radiation dose reduction, the following was used: automated exposure control, adjustment of mA and/or kV according to patient size. COMPARISON: [facility], CT, CT LUMBAR SPINE WO CON, 09/14/2019, 13:10. [facility], CT, CT ABDOMEN WITHOUT CONTRAST, 02/09/2019, 14:52. [facility], CT, CT ABDOMEN PELVIS W CON, 01/15/2019, 22:56. FINDINGS: Image quality: Excellent. ABDOMEN: Lung bases: Basilar subpleural reticular thickening which likely represents atelectasis. No pleural effusion. Heart size is normal. Post median sternotomy. Small hiatal hernia. Solid organs: Liver is normal in size and enhancement. Small cyst at the inferior right liver is unchanged. Gallbladder is within normal limits. Biliary system is non dilated. Pancreas enhances normally. Spleen is normal in size and enhancement. No adrenal nodules. Kidneys demonstrate normal size and enhancement, without hydronephrosis. Low-density cyst at the inferior pole of the left kidney is unchanged. Beam hardening artifact makes attenuation evaluation difficult. Punctate nonobstructing calculus in the mid left kidney. Peritoneum and bowel: Bowel loops demonstrate normal wall thickness and caliber. No free fluid or air. Nodes and vessels: No retroperitoneal or mesenteric adenopathy by size criteria. Aorta and inferior vena cava are normal in size. Mild to moderate calcified plaque. Miscellaneous: No ventral hernias. Left frontal abdomen subcutaneous generator device. Multiple thecal spine stimulator leads. Right back generator device. PELVIS: Genitourinary: Bladder wall thickness is normal. Prostatomegaly. Miscellaneous: No inguinal hernias or adenopathy. Bones: No suspicious bony lesions. No pelvic fracture seen. No acute vertebral body compression fractures. Mild L3 height loss, unchanged. T11-L3 pedicle screw fixation. The hardware is intact and unchanged since 09/14/2019. IMPRESSION: No acute traumatic injury identified. No free fluid. Thoracolumbar spine fixation hardware is stable in appearance. Dictated by: Poncho Perla M.D. on 10/01/2020 at 17:28 Approved by: Poncho Perla M.D. on 10/01/2020 at 17:44
[2020-10-01] MEDS: HYDROMORPHONE 1 MG INJ ×2 (17:37→18:52)
[2020-10-01] MEDS: BACITRACIN OINT 0.9 GM PCKT 2 APPLIC TOP (17:39)
[2020-10-01] MEDS: SODIUM CHLORIDE 0.9% 1,000 ML 1000 ML IV (17:39)
[2020-10-01] MEDS: LIDO 1%/SOD BICARB 8.4% (10ML) 10 ML SYRINGE INJ (17:39)
--- NOTE | 2020-10-01 17:48 | ED.GENADULT ---
HPI - General Adult <Raghu Sales DO - Last Filed: 10/04/20 20:01> General Chief complaint: Trauma Stated complaint: fall Time Seen by Provider: 10/01/20 17:31 Source: patient and EMS Mode of arrival: EMS Limitations: no limitations History of Present Illness HPI narrative: Patient is a 74-year-old male not on anticoagulation with chronic low back pain having multiple surgeries here for evaluation as a modified trauma after he fell off of a 4 ft wall. He states he did not hit his head but he did hit several stairs. He had low back pain immediately afterwards. There was no loss of consciousness. He did sustain a cut to his right elbow in his right leg. These for covered with bandages by EMS. He received a total of 15 mg of morphine by EMS prior to arrival. He is in a cervical collar. Not on a backboard. Has been alert oriented per EMS under their care Related Data Home Medications Medication Instructions Recorded Confirmed tadalafil [Cialis] 20 mg PO PRN PRN #0 03/20/13 10/01/20 testosterone cypionate 0.5 ml SUBCUT SEEINSTR #9 06/13/17 10/01/20 [Depo-Testosterone] aspirin 81 mg tablet,delayed 81 mg PO DAILY 09/03/18 10/01/20 release acyclovir 200 mg PO 5XD PRN 11/05/18 10/01/20 carvedilol 6.25 mg PO QAM 11/05/18 10/01/20 hydromorphone 4 mg PO Q4-6H PRN 11/10/18 06/23/20 Respironics Dreamstation CPAP #1 ea 11/27/18 06/23/20 clonidine (PF) 180 mcg CONTINUOUS EPIDURAL DAILY 03/06/19 06/23/20 doxycycline hyclate 100 mg tablet 100 mg PO BID 06/23/20 10/01/20 mecobalamin (vitamin B12) 1,000 1,000 mcg PO DAILY 06/23/20 10/01/20 mcg chewable tablet Previous Rx's Medication Instructions Recorded hydromorphone 2 mg PO Q6H PRN #30 tab 03/14/19 hydromorphone 2 mg PO Q6H PRN #45 tab 10/02/20 lidocaine 1 ea TOPICAL DAILY #12 ea 10/02/20 prednisone 10 mg PO DAILY #70 tab 10/02/20 Allergies Allergy/AdvReac Type Severity Reaction Status Date / Time morphine [MORPHINE] Allergy Intermediate BLISTERS Verified 10/01/20 17:49 aspartame AdvReac Severe SEVERE Verified 10/01/20 17:49 [From NUTRASWEET ASPARTAME] HEADACHES banana AdvReac Severe Severe Verified 10/01/20 17:49 headaches chocolate flavor AdvReac Severe Headaches Verified 10/01/20 17:49 gabapentin [GABAPENTIN] AdvReac Severe SEVERE Verified 10/01/20 17:49 AGITATION, DEPRESSION, ANXIETY hydrochlorothiazide AdvReac Severe HEADACHES Verified 10/01/20 17:49 [HYDROCHLOROTHIAZIDE] hydrocodone [HYDROCODONE] AdvReac Severe SEVERE Verified 10/01/20 17:49 HEADACHES metoprolol [METOPROLOL] AdvReac Severe HEADACHES Verified 10/01/20 17:49 omeprazole [OMEPRAZOLE] AdvReac Severe SEVERE Verified 10/01/20 17:49 HEADACHES & DIZZINESS oxycodone [OXYCODONE] AdvReac Severe HEADACHES Verified 10/01/20 17:49 nifedipine [From Procardia] AdvReac Gastrointestinal Verified 10/01/20 17:49 Upset Bivpqoj-Awt-Ddy Reductase AdvReac Gastrointestinal Verified 10/01/20 17:49 Inhibitor Upset ACID BLOCKERS AdvReac Severe SEVERE Uncoded 03/01/20 11:42 HEADACHES & DIZZINESS Review of Systems <Raghu Sales DO - Last Filed: 10/04/20 20:01> Constitutional Constitutional: Denies fever(s) and Denies headache(s) Eyes Eyes: Denies change in vision ENT Ears, Nose, Mouth, and Throat: Denies vertigo, Denies dizziness, Denies headache(s) and Denies sore throat Cardiovascular Cardiovascular: Denies chest pain and Denies dyspnea Respiratory Respiratory: Denies cough and Denies dyspnea Gastrointestinal Gastrointestinal: Denies abdominal pain and Denies vomiting Musculoskeletal Musculoskeletal: Reports back pain Integumentary/Breasts Comments: Cut to right arm and right leg Neurologic Neurologic: Denies confusion, Denies vertigo, Denies dizziness and Denies headache(s) Psychiatric Psychiatric: Denies confusion Hematologic/Lymphatic On Anticoagulants: No Allergic/Immunologic Allergic/Immunologic: Denies urticaria Patient History <DO Ventura Barlow Last Filed: 10/04/20 20:01> Medical History Arachnoiditis Atypical chest pain Cardiac murmur Central sleep apnea Coronary artery disease GERD (gastroesophageal reflux disease) [place] (hard of hearing) Hypertension Leg edema, right Obstructive sleep apnea of adult Opioid dependence with current use Postoperative atrial fibrillation Serum lipase elevation Small bowel obstruction Statin intolerance (~07/2015) Tachycardia Throat irritation Vitamin B12 deficiency Surgical History History of appendectomy History of bilateral knee arthroplasty History of fundoplication History of lumbar surgery Hx of sinus surgery (03/12/18) S/P CABG x 2 S/P insertion of spinal cord stimulator (~2002) S/P lumbar spinal fusion (11/10/18) S/P total knee arthroplasty Status post bilateral cataract extraction (~10/2014) Social History marital status: household members: spouse Smoking Status: Never smoker alcohol intake: never substance use type: does not use Smoking Status: Never smoker alcohol intake frequency: other Substance Use Type: does not use Exam <Raghu Sales DO - Last Filed: 10/04/20 20:01> Initial Vital Signs Initial Vital Signs: Vital Signs Temperature 97.9 F 10/01/20 17:00 Pulse Rate 92 H 10/01/20 17:00 Respiratory Rate 18 10/01/20 17:00 Blood Pressure 194/89 H 10/01/20 17:00 Pulse Oximetry 93 10/01/20 17:00 Const General: cooperative, comfortable and well developed Limitations: mental status not altered [facility] Head: normal to inspection and normocephalic Ears: hearing grossly normal bilaterally Eyes General: appearance normal, both eyes and all related structures Pupils: PERRL Chest Chest: No crepitus and No tenderness Resp Effort & Inspection: normal respiratory effort Auscultation: clear to auscultation bilaterally Cardio Rate: regular rate Rhythm: regular rhythm GI Inspection: non-distended Palpation: soft, No firm and No tender Other: Nerve stimulator left-sided abdomen Back/Spine/Pelvis Cervical Spine: collar present Thoracic/Lumbar Spine: No thoracic spinal tenderness and lumbar spinal tenderness Skin Other: 1 cm laceration over right elbow than 1 cm laceration right anterior lower leg Neuro General: patient alert, patient awake and patient oriented x3 Cognition: normal cognition Speech: speech normal Extrem General: normal to inspection and capillary refill normal Other: Bilateral upper extremities unremarkable to include shoulders elbows and wrists. His pelvis is stable. Stable to flex and extend at the elbows and knees. Psych Appearance: grossly normal and well kempt <Darrell Zarate DO - Last Filed: 10/01/20 20:39> Initial Vital Signs Initial Vital Signs: Vital Signs Temperature 97.9 F 10/01/20 17:00 Pulse Rate 92 H 10/01/20 17:00 Respiratory Rate 18 10/01/20 17:00 Blood Pressure 194/89 H 10/01/20 17:00 Pulse Oximetry 93 10/01/20 17:00 <Darrell Zarate DO - Last Filed: 10/01/20 20:39> Laceration Repair Laceration 1: Site: upper extremity Side (If applicable): right Size (cm): 1 Description: flap Depth: simple, single layer Local Anesthetic: lidocaine 1% and with bicarb Amount of anesthesia used (mL): 3 Pre-repair: wound explored Skin layer closed with: nylon Size (cm): 4-0 Number of sutures: 3 Technique: simple, interrupted Laceration 2: Site: lower extremity Side (If applicable): left Size (cm): 1 Description: linear Depth: simple, single layer Local Anesthetic: lidocaine 1% and with bicarb Amount of anesthesia used (mL): 3 Pre-repair: wound explored Skin layer closed with: nylon Size (cm): 4-0 Number of sutures: 3 Technique: simple, interrupted Scores <Raghu Sales DO - Last Filed: 10/04/20 20:01> GCS Rebeca coma scale eye opening: Spontaneous [place] coma scale verbal response: Orientated Rebeca coma scale motor response: Obey commands Rebeca coma scale total score: 15 Nexus Score for C-Spine Focal Neurologic deficit present: No Midline spinal tenderness present: No Altered level of conciousness present: No Intoxication present: No Distracting Injury Present: Yes Nexus Criteria for C-spine: 1 Course <Raghu Sales DO - Last Filed: 10/04/20 20:01> Orders Ordered: Discontinued Medications Acetaminophen (Acetaminophen 325 Mg Tablet) 650 mg PO Q6HR PRN PRN Reason: Fever/Mild Pain (1-3) Bacitracin (Bacitracin Oint 0.9 Gm Pckt) 2 applic TOP NOW ONE Stop: 10/01/20 17:33 Last Admin: 10/01/20 17:39 Dose: 2 applic Documented by: URIEL Carvedilol (Carvedilol 3.125 Mg Tablet) 6.25 mg PO DAILY [facility] Last Admin: 10/02/20 08:43 Dose: 6.25 mg Documented by: RHONDA Cyanocobalamin (Cyanocobalamin (Vitamin B-12) 500 Mcg Tablet) 1,000 mcg PO DAILY [facility] Last Admin: 10/02/20 08:39 Dose: 1,000 mcg Documented by: RHONDA Dexamethasone (Dexamethasone 10 Mg/Ml Vial) 6 mg IV NOW ONE Stop: 10/01/20 19:09 Last Admin: 10/01/20 19:25 Dose: 6 mg Documented by: CONCETTA Dexamethasone (Dexamethasone 4 Mg/Ml Vial) 4 mg IV [facility] Dexamethasone (Dexamethasone 4 Mg/Ml Vial) 4 mg IV DAILY ONE Stop: 10/02/20 01:01 Last Admin: 10/02/20 01:09 Dose: 4 mg Documented by: VENKAT Doxycycline Hyclate (Doxycycline Hyclate 100 Mg Tablet) 100 mg PO BID [facility] Last Admin: 10/02/20 08:28 Dose: 100 mg Documented by: Admin: 10/01/20 20:50 Dose: 100 mg Documented by: SHANON Enalapril Maleate (Enalapril 5 Mg Tablet) 10 mg PO DAILY ONE Stop: 10/01/20 21:22 Last Admin: 10/01/20 22:05 Dose: Not Given Documented by: SHANON Enoxaparin Sodium (Enoxaparin 40 Mg/0.4 Ml Syringe) 40 mg SUBCUT DAILY [facility] Last Admin: 10/02/20 08:39 Dose: 40 mg Documented by: RHONDA Hydromorphone HCl (Hydromorphone 2 Mg Inj) 2 mg IV Q2H PRN PRN Reason: Pain, Severe (7-10) Last Admin: 10/02/20 08:30 Dose: 2 mg Documented by: Admin: 10/02/20 01:18 Dose: 2 mg Documented by: VENKAT Hydromorphone HCl (Hydromorphone 4 Mg Tablet) 4 mg PO Q4H PRN PRN Reason: Breakthrough Pain Hydromorphone HCl (Hydromorphone 2 Mg Tablet) 2 mg PO Q6H PRN PRN Reason: pain Last Admin: 10/01/20 20:50 Dose: 2 mg Documented by: SHANON Sodium Chloride (Normal Saline 0.9%) 1,000 mls @ 1,000 mls/hr IV BOLUS ONE Stop: 10/01/20 18:31 Last Infusion: 10/01/20 18:52 Dose: 0 mls/hr Documented by: Admin: 10/01/20 17:39 Dose: 1,000 mls/hr Documented by: URIEL Ibuprofen (Ibuprofen 600 Mg Tablet) 600 mg PO Q6HR PRN PRN Reason: Fever/Mild Pain (1-3) Lidocaine (Lidocaine Patch 1 Each Adh..Patch) 1 each TOP DAILY [facility] Last Admin: 10/02/20 08:40 Dose: 1 each Documented by: RHONDA Lidocaine/Sodium Bicarbonate (Lido 1%/Sod Bicarb 8.4% (10ml) 10 Ml Syringe) 10 ml INJ NOW ONE Stop: 10/01/20 17:33 Last Admin: 10/01/20 17:39 Dose: 10 ml Documented by: URIEL Naloxone HCl (Naloxone 0.4 Mg/Ml Vial) 0.2 mg IV Q2MIN PRN PRN Reason: Opiate Reversal Non-Formulary Medication (Amlodipine-Benazepril) 1 cap PO QAM JENNY (Clonidine (Pf) 1, 000 Mcg/10 Ml (100 Mcg/Ml) Solution) 180 mcg EPIDURAL DAILY JENNY Last Admin: 10/02/20 08:41 Dose: Not Given Documented by: RHONDA Ondansetron HCl (Ondansetron 4 Mg/2 Ml Inj) 4 mg IV Q8HR PRN PRN Reason: Nausea And Vomiting Pantoprazole Sodium (Pantoprazole 40 Mg Vial) 40 mg IV DAILY [facility] Last Admin: 10/02/20 08:28 Dose: 40 mg Documented by: RHONDA Tamsulosin HCl (Tamsulosin 0.4 Mg Capsule) 0.4 mg PO DAILY [facility] Last Admin: 10/02/20 08:39 Dose: 0.4 mg Documented by: RHONDA Vital Signs Vital signs: Vital Signs - 8 hr 10/01/20 17:00 10/01/20 17:35 10/01/20 17:39 Temperature 97.9 F Pulse Rate 92 H 99 H 94 H Respiratory Rate 18 Blood Pressure 194/89 H Pulse Oximetry 93 98 94 10/01/20 18:07 10/01/20 18:30 Temperature Pulse Rate Respiratory Rate Blood Pressure 173/74 H 162/74 H Pulse Oximetry <Darrell Zarate DO - Last Filed: 10/01/20 20:39> Orders Ordered: Discontinued Medications Acetaminophen (Acetaminophen 325 Mg Tablet) 650 mg PO Q6HR PRN PRN Reason: Fever/Mild Pain (1-3) Bacitracin (Bacitracin Oint 0.9 Gm Pckt) 2 applic TOP NOW ONE Stop: 10/01/20 17:33 Last Admin: 10/01/20 17:39 Dose: 2 applic Documented by: URIEL Carvedilol (Carvedilol 3.125 Mg Tablet) 6.25 mg PO DAILY [facility] Last Admin: 10/02/20 08:43 Dose: 6.25 mg Documented by: RHONDA Cyanocobalamin (Cyanocobalamin (Vitamin B-12) 500 Mcg Tablet) 1,000 mcg PO DAILY [facility] Last Admin: 10/02/20 08:39 Dose: 1,000 mcg Documented by: RHONDA Dexamethasone (Dexamethasone 10 Mg/Ml Vial) 6 mg IV NOW ONE Stop: 10/01/20 19:09 Last Admin: 10/01/20 19:25 Dose: 6 mg Documented by: CONCETTA Dexamethasone (Dexamethasone 4 Mg/Ml Vial) 4 mg IV [facility] Dexamethasone (Dexamethasone 4 Mg/Ml Vial) 4 mg IV DAILY ONE Stop: 10/02/20 01:01 Last Admin: 10/02/20 01:09 Dose: 4 mg Documented by: VENKAT Doxycycline Hyclate (Doxycycline Hyclate 100 Mg Tablet) 100 mg PO BID [facility] Last Admin: 10/02/20 08:28 Dose: 100 mg Documented by: Admin: 10/01/20 20:50 Dose: 100 mg Documented by: SHANON Enalapril Maleate (Enalapril 5 Mg Tablet) 10 mg PO DAILY ONE Stop: 10/01/20 21:22 Last Admin: 10/01/20 22:05 Dose: Not Given Documented by: SHANON Enoxaparin Sodium (Enoxaparin 40 Mg/0.4 Ml Syringe) 40 mg SUBCUT DAILY [facility] Last Admin: 10/02/20 08:39 Dose: 40 mg Documented by: RHONDA Hydromorphone HCl (Hydromorphone 2 Mg Inj) 2 mg IV Q2H PRN PRN Reason: Pain, Severe (7-10) Last Admin: 10/02/20 08:30 Dose: 2 mg Documented by: Admin: 10/02/20 01:18 Dose: 2 mg Documented by: VENKAT Hydromorphone HCl (Hydromorphone 4 Mg Tablet) 4 mg PO Q4H PRN PRN Reason: Breakthrough Pain Hydromorphone HCl (Hydromorphone 2 Mg Tablet) 2 mg PO Q6H PRN PRN Reason: pain Last Admin: 10/01/20 20:50 Dose: 2 mg Documented by: SHANON Sodium Chloride (Normal Saline 0.9%) 1,000 mls @ 1,000 mls/hr IV BOLUS ONE Stop: 10/01/20 18:31 Last Infusion: 10/01/20 18:52 Dose: 0 mls/hr Documented by: Admin: 10/01/20 17:39 Dose: 1,000 mls/hr Documented by: URIEL Ibuprofen (Ibuprofen 600 Mg Tablet) 600 mg PO Q6HR PRN PRN Reason: Fever/Mild Pain (1-3) Lidocaine (Lidocaine Patch 1 Each Adh..Patch) 1 each TOP DAILY JENNY Last Admin: 10/02/20 08:40 Dose: 1 each Documented by: RHONDA Lidocaine/Sodium Bicarbonate (Lido 1%/Sod Bicarb 8.4% (10ml) 10 Ml Syringe) 10 ml INJ NOW ONE Stop: 10/01/20 17:33 Last Admin: 10/01/20 17:39 Dose: 10 ml Documented by: URIEL Naloxone HCl (Naloxone 0.4 Mg/Ml Vial) 0.2 mg IV Q2MIN PRN PRN Reason: Opiate Reversal Non-Formulary Medication (Amlodipine-Benazepril) 1 cap PO QAM JENNY (Clonidine (Pf) 1, 000 Mcg/10 Ml (100 Mcg/Ml) Solution) 180 mcg EPIDURAL DAILY [facility] Last Admin: 10/02/20 08:41 Dose: Not Given Documented by: RHONDA Ondansetron HCl (Ondansetron 4 Mg/2 Ml Inj) 4 mg IV Q8HR PRN PRN Reason: Nausea And Vomiting Pantoprazole Sodium (Pantoprazole 40 Mg Vial) 40 mg IV DAILY [facility] Last Admin: 10/02/20 08:28 Dose: 40 mg Documented by: RHONDA Tamsulosin HCl (Tamsulosin 0.4 Mg Capsule) 0.4 mg PO DAILY [facility] Last Admin: 10/02/20 08:39 Dose: 0.4 mg Documented by: RHONDA Vital Signs Vital signs: Vital Signs - 8 hr 10/01/20 17:00 10/01/20 17:35 10/01/20 17:39 Temperature 97.9 F Pulse Rate 92 H 99 H 94 H Respiratory Rate 18 Blood Pressure 194/89 H Pulse Oximetry 93 98 94 10/01/20 18:07 10/01/20 18:30 Temperature Pulse Rate Respiratory Rate Blood Pressure 173/74 H 162/74 H Pulse Oximetry Medical Decision Making <Raghu Sales DO - Last Filed: 10/04/20 20:01> Lab Data Result diagrams: 10/02/20 05:47 10/02/20 05:47 Labs: Lab Results 10/01/20 10/01/20 Range/Units 18:20 18:20 WBC 7.8 (4.5-11.0) X10^3/uL RBC 4.99 (4.5-5.9) X10^6/uL Hgb 14.2 (13.5-17.5) g/dL Hct 43.7 (41-53) % MCV 87.7 (80-100) fL MCH 28.5 (26-34) PG MCHC 32.5 (30-36) % RDW 15.2 H (11.6-14.8) % Plt Count 139 L (150-400) X10^3/uL Neut % (Auto) 82.2 H (50-75) % Lymph % (Auto) 8.5 L (25-40) % [place] % (Auto) 7.7 (3-14) % Eos % (Auto) 1.3 L (2-4) % Baso % (Auto) 0.3 (0-2) % Neut # (Auto) 6400 (9811-5297) /uL Lymph # (Auto) 700 L (7310-5235) /uL [place] # (Auto) 600 (0-900) /uL Eos # (Auto) 100 (0-450) /uL Baso # (Auto) 0 (0-100) /uL Sodium 136 L (137-145) mmol/L Potassium 4.2 (3.4-5.1) mmol/L Chloride 103 (98-107) mmol/L Carbon Dioxide 26 (22-32) mmol/L BUN 18 (9-20) mg/dL Creatinine 1.43 H (0.66-1.25) mg/dL Estimated GFR 48.5 L (>60) mL/min BUN/Creatinine Ratio 12.6 (6-22) Glucose 109 (80-110) mg/dL Calcium 9.2 (8.4-10.2) mg/dL Total Bilirubin 0.9 (0.2-1.3) mg/dL AST 43 (17-59) IU/L ALT 27 (<50) IU/L Alkaline Phosphatase 72 (38-126) U/L Total Protein 6.6 (6.3-8.2) g/dL Albumin 4.0 (3.5-5.0) g/dL Globulin 2.6 (1.7-4.1) g/dL Albumin/Globulin Ratio 1.5 (1.0-2.8) Lipase 87 (23-300) U/L Imaging Data CT - cervical spine: Radiologist's Impression: [address] Scan ReportSigned Patient: Chad Boyd WMR#: [id number]: [id number]:[id number]/Sex: 74 / MDate of Service: 10/01/20Loc: EDAccession Number: [id number] Procedure: CT cervical spine wo con Ordering Provider: Raghu Sales D.O. PROCEDURE: CT CERVICAL SPINE WO CON INDICATIONS: Fall cannot clear neck by nexus TECHNIQUE: Noncontrast 3 mm thick sections acquired from the skull base to the T4 level. Sagittal and coronal reformats were then constructed. For radiation dose reduction, the following was used: automated exposure control, adjustment of mA and/or kV according to patient size. COMPARISON: None. FINDINGS: Image quality: Excellent. Bones: No fractures or dislocations. Visualized superior ribs are intact. Soft tissues: Prevertebral soft tissues are normal in thickness. No paravertebral hematomas. No apical pneumothoraces. IMPRESSION: No CT evidence of acute traumatic cervical spine injury. Nonspecific ground-glass opacity in the right lung apex with interlobular septal thickening, most likely infectious versus inflammatory versus, although pulmonary edema or potentially an traumatic etiology could cause a similar appearance. Dictated by: Juwan Weber M.D. on 10/01/2020 at 18:13 Approved by: Juwan Weber M.D. on 10/01/2020 at 18:14 CT scan - head: Radiologist's Impression: [address] [id number] Scan ReportSigned Patient: Chad Boyd WMR#: [id number]: [id number]:[id number]/Sex: 74 / MDate of Service: 10/01/20Loc: EDAccession Number: [id number] Procedure: CT head/brain wo con Ordering Provider: Raghu Sales D.O. PROCEDURE: CT HEAD/BRAIN WO CON INDICATIONS: Fall TECHNIQUE: Noncontrast 4.5 mm thick angled axial sections acquired from the foramen magnum to the vertex, with coronal and sagittal reformats. For radiation dose reduction, the following was used: automated exposure control, adjustment of mA and/or kV according to patient size. COMPARISON: [facility], CT, CT HEAD/BRAIN WO CON, 06/02/2020, 12:30. FINDINGS: Image quality: Excellent. CSF spaces: Basal cisterns are patent. No extra-axial fluid collections. Ventricles are normal in size and shape. Brain: No midline shift. No intracranial masses or hemorrhage. Barraza-white matter interface is normal. Skull and face: Calvarium and visualized facial bones are intact, without suspicious lesions. Sinuses: Visualized sinuses and mastoids are clear. IMPRESSION: No acute intracranial finding. Dictated by: Juwan Weber M.D. on 10/01/2020 at 18:11 Approved by: Juwan Weber M.D. on 10/01/2020 at 18:13 [facility] Narrative Medical decision making narrative: Patient does have lacerations to the right elbow and right anterior lower leg however can flex and extend at the right elbow and does not seem to have tenderness under the laceration to his right leg. He has lower back pain. Has had prior surgeries. He seemed to be very distracted by this and felt that I could not clear his neck by nexus criteria although he is not having any neck discomfort. CT scans are ordered. Modified trauma called. He is not on anticoagulation. Care turned over to Dr. Zarate to follow-up and disposition. <Darrell Zarate, DO - Last Filed: 10/01/20 20:39> Lab Data Labs: Lab Results 10/01/20 10/01/20 Range/Units 18:20 18:20 WBC 7.8 (4.5-11.0) X10^3/uL RBC 4.99 (4.5-5.9) X10^6/uL Hgb 14.2 (13.5-17.5) g/dL Hct 43.7 (41-53) % MCV 87.7 (80-100) fL MCH 28.5 (26-34) PG MCHC 32.5 (30-36) % RDW 15.2 H (11.6-14.8) % Plt Count 139 L (150-400) X10^3/uL Neut % (Auto) 82.2 H (50-75) % Lymph % (Auto) 8.5 L (25-40) % [place] % (Auto) 7.7 (3-14) % Eos % (Auto) 1.3 L (2-4) % Baso % (Auto) 0.3 (0-2) % Neut # (Auto) 6400 (9578-0754) /uL Lymph # (Auto) 700 L (0803-5392) /uL [place] # (Auto) 600 (0-900) /uL Eos # (Auto) 100 (0-450) /uL Baso # (Auto) 0 (0-100) /uL Sodium 136 L (137-145) mmol/L Potassium 4.2 (3.4-5.1) mmol/L Chloride 103 (98-107) mmol/L Carbon Dioxide 26 (22-32) mmol/L BUN 18 (9-20) mg/dL Creatinine 1.43 H (0.66-1.25) mg/dL Estimated GFR 48.5 L (>60) mL/min BUN/Creatinine Ratio 12.6 (6-22) Glucose 109 (80-110) mg/dL Calcium 9.2 (8.4-10.2) mg/dL Total Bilirubin 0.9 (0.2-1.3) mg/dL AST 43 (17-59) IU/L ALT 27 (<50) IU/L Alkaline Phosphatase 72 (38-126) U/L Total Protein 6.6 (6.3-8.2) g/dL Albumin 4.0 (3.5-5.0) g/dL Globulin 2.6 (1.7-4.1) g/dL Albumin/Globulin Ratio 1.5 (1.0-2.8) Lipase 87 (23-300) U/L Imaging Data CT scan - abdomen/pelvis: Radiologist's Impression: Chad Boyd 74 M [address] [id number] Scan ReportSigned Patient: Chad Boyd WMR#: [id number]: [id number]:[id number]/Sex: 74 / MDate of Service: 10/01/20Loc: EDAccession Number: [id number] Procedure: CT abdomen pelvis w con Ordering Provider: Raghu Sales D.O. PROCEDURE: CT ABDOMEN PELVIS W CON INDICATIONS: Fall, lower abdomen and lower back pain TECHNIQUE: After the administration of intravenous contrast, 5 mm thick sections acquired from the diaphragm to the symphysis. 5 mm coronal and sagittal reformats were acquired. For radiation dose reduction, the following was used: automated exposure control, adjustment of mA and/or kV according to patient size. COMPARISON: [facility], CT, CT LUMBAR SPINE WO CON, 09/14/2019, 13:10. [facility], CT, CT ABDOMEN WITHOUT CONTRAST, 02/09/2019, 14:52. [facility], CT, CT ABDOMEN PELVIS W CON, 01/15/2019, 22:56. FINDINGS: Image quality: Excellent. ABDOMEN: Lung bases: Basilar subpleural reticular thickening which likely represents atelectasis. No pleural effusion. Heart size is normal. Post median sternotomy. Small hiatal hernia. Solid organs: Liver is normal in size and enhancement. Small cyst at the inferior right liver is unchanged. Gallbladder is within normal limits. Biliary system is non dilated. Pancreas enhances normally. Spleen is normal in size and enhancement. No adrenal nodules. Kidneys demonstrate normal size and enhancement, without hydronephrosis. Low-density cyst at the inferior pole of the left kidney is unchanged. Beam hardening artifact makes attenuation evaluation difficult. Punctate nonobstructing calculus in the mid left kidney. Peritoneum and bowel: Bowel loops demonstrate normal wall thickness and caliber. No free fluid or air. Nodes and vessels: No retroperitoneal or mesenteric adenopathy by size criteria. Aorta and inferior vena cava are normal in size. Mild to moderate calcified plaque. Miscellaneous: No ventral hernias. Left frontal abdomen subcutaneous generator device. Multiple thecal spine stimulator leads. Right back generator device. PELVIS: Genitourinary: Bladder wall thickness is normal. Prostatomegaly. Miscellaneous: No inguinal hernias or adenopathy. Bones: No suspicious bony lesions. No pelvic fracture seen. No acute vertebral body compression fractures. Mild L3 height loss, unchanged. T11-L3 pedicle screw fixation. The hardware is intact and unchanged since 09/14/2019. IMPRESSION: No acute traumatic injury identified. No free fluid. Thoracolumbar spine fixation hardware is stable in appearance. Dictated by: Poncho Perla M.D. on 10/01/2020 at 17:28 Approved by: Poncho Perla M.D. on 10/01/2020 at 17:44 MDM Narrative Medical decision making narrative: Patient with fall from 4 feet and severe back pain. No evidence of fracture or other acute process on imaging, however patient has required multiple doses of IV pain meds and is still in far too much pain to even participate in an ambulation trial. He has no exam findings consistent with neurosurgical emergency. He will require hospitalization for pain control and likely PT evaluation. Dr. Bhatia, his PCP, is industry consultant and accepts him on her service Discharge Plan Departure Patient Disposition: Admitted as Observation Clinical Impression: Intractable low back pain Fall Qualifiers: Encounter type: initial encounter Qualified Code(s): W19.XXXA - Unspecified fall, initial encounter Laceration of elbow, right Qualifiers: Encounter type: initial encounter Qualified Code(s): S51.011A - Laceration without foreign body of right elbow, initial encounter Laceration of left leg Qualifiers: Encounter type: initial encounter Qualified Code(s): S81.812A - Laceration without foreign body, left lower leg, initial encounter Admit Date/Time: 10/01/20 19:15 Admit Provider: Lizz Bhatia
--- NOTE | 2020-10-01 18:58 | PC.NURSE ---
Medicated for pain. Dr Zarate at bedside for laceration repair. IVF infusing
[2020-10-01 18:59] LABS: Add Manual Diff / Slide Review NO; Basophils Absolute Auto 0 /uL (0-100); Basophils Percent Auto 0.3 % (0-2); Eosinophils Absolute Auto 100 /uL (0-450); Eosinophils Percent Auto 1.3 % (2-4); Hematocrit 43.7 % (41-53); Hemoglobin 14.2 g/dL (13.5-17.5); Lymphocytes Absolute Auto 700 /uL (1100-4500); Lymphocytes Percent Auto 8.5 % (25-40); Mean Corpuscular HGB Conc 32.5 % (30-36); Mean Corpuscular Hemoglobin 28.5 PG (26-34); Mean Corpuscular Volume 87.7 fL (80-100); Monocytes Absolute Auto 600 /uL (0-900); Monocytes Percent Auto 7.7 % (3-14); Neutrophils Absolute Auto 6400 /uL (1500-7000); Neutrophils Percent Auto 82.2 % (50-75); Platelet Count 139 X10^3/uL (150-400); Red Blood Cell Count 4.99 X10^6/uL (4.5-5.9); Red Cell Distribution Width 15.2 % (11.6-14.8); White Blood Cell Count 7.8 X10^3/uL (4.5-11.0)
[2020-10-01 19:17] LABS: Alanine Aminotransferase 27 IU/L (<50); Albumin Globulin Ratio 1.5 (1.0-2.8); Alkaline Phosphatase 72 U/L (38-126); Aspartate Aminotransferase 43 IU/L (17-59); BUN Creatinine Ratio 12.6 (6-22); Bilirubin Total 0.9 mg/dL (0.2-1.3); Blood Urea Nitrogen 18 mg/dL (9-20); Calcium 9.2 mg/dL (8.4-10.2); Carbon Dioxide 26 mmol/L (22-32); Chloride 103 mmol/L (98-107); Estimated Glomerular Filt Rate 48.5 mL/min (>60); Globulin 2.6 g/dL (1.7-4.1); Glucose 109 mg/dL (80-110); HEMOLYSIS < 15 (0-50); Lipase 87 U/L (23-300); Potassium 4.2 mmol/L (3.4-5.1); Sodium 136 mmol/L (137-145); Total Protein 6.6 g/dL (6.3-8.2)
[2020-10-01] MEDS: DEXAMETHASONE 10 MG/ML VIAL 6 MG IV (19:25)
--- NOTE | 2020-10-01 20:07 | PM.HP.1 ---
History of Present Illness History of Present Illness Date Patient Seen: 10/01/20 Time Patient Seen: 20:07 Chief complaint: unknown- call dropped Narrative: This 74-year-old male patient is seen on-call for Dr. Friedman. He was admitted from the ED secondary to intractable back pain after falling off a 4 ft retaining wall. He has the unfortunate history of having had 9 back surgeries including a laminectomy and spinal fusion. He has a spinal cord stimulator that has needed to be replaced 9 times. He is on a chronic Dilaudid and clonidine pump. Denies hitting his head, no loss of consciousness. Did hit several stairs on his way down and suffered a laceration to his right elbow and right anterior leg that were both repaired in the ED with suture. He received a total of 15 mg of morphine by EMS prior to arrival. He was given 6 mg of IV dexamethasone in the ED and still could not ambulate secondary to intractable pain. Pain is still 10/10 and acute, but he feels like it is starting to come down a little bit. Workup in the ED including CT abdomen/pelvis, CT cervical spine, CT head/brain, and labs unremarkable except for a slightly elevated creatinine at 1.43 and slightly low platelets at 139. Notably, he was not in a cervical collar nor on a backboard upon arrival. He has been alert and oriented throughout. Blood pressure has fallen from 194/89 upon presentation to 152/58 now. Patient History Medical History Arachnoiditis Atypical chest pain Cardiac murmur Central sleep apnea Coronary artery disease GERD (gastroesophageal reflux disease) [place] (hard of hearing) Hypertension Leg edema, right Obstructive sleep apnea of adult Opioid dependence with current use Postoperative atrial fibrillation Serum lipase elevation Small bowel obstruction Statin intolerance (~07/2015) Tachycardia Throat irritation Vitamin B12 deficiency Surgical History History of appendectomy History of bilateral knee arthroplasty History of fundoplication History of lumbar surgery Hx of sinus surgery (03/12/18) S/P CABG x 2 S/P insertion of spinal cord stimulator (~2002) S/P lumbar spinal fusion (11/10/18) S/P total knee arthroplasty Status post bilateral cataract extraction (~10/2014) Family & Social History Social History: household members spouse Safety & Behavioral: Feels Safe in Current Yes Environment Been Physically Hurt or No Threatened By a Person Tobacco & Substance use: Smoking Status Never smoker alcohol intake never alcohol intake frequency other Substance Use Type does not use Meds Home Medications and Allergies Home Medications Medication Instructions Recorded Confirmed Type tadalafil [Cialis] 20 mg PO PRN PRN #0 03/20/13 10/01/20 History testosterone cypionate 0.5 ml SUBCUT SEEINSTR #9 06/13/17 10/01/20 History [Depo-Testosterone] aspirin 81 mg tablet,delayed 81 mg PO DAILY 09/03/18 10/01/20 History release acyclovir 200 mg PO 5XD PRN 11/05/18 10/01/20 History carvedilol 6.25 mg PO QAM 11/05/18 10/01/20 History amlodipine-benazepril 1 cap PO QAM 11/10/18 10/01/20 History hydromorphone 4 mg PO Q4-6H PRN 11/10/18 06/23/20 History Respironics Dreamstation CPAP #1 ea 11/27/18 06/23/20 History clonidine (PF) 180 mcg CONTINUOUS EPIDURAL DAILY 03/06/19 06/23/20 History hydromorphone 2 mg PO Q6H PRN #30 tab 03/14/19 06/23/20 Rx doxycycline hyclate 100 mg tablet 100 mg PO BID 06/23/20 10/01/20 History mecobalamin (vitamin B12) 1,000 1,000 mcg PO DAILY 06/23/20 10/01/20 History mcg chewable tablet Allergies Allergy/AdvReac Type Severity Reaction Status Date / Time morphine [MORPHINE] Allergy Intermediate BLISTERS Verified 10/01/20 17:49 aspartame AdvReac Severe SEVERE Verified 10/01/20 17:49 [From NUTRASWEET ASPARTAME] HEADACHES banana AdvReac Severe Severe Verified 10/01/20 17:49 headaches chocolate flavor AdvReac Severe Headaches Verified 10/01/20 17:49 gabapentin [GABAPENTIN] AdvReac Severe SEVERE Verified 10/01/20 17:49 AGITATION, DEPRESSION, ANXIETY hydrochlorothiazide AdvReac Severe HEADACHES Verified 10/01/20 17:49 [HYDROCHLOROTHIAZIDE] hydrocodone [HYDROCODONE] AdvReac Severe SEVERE Verified 10/01/20 17:49 HEADACHES metoprolol [METOPROLOL] AdvReac Severe HEADACHES Verified 10/01/20 17:49 omeprazole [OMEPRAZOLE] AdvReac Severe SEVERE Verified 10/01/20 17:49 HEADACHES & DIZZINESS oxycodone [OXYCODONE] AdvReac Severe HEADACHES Verified 10/01/20 17:49 nifedipine [From Procardia] AdvReac Gastrointestinal Verified 10/01/20 17:49 Upset [id number] Reductase AdvReac Gastrointestinal Verified 10/01/20 17:49 Inhibitor Upset ACID BLOCKERS AdvReac Severe SEVERE Uncoded 03/01/20 11:42 HEADACHES & DIZZINESS Review of Systems Review of Systems ROS: Yes All systems reviewed with the patient and are negative except as otherwise documented Exam Vital Signs (past 8 hours): - 10/01/20 17:00 10/01/20 17:35 10/01/20 17:39 Temperature 97.9 F Pulse Rate 92 H 99 H 94 H Respiratory Rate 18 Blood Pressure 194/89 H Pulse Oximetry 93 98 94 10/01/20 18:07 10/01/20 18:30 10/01/20 19:31 Temperature Pulse Rate Respiratory Rate Blood Pressure 173/74 H 162/74 H 160/69 H Pulse Oximetry Oxygen Delivery Method Room Air Narrative Exam Narrative: GENERAL: Alert and oriented, appearing stated age and in no acute distress. HEENT: Head normocephalic/atraumatic. Pupils equal, round, and reactive to light and accomodation. Extraocular muscles intact. Tympanic membranes clear. Nasal mucosa moist, septum midline. Oral mucosa moist, no lesions. Neck soft and supple, no lymphadenopathy. LUNGS: Clear to ausculation bilaterally, no wheezes, rhonchi or rales. CV: Normal S1 and S2 with regular rate and rhythm, no audible murmurs, rubs or gallops. ABDOMEN: Soft, non-tender, non-distended, no organomegaly. Positive bowel sounds. M/S: Increased muscle bulk and tone in right thoracolumbar paraspinous muscles. NEURO: Cranial nerves II through XII grossly intact, no focal deficits. Unable to walk, gait not tested. PSYCH: Alert and oriented x 3. SKIN: Well healed surgical scars, thoracolumbar back. 1 cm repaired laceration x2, right elbow and right anterior leg, dressings in place. Objective Labs Result Diagrams: 10/01/20 18:20 10/01/20 18:20 Labs: Laboratory Results - last 24 hr 10/01/20 10/01/20 18:20 18:20 WBC 7.8 RBC 4.99 Hgb 14.2 Hct 43.7 MCV 87.7 MCH 28.5 MCHC 32.5 RDW 15.2 H Plt Count 139 L Neut % (Auto) 82.2 H Lymph % (Auto) 8.5 L [place] % (Auto) 7.7 Eos % (Auto) 1.3 L Baso % (Auto) 0.3 Neut # (Auto) 6400 Lymph # (Auto) 700 L [place] # (Auto) 600 Eos # (Auto) 100 Baso # (Auto) 0 Sodium 136 L Potassium 4.2 Chloride 103 Carbon Dioxide 26 BUN 18 Creatinine 1.43 H Estimated GFR 48.5 L BUN/Creatinine Ratio 12.6 Glucose 109 Calcium 9.2 Total Bilirubin 0.9 AST 43 ALT 27 Alkaline Phosphatase 72 Total Protein 6.6 Albumin 4.0 Globulin 2.6 Albumin/Globulin Ratio 1.5 Lipase 87 Assessment & Plan Assessment & Plan narrative: 1. Intractable back pain secondary to fall Plan: Patient will be admitted for observation with pain control. Will order IV Dilaudid 2 mg IV q2 hours overnight for breakthrough pain in addition to his usual routine of clonidine/Dilaudid pump. Will repeat dexamethasone 4 mg IV x1 at 01:00. Will also apply topical lidocaine patches for his lower back. 2. Minor lacerations x 2, right elbow/right anterior leg Plan: Dressings in place. Will continue basic first aid. 3. Chronic pain syndrome Plan: Continue usual home medications. 4. Hypertension, chronic Plan: Continue carvedilol 6.25 mg PO qam. Will replace enalapril 10 mg PO qam with usual amlodopine/benzapril since he is no longer taking this medication due to side effect of hypersomnolence with amlodopine. 5. Hyperlipidemia, chronic Plan: On Repatha, will take at home. 6. GERD, chronic Plan: Will continue Protonix 40 mg p.o. q.day. 7. BPH with urinary obstruction, chronic Plan: Will continue home tamsulosin. 8. Obstructive sleep apnea Plan: Patient states that he is able to go one night without his BIPAP. Will monitor pulse oximetry continuously. 9. Acute kidney failure Plan: Likely due to trauma from fall. Will trend BMP. Code: Full DVT prophylaxis: Lovenox, SCDs GI prophylaxis: Protonix Disposition: Anticipate discharge to home tomorrow. COVID: negative Quality MIPS - Admit Advanced Care Plan / Current Medications Measures: #47 ? Advanced Care Plan Clinician documentation instruction: document at admission. [] I confirmed that the patient's Advance Care Plan is present, code status is documented, or surrogate decision maker is listed in the patient?s medical record. [SATISFIES MIPS PERFORMANCE] If Yes, Stop Here [] The patient?s Advance Care plan is not present because: (select) [MIPS PERFORMANCE EXCEPTION/EXCLUSION] [] I confirmed today that the patient does not wish or was not able to name a surrogate decision maker or provide an Advance Care Plan. [] Hospice care is currently being provided or has been provided this calendar year [] I did NOT confirm today the presence of an Advance Care Plan or surrogate decision maker documented within the patient's medical record. [DOES NOT SATISFY MIPS PERFORMANCE] #130 - Documentation of Current Medications in the Medical Record Clinician documentation instruction: use macro the first time you see a patient. [] I have utilized all available immediate resources to obtain, update, or review the patient?s current medications. [SATISFIES MIPS PERFORMANCE] If Yes, Stop Here [] The patient is not eligible for medication reconciliation; the patient is in an emergent medical situation where delaying treatment would jeopardize the patient?s health. [MIPS PERFORMANCE EXCEPTION/EXCLUSION] [] I did NOT confirm, update or review the patient's current list of medications today. [DOES NOT SATISFY MIPS PERFORMANCE] MIPS - CL Central Venous Catheter Placement Measure: #76 ? Prevention of Central Venous Catheter (CVC) ? Related Bloodstream Infection Clinician documentation instruction: use macro every time you place a central line. [] All elements of Maximal Sterile Barrier Technique, including hand hygiene, skin prep, and sterile ultrasound technique (if used) were followed. [SATISFIES MIPS PERFORMANCE] If Yes, Stop Here [] If ?No?, the medical reason all elements were NOT used for medical reason [] (ex. emergent condition). [] Maximal Sterile Barrier Technique was not followed, no reason provided [DOES NOT SATISFY MIPS PERFORMANCE] MIPS - DC Heart Failure Measures: #5 - Heart Failure (HF): Angiotensin-Converting Enzyme (CATALINO) Inhibitor or Angiotensin Receptor Ney (ARB) Therapy for Left Ventricular Systolic Dysfunction (LVSD) and #8 - Heart Failure (HF): Beta-Ney Therapy for Left Ventricular Systolic Dysfunction (LVSD) Clinician documentation instruction: use macro at every CHF discharge. [] The patient has current or prior documentation of left ventricular ejection fraction (LVEF) less than 40%, or moderate or severely depressed left ventricular systolic function. Answer both: [SATISFIES MIPS PERFORMANCE] [] The patient was prescribed or already taking an Angiotensin-Converting Enzyme (CATALINO) Inhibitor, or Angiotensin Receptor Ney (ARB). [] The patient was prescribed or already taking a beta-ney. If Yes to Both, Stop Here [] Patient not prescribed/taking: [MIPS PERFORMANCE EXCEPTION/EXCLUSION] [] CATALINO or ARB for medical/patient/system reason(s) including [] (ex. allergy, intolerance, contraindication) [] Beta-ney for medical/patient/system reason(s) including [] (ex. allergy, intolerance, contraindication) [] Patient not prescribed/taking: [DOES NOT SATISFY MIPS PERFORMANCE] [] CATALINO or ARB, no reason given [] Beta-ney, no reason given
[2020-10-01 20:39] LABS: COVID19 - ADMIT (NP swab/PCR) Negative (Negative)
[2020-10-01] MEDS: HYDROMORPHONE 2 MG TABLET PO (20:50)
[2020-10-01] MEDS: DOXYCYCLINE HYCLATE 100 MG TABLET PO (20:50)
[2020-10-02 00:18] VITALS: BP 128/78; PULSE 87; RESP 20; TEMP 37.4; O2SAT 97
[2020-10-02] MEDS: DEXAMETHASONE 4 MG/ML VIAL IV (01:09)
[2020-10-02] MEDS: HYDROMORPHONE 2 MG INJ IV ×2 (01:18→08:30)
[2020-10-02 05:00] VITALS: BP 143/65; PULSE 82; RESP 17; TEMP 37.2; O2SAT 98
[2020-10-02 06:12] LABS: Add Manual Diff / Slide Review NO; Basophils Absolute Auto 0 /uL (0-100); Basophils Percent Auto 0.3 % (0-2); Eosinophils Absolute Auto 0 /uL (0-450); Hematocrit 45.5 % (41-53); Hemoglobin 14.8 g/dL (13.5-17.5); Lymphocytes Absolute Auto 400 /uL (1100-4500); Lymphocytes Percent Auto 6.2 % (25-40); Mean Corpuscular HGB Conc 32.5 % (30-36); Mean Corpuscular Hemoglobin 28.3 PG (26-34); Monocytes Absolute Auto 100 /uL (0-900); Neutrophils Absolute Auto 5300 /uL (1500-7000); Neutrophils Percent Auto 91.5 % (50-75); Platelet Count 140 X10^3/uL (150-400); Red Blood Cell Count 5.24 X10^6/uL (4.5-5.9); White Blood Cell Count 5.7 X10^3/uL (4.5-11.0)
[2020-10-02 06:21] LABS: Alanine Aminotransferase 26 IU/L (<50); Albumin 4.1 g/dL (3.5-5.0); Albumin Globulin Ratio 1.6 (1.0-2.8); Alkaline Phosphatase 63 U/L (38-126); Aspartate Aminotransferase 38 IU/L (17-59); BUN Creatinine Ratio 16.2 (6-22); Bilirubin Total 0.9 mg/dL (0.2-1.3); Blood Urea Nitrogen 17 mg/dL (9-20); Calcium 9.5 mg/dL (8.4-10.2); Carbon Dioxide 25 mmol/L (22-32); Chloride 107 mmol/L (98-107); Estimated Glomerular Filt Rate > 60.0 mL/min (>60); Globulin 2.6 g/dL (1.7-4.1); Glucose 166 mg/dL (80-110); HEMOLYSIS < 15 (0-50); Potassium 4.3 mmol/L (3.4-5.1); Sodium 139 mmol/L (137-145); Total Protein 6.7 g/dL (6.3-8.2)
[2020-10-02 07:40] VITALS: BP 145/79; PULSE 77; RESP 18; TEMP 37; O2SAT 99
[2020-10-02] MEDS: DOXYCYCLINE HYCLATE 100 MG TABLET PO (08:28)
[2020-10-02] MEDS: PANTOPRAZOLE 40 MG VIAL IV (08:28)
[2020-10-02] MEDS: TAMSULOSIN 0.4 MG CAPSULE PO (08:39)
[2020-10-02] MEDS: CYANOCOBALAMIN (VITAMIN B-12) 500 MCG TABLET 1000 MCG PO (08:39)
[2020-10-02] MEDS: ENOXAPARIN 40 MG/0.4 ML SYRINGE SUBCUT (08:39)
[2020-10-02] MEDS: LIDOCAINE PATCH 1 EACH ADH..PATCH TOP (08:40)
[2020-10-02 08:43] VITALS: BP 157/86; PULSE 93
[2020-10-02] MEDS: carvediloL 3.125 MG TABLET 6.25 MG PO (08:43)
[2020-10-02 11:30] VITALS: BP 154/94; PULSE 85; RESP 17; TEMP 36.8; O2SAT 97
--- NOTE | 2020-10-02 12:03 | P.DS_ITS ---
History of Present Illness History of Present Illness Date Patient Seen: 10/02/20 Time Patient Seen: 12:04 Chief complaint: unknown- call dropped Narrative: This 74-year-old male patient is seen on-call for Dr. Friedman. He was admitted from the ED secondary to intractable back pain after falling off a 4 ft retaining wall. He has the unfortunate history of having had 9 back surgeries including a laminectomy and spinal fusion. He has a spinal cord stimulator that has needed to be replaced 9 times. He is on a chronic Dilaudid and clonidine pump. Denies hitting his head, no loss of consciousness. Did hit several stairs on his way down and suffered a laceration to his right elbow and right anterior leg that were both repaired in the ED with suture. He received a total of 15 mg of morphine by EMS prior to arrival. He was given 6 mg of IV dexamethasone in the ED and still could not ambulate secondary to intractable pain. Pain is still 10/10 and acute, but he feels like it is starting to come down a little bit. Workup in the ED including CT abdomen/pelvis, CT cervical spine, CT head/brain, and labs unremarkable except for a slightly elevated creatinine at 1.43 and slightly low platelets at 139. Notably, he was not in a cervical collar nor on a backboard upon arrival. He has been alert and oriented throughout. Blood pressure has fallen from 194/89 upon presentation to 152/58 now. Discharge Providers Provider Date of admission: 10/01/20 19:15 Discharge Date: 10/02/20 Primary care physician: Lizz Bhatia MD Consults: 10/01/20 20:14 Consult to Discharge Planning Routine Comment: Consult to Occupational Therapy Evaluate & Treat Comment: Physician Instructions: Evaluate and treat Consult to Physical Therapy Evaluate & Treat Comment: Physician Instructions: Evaluate and Treat Discharge provider: Lizz Bhatia MD Summary Hospital Course Discharge Diagnosis: 1. Intractable back pain secondary to fall 2. Minor lacerations x 2, right elbow/right anterior leg 3. Chronic pain syndrome 4. Hypertension, chronic 5. Hyperlipidemia, chronic 6. GERD, chronic 7. BPH with urinary obstruction, chronic 8. Obstructive sleep apnea 9. Acute kidney failure, resolved Hospital Course: Uneventful hospital course. Patient had good pain control overnight and slept well. This morning, he has been able to ambulate in the room and pain is controlled. Eager to go home and plant his michelle bushes. Tolerating general diet, no nausea or vomiting. On day of discharge, he is afebrile with stable vital signs throughout. He will be discharged on a 1 month prendisone taper and 45 pills of Dilaudid for breakthrough pain. Plan for follow-up in 1 week with PCP, will need suture removal. Exam Vital Signs (past 8 hours): - 10/02/20 05:00 10/02/20 07:40 10/02/20 08:43 Temperature 99.0 F 98.6 F Pulse Rate 82 77 93 H Respiratory Rate 17 18 Blood Pressure 143/65 H 145/79 H 157/86 H Pulse Oximetry 98 99 10/02/20 11:30 Temperature 98.3 F Pulse Rate 85 Respiratory Rate 17 Blood Pressure 154/94 H Pulse Oximetry 97 Oxygen Delivery Method Room Air Oxygen Flow Rate 0 Narrative Exam Narrative: GENERAL: Alert and oriented, appearing stated age and in no acute distress. HEENT: Head normocephalic/atraumatic. Pupils equal, round, and reactive to light and accomodation. Extraocular muscles intact. Tympanic membranes clear. Nasal mucosa moist, septum midline. Oral mucosa moist, no lesions. Neck soft and supple, no lymphadenopathy. LUNGS: Clear to ausculation bilaterally, no wheezes, rhonchi or rales. CV: Normal S1 and S2 with regular rate and rhythm, no audible murmurs, rubs or gallops. ABDOMEN: Soft, non-tender, non-distended, no organomegaly. Positive bowel sounds. M/S: Increased muscle bulk and tone in right thoracolumbar paraspinous muscles, somewhat improved from yesterday. NEURO: Cranial nerves II through XII grossly intact, no focal deficits. Unable to walk, gait not tested. PSYCH: Alert and oriented x 3. SKIN: Well healed surgical scars, thoracolumbar back. 1 cm repaired laceration x2, right elbow and right anterior leg, dressings in place. Objective Labs Result Diagrams: 10/02/20 05:47 10/02/20 05:47 Labs: Laboratory Results - last 24 hr 10/01/20 10/01/20 10/01/20 18:20 18:20 19:25 WBC 7.8 RBC 4.99 Hgb 14.2 Hct 43.7 MCV 87.7 MCH 28.5 MCHC 32.5 RDW 15.2 H Plt Count 139 L Neut % (Auto) 82.2 H Lymph % (Auto) 8.5 L [place] % (Auto) 7.7 Eos % (Auto) 1.3 L Baso % (Auto) 0.3 Neut # (Auto) 6400 Lymph # (Auto) 700 L [place] # (Auto) 600 Eos # (Auto) 100 Baso # (Auto) 0 Sodium 136 L Potassium 4.2 Chloride 103 Carbon Dioxide 26 BUN 18 Creatinine 1.43 H Estimated GFR 48.5 L BUN/Creatinine Ratio 12.6 Glucose 109 Calcium 9.2 Total Bilirubin 0.9 AST 43 ALT 27 Alkaline Phosphatase 72 Total Protein 6.6 Albumin 4.0 Globulin 2.6 Albumin/Globulin Ratio 1.5 Lipase 87 SARS-CoV-2 (PCR) Negative 10/02/20 10/02/20 05:47 05:47 WBC 5.7 RBC 5.24 Hgb 14.8 Hct 45.5 MCV 87.0 MCH 28.3 MCHC 32.5 RDW 15.0 H Plt Count 140 L Neut % (Auto) 91.5 H Lymph % (Auto) 6.2 L [place] % (Auto) 2.0 L Eos % (Auto) 0.0 L Baso % (Auto) 0.3 Neut # (Auto) 5300 Lymph # (Auto) 400 L [place] # (Auto) 100 Eos # (Auto) 0 Baso # (Auto) 0 Sodium 139 Potassium 4.3 Chloride 107 Carbon Dioxide 25 BUN 17 Creatinine 1.05 Estimated GFR > 60.0 BUN/Creatinine Ratio 16.2 Glucose 166 H Calcium 9.5 Total Bilirubin 0.9 AST 38 ALT 26 Alkaline Phosphatase 63 Total Protein 6.7 Albumin 4.1 Globulin 2.6 Albumin/Globulin Ratio 1.6 Lipase SARS-CoV-2 (PCR) PFS Medical History Arachnoiditis Atypical chest pain Cardiac murmur Central sleep apnea Coronary artery disease GERD (gastroesophageal reflux disease) [place] (hard of hearing) Hypertension Leg edema, right Obstructive sleep apnea of adult Opioid dependence with current use Postoperative atrial fibrillation Serum lipase elevation Small bowel obstruction Statin intolerance (~07/2015) Tachycardia Throat irritation Vitamin B12 deficiency Surgical History History of appendectomy History of bilateral knee arthroplasty History of fundoplication History of lumbar surgery Hx of sinus surgery (03/12/18) S/P CABG x 2 S/P insertion of spinal cord stimulator (~2002) S/P lumbar spinal fusion (11/10/18) S/P total knee arthroplasty Status post bilateral cataract extraction (~10/2014) Social History marital status: household members: spouse Smoking Status: Never smoker alcohol intake: never substance use type: does not use Discharge Plan Discharge Plan Patient Disposition: Home Discharge orders & Medications Prescriptions: New hydromorphone 2 mg Tablet 2 mg PO Q6H PRN (Reason: pain) Qty: 45 RF: 0 lidocaine 5 % Adhesive Patch,Medicated 1 ea topical DAILY Qty: 12 RF: 1 prednisone 10 mg tablet 10 mg PO DAILY Qty: 70 RF: 0 Continued tadalafil [Cialis] 20 MG tablet 20 mg PO PRN PRN (Reason: sexual activity) Qty: 0 RF: 0 testosterone cypionate [Depo-Testosterone] 200 MG/1 ML oil 0.5 ml subcut SEEINSTR Qty: 9 RF: 0 clonidine (PF) 1,000 mcg/10 mL (100 mcg/mL) Solution 180 mcg continuous epidural DAILY RF: 0 hydromorphone 2 mg Tablet 2 mg PO Q6H PRN (Reason: pain) Qty: 30 RF: 0 carvedilol 6.25 mg Tablet 6.25 mg PO QAM RF: 0 acyclovir 200 mg Capsule 200 mg PO 5XD PRN (Reason: Fever blisters) RF: 0 hydromorphone 4 mg tablet 4 mg PO Q4-6H PRN (Reason: Breakthrough Pain) RF: 0 aspirin [Aspirin Low Dose] 81 mg tablet,delayed release (DR/EC) 81 mg PO DAILY RF: 0 (DME) Respironics Dreamstation CPAP Qty: 1 RF: 0 doxycycline hyclate 100 mg tablet 100 mg PO BID RF: 0 mecobalamin (vitamin B12) 1,000 mcg tablet,chewable 1,000 mcg PO DAILY RF: 0 Discontinued amlodipine-benazepril 5-10 mg capsule 1 cap PO QAM RF: 0 Follow up/Referrals: Lizz Bhatia MD [Primary Care Provider] - Diet/Activity/Treatments Diet: Diet as Tolerated Activity: As tolerated Skin/Wound/Dressing Care Report to your healthcare provider any signs of infection, such as:: chills, fever and increased pain Visit Report/Discharge Packet Instructions: DI for Prescription Opioid Use Discharge Data Primary Care Provider: Lizz Bhatia Attending Provider: Lizz Bhatia Quality MIPS - Admit Advanced Care Plan / Current Medications Measures: #47 ? Advanced Care Plan Clinician documentation instruction: document at admission. [] I confirmed that the patient's Advance Care Plan is present, code status is documented, or surrogate decision maker is listed in the patient?s medical record. [SATISFIES MIPS PERFORMANCE] If Yes, Stop Here [] The patient?s Advance Care plan is not present because: (select) [MIPS PERFORMANCE EXCEPTION/EXCLUSION] [] I confirmed today that the patient does not wish or was not able to name a surrogate decision maker or provide an Advance Care Plan. [] Hospice care is currently being provided or has been provided this calendar year [] I did NOT confirm today the presence of an Advance Care Plan or surrogate decision maker documented within the patient's medical record. [DOES NOT SATISFY MIPS PERFORMANCE] #130 - Documentation of Current Medications in the Medical Record Clinician documentation instruction: use macro the first time you see a patient. [] I have utilized all available immediate resources to obtain, update, or review the patient?s current medications. [SATISFIES MIPS PERFORMANCE] If Yes, Stop Here [] The patient is not eligible for medication reconciliation; the patient is in an emergent medical situation where delaying treatment would jeopardize the patient?s health. [MIPS PERFORMANCE EXCEPTION/EXCLUSION] [] I did NOT confirm, update or review the patient's current list of medications today. [DOES NOT SATISFY MIPS PERFORMANCE] MIPS - CL Central Venous Catheter Placement Measure: #76 ? Prevention of Central Venous Catheter (CVC) ? Related Bloodstream Infection Clinician documentation instruction: use macro every time you place a central line. [] All elements of Maximal Sterile Barrier Technique, including hand hygiene, skin prep, and sterile ultrasound technique (if used) were followed. [SATISFIES MIPS PERFORMANCE] If Yes, Stop Here [] If ?No?, the medical reason all elements were NOT used for medical reason [] (ex. emergent condition). [] Maximal Sterile Barrier Technique was not followed, no reason provided [DOES NOT SATISFY MIPS PERFORMANCE] [facility] - [place] Heart Failure Measures: #5 - Heart Failure (HF): Angiotensin-Converting Enzyme (CATALINO) Inhibitor or Angiotensin Receptor Ney (ARB) Therapy for Left Ventricular Systolic Dysfunction (LVSD) and #8 - Heart Failure (HF): Beta-Ney Therapy for Left Ventricular Systolic Dysfunction (LVSD) Clinician documentation instruction: use macro at every CHF discharge. [] The patient has current or prior documentation of left ventricular ejection fraction (LVEF) less than 40%, or moderate or severely depressed left ventricular systolic function. Answer both: [SATISFIES MIPS PERFORMANCE] [] The patient was prescribed or already taking an Angiotensin-Converting Enzyme (CATALINO) Inhibitor, or Angiotensin Receptor Ney (ARB). [] The patient was prescribed or already taking a beta-ney. If Yes to Both, Stop Here [] Patient not prescribed/taking: [MIPS PERFORMANCE EXCEPTION/EXCLUSION] [] CATALINO or ARB for medical/patient/system reason(s) including [] (ex. allergy, intolerance, contraindication) [] Beta-ney for medical/patient/system reason(s) including [] (ex. allergy, intolerance, contraindication) [] Patient not prescribed/taking: [DOES NOT SATISFY MIPS PERFORMANCE] [] CATALINO or ARB, no reason given [] Beta-ney, no reason given
--- NOTE | 2020-10-02 13:21 | CM.DANOTE ---
Patient is a 74 year old male who was admitted on 10/01/20 for Fall/pain. Pt has [facility] and [employer] for insurance and his PCP is Dr. Friedman at [facility]. EMR was reviewed. Per MD, pt with long hx of multiple back surgeries who fell off of a retaining wall and was admitted for intractable pain/management. Per PT, confirmed that pt is safe for d/c home with spouse assist today and pt has all DME needed from previous surgeries. Pt last admitted in Feb 2019 and discharged home with long term care pharmacist [facility]. SW met briefly bedside with pt as he was trying to get ready to d/c home as quick as possible and explained role and pt confirms he still lives at home with spouse in [place] and pt remains quite independent at baseline. Pt states he made a stupid mistake falling as he was doing yard work and planting roses. Pt has a hx of 9 back surgeries with pain pump at baseline. No other services in place at this time. Pt preference is to d/c home today via spouse POV and no anticipated needs besides outpt follow up with PCP for suture removal of his elbow from fall. Plan: Patient to d/c home today via spouse POV and no further SW needs at this time. MIKEY Chand Discharge Planning/Care Management CM Discharge Assessment Start: 10/02/20 13:19 Freq: Status: Active Protocol: Document 10/02/20 13:19 BF (Rec: 10/02/20 13:21 [id number]) Discharge Planning Assessment Assigned Mash Tub Cooker MIKEY Antoine DPOA/Assigned Designee Name sadia Still Contact Information [phone] Advance Directives? Yes Advance Directives on File Yes History Provided By Patient,Medical Record Has Patient been admitted in last 30 No days? Prior Living Arrangements House Household Members spouse Type of transporation used prior to Drives own vehicle admit Independent with ADL's Yes Is patient alert and oriented? Yes Caregiver for Another No Barriers to Discharge No Comment Patient has pain pump secondary to chronic back pain syndrome. Discharge Plan Home Transportation Arrangement Family to provide transportation. Additional Comment Per PT, safe for d/c home with spouse assist Whiteboard Updated in Patient Room with Yes name and ext. # of Mash Tub Cooker Review Status In Process Please Provide Date Initial DC 10/02/20 Assessment Was Performed Next Review Type Continued Stay Review
--- NOTE | 2020-10-02 15:14 | PC.NURSE ---
Addendum entered by Leann Pelayo R.N. 10/02/20 15:18: Wound care to sutures to right elbow and anterior left leg. Original Note: Day shift note: Patient discharge home per MD order, cleared by Munira DONAHUE. Discharge instructions given to patient, discussed importance of F/U with PMD, new medications including steroid tapering and adherence, signs of worsening symptoms, pain control management, and fall prevention. Home via private vehicle with .
--- NOTE | 2020-10-02 15:23 | PT.IIE ---
Surgical History (Last Reviewed 10/01/20 @ 20:55 by Lizz Bhatia MD) History of appendectomy History of bilateral knee arthroplasty History of fundoplication History of lumbar surgery Hx of sinus surgery (03/12/18) S/P CABG x 2 S/P insertion of spinal cord stimulator (~2002) S/P lumbar spinal fusion (11/10/18) S/P total knee arthroplasty Status post bilateral cataract extraction (~10/2014) Medical History (Last Reviewed 10/01/20 @ 20:55 by Lizz Bhatia MD) Arachnoiditis Atypical chest pain Cardiac murmur Central sleep apnea Coronary artery disease GERD (gastroesophageal reflux disease) [place] (hard of hearing) Hypertension Leg edema, right Obstructive sleep apnea of adult Opioid dependence with current use Postoperative atrial fibrillation Serum lipase elevation Small bowel obstruction Statin intolerance (~07/2015) Tachycardia Throat irritation Vitamin B12 deficiency Physical Therapy Inpatient Evaluation/Re-Eval M1 PT/OT-IP Prior Functional Status Start: 10/02/20 09:18 Freq: NEEDED Status: Active Protocol: Document 10/02/20 15:04 AW (Rec: 10/02/20 15:22 AW [id number]) Medical Review Prior Functional Status Medical History Reviewed Yes Communication WNL Mobility and Gait Pt reports independent mobility at most times but occasionally uses a SPC when pain interferes with his function. Activities of Daily Living and IADL's Independent. Pt drives, manages his own medications. Social History Household Members spouse Living Arrangements House Number of Floors (Floors) Two Floors Number of Stairs To Enter/Railing? 0 MONTY at daylight basement. Pt then climbs 7 steps + landing + 7 steps to main level living area. Railings are on the right. Home Environment Standard Height Toilet,Walk in Shower Home Equipment Front Wheel Walker,Straight Cane,Shower Seat without Backrest,Hand Held Shower, Weapons Specialist,Grab Bars In Shower Employment Status Retired Additional Social History Comment PT lives with his , [place]. M2 PT-IP Current Condition Start: 10/02/20 09:18 Freq: NEEDED Status: Active Protocol: Document 10/02/20 15:04 AW (Rec: 10/02/20 15:22 AW [id number]) Physical Therapy Current Condition Current Condition Evaluation Date 10/02/20 Treatment Diagnosis back pain, fall from 4 feet, impaired mobility and gait Precautions Other Precautions implanted spinal stimulator M3 PT-IP Subjective Start: 10/02/20 09:18 Freq: NEEDED Status: Active Protocol: Document 10/02/20 15:04 AW (Rec: 10/02/20 15:22 AW [id number]) Subjective Physical Therapy Visit Type Type Initial Evaluation Visit Start Time 14:46 Visit Stop Time 15:04 Total Visit Minutes 18 Notes Pt has extensive history of multiple back surgeries, bilateral TKA. 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 Physical Therapy Visit Comments Patient Comments I feel off because I slept too much today. Patient Goals Return home Therapy Pain Assessment Pain When Pain Assessed During Mobility Pain Present Pain Present Pain Reported Location Lower Back Scale Used not quantified Pain Management Techniques Distraction,Re-positioning M4 PT-IP Mobility and Gait Start: 10/02/20 09:18 Freq: NEEDED Status: Active Protocol: Document 10/02/20 15:04 AW (Rec: 10/02/20 15:22 AW [id number]) PT-Bed Mobility Assessment Supine to Sit Supine to Sit Independent Scooting Scooting to Edge of Bed Independent PT-Transfer Assessment Sit to and From Stand Sit to and from Stand Standby Assistance Equipment Transfer Assistive Device Gait Belt Orthotic/Prosthetic Devices or Brace: No Transfers Transfer Destination Bed,Chair Transfer Technique Stand Step Pivot Transfer Ability Level of Assist Standby Assistance Comments Mobility Comments Pt was lying in the bed as PT arrived. He transitioned from sidelying to sitting IND and then stood from the bed SBA due to initial unsteadiness. He ambulated in the halls ~20 feet with unsteady gait requiring close CGA. PT suggested SPC and pt agreed. With cane, pt ambulated another 80 feet to the stairs SBA. After completing stair assessment, pt returned to the room, walking 100 feet with SPC SBA. He transferred to the chair and then to the bed SBA . Pt was left in the bed with bed alarm on, call light and all needs in reach. Gait Assessment Gait Gait Assistance Required: Standby Assistance,Contact Guard Assist Distance (Feet) 200 Assistive Devices Assistive Device Gait Belt,Straight Cane Orthotic/Prosthetic Devices or Brace: No Gait Deviations General Gait Pattern Antalgic,Decreased Stride Length,Decreased Feet Clearance,Flexed Trunk,Lateral Trunk Lean,Step-to Gait,Wide Based Gait Factors Limiting Gait Function Factors Limiting Gait Function Decreased Activity Tolerance, Decreased Strength,Limited Range of Motion,Pain,Poor Balance,Poor Safety Awareness Comments Gait Comments Pt agreed he was safest with SPC. Gait mechanics and steadiness improved with SPC. Stair Climbing Assessment Evaluation Level of Assist On Stairs Standby Assistance Devices Stair Climbing Assistive Devices Right Railing Technique/Endurance Stair Climbing Direction Ascend and Descend Stair Climbing Technique Step Over Step,Step to Step Number of Steps Climbed 18 Query Text: Stair Climbing Set # Repetitions (reps) 1 Comments Stair Climbing Comments Pt descended hospital stairs with step-to pattern and unilateral rail. He ascended step over step with R rail. PT-Balance Assessment Sitting Balance and Reactions Static Sitting Balance Ability Normal Dynamic Sitting Balance Ability Normal Standing Balance and Reactions Static Standing Balance Ability Good Dynamic Standing Balance Ability Fair Device Used SPC M5 PT-IP Objective Assessments Start: 10/02/20 09:18 Freq: NEEDED Status: Active Protocol: Document 10/02/20 15:04 AW (Rec: 10/02/20 15:22 AW [id number]) Orientation Orientation/Cognition Level of Alertness Alert Orientation Name,Day of Week,Place, Situation Language Function Ability No Deficits Noted Safety Awareness Understands Safety Issues Memory Description No Deficits Noted Gross Range of Motion Upper Extremity ROM Assessment Within Functional Limits Lower Extremity ROM Assessment Within Functional Limits Strength Lower Extremity Strength Assessment Within Functional Limits Hip 4/5 Knee 4+/5 Sensation Assessment Sensation Gross Sensation Right LE Impaired,Left LE Impaired Light Touch Impaired Sensation Description Numbness Comments Sensation Comments chronic numbness B feet M6 PT-IP Treatment Start: 10/02/20 09:18 Freq: NEEDED Status: Active Protocol: Document 10/02/20 15:04 AW (Rec: 10/02/20 15:22 AW [id number]) Physical Therapy Treatment Education Education Provided Safety M7 PT-IP Assessment and Plan Start: 10/02/20 09:18 Freq: NEEDED Status: Active Protocol: Document 10/02/20 15:04 AW (Rec: 10/02/20 15:22 AW [id number]) PT Summary Assessment and Plan Potential Rehabilitation Potential Good Status of Condition at Evaluation Evolving Summary Impairments Pain,ROM,Strength,Balance, Sensation,Gait Assessment Summary Darin is a 74 yo man seen for PT evaluation after falling from a 4-foot retaining wall at home. He has an extensive history of back surgeries and bilateral TKA. He was alert and willing to participate with therapy. At baseline, pt reports independent mobility with occasional use of SPC. On evaluation, pt had initial unsteadiness in standing and required CGA for ambulation without AD. With SPC, pt improved to needing only SBA for gait and stairs. Pt's pain symptoms have improved. He agrees he is much safer using SPC for gait and transfers at this time. PT recommends pt discharge home with assist and use of SPC when medically stable. He should follow up with his outpatient PT. Goals Bed Mobility Goal Independent Transfer Goal Independent,Cane Gait Goal Independent,Cane Gait Distance 300 Other Goals - up/down 14 steps with R rail ascending - improve gait to 150 feet without AD IND Days to Meet Goals 4 Frequency of Treatment Frequency Of Treatment Once a Day Treatment Plan Physical Therapy Treatment Plan Bed Mobility Training,Transfer Training,Gait Training, Therapeutic Exercise,Balance Retraining,Discharge Planning, Hot or Cold Pack,Neuromuscular Re-ed,Coordination Retraining Recommendations To Nursing Amount of Assist Needed Standby Assistance Discharge Recommendations PT Discharge Recommendations Home with Assistance, Outpatient PT Transportation Needs at Discharge Private Vehicle
== END 2020-10-02 15:55 | disposition home or self-care (01) ==
LOC: ED 18:39 → AC 19:16
PROVIDERS: Emergency Medicine; Admitting Provider Student in an Organized Health Care Education/Training Program; Emergency Provider Emergency Medicine; PCP Student in an Organized Health Care Education/Training Program; Referring Provider Emergency Medicine; Visit Provider Student in an Organized Health Care Education/Training Program
DX: M54.5 Low back pain (principal); W10.8XXA Fall (on) (from) other stairs and steps, initial encounter; Y92.009 Unspecified place in unspecified non-institutional (private) residence as the place of occurrence of the external cause; S51.011A Laceration without foreign body of right elbow, initial encounter; S81.811A Laceration without foreign body, right lower leg, initial encounter; G89.4 Chronic pain syndrome; I10 Essential (primary) hypertension; E78.5 Hyperlipidemia, unspecified; K21.9 Gastro-esophageal reflux disease without esophagitis; G47.33 Obstructive sleep apnea (adult) (pediatric); N40.1 Benign prostatic hyperplasia with lower urinary tract symptoms; N13.8 Other obstructive and reflux uropathy; Z20.822 Contact with and (suspected) exposure to COVID-19
CPT/HCPCS: 12001; 36415; 70450; 72125; 74177; 80053; 83690; 85025; 87635; 96361; 96372; 96374; 96375; 96376; 97161; 99285; G0378; C9113; J1100; J1170; J1650; Q9967

== ENCOUNTER → 2020-12-29 14:50 | Outpatient (CLI) | payer MEDICARE, OTHER, SELFPAY ==
[2020-11-30 14:03] VITALS: BMI 29.9
--- NOTE | 2020-12-29 | DI.ECHO.S_ITS ---
[facility]---------+ [facility] +---------+ : : [address] : : : : [id number] : : : : Phone: [phone]+ Echocardiogram Report + + :Name: GUI MORTENSEN Study Date: 12/29/2020 Height: 73 in : :[facility] ReadingLocation: Weight: 220 lb : : Gender: Male BSA: 2.2 m2 : :: 1945 Age: 75 yrs BP: 167/90 mmHg: :Reason For Study: EDEMA : :Ordering Physician: MERRILL, : :SUKUMAR Levi Performed By: Cassi Hannon : :Referring: SUKUMAR MOMIN : + + Interpretation Summary Normal sinus rhythm. Normal LV size; mild concentric LVH; normal wall motion and LV systolic function. EF is 55-60%. Normal chamber sizes. No significant valvular abnormalities. Compared to prior study 06/28/2017 PA systolic pressure is down from 39 to 33 mm Hg. Otherwise no changes have occurred. Procedure: A two-dimensional transthoracic echocardiogram with color flow and Doppler was performed. The study quality was technically adequate. There is no prior echocardiogram noted for this patient. The patient was in sinus rhythm with heart rates between 62-78 bpm during the exam. Left Ventricle: The left ventricle is normal in size. There is mild concentric left ventricular hypertrophy. The ejection fraction is estimated to be 55-60%. Right Ventricle: The right ventricle is mildly dilated. The right ventricular systolic function is normal. Atria: The left atrial size is normal. Right atrial size is normal. There is no Doppler evidence for an interatrial shunt. Mitral Valve: The mitral valve is normal in structure but abnormal in function. The mitral valve is normal in structure and function. There is mild mitral regurgitation. Aortic Valve: The aortic valve is trileaflet. The aortic valve opens well. There is no aortic valve stenosis. No aortic regurgitation is present. Tricuspid Valve: The tricuspid valve is normal in structure and function. There is mild tricuspid regurgitation. The right ventricular systolic pressure is estimated to be at least 33 mmHg based on an estimated right atrial pressure of 8 mm Hg. Pulmonic Valve: The pulmonic valve leaflets are thin and pliable; valve motion is normal. There is no pulmonic valvular regurgitation. Great Vessels: The aortic root is normal size. The ascending aorta is mildly enlarged. The IVC is dilated (diameter is greater than 2.1 cm) yet it collapses greater than 50% with a sniff. This suggests a right atrial pressure of 8 mm Hg. Pericardium/ Pleura There is no pericardial effusion. There is no pleural effusion. MMode/2D Measurements & Calculations LVIDd: 5.1 cm LVOT diam: 2.1 cm LVIDs: 3.7 cm Ao root diam: 3.6 cm FS: 26.4 % asc Aorta Diam: 3.5 cm IVSd: 1.2 cm Ao Arch Diam (Prox Trans): 3.4 cm LVPWd: 1.1 cm LV bob. diameter/BSA (cm/m^2): 2.3 LV sys. diameter/BSA (cm/m^2): 1.7 LA A2 area: 22.4 cm2 RA long axis: 5.7 cm LA A4 area: 18.3 cm2 RA area: 18.7 cm2 LA length (vol): 5.0 cm RA vol: 51.8 ml LA vol: 69.5 ml RA : 23.1 ml/m2 LA vol index: 31.0 ml/m2 IVC diam: 2.2 cm RVD1 (basal): 4.6 cm TAPSE: 1.7 cm Doppler Measurements & Calculations Ao V2 max: 131.8 cm/sec LVOT Max Jadon: 105.8 cm/sec Ao V2 mean: 94.9 cm/sec LV V1 max P.5 mmHg Ao max P.0 mmHg LV V1 VTI: 21.5 cm Ao mean P.0 mmHg EDWIN(I,D): 2.6 cm2 Ao V2 VTI: 28.9 cm EDWIN(V,D): 2.9 cm2 sev ratio: 0.74 EDWIN indexed to BSA (cm^2/m^2): 1.2 MV E max jadon: 92.7 cm/sec TR max jadon: 248.6 cm/sec MV A max jadon: 63.5 cm/sec TR max P.9 mmHg MV E/A: 1.5 PA pr(Accel): 27.6 mmHg Med Peak E' Jadon: 6.8 cm/sec E/E' med: 13.6 Lat Peak E' Jadon: 11.5 cm/sec E/E' lat: 8.1 E/e' average: 10.8 MV dec time: 0.23 sec SV(LVOT): 76.2 ml Electronically signed by: Christy Lujan M.D. on Reading Physician:12/30/2020 12:33 AM
== END ==
PROVIDERS: PCP Family Medicine; Referring Provider Family Medicine; Visit Provider Family Medicine
DX: I08.1 Rheumatic disorders of both mitral and tricuspid valves (principal); I77.89 Other specified disorders of arteries and arterioles; R60.9 Edema, unspecified
CPT/HCPCS: 93306

== ENCOUNTER → 2021-02-13 09:41 | Outpatient (CLI) | payer MEDICARE, OTHER, SELFPAY ==
[2020-11-30 14:03] VITALS: BMI 29.9
[2021-02-13 11:38] LABS: BUN Creatinine Ratio 17.4 (6-22); Blood Urea Nitrogen 20 mg/dL (9-20); Estimated Glomerular Filt Rate > 60.0 mL/min (>60)
== END ==
PROVIDERS: PCP Family Medicine; Referring Provider Family Medicine; Visit Provider Family Medicine
DX: G47.10 Hypersomnia, unspecified (principal); G47.11 Idiopathic hypersomnia with long sleep time; R51.0 Headache with orthostatic component, not elsewhere classified
CPT/HCPCS: 36415; 82565; 84520

== ENCOUNTER → 2021-02-14 14:22 | Outpatient (CLI) | payer MEDICARE, OTHER, SELFPAY ==
[2020-11-30 14:03] VITALS: BMI 29.9
--- NOTE | 2021-02-14 14:24 | DI.CT.S_ITS ---
PROCEDURE: CT HEAD/BRAIN WO/W CON INDICATIONS: Headache with orthostatic component, not elsewhere TECHNIQUE: 4.5 mm thick angled axial sections acquired from the foramen magnum to the vertex before and after the administration of intravenous contrast, with coronal and sagittal reformats. For radiation dose reduction, the following was used: automated exposure control, adjustment of mA and/or kV according to patient size. COMPARISON: None. FINDINGS: Image quality: Excellent. CSF Spaces: Basal cisterns are patent. No extra-axial fluid collections. Ventricles are normal in size and shape. Brain: No midline shift. No intracranial bleeds or masses. No abnormal intracranial enhancement. Barraza-white interface appears normal. Skull and face: Calvarium and visualized facial bones appear intact, without suspicious lesions. Sinuses: Visualized sinuses and mastoids are clear. IMPRESSION: No acute intracranial finding or abnormal intracranial enhancement. Dictated by: Juwan Weber M.D. on 02/14/2021 at 15:17 Approved by: Juwan Weber M.D. on 02/14/2021 at 15:23
== END ==
PROVIDERS: PCP Family Medicine; Referring Provider Family Medicine; Visit Provider Family Medicine
DX: R51.0 Headache with orthostatic component, not elsewhere classified (principal); G47.10 Hypersomnia, unspecified; G47.11 Idiopathic hypersomnia with long sleep time
CPT/HCPCS: 70470; Q9967

== ENCOUNTER → 2021-03-02 08:19 | Outpatient (CLI) | payer MEDICARE, OTHER, SELFPAY ==
[2020-11-30 14:03] VITALS: BMI 29.9
[2021-03-02 09:54] LABS: Prostate Specific Antigen 1.93 ng/mL (0.10-4.00)
== END ==
PROVIDERS: PCP Family Medicine; Referring Provider Specialist; Visit Provider Specialist
DX: N40.1 Benign prostatic hyperplasia with lower urinary tract symptoms (principal); N13.8 Other obstructive and reflux uropathy; N52.9 Male erectile dysfunction, unspecified; R39.9 Unspecified symptoms and signs involving the genitourinary system
CPT/HCPCS: 36415; 51798; 81002; 84153; 99214

== ENCOUNTER → 2021-04-18 09:59 | Outpatient (CLI) | payer MEDICARE, OTHER, SELFPAY ==
[2020-11-30 14:03] VITALS: BMI 29.9
--- NOTE | 2021-04-18 | DI.RAD.S_ITS ---
PROCEDURE: [place] SHOULDER INJECTION MR/CT RT INDICATIONS: PAIN IN RIGHT SHOULDER COMPARISON: [facility], CT, CT UE RT W CON, 04/18/2021, 10:43. TECHNIQUE: The indications, alternatives, benefits, risks, and complications of the procedure were explained to the patient. Written informed consent was obtained and placed in the chart. The shoulder was examined fluoroscopically and a site for needle placement chosen for entry into the glenohumeral joint from an anterior approach. The skin was prepped and draped in a sterile fashion, and 1% lidocaine infiltrated from skin down to joint capsule. A spinal needle was inserted into the glenohumeral joint, and a small amount of iodinated contrast media injected to confirm intra-articular placement of the needle tip. This was followed by approximately 12 mL of dilute iodinated contrast. The needle was removed and a dressing was applied. The patient was given postprocedural instructions and sent to the CT suite for imaging. FINDINGS: A single fluoroscopic spot image demonstrates intra-articular location of injected iodinated contrast. IMPRESSION: Successful fluoroscopically guided administration of iodinated contrast solution into the shoulder joint for CT arthrogram. Dictated by: Samir Bryant M.D. on 04/18/2021 at 12:03 Approved by: Samir Bryant M.D. on 04/18/2021 at 12:05
--- NOTE | 2021-04-18 10:19 | DI.CT.S_ITS ---
PROCEDURE: CT UE RT W CON INDICATIONS: PAIN IN RIGHT SHOULDER TECHNIQUE: After the intra-articular administration of 12 mL of dilute non-ionic contrast, 1-1.5 mm thick sections acquired from the acromioclavicular joint to the inferior scapula, with coronal and sagittal reformatting. COMPARISON: [place], [place] SHOULDER INJECTION MR/CT RT, 04/18/2021, 10:21. FINDINGS: Image quality: Excellent. Rotator cuff: Complete tearing of the supraspinatus tendon approximately 0.6 cm from its distal insertion measuring approximately 1.2 cm and anterior-posterior dimension with proximal tendon retraction measuring up to 4.3 cm. Small calcifications are seen within the distal infraspinatus tendon, consistent with calcific tendinopathy. The teres minor and subscapularis tendons are grossly intact. There is mild atrophy and grade 2 fatty infiltration of the supraspinatus muscle. Glenohumeral and acromioclavicular joints: No acute fracture or dislocation. No focal glenohumeral cartilage defect is seen. Mild degenerative spurring is seen in the glenoid rim. There are moderate to severe degenerative changes at the acromioclavicular joint. Glenohumeral contrast material communicates with the subacromial/subdeltoid bursa. Soft tissues: No uptake of intra-articular contrast material is seen to suggest a significant labral tear. Some contrast material is seen within the intra-articular portion of the biceps tendon that may be related to extravasation during the arthrogram injection versus low-grade partial tearing. IMPRESSION: 1. Full-thickness complete tearing of the supraspinatus tendon approximately 0 6 cm from the distal insertion with proximal tendon retraction measuring up to 4.3 cm. There is mild atrophy and grade 2 fatty infiltration of the supraspinatus muscle. 2. Calcific tendinopathy of the infraspinatus tendon. 3. Possible low-grade partial tear of the proximal biceps long head tendon versus extravasation during the arthrogram injection. 4. 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 Dictated by: Mehdi Lopez M.D. on 04/18/2021 at 11:37 Approved by: Mehdi Lopez M.D. on 04/18/2021 at 11:55
== END ==
PROVIDERS: PCP Family Medicine; Referring Provider Orthopaedic Surgery; Visit Provider Orthopaedic Surgery
DX: M25.511 Pain in right shoulder (principal); M75.111 Incomplete rotator cuff tear or rupture of right shoulder, not specified as traumatic; M19.011 Primary osteoarthritis, right shoulder
CPT/HCPCS: 23350; 73201; 77002

== ENCOUNTER → 2021-05-22 12:38 | Outpatient (CLI) | payer MEDICARE, OTHER, SELFPAY ==
[2020-11-30 14:03] VITALS: BMI 29.9
--- NOTE | 2021-05-22 | DI.CT.S_ITS ---
PROCEDURE: CT LE RT WO CON INDICATIONS: Presence of right artificial knee joint TECHNIQUE: Noncontrast 1-1.5 mm axial sections acquired from the mid-patella to the proximal tibia, with coronal and sagittal reformats. COMPARISON: [place], [place], [place] BONE 3 PHASE, 02/18/2020, 10:15. [facility] [place], [place], XR KNEE 4+ VIEWS RIGHT, 05/10/2021, 16:16. FINDINGS: Image quality: Excellent. Bones: Expected alignment of right knee arthroplasty. Hardware appears grossly intact. No definite evidence of loosening. Periarticular soft tissues appear grossly unremarkable. No acute fracture. Scattered degenerative subchondral sclerosis and spurring. Small joint effusion. Numerous superficial varices incidentally noted. IMPRESSION: Expected post operative alignment. No CT evidence of loosening identified. Small joint effusion. Approved by: Samir Bryant M.D. on 05/22/2021 at 13:30
== END ==
PROVIDERS: PCP Family Medicine; Referring Provider Orthopaedic Surgery; Visit Provider Orthopaedic Surgery
DX: Z96.651 Presence of right artificial knee joint (principal); Z09 Encounter for follow-up examination after completed treatment for conditions other than malignant neoplasm; M25.461 Effusion, right knee
CPT/HCPCS: 73700

== ENCOUNTER 2021-08-11 15:10 | Emergency (ER) | payer MEDICARE, OTHER, SELFPAY ==
[2020-11-30 14:03] VITALS: BMI 29.9
[2021-08-11] VITALS (8 sets, daily range): BP systolic 174–204; BP diastolic 105–117; PULSE 70–105; RESP 17–37; TEMP 36.5; O2SAT 97–100; BMI 29.0
--- NOTE | 2021-08-11 15:18 | DI.RAD.S_ITS ---
PROCEDURE: XR CHEST 1V INDICATIONS: shortness of breath TECHNIQUE: One view of the chest was acquired. COMPARISON: [facility], CR, XR CHEST 1V, 01/19/2018, 11:36. FINDINGS: Surgical changes and devices: Prior CABG procedure with median sternotomy wires. Partially visualized neural stimulator lead. Partially visualized thoracolumbar spine fixation hardware. Lungs and pleura: Lungs are clear. No pleural effusions or pneumothorax. Mediastinum: Mediastinal contours appear normal. Heart size is normal. Bones and chest wall: No suspicious bony lesions. Overlying soft tissues appear unremarkable. IMPRESSION: No acute cardiopulmonary disease process. Dictated by: Cici Morrison MD, PhD on 08/11/2021 at 15:55 Approved by: Cici Morrison MD, PhD on 08/11/2021 at 15:56
--- NOTE | 2021-08-11 15:47 | ED.SOB ---
HPI - SOB/Dyspnea <Edi Scherer PA-C - Last Filed: 08/11/21 15:51> General Chief Complaint: Shortness of Breath/Dyspnea Stated Complaint: SOB Time Seen by Provider: 08/11/21 15:36 Source: patient Mode of arrival: Ambulatory Limitations: no limitations History of Present Illness HPI Narrative: Patient is a 75-year-old male who presents to the ED from his lead setter clinic. He reports that he has been having ongoing shortness of breath for the past few days that has not resolved. He was admitted to [facility] on 08/07/2021 with negative cardiac workup he had nuclear medicine scan and echo which was all unremarkable. He did not have a CT angiogram of the chest and a D-dimer. Has a history of CAD CABG in 2016. He denies any chest pain nausea vomiting diarrhea fever cough congestion. He states that his shortness of breath increases with activity and does not resolve with rest. Related Data Home Medications Medication Instructions Recorded Confirmed testosterone cypionate 200 mg/mL 0.5 ml SUBCUT SEEINSTR #9 06/13/17 03/16/21 intramuscular oil (Depo-Testosterone) aspirin 81 mg tablet,delayed 81 mg PO DAILY 09/03/18 03/16/21 release (Aspirin Low Dose) acyclovir 200 mg capsule 200 mg PO 5XD PRN 11/05/18 03/16/21 carvedilol 6.25 mg tablet 6.25 mg PO QAM 11/05/18 03/16/21 hydromorphone 4 mg tablet 4 mg PO Q4-6H PRN 11/10/18 03/16/21 Respironics Dreamstation CPAP #1 ea 11/27/18 03/16/21 clonidine (PF) 1,000 mcg/10 mL 180 mcg CONTINUOUS EPIDURAL DAILY 03/06/19 03/16/21 (100 mcg/mL) epidural solution doxycycline hyclate 100 mg tablet 100 mg PO BID 06/23/20 03/16/21 mecobalamin (vitamin B12) 1,000 1,000 mcg PO DAILY 06/23/20 03/16/21 mcg chewable tablet bupivacaine (PF) 0.5 % (5 mg/mL) mg EPIDURAL 03/16/21 03/16/21 injection solution (Sensorcaine-MPF) furosemide 20 mg tablet 20 mg PO DAILY 03/16/21 03/16/21 hydromorphone (PF) 1 mg/mL 1 mg EPIDURAL Q4H PRN 03/16/21 03/16/21 injection solution Previous Rx's Medication Instructions Recorded hydromorphone 2 mg tablet 2 mg PO Q6H PRN #45 tab 10/02/20 prednisone 10 mg tablet 10 mg PO DAILY #70 tab 10/02/20 tadalafil 5 mg tablet (Cialis) 5 mg PO DAILY #90 tab 04/24/21 Allergies Allergy/AdvReac Type Severity Reaction Status Date / Time morphine [MORPHINE] Allergy Intermediate BLISTERS Verified 08/11/21 15:32 aspartame AdvReac Severe SEVERE Verified 08/11/21 15:32 [From NUTRASWEET ASPARTAME] HEADACHES banana AdvReac Severe Severe Verified 08/11/21 15:32 headaches chocolate flavor AdvReac Severe Headaches Verified 08/11/21 15:32 gabapentin [GABAPENTIN] AdvReac Severe SEVERE Verified 08/11/21 15:32 AGITATION, DEPRESSION, ANXIETY hydrochlorothiazide AdvReac Severe HEADACHES Verified 08/11/21 15:32 [HYDROCHLOROTHIAZIDE] hydrocodone [HYDROCODONE] AdvReac Severe SEVERE Verified 08/11/21 15:32 HEADACHES metoprolol [METOPROLOL] AdvReac Severe HEADACHES Verified 08/11/21 15:32 omeprazole [OMEPRAZOLE] AdvReac Severe SEVERE Verified 08/11/21 15:32 HEADACHES & DIZZINESS oxycodone [OXYCODONE] AdvReac Severe HEADACHES Verified 08/11/21 15:32 nifedipine [From Procardia] AdvReac Gastrointestinal Verified 08/11/21 15:32 Upset [id number] Reductase AdvReac Gastrointestinal Verified 08/11/21 15:32 Inhibitor Upset [[id number]-[id number] Reductase Inhibitor] ACID BLOCKERS AdvReac Severe SEVERE Uncoded 03/16/21 14:32 HEADACHES & DIZZINESS <Sammy Little MD - Last Filed: 08/11/21 18:58> History of Present Illness HPI Narrative: Patient is a 75-year-old male who presents to the ED from his [facility] clinic. He reports that he has been having ongoing shortness of breath for the past few days that has not resolved. He was admitted to [facility] on 08/07/2021 with negative cardiac workup he had nuclear medicine scan and echo which was all unremarkable. The chemical stress test showed no evidence of ischemia or infarction. He had a normal left ventricle with EF of 65%. Dyspnea was 1 of his presenting symptoms prior to his admission workup. He still has dyspnea. His lead setter, Dr. Correa, sent him here for further evaluation, rule out PE. He is not anticoagulated. Has a history of CAD with CABG in 2016. He denies any chest pain upon arrival, he developed chest tightness during his ER stay consistent with his discomfort that led to his initial ER evaluation. He currently has dyspnea at rest. He denies recent illness, no chronic respiratory illness. He has no orthopnea or edema. Review of Systems <Edi Scherer PA-C - Last Filed: 08/11/21 15:51> Review of Systems ROS Unobtainable: All systems reviewed & are unremarkable except as noted in HPI and below Constitutional Constitutional: Denies chills, Denies fatigue, Denies fever(s), Denies frequent falls, Denies lethargy and Denies weakness Eyes Eyes: Denies change in vision, Denies eye discharge, Denies irritation and Denies loss of vision ENT Ears, Nose, Mouth, and Throat: Denies change in voice, Denies dizziness, Denies neck pain, Denies sore throat and Denies throat swelling Cardiovascular Cardiovascular: Denies chest pain, Denies irregular heart rhythm, Denies lightheadedness, Denies palpitations, Reports dyspnea, Reports dyspnea on exertion and Denies orthopnea Respiratory Respiratory: Denies cough, Reports dyspnea, Reports dyspnea on exertion and Denies wheezing Gastrointestinal Gastrointestinal: Denies abdominal pain, Denies change in bowel habits, Denies diarrhea, Denies nausea and Denies vomiting Genitourinary Genitourinary: Denies hematuria, Denies flank pain, Denies urinary incontinence and Denies urinary urgency Musculoskeletal Musculoskeletal: Denies back pain, Denies muscle weakness, Denies neck pain, Denies numbness and Denies tingling Integumentary/Breasts Skin/Breast: Denies pruritus, Denies erythema, Denies rash and Denies wounds Neurologic Neurologic: Denies behavioral changes, Denies confusion, Denies dizziness, Denies frequent falls, Denies loss of vision, Denies numbness, Denies tingling and Denies weakness Psychiatric Psychiatric: Denies anxiety, Denies behavioral changes, Denies confusion, Denies depression, Denies homicidal ideation and Denies suicidal ideation Endocrine Endocrine: Denies fatigue, Denies flushing and Denies palpitations Hematologic/Lymphatic Hematologic/Lymphatic: Denies easy bruising Allergic/Immunologic Allergic/Immunologic: Denies urticaria, Denies throat swelling and Denies wheezing <Sammy Little MD - Last Filed: 08/11/21 18:58> Constitutional Constitutional: Reports fatigue and Reports weakness ENT Ears, Nose, Mouth, and Throat: Denies throat swelling Cardiovascular Cardiovascular: Reports chest pain Respiratory Respiratory: Denies wheezing Neurologic Neurologic: Reports weakness Endocrine Endocrine: Reports fatigue Allergic/Immunologic Allergic/Immunologic: Denies throat swelling and Denies wheezing Patient History <Edi Scherer PA-C - Last Filed: 08/11/21 15:51> Medical History Arachnoiditis Atypical chest pain BPH w urinary obs/LUTS Cardiac murmur Central sleep apnea Coronary artery disease Erectile dysfunction GERD (gastroesophageal reflux disease) [place] (hard of hearing) Hypertension Leg edema, right Lower urinary tract symptoms (LUTS) Obstructive sleep apnea of adult Opioid dependence with current use Postoperative atrial fibrillation Serum lipase elevation Small bowel obstruction Statin intolerance (~07/2015) Tachycardia Throat irritation Vitamin B12 deficiency Surgical History History of appendectomy History of bilateral knee arthroplasty History of fundoplication History of lumbar surgery Hx of sinus surgery (03/12/18) S/P CABG x 2 S/P insertion of spinal cord stimulator (~2002) S/P lumbar spinal fusion (11/10/18) S/P total knee arthroplasty Status post bilateral cataract extraction (~10/2014) Social History marital status: household members: spouse Smoking Status: Never smoker alcohol intake: never substance use type: does not use Smoking Status: Never smoker alcohol intake frequency: other Substance Use Type: does not use Exam <Edi Scherer PA-C - Last Filed: 08/11/21 15:51> Initial Vital Signs Initial Vital Signs: Vital Signs Temperature 97.7 F 08/11/21 15:12 Pulse Rate 105 H 08/11/21 15:12 Respiratory Rate 24 08/11/21 15:12 Blood Pressure 185/115 H 08/11/21 15:12 Pulse Oximetry 100 08/11/21 15:12 Const General: cooperative, healthy appearing and comfortable Nutritional Appearance: average body habitus Orientation: Orientation [facility] Head: normal to inspection Ears: hearing grossly normal bilaterally Nose: external nose normal Face and sinus: normal facial exam Eyes General: appearance normal, both eyes and all related structures Pupils: PERRL Resp Effort & Inspection: normal respiratory effort Auscultation: clear to auscultation bilaterally Cardio Rate: regular rate Rhythm: regular rhythm GI Palpation: soft Percussion: normal to percussion Skin General: no rashes or lesions noted <Sammy Little MD - Last Filed: 08/11/21 18:58> Initial Vital Signs Initial Vital Signs: Vital Signs Temperature 97.7 F 08/11/21 15:12 Pulse Rate 105 H 08/11/21 15:12 Respiratory Rate 24 08/11/21 15:12 Blood Pressure 185/115 H 08/11/21 15:12 Pulse Oximetry 100 08/11/21 15:12 Neck Neck: No JVD Chest Chest: normal inspection of the chest and No tenderness Cardio Heart Sounds: S1 normal, S2 normal, no click, no murmurs and no rubs GI Auscultation: normal bowel sounds Other: Palpable device in his left mid abdomen, the pain pump. Back/Spine/Pelvis Back: normal to inspection Skin General: no rashes or lesions noted Neuro General: patient alert, patient awake, patient oriented x3 and no focal motor deficits Extrem General: normal to inspection, full ROM, no pedal edema and no calf tenderness Psych Mental Status: mental status grossly normal Course <Edi Scherer PA-C - Last Filed: 08/11/21 15:51> Orders Ordered: ED Orders 08/11/21 15:18 XR chest 1V Stat EKG-12 Lead Stat Measure peak expiratory flow ONCE RT Consult Eval and Treat Now 08/11/21 15:51 Complete Blood Count AUTO DIFF Stat Comprehensive Metabolic Panel Stat D Dimer Stat Lactate (Lactic Acid) Stat NT-proBNP (BNP-Adult 18+) Stat Troponin & CK Cardiac Panel Stat 08/11/21 16:03 COVID19 -Nasal swab/Pre-Proc Stat 08/11/21 17:10 PTT [Partial Thromboplastin Time] Stat Sodium Chloride (Normal Saline 0.9%) 1,000 mls @ 150 mls/hr IV BOLUS ONE Stop: 08/11/21 23:22 Last Infusion: 08/11/21 17:29 Dose: Infused Documented by: Heparin Sodium/Dextrose (Heparin Drip) 25,000 unit in 500 mls @ 20 mls/hr IV CONT JENNY; Protocol Last Admin: 08/11/21 17:20 Dose: 1,000 units/hr, 20 mls/hr Documented by: Discontinued Medications Aspirin (Aspirin 81 Mg Chew Tab) 324 mg PO NOW ONE Stop: 08/11/21 16:16 Last Admin: 08/11/21 16:18 Dose: 324 mg Documented by: Clopidogrel Bisulfate (Clopidogrel 75 Mg Tablet) 600 mg PO NOW ONE Stop: 08/11/21 17:09 Last Admin: 08/11/21 17:21 Dose: 600 mg Documented by: Heparin Sodium (Porcine) (Heparin 5,000 Unit/Ml Vial) 5,000 unit 80 unit/kg (8000 unit) IV NOW ONE Stop: 08/11/21 17:16 Last Admin: 08/11/21 17:21 Dose: 5,000 unit Documented by: Metoprolol Tartrate (Metoprolol Tartrate 5 Mg/5 Ml Inj) 5 mg IV Q5M [facility] Stop: 08/11/21 16:41 Last Admin: 08/11/21 17:21 Dose: 5 mg Documented by: Nitroglycerin (Nitroglycerin Oint 1 Inch/Gm Oint...G.) 1 inch TOP NOW ONE Stop: 08/11/21 16:16 Last Admin: 08/11/21 16:19 Dose: 1 inch Documented by: Vital Signs Vital signs: Vital Signs - 8 hr 08/11/21 15:12 08/11/21 16:24 08/11/21 16:27 Temperature 97.7 F Pulse Rate 105 H 88 88 Respiratory Rate 24 37 H 23 Blood Pressure 185/115 H 192/107 H Pulse Oximetry 100 98 99 08/11/21 16:30 08/11/21 16:56 08/11/21 17:00 Temperature Pulse Rate 86 78 75 Respiratory Rate 23 30 H 29 H Blood Pressure 174/110 H 192/117 H 204/107 H Pulse Oximetry 98 97 97 08/11/21 17:13 08/11/21 17:21 Temperature Pulse Rate 70 77 Respiratory Rate 17 26 H Blood Pressure 190/112 H 181/105 H Pulse Oximetry 97 98 <Sammy Little MD - Last Filed: 08/11/21 18:58> Course Course Narrative: The patient has vague dyspnea, with mild chest discomfort. He has an elevated BNP, no orthopnea and no peripheral edema his troponin from his recent visit to [facility] was 0.021. His current troponin 0.044. EKG changes included elevation in the anterior leads, with flipped ST segments in I, II and AVF. The inferior ST segment changes resolved after the patient was given aspirin, topical nitro and Lopressor. Recent EKG changes were obtained from [facility], indicating acute changes. He was also started on heparin and Plavix at this time. Code catheterization was called. The case was discussed with Dr. Henley at [facility]. The patient was transferred by EMS. The patient is stable at the time of discharge. Orders Ordered: ED Orders 08/11/21 15:18 XR chest 1V Stat EKG-12 Lead Stat Measure peak expiratory flow ONCE RT Consult Eval and Treat Now 08/11/21 15:51 Complete Blood Count AUTO DIFF Stat Comprehensive Metabolic Panel Stat D Dimer Stat Lactate (Lactic Acid) Stat NT-proBNP (BNP-Adult 18+) Stat Troponin & CK Cardiac Panel Stat 08/11/21 16:03 COVID19 -Nasal swab/Pre-Proc Stat 08/11/21 17:10 PTT [Partial Thromboplastin Time] Stat Sodium Chloride (Normal Saline 0.9%) 1,000 mls @ 150 mls/hr IV BOLUS ONE Stop: 08/11/21 23:22 Last Infusion: 08/11/21 17:29 Dose: Infused Documented by: Heparin Sodium/Dextrose (Heparin Drip) 25,000 unit in 500 mls @ 20 mls/hr IV CONT JENNY; Protocol Last Admin: 08/11/21 17:20 Dose: 1,000 units/hr, 20 mls/hr Documented by: Discontinued Medications Aspirin (Aspirin 81 Mg Chew Tab) 324 mg PO NOW ONE Stop: 08/11/21 16:16 Last Admin: 08/11/21 16:18 Dose: 324 mg Documented by: Clopidogrel Bisulfate (Clopidogrel 75 Mg Tablet) 600 mg PO NOW ONE Stop: 08/11/21 17:09 Last Admin: 08/11/21 17:21 Dose: 600 mg Documented by: Heparin Sodium (Porcine) (Heparin 5,000 Unit/Ml Vial) 5,000 unit 80 unit/kg (8000 unit) IV NOW ONE Stop: 08/11/21 17:16 Last Admin: 08/11/21 17:21 Dose: 5,000 unit Documented by: Metoprolol Tartrate (Metoprolol Tartrate 5 Mg/5 Ml Inj) 5 mg IV Q5M JENNY Stop: 08/11/21 16:41 Last Admin: 08/11/21 17:21 Dose: 5 mg Documented by: Nitroglycerin (Nitroglycerin Oint 1 Inch/Gm Oint...G.) 1 inch TOP NOW ONE Stop: 08/11/21 16:16 Last Admin: 08/11/21 16:19 Dose: 1 inch Documented by: Vital Signs Vital signs: Vital Signs - 8 hr 08/11/21 15:12 08/11/21 16:24 08/11/21 16:27 Temperature 97.7 F Pulse Rate 105 H 88 88 Respiratory Rate 24 37 H 23 Blood Pressure 185/115 H 192/107 H Pulse Oximetry 100 98 99 08/11/21 16:30 08/11/21 16:56 08/11/21 17:00 Temperature Pulse Rate 86 78 75 Respiratory Rate 23 30 H 29 H Blood Pressure 174/110 H 192/117 H 204/107 H Pulse Oximetry 98 97 97 08/11/21 17:13 08/11/21 17:21 Temperature Pulse Rate 70 77 Respiratory Rate 17 26 H Blood Pressure 190/112 H 181/105 H Pulse Oximetry 97 98 MDM - SOB/Dyspnea <Edi Scherer PA-C - Last Filed: 08/11/21 15:51> Lab Data Result diagrams: 08/11/21 15:51 08/11/21 15:51 Labs: Lab Results 08/11/21 08/11/21 08/11/21 Range/Units 15:51 15:51 15:51 WBC 9.9 (4.5-11.0) X10^3/uL RBC 6.25 H (4.5-5.9) X10^6/uL Hgb 18.0 H (13.5-17.5) g/dL Hct 54.6 H (41-53) % MCV 87.5 (80-100) fL MCH 28.9 (26-34) PG MCHC 33.0 (30-36) % RDW 15.8 H (11.6-14.8) % Plt Count 208 (150-400) X10^3/uL Neut % (Auto) 81.9 H (50-75) % Lymph % (Auto) 9.2 L (25-40) % Lyon % (Auto) 7.6 (3-14) % Eos % (Auto) 1.0 L (2-4) % Baso % (Auto) 0.3 (0-2) % Neut # (Auto) 8100 H (3432-2159) /uL Lymph # (Auto) 900 L (9934-4826) /uL Lyon # (Auto) 700 (0-900) /uL Eos # (Auto) 100 (0-450) /uL Baso # (Auto) 0 (0-100) /uL APTT (26.4-36.2) SECONDS D-Dimer (<230) ng/mL Sodium 140 (137-145) mmol/L Potassium 4.4 (3.4-5.1) mmol/L Chloride 104 (98-107) mmol/L Carbon Dioxide 27 (22-32) mmol/L BUN 30 H (9-20) mg/dL Creatinine 1.57 H (0.66-1.25) mg/dL Estimated GFR 43.4 L (>60) mL/min BUN/Creatinine Ratio 19.1 (6-22) Glucose 107 (80-110) mg/dL Lactate 1.1 (0.7-2.1) mmol/L Calcium 10.2 (8.4-10.2) mg/dL Total Bilirubin 1.1 (0.2-1.3) mg/dL AST 40 (17-59) IU/L ALT 27 (<50) IU/L Alkaline Phosphatase 76 (38-126) U/L Total Creatine Kinase (55-170) U/L CK-MB (CK-2) CK-MB (CK-2) Rel Index Troponin I (0.01-0.034) ng/mL NT-Pro-B Natriuret Pep (<125) pg/mL Total Protein 8.9 H (6.3-8.2) g/dL Albumin 5.1 H (3.5-5.0) g/dL Globulin 3.8 (1.7-4.1) g/dL Albumin/Globulin Ratio 1.3 (1.0-2.8) SARS-CoV-2 (PCR) (Negative) 08/11/21 08/11/21 08/11/21 Range/Units 15:51 15:51 15:51 WBC (4.5-11.0) X10^3/uL RBC (4.5-5.9) X10^6/uL Hgb (13.5-17.5) g/dL Hct (41-53) % MCV (80-100) fL MCH (26-34) PG MCHC (30-36) % RDW (11.6-14.8) % Plt Count (150-400) X10^3/uL Neut % (Auto) (50-75) % Lymph % (Auto) (25-40) % Lyon % (Auto) (3-14) % Eos % (Auto) (2-4) % Baso % (Auto) (0-2) % Neut # (Auto) (3509-9439) /uL Lymph # (Auto) (9027-5547) /uL Lyon # (Auto) (0-900) /uL Eos # (Auto) (0-450) /uL Baso # (Auto) (0-100) /uL APTT 31 (26.4-36.2) SECONDS D-Dimer 334 H (<230) ng/mL Sodium (137-145) mmol/L Potassium (3.4-5.1) mmol/L Chloride (98-107) mmol/L Carbon Dioxide (22-32) mmol/L BUN (9-20) mg/dL Creatinine (0.66-1.25) mg/dL Estimated GFR (>60) mL/min BUN/Creatinine Ratio (6-22) Glucose (80-110) mg/dL Lactate (0.7-2.1) mmol/L Calcium (8.4-10.2) mg/dL Total Bilirubin (0.2-1.3) mg/dL AST (17-59) IU/L ALT (<50) IU/L Alkaline Phosphatase (38-126) U/L Total Creatine Kinase 99 (55-170) U/L CK-MB (CK-2) TNP CK-MB (CK-2) Rel Index TNP Troponin I 0.044 H (0.01-0.034) ng/mL NT-Pro-B Natriuret Pep 667 H (<125) pg/mL Total Protein (6.3-8.2) g/dL Albumin (3.5-5.0) g/dL Globulin (1.7-4.1) g/dL Albumin/Globulin Ratio (1.0-2.8) SARS-CoV-2 (PCR) (Negative) 08/11/21 Range/Units 16:03 WBC (4.5-11.0) X10^3/uL RBC (4.5-5.9) X10^6/uL Hgb (13.5-17.5) g/dL Hct (41-53) % MCV (80-100) fL MCH (26-34) PG MCHC (30-36) % RDW (11.6-14.8) % Plt Count (150-400) X10^3/uL Neut % (Auto) (50-75) % Lymph % (Auto) (25-40) % Lyon % (Auto) (3-14) % Eos % (Auto) (2-4) % Baso % (Auto) (0-2) % Neut # (Auto) (2605-3013) /uL Lymph # (Auto) (4451-2158) /uL Lyon # (Auto) (0-900) /uL Eos # (Auto) (0-450) /uL Baso # (Auto) (0-100) /uL APTT (26.4-36.2) SECONDS D-Dimer (<230) ng/mL Sodium (137-145) mmol/L Potassium (3.4-5.1) mmol/L Chloride (98-107) mmol/L Carbon Dioxide (22-32) mmol/L BUN (9-20) mg/dL Creatinine (0.66-1.25) mg/dL Estimated GFR (>60) mL/min BUN/Creatinine Ratio (6-22) Glucose (80-110) mg/dL Lactate (0.7-2.1) mmol/L Calcium (8.4-10.2) mg/dL Total Bilirubin (0.2-1.3) mg/dL AST (17-59) IU/L ALT (<50) IU/L Alkaline Phosphatase (38-126) U/L Total Creatine Kinase (55-170) U/L CK-MB (CK-2) CK-MB (CK-2) Rel Index Troponin I (0.01-0.034) ng/mL NT-Pro-B Natriuret Pep (<125) pg/mL Total Protein (6.3-8.2) g/dL Albumin (3.5-5.0) g/dL Globulin (1.7-4.1) g/dL Albumin/Globulin Ratio (1.0-2.8) SARS-CoV-2 (PCR) Negative (Negative) <Sammy Little MD - Last Filed: 08/11/21 18:58> Lab Data Labs: Lab Results 08/11/21 08/11/21 08/11/21 Range/Units 15:51 15:51 15:51 WBC 9.9 (4.5-11.0) X10^3/uL RBC 6.25 H (4.5-5.9) X10^6/uL Hgb 18.0 H (13.5-17.5) g/dL Hct 54.6 H (41-53) % MCV 87.5 (80-100) fL MCH 28.9 (26-34) PG MCHC 33.0 (30-36) % RDW 15.8 H (11.6-14.8) % Plt Count 208 (150-400) X10^3/uL Neut % (Auto) 81.9 H (50-75) % Lymph % (Auto) 9.2 L (25-40) % Lyon % (Auto) 7.6 (3-14) % Eos % (Auto) 1.0 L (2-4) % Baso % (Auto) 0.3 (0-2) % Neut # (Auto) 8100 H (1941-0962) /uL Lymph # (Auto) 900 L (8319-0477) /uL Lyon # (Auto) 700 (0-900) /uL Eos # (Auto) 100 (0-450) /uL Baso # (Auto) 0 (0-100) /uL APTT (26.4-36.2) SECONDS D-Dimer (<230) ng/mL Sodium 140 (137-145) mmol/L Potassium 4.4 (3.4-5.1) mmol/L Chloride 104 (98-107) mmol/L Carbon Dioxide 27 (22-32) mmol/L BUN 30 H (9-20) mg/dL Creatinine 1.57 H (0.66-1.25) mg/dL Estimated GFR 43.4 L (>60) mL/min BUN/Creatinine Ratio 19.1 (6-22) Glucose 107 (80-110) mg/dL Lactate 1.1 (0.7-2.1) mmol/L Calcium 10.2 (8.4-10.2) mg/dL Total Bilirubin 1.1 (0.2-1.3) mg/dL AST 40 (17-59) IU/L ALT 27 (<50) IU/L Alkaline Phosphatase 76 (38-126) U/L Total Creatine Kinase (55-170) U/L CK-MB (CK-2) CK-MB (CK-2) Rel Index Troponin I (0.01-0.034) ng/mL NT-Pro-B Natriuret Pep (<125) pg/mL Total Protein 8.9 H (6.3-8.2) g/dL Albumin 5.1 H (3.5-5.0) g/dL Globulin 3.8 (1.7-4.1) g/dL Albumin/Globulin Ratio 1.3 (1.0-2.8) SARS-CoV-2 (PCR) (Negative) 08/11/21 08/11/21 08/11/21 Range/Units 15:51 15:51 15:51 WBC (4.5-11.0) X10^3/uL RBC (4.5-5.9) X10^6/uL Hgb (13.5-17.5) g/dL Hct (41-53) % MCV (80-100) fL MCH (26-34) PG MCHC (30-36) % RDW (11.6-14.8) % Plt Count (150-400) X10^3/uL Neut % (Auto) (50-75) % Lymph % (Auto) (25-40) % Lyon % (Auto) (3-14) % Eos % (Auto) (2-4) % Baso % (Auto) (0-2) % Neut # (Auto) (5811-3661) /uL Lymph # (Auto) (3535-3780) /uL Lyon # (Auto) (0-900) /uL Eos # (Auto) (0-450) /uL Baso # (Auto) (0-100) /uL APTT 31 (26.4-36.2) SECONDS D-Dimer 334 H (<230) ng/mL Sodium (137-145) mmol/L Potassium (3.4-5.1) mmol/L Chloride (98-107) mmol/L Carbon Dioxide (22-32) mmol/L BUN (9-20) mg/dL Creatinine (0.66-1.25) mg/dL Estimated GFR (>60) mL/min BUN/Creatinine Ratio (6-22) Glucose (80-110) mg/dL Lactate (0.7-2.1) mmol/L Calcium (8.4-10.2) mg/dL Total Bilirubin (0.2-1.3) mg/dL AST (17-59) IU/L ALT (<50) IU/L Alkaline Phosphatase (38-126) U/L Total Creatine Kinase 99 (55-170) U/L CK-MB (CK-2) TNP CK-MB (CK-2) Rel Index TNP Troponin I 0.044 H (0.01-0.034) ng/mL NT-Pro-B Natriuret Pep 667 H (<125) pg/mL Total Protein (6.3-8.2) g/dL Albumin (3.5-5.0) g/dL Globulin (1.7-4.1) g/dL Albumin/Globulin Ratio (1.0-2.8) SARS-CoV-2 (PCR) (Negative) 08/11/21 Range/Units 16:03 WBC (4.5-11.0) X10^3/uL RBC (4.5-5.9) X10^6/uL Hgb (13.5-17.5) g/dL Hct (41-53) % MCV (80-100) fL MCH (26-34) PG MCHC (30-36) % RDW (11.6-14.8) % Plt Count (150-400) X10^3/uL Neut % (Auto) (50-75) % Lymph % (Auto) (25-40) % Lyon % (Auto) (3-14) % Eos % (Auto) (2-4) % Baso % (Auto) (0-2) % Neut # (Auto) (7324-7860) /uL Lymph # (Auto) (7398-8308) /uL Lyon # (Auto) (0-900) /uL Eos # (Auto) (0-450) /uL Baso # (Auto) (0-100) /uL APTT (26.4-36.2) SECONDS D-Dimer (<230) ng/mL Sodium (137-145) mmol/L Potassium (3.4-5.1) mmol/L Chloride (98-107) mmol/L Carbon Dioxide (22-32) mmol/L BUN (9-20) mg/dL Creatinine (0.66-1.25) mg/dL Estimated GFR (>60) mL/min BUN/Creatinine Ratio (6-22) Glucose (80-110) mg/dL Lactate (0.7-2.1) mmol/L Calcium (8.4-10.2) mg/dL Total Bilirubin (0.2-1.3) mg/dL AST (17-59) IU/L ALT (<50) IU/L Alkaline Phosphatase (38-126) U/L Total Creatine Kinase (55-170) U/L CK-MB (CK-2) CK-MB (CK-2) Rel Index Troponin I (0.01-0.034) ng/mL NT-Pro-B Natriuret Pep (<125) pg/mL Total Protein (6.3-8.2) g/dL Albumin (3.5-5.0) g/dL Globulin (1.7-4.1) g/dL Albumin/Globulin Ratio (1.0-2.8) SARS-CoV-2 (PCR) Negative (Negative) ABG Data Attestation: I personally reviewed and interpreted this ABG as follows: Imaging Data Chest x-ray: Radiologist's Impression: No acute cardiopulmonary process. ECG Data Attestation: I personally reviewed and interpreted this ECG as follows: (EKG 1.: Sinus tachycardia rate 105 beats per minute. LAD. ST elevation in the anterior leads. Ischemic changes in the inferior leads. Findings consistent with acute PA. EKG 2., after medications, acute anterior PA. Resolution of inferior ischemic changes.) Prior ECG tracings: available for review (EKG from his recent hospitalization schedule the hospitals reviewed. There is a baseline ST change in the anterior leads, the inferior ischemic changes are obviously new.) <Sammy Little MD - Last Filed: 08/11/21 18:58> Critical Care Time Critical Care Time: Yes Total Critical Care Time: 50 Attestation: Time included initial patient evaluation, review of medical records, and review of EKG, lab and chest x-ray data. Multiple clinical decisions were made. Patient was informed of the clinical situation. I discussed the case initially with Dr. Henley at [facility], then Dr. Castillo, chicken sexer after the transfer was initiated. Discharge Plan Departure Patient Disposition: [facility] Clinical Impression: Acute myocardial infarction of anterior wall, Hypertension, Chronic renal insufficiency Prescriptions: No Action testosterone cypionate [Depo-Testosterone] 200 MG/1 ML oil 0.5 ml subcut SEEINSTR Qty: 9 0RF Rx Instructions: Injects 3 times/month tadalafil [Cialis] 5 mg tablet 5 mg PO DAILY Qty: 90 3RF clonidine (PF) 1,000 mcg/10 mL (100 mcg/mL) Solution 180 mcg continuous epidural DAILY 0RF hydromorphone 2 mg Tablet 2 mg PO Q6H PRN (Reason: pain) Qty: 45 0RF prednisone 10 mg tablet 10 mg PO DAILY Qty: 70 0RF Rx Instructions: 40 mg PO qd x 7d, then 30 mg PO qd x 7d, then 20 mg PO qd x 7 d, then 10 mg PO qd x 7d carvedilol 6.25 mg Tablet 6.25 mg PO QAM 0RF Rx Instructions: 6.25mg qam acyclovir 200 mg Capsule 200 mg PO 5XD PRN (Reason: Fever blisters) 0RF hydromorphone 4 mg tablet 4 mg PO Q4-6H PRN (Reason: Breakthrough Pain) 0RF Label Comments: last dose 1-2 months ago aspirin [Aspirin Low Dose] 81 mg tablet,delayed release (DR/EC) 81 mg PO DAILY 0RF furosemide 20 mg tablet 20 mg PO DAILY 0RF hydromorphone (PF) 1 mg/mL solution 1 mg epidural Q4H PRN0RF Rx Instructions: 2.7mg in pain pump daily bupivacaine (PF) [Sensorcaine-MPF] 0.5 % (5 mg/mL) solution epidural 0RF Rx Instructions: 3mg in pump daily (DME) Respironics Dreamstation CPAP Qty: 1 0RF Dose Instruction: As directed Label Comments: Pressure: IPAP 20 EPAP 10 DME: [facility] Rx Instructions: As directed doxycycline hyclate 100 mg tablet 100 mg PO BID 0RF mecobalamin (vitamin B12) 1,000 mcg tablet,chewable 1,000 mcg PO DAILY 0RF Referrals: Ishmael Friedman MD [Primary Care Provider] -
[2021-08-11 16:05] LABS: Add Manual Diff / Slide Review NO; Basophils Absolute Auto 0 /uL (0-100); Basophils Percent Auto 0.3 % (0-2); Eosinophils Absolute Auto 100 /uL (0-450); Hematocrit 54.6 % (41-53); Lymphocytes Absolute Auto 900 /uL (1100-4500); Lymphocytes Percent Auto 9.2 % (25-40); Mean Corpuscular Hemoglobin 28.9 PG (26-34); Mean Corpuscular Volume 87.5 fL (80-100); Monocytes Absolute Auto 700 /uL (0-900); Monocytes Percent Auto 7.6 % (3-14); Neutrophils Absolute Auto 8100 /uL (1500-7000); Neutrophils Percent Auto 81.9 % (50-75); Platelet Count 208 X10^3/uL (150-400); Red Blood Cell Count 6.25 X10^6/uL (4.5-5.9); Red Cell Distribution Width 15.8 % (11.6-14.8); White Blood Cell Count 9.9 X10^3/uL (4.5-11.0)
--- NOTE | 2021-08-11 16:10 | ED.SOB ---
HPI - SOB/Dyspnea General Chief Complaint: Shortness of Breath/Dyspnea Stated Complaint: SOB Time Seen by Provider: 08/11/21 15:36 Source: patient Mode of arrival: Ambulatory Limitations: no limitations History of Present Illness HPI Narrative: The patient presents with dyspnea and fatigue. He was recently transferred from [place] to [facility] with chest discomfort as well as above symptoms. Apparently his field EKG was bothersome to the paramedics. Admission included an echocardiogram, and a chemical stress test. He reports these tests were negative. He denies recent illness. He has no fever, chills, and no cough. Dyspnea persist. He has no hemoptysis. He does have back pain. However he has chronic back pain, he has undergone 11 back surgeries. He has an intrathecal pain pump in his abdominal wall. He has no abdominal discomfort. He denies palpitations, weakness or dizziness with above symptoms. He has a history of CAD with 2 vessel CABG in 2016. He experienced postop atrial fib, he does not have chronic AFib. Related Data Home Medications Medication Instructions Recorded Confirmed testosterone cypionate 200 mg/mL 0.5 ml SUBCUT SEEINSTR #9 06/13/17 03/16/21 intramuscular oil (Depo-Testosterone) aspirin 81 mg tablet,delayed 81 mg PO DAILY 09/03/18 03/16/21 release (Aspirin Low Dose) acyclovir 200 mg capsule 200 mg PO 5XD PRN 11/05/18 03/16/21 carvedilol 6.25 mg tablet 6.25 mg PO QAM 11/05/18 03/16/21 hydromorphone 4 mg tablet 4 mg PO Q4-6H PRN 11/10/18 03/16/21 Respironics Dreamstation CPAP #1 ea 11/27/18 03/16/21 clonidine (PF) 1,000 mcg/10 mL 180 mcg CONTINUOUS EPIDURAL DAILY 03/06/19 03/16/21 (100 mcg/mL) epidural solution doxycycline hyclate 100 mg tablet 100 mg PO BID 06/23/20 03/16/21 mecobalamin (vitamin B12) 1,000 1,000 mcg PO DAILY 06/23/20 03/16/21 mcg chewable tablet bupivacaine (PF) 0.5 % (5 mg/mL) mg EPIDURAL 03/16/21 03/16/21 injection solution (Sensorcaine-MPF) furosemide 20 mg tablet 20 mg PO DAILY 03/16/21 03/16/21 hydromorphone (PF) 1 mg/mL 1 mg EPIDURAL Q4H PRN 03/16/21 03/16/21 injection solution Previous Rx's Medication Instructions Recorded hydromorphone 2 mg tablet 2 mg PO Q6H PRN #45 tab 10/02/20 prednisone 10 mg tablet 10 mg PO DAILY #70 tab 10/02/20 tadalafil 5 mg tablet (Cialis) 5 mg PO DAILY #90 tab 04/24/21 Allergies Allergy/AdvReac Type Severity Reaction Status Date / Time morphine [MORPHINE] Allergy Intermediate BLISTERS Verified 08/11/21 15:32 aspartame AdvReac Severe SEVERE Verified 08/11/21 15:32 [From NUTRASWEET ASPARTAME] HEADACHES banana AdvReac Severe Severe Verified 08/11/21 15:32 headaches chocolate flavor AdvReac Severe Headaches Verified 08/11/21 15:32 gabapentin [GABAPENTIN] AdvReac Severe SEVERE Verified 08/11/21 15:32 AGITATION, DEPRESSION, ANXIETY hydrochlorothiazide AdvReac Severe HEADACHES Verified 08/11/21 15:32 [HYDROCHLOROTHIAZIDE] hydrocodone [HYDROCODONE] AdvReac Severe SEVERE Verified 08/11/21 15:32 HEADACHES metoprolol [METOPROLOL] AdvReac Severe HEADACHES Verified 08/11/21 15:32 omeprazole [OMEPRAZOLE] AdvReac Severe SEVERE Verified 08/11/21 15:32 HEADACHES & DIZZINESS oxycodone [OXYCODONE] AdvReac Severe HEADACHES Verified 08/11/21 15:32 nifedipine [From Procardia] AdvReac Gastrointestinal Verified 08/11/21 15:32 Upset Udwdfvd-PTU-OpU Reductase AdvReac Gastrointestinal Verified 08/11/21 15:32 Inhibitor Upset [Dbrhdcp-Edd-Jmn Reductase Inhibitor] ACID BLOCKERS AdvReac Severe SEVERE Uncoded 03/16/21 14:32 HEADACHES & DIZZINESS Review of Systems Constitutional Constitutional: Denies frequent falls and Denies weakness Eyes Eyes: Denies loss of vision ENT Ears, Nose, Mouth, and Throat: Denies dizziness Musculoskeletal Musculoskeletal: Denies numbness and Denies tingling Neurologic Neurologic: Denies behavioral changes, Denies confusion, Denies dizziness, Denies frequent falls, Denies loss of vision, Denies numbness, Denies tingling and Denies weakness Psychiatric Psychiatric: Denies behavioral changes and Denies confusion Patient History Medical History Arachnoiditis Atypical chest pain BPH w urinary obs/LUTS Cardiac murmur Central sleep apnea Coronary artery disease Erectile dysfunction GERD (gastroesophageal reflux disease) EGEGIK (hard of hearing) Hypertension Leg edema, right Lower urinary tract symptoms (LUTS) Obstructive sleep apnea of adult Opioid dependence with current use Postoperative atrial fibrillation Serum lipase elevation Small bowel obstruction Statin intolerance (~07/2015) Tachycardia Throat irritation Vitamin B12 deficiency Surgical History History of appendectomy History of bilateral knee arthroplasty History of fundoplication History of lumbar surgery Hx of sinus surgery (03/12/18) S/P CABG x 2 S/P insertion of spinal cord stimulator (~2002) S/P lumbar spinal fusion (11/10/18) S/P total knee arthroplasty Status post bilateral cataract extraction (~10/2014) Social History marital status: household members: spouse Smoking Status: Never smoker alcohol intake: never substance use type: does not use Smoking Status: Never smoker alcohol intake frequency: other Substance Use Type: does not use Exam Initial Vital Signs Initial Vital Signs: Vital Signs Temperature 97.7 F 08/11/21 15:12 Pulse Rate 105 H 08/11/21 15:12 Respiratory Rate 24 08/11/21 15:12 Blood Pressure 185/115 H 08/11/21 15:12 Pulse Oximetry 100 08/11/21 15:12 Course Orders Ordered: ED Orders 08/11/21 15:18 XR chest 1V Stat EKG-12 Lead Stat Measure peak expiratory flow ONCE RT Consult Eval and Treat Now 08/11/21 15:51 Complete Blood Count AUTO DIFF Stat Comprehensive Metabolic Panel Stat D Dimer Stat Lactate (Lactic Acid) Stat NT-proBNP (BNP-Adult 18+) Stat PTT [Partial Thromboplastin Time] Stat Troponin & CK Cardiac Panel Stat 08/11/21 16:03 COVID19 -Nasal swab/Pre-Proc Stat Discontinued Medications Aspirin (Aspirin 81 Mg Chew Tab) 324 mg PO NOW ONE Stop: 08/11/21 16:16 Last Admin: 08/11/21 16:18 Dose: 324 mg Documented by: VENKAT Clopidogrel Bisulfate (Clopidogrel 75 Mg Tablet) 600 mg PO NOW ONE Stop: 08/11/21 17:09 Last Admin: 08/11/21 17:21 Dose: 600 mg Documented by: VENKAT Heparin Sodium (Porcine) (Heparin 5,000 Unit/Ml Vial) 5,000 unit 80 unit/kg (8000 unit) IV NOW ONE Stop: 08/11/21 17:16 Last Admin: 08/11/21 17:21 Dose: 5,000 unit Documented by: VENKAT Sodium Chloride (Normal Saline 0.9%) 1,000 mls @ 150 mls/hr IV BOLUS ONE Stop: 08/11/21 23:22 Last Infusion: 08/11/21 17:29 Dose: 0 mls/hr Documented by: Admin: 08/11/21 16:44 Dose: 150 mls/hr Documented by: VENKAT Heparin Sodium/Dextrose (Heparin Drip) 25,000 unit in 500 mls @ 20 mls/hr IV CONT JENNY; Protocol Last Titration: 08/11/21 17:31 Dose: 0 units/hr, 0 mls/hr Documented by: Titration: 08/11/21 17:30 Dose: 0 units/hr, 0 mls/hr Documented by: Admin: 08/11/21 17:20 Dose: 1,000 units/hr, 20 mls/hr Documented by: VENKAT Metoprolol Tartrate (Metoprolol Tartrate 5 Mg/5 Ml Inj) 5 mg IV Q5M [facility] Stop: 08/11/21 16:41 Last Admin: 08/11/21 17:21 Dose: 5 mg Documented by: Admin: 08/11/21 16:57 Dose: 5 mg Documented by: Admin: 08/11/21 16:44 Dose: 5 mg Documented by: VENKAT Nitroglycerin (Nitroglycerin Oint 1 Inch/Gm Oint...G.) 1 inch TOP NOW ONE Stop: 08/11/21 16:16 Last Admin: 08/11/21 16:19 Dose: 1 inch Documented by: VENKAT Vital Signs Vital signs: Vital Signs - 8 hr 08/11/21 15:12 08/11/21 16:24 08/11/21 16:27 Temperature 97.7 F Pulse Rate 105 H 88 88 Respiratory Rate 24 37 H 23 Blood Pressure 185/115 H 192/107 H Pulse Oximetry 100 98 99 08/11/21 16:30 08/11/21 16:56 08/11/21 17:00 Temperature Pulse Rate 86 78 75 Respiratory Rate 23 30 H 29 H Blood Pressure 174/110 H 192/117 H 204/107 H Pulse Oximetry 98 97 97 08/11/21 17:13 08/11/21 17:21 Temperature Pulse Rate 70 77 Respiratory Rate 17 26 H Blood Pressure 190/112 H 181/105 H Pulse Oximetry 97 98 MDM - SOB/Dyspnea Lab Data Result diagrams: 08/11/21 15:51 08/11/21 15:51 Labs: Lab Results 08/11/21 08/11/21 08/11/21 Range/Units 15:51 15:51 15:51 WBC 9.9 (4.5-11.0) X10^3/uL RBC 6.25 H (4.5-5.9) X10^6/uL Hgb 18.0 H (13.5-17.5) g/dL Hct 54.6 H (41-53) % MCV 87.5 (80-100) fL MCH 28.9 (26-34) PG MCHC 33.0 (30-36) % RDW 15.8 H (11.6-14.8) % Plt Count 208 (150-400) X10^3/uL Neut % (Auto) 81.9 H (50-75) % Lymph % (Auto) 9.2 L (25-40) % [place] % (Auto) 7.6 (3-14) % Eos % (Auto) 1.0 L (2-4) % Baso % (Auto) 0.3 (0-2) % Neut # (Auto) 8100 H (4438-6420) /uL Lymph # (Auto) 900 L (4867-6370) /uL [place] # (Auto) 700 (0-900) /uL Eos # (Auto) 100 (0-450) /uL Baso # (Auto) 0 (0-100) /uL APTT (26.4-36.2) SECONDS D-Dimer (<230) ng/mL Sodium 140 (137-145) mmol/L Potassium 4.4 (3.4-5.1) mmol/L Chloride 104 (98-107) mmol/L Carbon Dioxide 27 (22-32) mmol/L BUN 30 H (9-20) mg/dL Creatinine 1.57 H (0.66-1.25) mg/dL Estimated GFR 43.4 L (>60) mL/min BUN/Creatinine Ratio 19.1 (6-22) Glucose 107 (80-110) mg/dL Lactate 1.1 (0.7-2.1) mmol/L Calcium 10.2 (8.4-10.2) mg/dL Total Bilirubin 1.1 (0.2-1.3) mg/dL AST 40 (17-59) IU/L ALT 27 (<50) IU/L Alkaline Phosphatase 76 (38-126) U/L Total Creatine Kinase (55-170) U/L CK-MB (CK-2) CK-MB (CK-2) Rel Index Troponin I (0.01-0.034) ng/mL NT-Pro-B Natriuret Pep (<125) pg/mL Total Protein 8.9 H (6.3-8.2) g/dL Albumin 5.1 H (3.5-5.0) g/dL Globulin 3.8 (1.7-4.1) g/dL Albumin/Globulin Ratio 1.3 (1.0-2.8) SARS-CoV-2 (PCR) (Negative) 08/11/21 08/11/21 08/11/21 Range/Units 15:51 15:51 15:51 WBC (4.5-11.0) X10^3/uL RBC (4.5-5.9) X10^6/uL Hgb (13.5-17.5) g/dL Hct (41-53) % MCV (80-100) fL MCH (26-34) PG MCHC (30-36) % RDW (11.6-14.8) % Plt Count (150-400) X10^3/uL Neut % (Auto) (50-75) % Lymph % (Auto) (25-40) % [place] % (Auto) (3-14) % Eos % (Auto) (2-4) % Baso % (Auto) (0-2) % Neut # (Auto) (5971-0430) /uL Lymph # (Auto) (9159-3039) /uL [place] # (Auto) (0-900) /uL Eos # (Auto) (0-450) /uL Baso # (Auto) (0-100) /uL APTT 31 (26.4-36.2) SECONDS D-Dimer 334 H (<230) ng/mL Sodium (137-145) mmol/L Potassium (3.4-5.1) mmol/L Chloride (98-107) mmol/L Carbon Dioxide (22-32) mmol/L BUN (9-20) mg/dL Creatinine (0.66-1.25) mg/dL Estimated GFR (>60) mL/min BUN/Creatinine Ratio (6-22) Glucose (80-110) mg/dL Lactate (0.7-2.1) mmol/L Calcium (8.4-10.2) mg/dL Total Bilirubin (0.2-1.3) mg/dL AST (17-59) IU/L ALT (<50) IU/L Alkaline Phosphatase (38-126) U/L Total Creatine Kinase 99 (55-170) U/L CK-MB (CK-2) TNP CK-MB (CK-2) Rel Index TNP Troponin I 0.044 H (0.01-0.034) ng/mL NT-Pro-B Natriuret Pep 667 H (<125) pg/mL Total Protein (6.3-8.2) g/dL Albumin (3.5-5.0) g/dL Globulin (1.7-4.1) g/dL Albumin/Globulin Ratio (1.0-2.8) SARS-CoV-2 (PCR) (Negative) 08/11/21 Range/Units 16:03 WBC (4.5-11.0) X10^3/uL RBC (4.5-5.9) X10^6/uL Hgb (13.5-17.5) g/dL Hct (41-53) % MCV (80-100) fL MCH (26-34) PG MCHC (30-36) % RDW (11.6-14.8) % Plt Count (150-400) X10^3/uL Neut % (Auto) (50-75) % Lymph % (Auto) (25-40) % [place] % (Auto) (3-14) % Eos % (Auto) (2-4) % Baso % (Auto) (0-2) % Neut # (Auto) (3044-8607) /uL Lymph # (Auto) (1420-8223) /uL [place] # (Auto) (0-900) /uL Eos # (Auto) (0-450) /uL Baso # (Auto) (0-100) /uL APTT (26.4-36.2) SECONDS D-Dimer (<230) ng/mL Sodium (137-145) mmol/L Potassium (3.4-5.1) mmol/L Chloride (98-107) mmol/L Carbon Dioxide (22-32) mmol/L BUN (9-20) mg/dL Creatinine (0.66-1.25) mg/dL Estimated GFR (>60) mL/min BUN/Creatinine Ratio (6-22) Glucose (80-110) mg/dL Lactate (0.7-2.1) mmol/L Calcium (8.4-10.2) mg/dL Total Bilirubin (0.2-1.3) mg/dL AST (17-59) IU/L ALT (<50) IU/L Alkaline Phosphatase (38-126) U/L Total Creatine Kinase (55-170) U/L CK-MB (CK-2) CK-MB (CK-2) Rel Index Troponin I (0.01-0.034) ng/mL NT-Pro-B Natriuret Pep (<125) pg/mL Total Protein (6.3-8.2) g/dL Albumin (3.5-5.0) g/dL Globulin (1.7-4.1) g/dL Albumin/Globulin Ratio (1.0-2.8) SARS-CoV-2 (PCR) Negative (Negative) Imaging Data Chest x-ray: Radiologist's Impression: No acute cardiopulmonary disease. Discharge Plan Departure Patient Disposition: [facility] Clinical Impression: Acute myocardial infarction of anterior wall, Hypertension, Chronic renal insufficiency Prescriptions: No Action testosterone cypionate [Depo-Testosterone] 200 MG/1 ML oil 0.5 ml subcut SEEINSTR Qty: 9 0RF Rx Instructions: Injects 3 times/month tadalafil [Cialis] 5 mg tablet 5 mg PO DAILY Qty: 90 3RF clonidine (PF) 1,000 mcg/10 mL (100 mcg/mL) Solution 180 mcg continuous epidural DAILY 0RF hydromorphone 2 mg Tablet 2 mg PO Q6H PRN (Reason: pain) Qty: 45 0RF prednisone 10 mg tablet 10 mg PO DAILY Qty: 70 0RF Rx Instructions: 40 mg PO qd x 7d, then 30 mg PO qd x 7d, then 20 mg PO qd x 7 d, then 10 mg PO qd x 7d carvedilol 6.25 mg Tablet 6.25 mg PO QAM 0RF Rx Instructions: 6.25mg qam acyclovir 200 mg Capsule 200 mg PO 5XD PRN (Reason: Fever blisters) 0RF hydromorphone 4 mg tablet 4 mg PO Q4-6H PRN (Reason: Breakthrough Pain) 0RF Label Comments: last dose 1-2 months ago aspirin [Aspirin Low Dose] 81 mg tablet,delayed release (DR/EC) 81 mg PO DAILY 0RF furosemide 20 mg tablet 20 mg PO DAILY 0RF hydromorphone (PF) 1 mg/mL solution 1 mg epidural Q4H PRN0RF Rx Instructions: 2.7mg in pain pump daily bupivacaine (PF) [Sensorcaine-MPF] 0.5 % (5 mg/mL) solution epidural 0RF Rx Instructions: 3mg in pump daily (DME) Respironics Dreamstation CPAP Qty: 1 0RF Dose Instruction: As directed Label Comments: Pressure: IPAP 20 EPAP 10 DME: [facility] Rx Instructions: As directed doxycycline hyclate 100 mg tablet 100 mg PO BID 0RF mecobalamin (vitamin B12) 1,000 mcg tablet,chewable 1,000 mcg PO DAILY 0RF Referrals: Ishmael Friedman MD [Primary Care Provider] -
[2021-08-11] MEDS: ASPIRIN 81 MG CHEW TAB 324 MG PO (16:18)
[2021-08-11] MEDS: NITROGLYCERIN OINT 1 INCH/GM OINT...G. TOP (16:19)
[2021-08-11 16:21] LABS: D Dimer 334 ng/mL (<230)
[2021-08-11 16:27] LABS: Alanine Aminotransferase 27 IU/L (<50); Albumin 5.1 g/dL (3.5-5.0); Albumin Globulin Ratio 1.3 (1.0-2.8); Alkaline Phosphatase 76 U/L (38-126); Aspartate Aminotransferase 40 IU/L (17-59); BUN Creatinine Ratio 19.1 (6-22); Bilirubin Total 1.1 mg/dL (0.2-1.3); Blood Urea Nitrogen 30 mg/dL (9-20); Calcium 10.2 mg/dL (8.4-10.2); Carbon Dioxide 27 mmol/L (22-32); Chloride 104 mmol/L (98-107); Creatine Kinase 99 U/L (55-170); Estimated Glomerular Filt Rate 43.4 mL/min (>60); Globulin 3.8 g/dL (1.7-4.1); Glucose 107 mg/dL (80-110); HEMOLYSIS 28 (0-50); Potassium 4.4 mmol/L (3.4-5.1); Sodium 140 mmol/L (137-145); Total Protein 8.9 g/dL (6.3-8.2)
[2021-08-11 16:29] LABS: Lactate (Lactic Acid) 1.1 mmol/L (0.7-2.1)
[2021-08-11 16:39] LABS: NT-proBNP (BNP-Adult 18+) 667 pg/mL (<125); Troponin I 0.044 ng/mL (0.01-0.034)
[2021-08-11 16:40] LABS: COVID19 -Nasal RAPID Negative (Negative)
[2021-08-11] MEDS: METOPROLOL TARTRATE 5 MG/5 ML INJ IV ×3 (16:44→17:21)
[2021-08-11] MEDS: SODIUM CHLORIDE 0.9% 1,000 ML 150 ML IV (16:44)
[2021-08-11] MEDS: HEPARIN DRIP 25,000 UNIT/500 ML IV.SOLN 20 UNIT IV (17:20)
[2021-08-11 17:21] LABS: PTT Partial Thromboplastin Tim 31 SECONDS (26.4-36.2)
[2021-08-11] MEDS: HEPARIN 5,000 UNIT/ML VIAL 5000 UNIT IV (17:21)
[2021-08-11] MEDS: CLOPIDOGREL 75 MG TABLET 600 MG PO (17:21)
--- NOTE | 2021-08-11 17:30 | PC.NURSE ---
Patient continued to have chest pain despite nitropaste applied to chest. Provider ordered repeat EKG which showed changes from previous EKG in department. Second IV started for Heparin drip. EMS arrived at time of initiation of Heparin drip and was started at 1730 which was time of departure. Report called to [facility] ED with medication dosages, Heparin rate, and times. At time of discharge, patient appeared stable with Heparin infusing.
== END 2021-08-11 17:30 | disposition short-term general hospital (02) ==
PROVIDERS: Emergency Provider Emergency Medicine; PCP Family Medicine
DX: I21.9 Acute myocardial infarction, unspecified (principal); N18.9 Chronic kidney disease, unspecified; I12.9 Hypertensive chronic kidney disease with stage 1 through stage 4 chronic kidney disease, or unspecified chronic kidney disease; Z95.1 Presence of aortocoronary bypass graft; Z20.822 Contact with and (suspected) exposure to COVID-19
CPT/HCPCS: 36415; 71045; 80053; 82550; 83605; 83880; 84484; 85025; 85379; 85730; 87635; 93005; 96361; 96374; 96375; 99284; 99291; C9803; J1644

== ENCOUNTER → 2021-09-07 15:17 | Outpatient (CLI) | payer MEDICARE, OTHER, SELFPAY ==
[2020-11-30 14:03] VITALS: BMI 29.9
--- NOTE | 2021-09-13 11:26 | PM.PFT.1 ---
Pulmonary Function Test Referral & Results Date Patient Seen: 09/07/21 Requesting provider: Franki Correa Results: The spirometry demonstrates an FVC of 4.03 L which is 84% of predicted. The FEV1 was measured at 3.07 L which is 88% of predicted. The FEV1/FVC ratio was 76 which is 104% of predicted. Following the administration of bronchodilator there was no change. The diffusing capacity was measured at 46.37 which is 127% of predicted. Interpretation: This study demonstrates possible very mild obstructive lung disease based on forced spirometry only. No lung volumes were performed. No evidence of benefit following bronchodilator Diffusing capacity is normal
== END ==
PROVIDERS: PCP Family Medicine; Referring Provider Internal Medicine Cardiovascular Disease; Visit Provider Internal Medicine Cardiovascular Disease
DX: R06.00 Dyspnea, unspecified (principal); R06.03 Acute respiratory distress
CPT/HCPCS: 94060; 94729

== ENCOUNTER → 2021-09-11 09:59 | Outpatient (CLI) | payer MEDICARE, OTHER, SELFPAY ==
[2020-11-30 14:03] VITALS: BMI 29.9
[2021-09-11 12:09] LABS: Add Manual Diff / Slide Review NO; Basophils Absolute Auto 0 /uL (0-100); Basophils Percent Auto 0.6 % (0-2); Eosinophils Absolute Auto 200 /uL (0-450); Eosinophils Percent Auto 3.7 % (2-4); Hematocrit 44.5 % (41-53); Hemoglobin 14.8 g/dL (13.5-17.5); Lymphocytes Absolute Auto 1000 /uL (1100-4500); Lymphocytes Percent Auto 24.5 % (25-40); Mean Corpuscular HGB Conc 33.3 % (30-36); Mean Corpuscular Hemoglobin 29.4 PG (26-34); Mean Corpuscular Volume 88.4 fL (80-100); Monocytes Absolute Auto 500 /uL (0-900); Neutrophils Absolute Auto 2500 /uL (1500-7000); Neutrophils Percent Auto 60.2 % (50-75); Platelet Count 136 X10^3/uL (150-400); Red Blood Cell Count 5.04 X10^6/uL (4.5-5.9); Red Cell Distribution Width 16.8 % (11.6-14.8); White Blood Cell Count 4.1 X10^3/uL (4.5-11.0)
[2021-09-11 12:27] LABS: Erythrocyte Sedimentation Rate 4 MM/HR (0-15)
[2021-09-11 12:43] LABS: C-Reactive Protein Quant < 0.5 mg/dL (<1.0)
== END ==
PROVIDERS: PCP Family Medicine; Referring Provider Orthopaedic Surgery; Visit Provider Orthopaedic Surgery
DX: M25.561 Pain in right knee (principal)
CPT/HCPCS: 36415; 85025; 85651; 86140

== ENCOUNTER → 2021-10-20 12:03 | Outpatient (CLI) | payer MEDICARE, OTHER, SELFPAY ==
[2021-10-04 08:38] VITALS: BMI 29.9
--- NOTE | 2021-10-20 12:04 | DI.RAD.S_ITS ---
PROCEDURE: [place] BARIUM SWALLOW INDICATIONS: Dysphagia COMPARISON: None. FINDINGS: Function: There is normal esophageal peristalsis. Gastroesophageal reflux noted during the study which occurred without provocative maneuvers. There is normal transit of a calibrated barium tablet through the esophagus into the stomach. Morphology: Air-contrast images demonstrate normal mucosal morphology. Small hiatal hernia is noted. There is a prominent B ring proximal to the hiatal hernia which causes narrowing of the distal esophagus. No extrinsic mass effects, or diverticula. Limited images of the stomach demonstrate normal appearance. IMPRESSION: 1. Gastroesophageal reflux. 2. . Small hiatal hernia. 3. Prominent B ring which causes narrowing of the distal esophagus. Recommend gastroenterology consultation for endoscopy. Dictated by: Cici Morrison MD, PhD on 10/20/2021 at 13:20 Approved by: Cici Morrison MD, PhD on 10/20/2021 at 13:22
== END ==
PROVIDERS: PCP Family Medicine; Referring Provider Surgery; Visit Provider Surgery
DX: K21.9 Gastro-esophageal reflux disease without esophagitis (principal); K44.9 Diaphragmatic hernia without obstruction or gangrene; K22.2 Esophageal obstruction
CPT/HCPCS: 74220

== ENCOUNTER → 2021-11-01 14:16 | Outpatient (CLI) | payer MEDICARE, OTHER, SELFPAY ==
[2021-10-27 10:02] VITALS: BMI 29.9
[2021-11-01 15:53] LABS: COVID19 -Nasal RAPID Negative (Negative)
== END ==
PROVIDERS: PCP Family Medicine; Visit Provider Surgery
DX: Z01.812 Encounter for preprocedural laboratory examination (principal); Z20.822 Contact with and (suspected) exposure to COVID-19
CPT/HCPCS: 87635; C9803

== ENCOUNTER 2021-11-02 10:58 | Day surgery (SDC) | payer MEDICARE, OTHER, SELFPAY ==
[2021-10-27 10:02] VITALS: BMI 29.9
--- NOTE | 2021-11-02 | PATH_ITS ---
[facility] Accession Number: [id number] No. of containers..04 Tissue . 01 Material submitted: . PART A: duodenum - DUODENUM BIOPSY PART B: duodenum bulb - DUODENAL BULB BIOPSY PART C: gastrointestinal site - ANTRUM BIOPSY PART D: esophagus - ESOPHAGUS BIOPSY . 02 Diagnosis: A. Duodenum, Biopsy: Duodenal mucosa with no diagnostic abnormality. Negative for active inflammation, features of sprue, dysplasia, or malignancy. . B. Duodenum Bulb, Biopsy: Duodenal mucosa with no diagnostic abnormality. Negative for active inflammation, features of sprue, dysplasia, or malignancy. . C. Antrum, Biopsy: Antral mucosa with mild chronic inflammation and intestinal metaplasia. Negative for Helicobacter by immunohistochemistry. Negative for dysplasia and malignancy. . D. Esophagus, Biopsy: Squamocolumnar junctional mucosa with no diagnostic abnormality. Negative for intestinal metaplasia. Negative for dysplasia and malignancy. [facility] 11/08/2021 1237 Local . 02 Electronically signed: . Bety Gomes MD, Pathologist NPI- [id number] . 01 Gross description: . Part A: DUODENUM BIOPSY: Received in formalin is 1 fragment(s) of mak, soft tissue measuring 0.3 x 0.2 x 0.2 cm submitted entirely in 1 cassette(s) Part B: DUODENAL BULB BIOPSY: Received in formalin are 2 fragment(s) of mak, soft tissue measuring 0.3 x 0.1 x 0.1 cm to 0.2 x 0.2 x 0.2 cm submitted entirely in 1 cassette(s) Part C: ANTRUM BIOPSY: Received in formalin are 4 fragment(s) of mak, soft tissue measuring 0.5 x 0.3 x 0.1 cm to 0.3 x 0.2 x 0.2 cm submitted entirely in 1 cassette(s) Part D: ESOPHAGUS BIOPSY: Received in formalin is 2 fragment(s) of mak, soft tissue measuring 0.6 x 0.2 x 0.1 cm to 0.5 x 0.3 x 0.2 cm submitted entirely in 1 cassette(s) /S 11/03/2021 1039 Local . 02 Microscopic: . C. An immunohistochemical stain is performed to evaluate for Helicobacter organisms and is negative. The control stain shows appropriate reactivity. . * This test was developed and its performance characteristics determined by [facility]. It has not been cleared or approved by the U.S. Food and Drug Administration. The FDA has determined that such clearance or approval is not necessary. This test is used for clinical purposes. It should not be regarded as investigational or for research. . 02 Pathologist provided ICD-10: K21.9 . 02 CPT . 383238, 112941, 603177, 160097, [id number] Specimen Comment: A courtesy copy of this report has been sent to [phone] Performed at: 01 [facility] [address] [place] [address], [place], [place] [id number] MD Godfrey Ricci MD Phone: [phone] Performed at: 02 [facility] [address] [place], [place] [id number] MD Bety Gomes MD Phone: [phone]
[2021-11-02 11:18] VITALS: BP 153/84; PULSE 103; RESP 14; TEMP 36.6; O2SAT 96
[2021-11-02 11:24] VITALS: BMI 30.9
[2021-11-02] MEDS: LACTATED RINGERS 1,000 ML 84 ML IV (11:38)
--- NOTE | 2021-11-02 11:43 | PM.PREOP ---
Pre-operative Note COVID-19 COVID-19 status: Negative Result date/Date tested (Pos, Neg/Pending): 11/01/21 Interval Note History & Physical reviewed/Exam performed by Physician: Yes Changes to H&P: No ASA Class (for procedural sedation): II
[2021-11-02 11:44] VITALS: BMI 30.9
[2021-11-02] MEDS: LIDOCAINE 4% SOLN 50 ML 20 ML TOP (11:46)
[2021-11-02] MEDS: MIDAZOLAM 5 MG/5 ML VIAL IV (11:48)
[2021-11-02] MEDS: fentaNYL 250 MCG/5 ML INJ IV (11:48)
--- NOTE | 2021-11-02 12:06 | PM.OP.EGD ---
Operative Date/Time/Diagnoses Date of procedure: 11/02/21 Time of procedure: 12:06 Pre-op diagnosis: GERD Post-op diagnosis: same Procedure & Clinicians Study performed: Esophagogastroduodenoscopy Same procedure as scheduled: Yes Surgeon: Valeriano Kumar Procedure Notes Procedure in detail: A timeout was performed. A bite blocked was placed. The patient was positioned in the left lateral decubitus position. The endoscope was inserted through the bite block and passed through the esophagus and stomach and into the duodenum. Random biopsies were taken from the 2nd and 3rd portion of the duodenum. The scope was withdrawn into the duodenal bulb and some mild streaks of erythema was noted. Random biopsies were taken from the duodenal bulb. The scope was withdrawn into the stomach. There was some mild antritis without montse ulceration. Random biopsies were taken from the antrum. The rest of the stomach was normal. The scope was retroflexed and hiatus was examined. There is no significant hiatal hernia and it was not clear that the fundoplication was intact. The scope was withdrawn into the esophagus and the GE junction was examined. There was some mild esophagitis and random biopsies were taken from the distal esophagus. The remainder of the esophagus was normal. The scope was withdrawn. The patient was awakened and brought to recovery. Post-procedure Recommendations: Will call with biopsy results Disposition: PACU
[2021-11-02 12:17] VITALS: BP 129/81; PULSE 74; PULSE 76; RESP 14; RESP 16; TEMP 36.4; O2SAT 98; O2SAT 99
[2021-11-02 12:23] VITALS: BP 124/73; PULSE 76; RESP 16; O2SAT 94
[2021-11-02 12:30] VITALS: BP 127/82; PULSE 80; RESP 16; TEMP 36.8; O2SAT 96
[2021-11-02 12:36] VITALS: BP 127/87; PULSE 87; RESP 14; TEMP 36.4; O2SAT 98
== END 2021-11-02 13:02 | disposition home or self-care (01) ==
PROVIDERS: PCP Family Medicine; Referring Provider Surgery; Visit Provider Surgery
PROC: 0DJ08ZZ Inspection of Upper Intestinal Tract, Via Natural or Artificial Opening Endoscopic (ICD-10-PCS; CPT 43235; principal; 2021-11-02 11:00)
DX: K21.9 Gastro-esophageal reflux disease without esophagitis (principal); K29.50 Unspecified chronic gastritis without bleeding
CPT/HCPCS: 43239; J2250; J3010

== ENCOUNTER → 2021-11-14 10:01 | Outpatient (CLI) | payer MEDICARE, OTHER, SELFPAY ==
[2021-11-02 14:24] VITALS: BMI 29.9
[2021-11-14 11:48] LABS: BUN Creatinine Ratio 17.5 (6-22); Blood Urea Nitrogen 25 mg/dL (9-20); Estimated Glomerular Filt Rate 51 mL/min (>60)
== END ==
PROVIDERS: PCP Family Medicine; Referring Provider Surgery; Visit Provider Surgery
DX: K21.9 Gastro-esophageal reflux disease without esophagitis (principal)
CPT/HCPCS: 36415; 82565; 84520

== ENCOUNTER → 2021-11-16 11:58 | Outpatient (CLI) | payer MEDICARE, OTHER, SELFPAY ==
[2021-11-02 14:24] VITALS: BMI 29.9
--- NOTE | 2021-11-16 13:05 | DI.CT.S_ITS ---
PROCEDURE: CT ABDOMEN PELVIS W CON INDICATIONS: Reflux, assess Esequiel fundoplication TECHNIQUE: After the administration of oral and IV contrast, axial sections were acquired from the lung bases to the pubic symphysis. Coronal and sagittal reformats were performed. For radiation dose reduction, the following was used: automated exposure control, adjustment of mA and/or kV according to patient size. COMPARISON: [facility], CT, CT ABDOMEN PELVIS W CON, 01/15/2019, 22:56. [facility], CT, CT ANGIO CHEST ABDOMEN PELVIS, 08/12/2021, 2:38. [facility], RF, [place] BARIUM SWALLOW, 10/20/2021, 12:39. [facility], CT, CT ABDOMEN PELVIS W CON, 10/01/2020, 17:37. FINDINGS: Image quality: Excellent. Lung bases: Unremarkable. There is a small hiatal hernia. Heart: No significant findings. ABDOMEN: Liver: Normal size. Moderate hepatic steatosis. There is a 1.3 cm cyst in the inferior aspect of the right hepatic lobe. Gallbladder: Unremarkable. Biliary ducts: Unremarkable. Pancreas: Unremarkable. Spleen: Unremarkable. Adrenal Glands: Unremarkable. Kidneys and Ureters: Normal size and symmetrical enhancement. There is a 2 cm cyst in left kidney.. Stomach and Bowel: Stomach, small bowel loops, and colon are unremarkable. Mild diverticulosis. No acute diverticulitis. Peritoneum: No abnormal intraperitoneal fluid. No free air. Ventral Wall: No hernia. Abdominal Nodes: No retroperitoneal or mesenteric adenopathy by size criteria. Vessels: Aorta and inferior vena cava are normal in size. PELVIS: Pelvic Organs: Prostate is enlarged. Bladder: Unremarkable. Pelvic Nodes: No enlarged lymph nodes. Miscellaneous: No inguinal hernias are seen. Small hydroceles in scrotum. Bones: There is [id number] compression fracture of L3, unchanged. There is a nerve stimulator in lumbar spine. Extensive degenerative and postsurgical changes are noted. IMPRESSION: 1. There is a small hiatal hernia. 2. Moderate hepatic steatosis. 3. Mild diverticulosis without acute diverticulitis. 4. Isjg-ll-[id number] chronic compression fracture of L3. There are extensive postsurgical changes in the lower thoracic spine and lumbar spine. Dictated by: Kourtney Thomas M.D. on 11/16/2021 at 14:07 Approved by: Kourtney Thomas M.D. on 11/16/2021 at 15:11
== END ==
PROVIDERS: PCP Family Medicine; Referring Provider Surgery; Visit Provider Surgery
DX: K21.9 Gastro-esophageal reflux disease without esophagitis (principal); K44.9 Diaphragmatic hernia without obstruction or gangrene; K76.0 Fatty (change of) liver, not elsewhere classified; K76.89 Other specified diseases of liver; N28.1 Cyst of kidney, acquired; K57.90 Diverticulosis of intestine, part unspecified, without perforation or abscess without bleeding; N40.0 Benign prostatic hyperplasia without lower urinary tract symptoms; M48.56XS Collapsed vertebra, not elsewhere classified, lumbar region, sequela of fracture; Z96.82 Presence of neurostimulator
CPT/HCPCS: 74177

== ENCOUNTER → 2022-02-07 09:25 | Outpatient (CLI) | payer MEDICARE, OTHER, SELFPAY ==
[2021-11-02 14:24] VITALS: BMI 29.9
--- NOTE | 2022-02-07 09:26 | DI.US.S_ITS ---
PROCEDURE: US ABDOMEN COMPLETE INDICATIONS: PAIN TECHNIQUE: Real-time scanning was performed of the abdominal and retroperitoneal organs, with image documentation. COMPARISON: [facility], US, ABDOMEN COMPLETE, 03/20/2013, 22:18. FINDINGS: Liver: The liver demonstrates diffusely increased echotexture without focal abnormalities consistent with chronic hepatocellular disease/hepatic steatosis. Gallbladder: Gallbladder is normal in sonographic appearance without gallstones, gallbladder wall thickening, pericholecystic fluid, or abnormal sonographic House's. Biliary ducts: Intrahepatic bile ducts are non-dilated. Extrahepatic bile duct caliber measures 5 mm. Normal is 6-7 mm or less in diameter, or 10 mm or less post-cholecystectomy. Pancreas: Pancreas not well visualized secondary to bowel gas. Spleen: Spleen is normal in size and homogeneous in echotexture. Kidneys: Kidneys are normal in size and echotexture. Right kidney measures 10.9 cm long; left kidney measures 12.5 cm long. No hydronephrosis or nephrolithiasis. No solid masses. 2.7 cm simple cyst noted in the inferior pole the left kidney. IVC: Intrahepatic inferior vena cava is patent. Miscellaneous: No free abdominal fluid. Cursory evaluation of the right lower quadrant demonstrated no focal abnormalities. No abnormal fluid or mass lesion. IMPRESSION: Abdomen without acute sonographic abnormalities. Hepatic steatosis. Dictated by: Jamil Hassan M.D. on 02/07/2022 at 15:59 Approved by: Jamil Hassan M.D. on 02/07/2022 at 16:02
== END ==
PROVIDERS: PCP Family Medicine; Referring Provider Surgery; Visit Provider Surgery
DX: R10.9 Unspecified abdominal pain (principal); K76.0 Fatty (change of) liver, not elsewhere classified
CPT/HCPCS: 76700

== ENCOUNTER → 2022-02-13 08:54 | Outpatient (CLI) | payer MEDICARE, OTHER, SELFPAY ==
[2021-11-02 14:24] VITALS: BMI 29.9
--- NOTE | 2022-02-13 | DI.CT.S_ITS ---
PROCEDURE: CT ABDOMEN PELVIS W CON INDICATIONS: Abdominal distension (gaseous) TECHNIQUE: After the administration of oral and intravenous contrast, axial sections were acquired from the lung bases to the pubic symphysis. Coronal and sagittal reformats were performed. For radiation dose reduction, the following was used: automated exposure control, adjustment of mA and/or kV according to patient size. COMPARISON:[facility], CT, CT ABDOMEN PELVIS W CON, 11/16/2021, 12:55. FINDINGS: Image quality: Excellent. Lung bases: Mild atelectasis. Heart: No significant findings. ABDOMEN: Liver: Suspected steatosis. Similar cystic lesion at the inferior tip. Gallbladder: Unremarkable Biliary ducts: Unremarkable. Pancreas: Mild fatty atrophy. Punctate calcification at the tail probably from prior inflammation. Spleen: Unremarkable. Adrenal Glands: Unremarkable. Kidneys and Ureters: Left inferior pole cyst. Punctate nonobstructing calculi. No hydronephrosis. Stomach and Bowel: Moderate size paraesophageal hiatal hernia. No bowel obstruction. Peritoneum: No abnormal intraperitoneal fluid. No free air. Ventral Wall: Left abdomen and right back intrathecal medication pumps. Small fat containing midline hernia. Abdominal Nodes: No retroperitoneal or mesenteric adenopathy by size criteria. Vessels: Mild atherosclerotic calcifications. Calcified splenic hilar small aneurysm. PELVIS: Pelvic Organs: Prostatomegaly and small calcification. Bladder: Unremarkable. Pelvic Nodes: No enlarged lymph nodes. Miscellaneous: No inguinal hernias are seen. Bones: Sacroiliac ankylosis. Lumbosacral spondylosis and postsurgical changes, similar to prior. IMPRESSION: Moderate-size periesophageal (type 2) hiatal hernia. No bowel obstruction. Other incidental findings above. Suspected hepatic steatosis. Dictated by: Bakari Kohler M.D. on 02/13/2022 at 11:21 Approved by: Bakari Kohler M.D. on 02/13/2022 at 11:30
== END ==
PROVIDERS: PCP Family Medicine; Referring Provider Family Medicine; Visit Provider Family Medicine
DX: K44.9 Diaphragmatic hernia without obstruction or gangrene (principal); K43.9 Ventral hernia without obstruction or gangrene; N28.1 Cyst of kidney, acquired; M47.817 Spondylosis without myelopathy or radiculopathy, lumbosacral region; I72.8 Aneurysm of other specified arteries; N40.0 Benign prostatic hyperplasia without lower urinary tract symptoms; R14.0 Abdominal distension (gaseous); K59.00 Constipation, unspecified; R19.00 Intra-abdominal and pelvic swelling, mass and lump, unspecified site
CPT/HCPCS: 74177; Q9967

== ENCOUNTER → 2022-05-17 09:38 | Outpatient (CLI) | payer MEDICARE, OTHER, SELFPAY ==
[2022-02-26 14:28] VITALS: BMI 29.9
--- NOTE | 2022-05-17 | DI.CT.S_ITS ---
PROCEDURE: CT UPPER EXT LEFT ARTHROGRAM INDICATIONS: Pain in left shoulder TECHNIQUE: After the intra-articular administration of 12 mL of dilute non-ionic contrast, 1-1.5 mm thick sections acquired from the acromioclavicular joint to the inferior scapula, with coronal and sagittal reformatting. COMPARISON: [facility], CR, XR SHOULDER 2+ VIEWS LEFT, 05/14/2022, 14:03. FINDINGS: Image quality: Excellent. Bones: Old healed fracture involving greater tuberosity of humeral head is seen with a superiorly displaced fractured fragment and well corticated margin. Pseudoarthrosis between the fractured fragment and adjacent superior lateral aspect of humeral head is seen with subchondral sclerosis and subcortical cyst formations. Additional smaller corticated bony fragments are also seen adjacent to lateral aspect of acromion and superior aspect of humeral head. No acute fracture or dislocation. Moderate acromioclavicular joint and glenohumeral joint osteoarthritic changes are seen. No suspicious bony lesion. Visualized left upper ribs are intact. Soft tissues: There is no gross full-thickness rotator cuff tendon rupture. No significant muscle atrophy is seen on sagittal images. No contrast is seen extending to acromioclavicular joint or subacromial subdeltoid bursa. No gross intra-articular loose bodies. Limited evaluation of left shoulder labrum shows no obvious focal labral tear. IMPRESSION: 1. Suggestion of old fracture involving greater tuberosity of humeral head with superiorly displaced and well corticated fractured fragment. There is pseudoarthrosis between the fracture fragment and adjacent superior lateral humeral head. No acute fracture or dislocation. 2. Smaller well corticated fragments adjacent to lateral aspect of acromion and superior aspect of humeral head which may represent additional old healed injury versus hydroxyapatite deposition disease involving distal supraspinatus. 3. Moderate acromioclavicular joint and glenohumeral joint osteoarthritis. 4. No gross full-thickness rotator cuff tendon rupture. No significant muscle atrophy. No obvious focal labral tear. No intra-articular loose bodies. Dictated by: Yoseph Arellano M.D. on 05/17/2022 at 12:17 Approved by: Yoseph Arellano M.D. on 05/17/2022 at 13:42
--- NOTE | 2022-05-17 | DI.RAD.S_ITS ---
PROCEDURE: FL ARTHROGRAM SHOULDER LT INDICATIONS: Pain in left shoulder COMPARISON: None. TECHNIQUE: The indications, alternatives, benefits, risks, and complications of the procedure were explained to the patient. Written informed consent was obtained and placed in the chart. The shoulder was examined fluoroscopically and a site for needle placement chosen for entry into the glenohumeral joint from an anterior approach. The skin was prepped and draped in a sterile fashion, and 1% lidocaine infiltrated from skin down to joint capsule. A spinal needle was inserted into the glenohumeral joint, and a small amount of iodinated contrast media injected to confirm intra-articular placement of the needle tip. This was followed by approximately 12 mL of iodinated contrast. The needle was removed and a dressing was applied. The patient was given postprocedural instructions and sent to the CT suite for imaging. FINDINGS: A single fluoroscopic spot image demonstrates intra-articular location of injected iodinated contrast. IMPRESSION: Successful fluoroscopically guided administration of iodinated contrast solution into the shoulder joint for CT arthrogram. Dictated by: Kourtney Thomas M.D. on 05/18/2022 at 7:55 Approved by: Kourtney Thoams M.D. on 05/18/2022 at 7:55
== END ==
PROVIDERS: PCP Family Medicine; Referring Provider Orthopaedic Surgery; Visit Provider Orthopaedic Surgery
DX: M19.012 Primary osteoarthritis, left shoulder (principal); M25.512 Pain in left shoulder
CPT/HCPCS: 23350; 73201; 76000

== ENCOUNTER → 2023-05-10 12:01 | Outpatient (ROUT) | payer MEDICARE, OTHER, SELFPAY ==
[2022-02-26 14:28] VITALS: BMI 29.9
[2023-05-10 12:09] LABS: Prothrombin Time 11.4 SECONDS (10.1-12.7)
[2023-05-10 12:12] LABS: PTT Partial Thromboplastin Tim 30 SECONDS (26-36)
== END ==
PROVIDERS: PCP Family Medicine; Visit Provider Family Medicine
DX: M54.9 Dorsalgia, unspecified (principal); G89.29 Other chronic pain; Z01.818 Encounter for other preprocedural examination; I10 Essential (primary) hypertension; G03.9 Meningitis, unspecified
CPT/HCPCS: 85610; 85730

== ENCOUNTER → 2023-08-09 11:55 | Outpatient (ROUT) | payer MEDICARE, OTHER, SELFPAY ==
[2022-02-26 14:28] VITALS: BMI 29.9
[2023-08-09 12:38] LABS: Influenza A - CEPHEID Flu A NEGATIVE (NEGATIVE); Influenza B - CEPHEID Flu B NEGATIVE (NEGATIVE); Respiratory Syncytial Virus Negative (Negative)
[2023-08-09 12:58] LABS: COVID-19 CEPHEID 4-PLEX PCR Negative (Negative)
== END ==
PROVIDERS: PCP Family Medicine; Visit Provider Family Medicine
DX: J02.9 Acute pharyngitis, unspecified (principal); R50.9 Fever, unspecified; R05.1 Acute cough; R52 Pain, unspecified
CPT/HCPCS: 0241U

== ENCOUNTER 2023-08-18 08:39 | Inpatient (IN) | payer MEDICARE, OTHER, SELFPAY ==
[2022-02-26 14:28] VITALS: BMI 29.9
[2023-08-18] VITALS (14 sets, daily range): BP systolic 118–157; BP diastolic 57–82; PULSE 77–101; RESP 14–30; TEMP 36.7–37.2; O2SAT 94–100; BMI 27.1; BMI 30.8
--- NOTE | 2023-08-18 08:45 | DI.RAD.S_ITS ---
PROCEDURE: XR CHEST 1V INDICATIONS: Shortness of breath and chest pain TECHNIQUE: One view of the chest was acquired. COMPARISON: [facility], CR, XR CHEST 1 VIEW, 01/11/2023, 12:44. [facility], CR, XR CHEST 1 VIEW, 08/02/2022, 20:35. [facility], CR, XR CHEST 1 VIEW, 08/11/2021, 18:28. [facility], CR, XR CHEST 1V, 08/11/2021, 15:37. FINDINGS: Surgical changes and devices: Post CABG changes are seen. Thoracic spine stimulator leads are seen. Thoracolumbar fixation hardware is partially seen. Lungs and pleura: On this semiupright portable chest examination, no large pneumothorax or large pleural effusions are seen. No focal infiltrates are seen. Low lung volumes are noted. This causes a crowded appearance to the lung markings and limits evaluation. Mediastinum: Mediastinal contours appear normal. Heart size is normal. Bones and chest wall: No suspicious bony lesions. Age-appropriate bony degenerative changes are seen. Overlying soft tissues appear unremarkable. IMPRESSION: Limited portable chest examination, without a significant cardiopulmonary abnormality identified. Postoperative and degenerative changes are seen. Dictated by: Ruben Padgett M.D. on 08/18/2023 at 8:20 Approved by: Ruben Padgett M.D. on 08/18/2023 at 8:21
--- NOTE | 2023-08-18 08:52 | ED.GENADULT ---
HPI - General Adult General Chief complaint: Shortness of Breath/Dyspnea Stated complaint: chest pain, nausea, SOB Time Seen by Provider: 08/18/23 08:43 Source: patient Mode of arrival: Ambulatory History of Present Illness HPI narrative: 77-year-old male. Does have history of coronary artery disease. Has had a bypass surgery in 2016. History of sleep apnea, chronic low back pain, reflux disease. Is here for evaluation of 2 weeks of worsening dyspnea on exertion. He denies chest pain despite the stated complaint in triage. No lower extremity swelling. He did have a cough and fever approximately 2 weeks ago but that has resolved. No underlying lung pathology. No diagnosis of heart failure. 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 He states he can sleep flat at night. He has had issues in the past where his heart rate has been elevated but nothing since then. Related Data Home Medications Medication Instructions Recorded Confirmed testosterone cypionate 200 mg/mL 0.5 ml SUBCUT SEEINSTR ##9 06/13/17 04/09/22 intramuscular oil (Depo-Testosterone) aspirin 81 mg tablet,delayed 81 mg PO DAILY 09/03/18 04/09/22 release (Andrew Low Dose Aspirin) acyclovir 200 mg capsule 200 mg PO 5XD PRN Fever blisters 11/05/18 04/09/22 hydromorphone 4 mg tablet 4 mg PO Q4-6H PRN Breakthrough Pain 11/10/18 04/09/22 Respironics Dreamstation CPAP #1 ea 11/27/18 04/09/22 clonidine (PF) 1,000 mcg/10 mL 180 mcg continuous epidural DAILY 03/06/19 04/09/22 (100 mcg/mL) epidural solution In pain pump mecobalamin (vitamin B12) 1,000 1,000 mcg PO DAILY 06/23/20 04/09/22 mcg chewable tablet bupivacaine (PF) 0.5 % (5 mg/mL) mg epidural 03/16/21 04/09/22 injection solution (Sensorcaine-MPF) hydromorphone (PF) 1 mg/mL 1 mg epidural Q4H PRN Pain (Scale 03/16/21 04/09/22 injection solution Score 7-10) carvedilol 6.25 mg tablet 6.25 mg PO QAM PRN 02/27/22 04/09/22 prednisone 10 mg tablet 10 mg PO DAILY PRN 02/27/22 04/09/22 tadalafil 5 mg tablet (Cialis) 20 mg PO DAILY 02/27/22 04/09/22 Allergies Allergy/AdvReac Type Severity Reaction Status Date / Time morphine [MORPHINE] Allergy Intermediate BLISTERS Verified 04/09/22 09:56 aspartame AdvReac Severe SEVERE Verified 04/09/22 09:56 [From NUTRASWEET ASPARTAME] HEADACHES banana AdvReac Severe Severe Verified 04/09/22 09:56 headaches chocolate flavor AdvReac Severe Headaches Verified 04/09/22 09:56 gabapentin [GABAPENTIN] AdvReac Severe SEVERE Verified 04/09/22 09:56 AGITATION, DEPRESSION, ANXIETY hydrochlorothiazide AdvReac Severe HEADACHES Verified 04/09/22 09:56 [HYDROCHLOROTHIAZIDE] hydrocodone [HYDROCODONE] AdvReac Severe SEVERE Verified 04/09/22 09:56 HEADACHES metoprolol [METOPROLOL] AdvReac Severe HEADACHES Verified 04/09/22 09:56 omeprazole [OMEPRAZOLE] AdvReac Severe SEVERE Verified 04/09/22 09:56 HEADACHES & DIZZINESS oxycodone [OXYCODONE] AdvReac Severe HEADACHES Verified 04/09/22 09:56 nifedipine [From Procardia] AdvReac Gastrointestinal Verified 04/09/22 09:56 Upset [id number] Reductase AdvReac Gastrointestinal Verified 04/09/22 09:56 Inhibitor Upset [Okdcgbw-Erz-Rqb Reductase Inhibitor] ACID BLOCKERS AdvReac Severe SEVERE Uncoded 04/09/22 09:56 HEADACHES & DIZZINESS Review of Systems Constitutional Constitutional: Reports system reviewed and no additional complaints, except as documented Cardiovascular Cardiovascular: Reports system reviewed and no additional complaints, except as documented Respiratory Respiratory: Reports system reviewed and no additional complaints, except as documented Gastrointestinal Gastrointestinal: Reports system reviewed and no additional complaints, except as documented Integumentary/Breasts Skin/Breast: Reports system reviewed and no additional complaints, except as documented Neurologic Neurologic: Reports system reviewed and no additional complaints, except as documented Patient History Medical History Elevated PSA Erectile dysfunction Lower urinary tract symptoms (LUTS) BPH w urinary obs/LUTS Vitamin B12 deficiency Opioid dependence with current use Throat irritation Central sleep apnea [place] (hard of hearing) Cardiac murmur Tachycardia Arachnoiditis Postoperative atrial fibrillation Statin intolerance (~07/2015) Obstructive sleep apnea of adult Atypical chest pain Serum lipase elevation Coronary artery disease Small bowel obstruction Leg edema, right GERD (gastroesophageal reflux disease) Hypertension Surgical History History of appendectomy History of bilateral knee arthroplasty History of fundoplication History of lumbar surgery Hx of sinus surgery (03/12/18) S/P CABG x 2 S/P insertion of spinal cord stimulator (~2002) S/P lumbar spinal fusion (11/10/18) S/P total knee arthroplasty Status post bilateral cataract extraction (~10/2014) Social History marital status: household members: spouse Smoking Status: Never smoker alcohol intake: never substance use type: does not use Smoking Status: Never smoker alcohol intake frequency: other Substance Use Type: does not use and prescription drug Exam Initial Vital Signs Initial Vital Signs: Vital Signs Pulse Rate 101 H 08/18/23 08:44 Pulse Oximetry 100 08/18/23 08:44 Const General: cooperative, comfortable and No ill appearing HENMT Head: normal to inspection and normocephalic Resp Effort & Inspection: normal respiratory effort Auscultation: clear to auscultation bilaterally Cardio Rate: regular rate Rhythm: regular rhythm GI Inspection: normal to inspection and non-distended Palpation: soft, No firm and No guarding Extrem General: No edema Course Orders Ordered: ED Orders 08/18/23 08:45 XR chest 1V Stat PTT Partial Thromboplastin Ty Stat Prothrombin Time INR Stat 08/18/23 08:48 Covid-19 + FLU A/B + RSV - PCR Stat 08/18/23 08:51 EKG-12 Lead Stat 08/18/23 09:03 Complete Blood Count AUTO DIFF Stat Comprehensive Metabolic Panel Stat Lipase Stat NT-proBNP (BNP-Adult 18+) Stat Troponin & CK Cardiac Panel Stat 08/18/23 09:20 Packed Cells Stat Type and Screen Stat 08/18/23 09:32 Consult to General Surgery Stat 08/18/23 09:59 Consult to Physician Stat Consult to Physician Stat Vital Signs Vital signs: Vital Signs - 8 hr 08/18/23 08:44 08/18/23 08:45 08/18/23 09:00 Temperature 98.5 F Pulse Rate 101 H 93 H 84 Respiratory Rate 18 28 H Blood Pressure 150/66 H Pulse Oximetry 100 100 99 Oxygen Delivery Method Room Air 08/18/23 09:29 08/18/23 09:29 08/18/23 09:30 Temperature Pulse Rate 85 Respiratory Rate 24 Blood Pressure 139/74 139/72 Pulse Oximetry 99 Oxygen Delivery Method 08/18/23 09:30 Temperature Pulse Rate 86 Respiratory Rate 30 H Blood Pressure Pulse Oximetry 99 Oxygen Delivery Method Medical Decision Making Medical Records Medical records reviewed: Yes I reviewed the patient's medical records. Lab Data 08/18/23 09:03 08/18/23 09:03 Labs: Lab Results 08/18/23 08/18/23 08/18/23 Range/Units 08:45 08:48 09:03 WBC 6.0 (4.5-11.0) X10^3/uL RBC 2.29 L (4.5-5.9) X10^6/uL Hgb 6.7 L* (13.5-17.5) g/dL Hct 20.3 L* (41-53) % MCV 88.7 (80-100) fL MCH 29.1 (26-34) PG MCHC 32.8 (30-36) % RDW 15.5 H (11.6-14.8) % Plt Count 211 (150-400) X10^3/uL Neut % (Auto) 69.8 (50-75) % Lymph % (Auto) 18.0 L (25-40) % [place] % (Auto) 10.1 (3-14) % Eos % (Auto) 1.9 L (2-4) % Baso % (Auto) 0.2 (0-2) % Neut # (Auto) 4200 (9618-7998) /uL Lymph # (Auto) 1100 (6773-2978) /uL [place] # (Auto) 600 (0-900) /uL Eos # (Auto) 100 (0-450) /uL Baso # (Auto) 0 (0-100) /uL PT 11.4 (9.4-12.5) SECONDS INR 1.0 (0.9-1.3) APTT 30 (25.1-36.5) SECONDS Sodium 136 L (137-145) mmol/L Potassium 4.3 (3.4-5.1) mmol/L Chloride 106 (98-107) mmol/L Carbon Dioxide 27 (22-32) mmol/L BUN 23 H (9-20) mg/dL Creatinine 1.26 H (0.66-1.25) mg/dL Estimated GFR 59 L (>60) mL/min BUN/Creatinine Ratio 18.3 (6-22) Glucose 114 H (80-110) mg/dL Calcium 9.2 (8.4-10.2) mg/dL Total Bilirubin 0.7 (0.2-1.3) mg/dL AST 26 (17-59) IU/L ALT 24 (<50) IU/L Alkaline Phosphatase 46 (38-126) U/L Total Creatine Kinase 92 (55-170) U/L Troponin I 0.029 (0.01-0.034) ng/mL NT-Pro-B Natriuret Pep 426 (<450) pg/mL Total Protein 6.1 L (6.3-8.2) g/dL Albumin 3.6 (3.5-5.0) g/dL Globulin 2.5 (1.7-4.1) g/dL Albumin/Globulin Ratio 1.4 (1.0-2.8) Lipase 193 (23-300) U/L SARS-CoV-2 (PCR) Negative (Negative) Influenza A (RT-PCR) Flu a negative (NEGATIVE) Influenza B (RT-PCR) Flu b negative (NEGATIVE) RSV (PCR) Negative (Negative) Blood Type Antibody Screen Crossmatch 08/18/23 Range/Units 09:20 WBC (4.5-11.0) X10^3/uL RBC (4.5-5.9) X10^6/uL Hgb (13.5-17.5) g/dL Hct (41-53) % MCV (80-100) fL MCH (26-34) PG MCHC (30-36) % RDW (11.6-14.8) % Plt Count (150-400) X10^3/uL Neut % (Auto) (50-75) % Lymph % (Auto) (25-40) % [place] % (Auto) (3-14) % Eos % (Auto) (2-4) % Baso % (Auto) (0-2) % Neut # (Auto) (6987-0492) /uL Lymph # (Auto) (6852-1518) /uL [place] # (Auto) (0-900) /uL Eos # (Auto) (0-450) /uL Baso # (Auto) (0-100) /uL PT (9.4-12.5) SECONDS INR (0.9-1.3) APTT (25.1-36.5) SECONDS Sodium (137-145) mmol/L Potassium (3.4-5.1) mmol/L Chloride (98-107) mmol/L Carbon Dioxide (22-32) mmol/L BUN (9-20) mg/dL Creatinine (0.66-1.25) mg/dL Estimated GFR (>60) mL/min BUN/Creatinine Ratio (6-22) Glucose (80-110) mg/dL Calcium (8.4-10.2) mg/dL Total Bilirubin (0.2-1.3) mg/dL AST (17-59) IU/L ALT (<50) IU/L Alkaline Phosphatase (38-126) U/L Total Creatine Kinase (55-170) U/L Troponin I (0.01-0.034) ng/mL NT-Pro-B Natriuret Pep (<450) pg/mL Total Protein (6.3-8.2) g/dL Albumin (3.5-5.0) g/dL Globulin (1.7-4.1) g/dL Albumin/Globulin Ratio (1.0-2.8) Lipase (23-300) U/L SARS-CoV-2 (PCR) (Negative) Influenza A (RT-PCR) (NEGATIVE) Influenza B (RT-PCR) (NEGATIVE) RSV (PCR) (Negative) Blood Type AB Positive Antibody Screen Negative Crossmatch See Detail Imaging Data Chest x-ray: Radiologist's Impression: PROCEDURE: XR CHEST 1V INDICATIONS: Shortness of breath and chest pain TECHNIQUE: One view of the chest was acquired. COMPARISON: [facility], CR, XR CHEST 1 VIEW, 01/11/2023, 12:44. [facility], CR, XR CHEST 1 VIEW, 08/02/2022, 20:35. Loc[facility], CR, XR CHEST 1 VIEW, 08/11/2021, 18:28. [facility], CR, XR CHEST 1V, 08/11/2021, 15:37. FINDINGS: Surgical changes and devices: Post CABG changes are seen. Thoracic spine stimulator leads are seen. Thoracolumbar fixation hardware is partially seen. Lungs and pleura: On this semiupright portable chest examination, no large pneumothorax or large pleural effusions are seen. No focal infiltrates are seen. Low lung volumes are noted. This causes a crowded appearance to the lung markings and limits evaluation. Mediastinum: Mediastinal contours appear normal. Heart size is normal. Bones and chest wall: No suspicious bony lesions. Age-appropriate bony degenerative changes are seen. Overlying soft tissues appear unremarkable. IMPRESSION: Limited portable chest examination, without a significant cardiopulmonary abnormality identified. Postoperative and degenerative changes are seen. ECG Data Interpretation: Sinus rhythm Ventricular rate 84 Normal axis QRS [address] T wave changes MDM Narrative Medical decision making narrative: Patient has been having dyspnea on exertion. No chest pain. Has a benign exam. Has been having melena. Is anemic on labs. Has never had a blood transfusion. Has had multiple colonoscopies. His last 1 was approximately 3 years ago. He was told to come back every 5 years. Does not take anti-inflammatories. Does not drink alcohol. Not on anticoagulation. I suspect that his anemia is because of a GI bleed. I suspect that the anemia is causing his dyspnea on exertion. Discussed the risks and benefits of blood transfusion. I recommended a transfusion based on his studies today and his past medical history. Patient expressed understanding and agreement to this. Patient is not tachycardic. Not hypotensive. Has had issues with side effects with proton pump inhibitors in the past will hold on Protonix. Discussed the case with Dr. Brito on-call for General surgery who will see the patient after admission. Also discuss the case with Dr. Corona who is on-call for the patient's primary doctor who will admit. Discussed the need for admission with the patient. He expressed understanding and agreement. Discharge Plan Departure Patient Disposition: Admitted As Inpatient Clinical Impression: GI bleed, Dyspnea on exertion, Symptomatic anemia Admit Date/Time: 08/18/23 09:59 Admit Provider: Ishmael Friedman
[2023-08-18 09:10] LABS: Add Manual Diff / Slide Review NO; Basophils Absolute Auto 0 /uL (0-100); Basophils Percent Auto 0.2 % (0-2); Eosinophils Absolute Auto 100 /uL (0-450); Eosinophils Percent Auto 1.9 % (2-4); Lymphocytes Absolute Auto 1100 /uL (1100-4500); Mean Corpuscular HGB Conc 32.8 % (30-36); Mean Corpuscular Hemoglobin 29.1 PG (26-34); Mean Corpuscular Volume 88.7 fL (80-100); Monocytes Absolute Auto 600 /uL (0-900); Monocytes Percent Auto 10.1 % (3-14); Neutrophils Absolute Auto 4200 /uL (1500-7000); Neutrophils Percent Auto 69.8 % (50-75); Platelet Count 211 X10^3/uL (150-400); Red Blood Cell Count 2.29 X10^6/uL (4.5-5.9); Red Cell Distribution Width 15.5 % (11.6-14.8)
[2023-08-18 09:11] LABS: Hemoglobin 6.7 g/dL (13.5-17.5)
[2023-08-18 09:12] LABS: Hematocrit 20.3 % (41-53)
[2023-08-18 09:18] LABS: Alanine Aminotransferase 24 IU/L (<50); Albumin 3.6 g/dL (3.5-5.0); Albumin Globulin Ratio 1.4 (1.0-2.8); Alkaline Phosphatase 46 U/L (38-126); Aspartate Aminotransferase 26 IU/L (17-59); BUN Creatinine Ratio 18.3 (6-22); Bilirubin Total 0.7 mg/dL (0.2-1.3); Blood Urea Nitrogen 23 mg/dL (9-20); Calcium 9.2 mg/dL (8.4-10.2); Carbon Dioxide 27 mmol/L (22-32); Chloride 106 mmol/L (98-107); Creatine Kinase 92 U/L (55-170); Estimated Glomerular Filt Rate 59 mL/min (>60); Globulin 2.5 g/dL (1.7-4.1); Glucose 114 mg/dL (80-110); HEMOLYSIS < 15 (0-50); Lipase 193 U/L (23-300); Potassium 4.3 mmol/L (3.4-5.1); Sodium 136 mmol/L (137-145); Total Protein 6.1 g/dL (6.3-8.2)
[2023-08-18 09:18] LABS: Prothrombin Time 11.4 SECONDS (9.4-12.5)
[2023-08-18 09:20] LABS: PTT Partial Thromboplastin Tim 30 SECONDS (25.1-36.5)
[2023-08-18 09:27] LABS: Influenza A - CEPHEID Flu A NEGATIVE (NEGATIVE); Influenza B - CEPHEID Flu B NEGATIVE (NEGATIVE); Respiratory Syncytial Virus Negative (Negative)
[2023-08-18 09:28] LABS: COVID-19 CEPHEID 4-PLEX PCR Negative (Negative)
[2023-08-18 09:29] LABS: NT-proBNP (BNP-Adult 18+) 426 pg/mL (<450); Troponin I 0.029 ng/mL (0.01-0.034)
--- NOTE | 2023-08-18 10:27 | PC.NURSE ---
Lab called to inform this department that the blood was ready but this patient was already in transport to inpatient room. This RN informed RN that received report.
--- NOTE | 2023-08-18 10:57 | P.HP_ITS ---
History of Present Illness History of Present Illness Date Patient Seen: 08/18/23 Time Patient Seen: 10:57 Chief complaint: chest pain, nausea, SOB Narrative: Pt is a 77yo man with chronic arachnoiditis with intrathecal pump and neurostimulator in place, CAD s/p CABG, CLARE who presented with worsening SOB and nausea. The pt reports that for approximately the last 2 weeks he has been feeling SOB with any movement. He denies any SOB when stationary. He was seen by his Rn Ante Partum, who ordered a Zio patch for the pt for further work-up. This morning, the pt started to feel nauseous. He became concerned about gallbladder issues, and came to the ED for further evaluation. He denies any emesis. He is having BMs approximately every other day, and states that for approximately the last 2-3 weeks they have been black in appearance. He denies any bright red blood in them. He denies any recent chest pain, palpitations, abdominal pain. In the ED, lab work was completed that showed significant anemia. CXR was reassuring. [facility] Medical History Elevated PSA Erectile dysfunction Lower urinary tract symptoms (LUTS) BPH w urinary obs/LUTS Vitamin B12 deficiency Opioid dependence with current use Throat irritation Central sleep apnea TAZLIN[place] (hard of hearing) Cardiac murmur Tachycardia Arachnoiditis Postoperative atrial fibrillation Statin intolerance (~07/2015) Obstructive sleep apnea of adult Atypical chest pain Serum lipase elevation Coronary artery disease Small bowel obstruction Leg edema, right GERD (gastroesophageal reflux disease) Hypertension Surgical History History of appendectomy History of bilateral knee arthroplasty History of fundoplication History of lumbar surgery Hx of sinus surgery (03/12/18) S/P CABG x 2 S/P insertion of spinal cord stimulator (~2002) S/P lumbar spinal fusion (11/10/18) S/P total knee arthroplasty Status post bilateral cataract extraction (~10/2014) Social History marital status: household members: spouse Smoking Status: Never smoker alcohol intake: never substance use type: does not use Meds Home Medications and Allergies Home Medications Medication Instructions Recorded Confirmed Type testosterone cypionate 200 mg/mL 0.5 ml SUBCUT SEEINSTR ##9 06/13/17 04/09/22 History intramuscular oil (Depo-Testosterone) aspirin 81 mg tablet,delayed 81 mg PO DAILY 09/03/18 04/09/22 History release (Andrew Low Dose Aspirin) acyclovir 200 mg capsule 200 mg PO 5XD PRN Fever blisters 11/05/18 04/09/22 History hydromorphone 4 mg tablet 4 mg PO Q4-6H PRN Breakthrough Pain 11/10/18 04/09/22 History Respironics Dreamstation CPAP #1 ea 11/27/18 04/09/22 History clonidine (PF) 1,000 mcg/10 mL 180 mcg continuous epidural DAILY 03/06/19 04/09/22 History (100 mcg/mL) epidural solution In pain pump mecobalamin (vitamin B12) 1,000 1,000 mcg PO DAILY 06/23/20 04/09/22 History mcg chewable tablet bupivacaine (PF) 0.5 % (5 mg/mL) mg epidural 03/16/21 04/09/22 History injection solution (Sensorcaine-MPF) hydromorphone (PF) 1 mg/mL 1 mg epidural Q4H PRN Pain (Scale 03/16/21 04/09/22 History injection solution Score 7-10) carvedilol 6.25 mg tablet 6.25 mg PO QAM PRN 02/27/22 04/09/22 History prednisone 10 mg tablet 10 mg PO DAILY PRN 02/27/22 04/09/22 History tadalafil 5 mg tablet (Cialis) 20 mg PO DAILY 02/27/22 04/09/22 History Allergies Allergy/AdvReac Type Severity Reaction Status Date / Time morphine [MORPHINE] Allergy Intermediate BLISTERS Verified 04/09/22 09:56 aspartame AdvReac Severe SEVERE Verified 04/09/22 09:56 [From NUTRASWEET ASPARTAME] HEADACHES banana AdvReac Severe Severe Verified 04/09/22 09:56 headaches chocolate flavor AdvReac Severe Headaches Verified 04/09/22 09:56 gabapentin [GABAPENTIN] AdvReac Severe SEVERE Verified 04/09/22 09:56 AGITATION, DEPRESSION, ANXIETY hydrochlorothiazide AdvReac Severe HEADACHES Verified 04/09/22 09:56 [HYDROCHLOROTHIAZIDE] hydrocodone [HYDROCODONE] AdvReac Severe SEVERE Verified 04/09/22 09:56 HEADACHES metoprolol [METOPROLOL] AdvReac Severe HEADACHES Verified 04/09/22 09:56 omeprazole [OMEPRAZOLE] AdvReac Severe SEVERE Verified 04/09/22 09:56 HEADACHES & DIZZINESS oxycodone [OXYCODONE] AdvReac Severe HEADACHES Verified 04/09/22 09:56 nifedipine [From Procardia] AdvReac Gastrointestinal Verified 04/09/22 09:56 Upset Kmjkvck-ZZB-AmH Reductase AdvReac Gastrointestinal Verified 04/09/22 09:56 Inhibitor Upset [Krkfgke-Uwz-Aix Reductase Inhibitor] Exam Vital Signs (past 8 hours): - 08/18/23 08:44 08/18/23 08:45 08/18/23 09:00 Temperature 98.5 F Pulse Rate 101 H 93 H 84 Respiratory Rate 18 28 H Blood Pressure 150/66 H Pulse Oximetry 100 100 99 Oxygen Delivery Method Room Air Oxygen Flow Rate 08/18/23 09:29 08/18/23 09:29 08/18/23 09:30 Temperature Pulse Rate 85 Respiratory Rate 24 Blood Pressure 139/74 139/72 Pulse Oximetry 99 Oxygen Delivery Method Oxygen Flow Rate 08/18/23 09:30 08/18/23 10:00 08/18/23 10:00 Temperature Pulse Rate 86 80 Respiratory Rate 30 H 14 Blood Pressure 118/57 L Pulse Oximetry 99 96 Oxygen Delivery Method Oxygen Flow Rate 08/18/23 10:42 Temperature 98.1 F Pulse Rate 97 H Respiratory Rate 24 Blood Pressure 157/78 H Pulse Oximetry 94 Oxygen Delivery Method Oxygen Flow Rate 0 Oxygen Delivery Method Room Air Oxygen Flow Rate 0 Narrative Exam Narrative: Gen: NAD, sitting comfortably in bed, speaking easily in complete sentences, appears well HEENT: normocephalic, atraumatic, sclera clear Neck: no JVD CV: RRR, grade 2/6 systolic murmur Resp: clear to auscultation bilaterally, no wheezes or crackles Abd: soft, nontender, nondistended, normoactive bowel sounds Ext: no edema Neuro: no gross deficits Objective Labs 08/18/23 09:03 08/18/23 09:03 Labs: Laboratory Results - last 24 hr 08/18/23 08/18/23 08/18/23 08:45 08:48 09:03 WBC 6.0 RBC 2.29 L Hgb 6.7 L* Hct 20.3 L* MCV 88.7 MCH 29.1 MCHC 32.8 RDW 15.5 H Plt Count 211 Neut % (Auto) 69.8 Lymph % (Auto) 18.0 L [place] % (Auto) 10.1 Eos % (Auto) 1.9 L Baso % (Auto) 0.2 Neut # (Auto) 4200 Lymph # (Auto) 1100 [place] # (Auto) 600 Eos # (Auto) 100 Baso # (Auto) 0 PT 11.4 INR 1.0 APTT 30 Sodium 136 L Potassium 4.3 Chloride 106 Carbon Dioxide 27 BUN 23 H Creatinine 1.26 H Estimated GFR 59 L BUN/Creatinine Ratio 18.3 Glucose 114 H Calcium 9.2 Total Bilirubin 0.7 AST 26 ALT 24 Alkaline Phosphatase 46 Total Creatine Kinase 92 Troponin I 0.029 NT-Pro-B Natriuret Pep 426 Total Protein 6.1 L Albumin 3.6 Globulin 2.5 Albumin/Globulin Ratio 1.4 Lipase 193 SARS-CoV-2 (PCR) Negative Influenza A (RT-PCR) Flu a negative Influenza B (RT-PCR) Flu b negative RSV (PCR) Negative Blood Type Antibody Screen Crossmatch 08/18/23 09:20 WBC RBC Hgb Hct MCV MCH MCHC RDW Plt Count Neut % (Auto) Lymph % (Auto) [place] % (Auto) Eos % (Auto) Baso % (Auto) Neut # (Auto) Lymph # (Auto) [place] # (Auto) Eos # (Auto) Baso # (Auto) PT INR APTT Sodium Potassium Chloride Carbon Dioxide BUN Creatinine Estimated GFR BUN/Creatinine Ratio Glucose Calcium Total Bilirubin AST ALT Alkaline Phosphatase Total Creatine Kinase Troponin I NT-Pro-B Natriuret Pep Total Protein Albumin Globulin Albumin/Globulin Ratio Lipase SARS-CoV-2 (PCR) Influenza A (RT-PCR) Influenza B (RT-PCR) RSV (PCR) Blood Type AB Positive Antibody Screen Negative Crossmatch See Detail Assessment & Plan Assessment & Plan narrative: Pt is a 77yo man with chronic arachnoiditis with intrathecal pump and neurostimulator in place, CAD s/p CABG, CLARE who presented with worsening SOB and nausea. Found to have severe anemia in the ED. 1) Acute blood loss anemia: Most likely due to upper GI bleed with melena reported at home. Hx of GERD with hiatal hernia repair in 2022, asymptomatic since then. - 2 units PRBCs now - Continue to trend H/H - Surgery consulted - Plan on Endoscopy to be done tomorrow - IV Pantoprazole -- pt reports hx of headaches with this in the past, but would like to try it 2) CAD: - Continue home Carvedilol 3) Chronic back pain: - Pump in place and functioning FEN: Cardiac diet until NPO for endoscopy Code: Full DVT ppx: SCDs due to bleeding risk Dispo: Pending stabilization in H/H, Endoscopy tomorrow. Potentially home tomorrow afternoon if all is stable.
[2023-08-18] MEDS: ACETAMINOPHEN 325 MG TABLET 650 MG PO ×2 (14:14→23:57)
[2023-08-18] MEDS: PANTOPRAZOLE 40 MG VIAL 20 MG IV (20:03)
[2023-08-18] MEDS: SODIUM CHLORIDE 0.9% 1,000 ML 75 ML IV (20:04)
[2023-08-18 20:18] LABS: Add Manual Diff / Slide Review NO; Basophils Absolute Auto 100 /uL (0-100); Basophils Percent Auto 0.8 % (0-2); Eosinophils Absolute Auto 100 /uL (0-450); Eosinophils Percent Auto 1.2 % (2-4); Hematocrit 24.7 % (41-53); Hemoglobin 8.2 g/dL (13.5-17.5); Lymphocytes Absolute Auto 1100 /uL (1100-4500); Lymphocytes Percent Auto 16.8 % (25-40); Mean Corpuscular HGB Conc 33.2 % (30-36); Mean Corpuscular Volume 87.3 fL (80-100); Monocytes Absolute Auto 700 /uL (0-900); Monocytes Percent Auto 10.1 % (3-14); Neutrophils Absolute Auto 4700 /uL (1500-7000); Neutrophils Percent Auto 71.1 % (50-75); Platelet Count 184 X10^3/uL (150-400); Red Blood Cell Count 2.83 X10^6/uL (4.5-5.9); Red Cell Distribution Width 16.1 % (11.6-14.8); White Blood Cell Count 6.6 X10^3/uL (4.5-11.0)
[2023-08-19] VITALS (10 sets, daily range): BP systolic 88–180; BP diastolic 40–82; PULSE 77–103; RESP 12–20; TEMP 36.1–37.2; O2SAT 94–99; BMI 30.8
--- NOTE | 2023-08-19 | PATH_ITS ---
[facility] Accession Number: [id number] No. of containers..01 Tissue . 01 Material submitted: . gastrointestinal site - ANTRUM . 01 Diagnosis: Stomach, Antrum, Biopsy: Antral mucosa with mild chronic gastritis and intestinal metaplasia. Negative for Helicobacter by immunohistochemistry. Intestinal metaplasia is present in two of two fragments. Negative for dysplasia and malignancy. MRV 08/22/2023 1830 Local . 01 Electronically signed: . Bety Gomes MD, Pathologist NPI- [id number] . 01 Gross description: . ANTRUM: Received in formalin are 2 fragment(s) of mak, soft tissue measuring 0.2 x 0.2 x 0.2 cm to 0.3 x 0.3 x 0.2 cm submitted entirely in 1 cassette(s) /RADU 08/20/2023 2229 Local . 01 Microscopic: . An immunohistochemical stain was performed to evaluate for Helicobacter organisms and is negative. The control stain showed appropriate reactivity. . * This test was developed and its performance characteristics determined by [facility]. It has not been cleared or approved by the U.S. Food and Drug Administration. The FDA has determined that such clearance or approval is not necessary. This test is used for clinical purposes. It should not be regarded as investigational or for research. . 01 Pathologist provided ICD-10: K31.A0 . 01 CPT . 606713, [id number] Specimen Comment: A courtesy copy of this report has been sent to [phone] Performed at: 01 [facility] [address] [place] [address] [address], [place], [place] [id number] MD Godfrey Ricci MD Phone: [phone]
[2023-08-19] MEDS: SODIUM CHLORIDE 0.9% 1,000 ML 75 ML IV (08:56)
[2023-08-19] MEDS: carvediloL 3.125 MG TABLET 6.25 MG PO (09:07)
[2023-08-19] MEDS: PANTOPRAZOLE 40 MG VIAL 20 MG IV (09:11)
[2023-08-19] MEDS: ONDANSETRON 4 MG/2 ML INJ IV (09:18)
--- NOTE | 2023-08-19 09:52 | PM.CN ---
History of Present Illness Consult details Date Patient Seen: 08/19/23 Time Patient Seen: 09:53 Chief complaint: chest pain, nausea, SOB Narrative: Darin is a 77-year-old man who presented to the ER for shortness of breath and was found to be very anemic. He has received 2 units of packed cells. He reports that he has had melanotic stools over the past few weeks. He takes a baby aspirin. He has prednisone on his medication list but he does not take it regularly and has not had recently. He did have a recent redo paraesophageal hernia repair by Dr. Kelsea Loco with good results. His last colonoscopy was in [address] Lizz Bhatia here and one very small tubular adenoma was removed. Meds Home Medications and Allergies Home Medications Medication Instructions Recorded Confirmed Type testosterone cypionate 200 mg/mL 0.5 ml SUBCUT SEEINSTR ##9 06/13/17 08/18/23 History intramuscular oil (Depo-Testosterone) hydromorphone 4 mg tablet 4 mg PO Q4-6H PRN Breakthrough Pain 11/10/18 08/18/23 History Respironics Dreamstation CPAP #1 ea 11/27/18 08/18/23 History clonidine (PF) 1,000 mcg/10 mL 180 mcg continuous epidural DAILY 03/06/19 08/18/23 History (100 mcg/mL) epidural solution In pain pump mecobalamin (vitamin B12) 1,000 1,000 mcg PO DAILY 06/23/20 08/18/23 History mcg chewable tablet bupivacaine (PF) 0.5 % (5 mg/mL) mg epidural CONT 03/16/21 04/09/22 History injection solution (Sensorcaine-MPF) hydromorphone (PF) 1 mg/mL 1 mg epidural Q4H PRN Pain (Scale 03/16/21 08/18/23 History injection solution Score 7-10) carvedilol 6.25 mg tablet 6.25 mg PO QAM PRN elevated blood 02/27/22 08/18/23 History pressure prednisone 10 mg tablet 10 mg PO DAILY PRN Pain (Scale 02/27/22 08/18/23 History Score 4-6) tadalafil 5 mg tablet (Cialis) 20 mg PO DAILY 02/27/22 08/18/23 History ketoconazole 2 % topical cream 1 applic topical 1XD 08/18/23 08/18/23 History losartan 50 mg tablet 50 mg PO DAILY 08/18/23 08/18/23 History Allergies Allergy/AdvReac Type Severity Reaction Status Date / Time morphine [MORPHINE] Allergy Intermediate BLISTERS Verified 04/09/22 09:56 aspartame AdvReac Severe SEVERE Verified 04/09/22 09:56 [From NUTRASWEET ASPARTAME] HEADACHES banana AdvReac Severe Severe Verified 04/09/22 09:56 headaches chocolate flavor AdvReac Severe Headaches Verified 04/09/22 09:56 gabapentin [GABAPENTIN] AdvReac Severe SEVERE Verified 04/09/22 09:56 AGITATION, DEPRESSION, ANXIETY hydrochlorothiazide AdvReac Severe HEADACHES Verified 04/09/22 09:56 [HYDROCHLOROTHIAZIDE] hydrocodone [HYDROCODONE] AdvReac Severe SEVERE Verified 04/09/22 09:56 HEADACHES metoprolol [METOPROLOL] AdvReac Severe HEADACHES Verified 04/09/22 09:56 omeprazole [OMEPRAZOLE] AdvReac Severe SEVERE Verified 04/09/22 09:56 HEADACHES & DIZZINESS oxycodone [OXYCODONE] AdvReac Severe HEADACHES Verified 04/09/22 09:56 nifedipine [From Procardia] AdvReac Gastrointestinal Verified 04/09/22 09:56 Upset Cmrtxas-IFC-BjE Reductase AdvReac Gastrointestinal Verified 04/09/22 09:56 Inhibitor Upset [Ocwstct-Ssi-Hfu Reductase Inhibitor] Exam Vital Signs (past 8 hours): - 08/19/23 04:00 08/19/23 09:06 08/19/23 09:07 Temperature 98.9 F 98.6 F Pulse Rate 77 86 100 H Respiratory Rate 20 18 Blood Pressure 172/81 H 150/68 H 147/72 H Pulse Oximetry 99 99 Oxygen Flow Rate 0 Oxygen Delivery Method Room Air Oxygen Flow Rate 0 Resp Effort & Inspection: normal respiratory effort GI Palpation: soft Objective Labs 08/18/23 20:08 08/18/23 09:03 Labs: Laboratory Results - last 24 hr 08/18/23 08/18/23 09:20 20:08 WBC 6.6 RBC 2.83 L Hgb 8.2 L Hct 24.7 L MCV 87.3 MCH 29.0 MCHC 33.2 RDW 16.1 H Plt Count 184 Neut % (Auto) 71.1 Lymph % (Auto) 16.8 L [place] % (Auto) 10.1 Eos % (Auto) 1.2 L Baso % (Auto) 0.8 Neut # (Auto) 4700 Lymph # (Auto) 1100 [place] # (Auto) 700 Eos # (Auto) 100 Baso # (Auto) 100 Blood Type AB Positive Antibody Screen Negative Crossmatch See Detail PFSH Medical History Elevated PSA Erectile dysfunction Lower urinary tract symptoms (LUTS) BPH w urinary obs/LUTS Vitamin B12 deficiency Opioid dependence with current use Throat irritation Central sleep apnea [place] (hard of hearing) Cardiac murmur Tachycardia Arachnoiditis Postoperative atrial fibrillation Statin intolerance (~07/2015) Obstructive sleep apnea of adult Atypical chest pain Serum lipase elevation Coronary artery disease Small bowel obstruction Leg edema, right GERD (gastroesophageal reflux disease) Hypertension Surgical History History of appendectomy History of bilateral knee arthroplasty History of fundoplication History of lumbar surgery Hx of sinus surgery (03/12/18) S/P CABG x 2 S/P insertion of spinal cord stimulator (~2002) S/P lumbar spinal fusion (11/10/18) S/P total knee arthroplasty Status post bilateral cataract extraction (~10/2014) Social History marital status: household members: spouse Tobacco & Substance Use Smoking Status: Never smoker alcohol intake: never substance use type: does not use Assessment & Plan Assessment and plan (1) GI bleed: Status: Acute Plan Recommended we proceed with an esophagogastroduodenoscopy for melena and anemia. If no source of bleeding is found he would need to have a colonoscopy. He would like to proceed.
--- NOTE | 2023-08-19 10:21 | PM.PN.1 ---
Subjective Subjective Interval history: CC: acute anemia with melena Pt resting comfortably this morning after transfusion yesterday. NPO for likely scope. Surgery is planning to start with EGD and proceed from there. Exam Vital Signs (past 8 hours): - 08/19/23 04:00 08/19/23 09:06 08/19/23 09:07 Temperature 98.9 F 98.6 F Pulse Rate 77 86 100 H Respiratory Rate 20 18 Blood Pressure 172/81 H 150/68 H 147/72 H Pulse Oximetry 99 99 Oxygen Flow Rate 0 Oxygen Delivery Method Room Air Oxygen Flow Rate 0 Narrative Exam Narrative: pale elder resting in bed Resp Other: clear to auscultation bilaterally Cardio Other: regular rate, S1/S2 GI Other: soft sub q pump in place in R abdomen Neuro Other: alert awake oriented Extrem Other: no pedal edema Objective Labs 08/18/23 20:08 08/18/23 09:03 Labs: Laboratory Results - last 24 hr 08/18/23 08/18/23 09:20 20:08 WBC 6.6 RBC 2.83 L Hgb 8.2 L Hct 24.7 L MCV 87.3 MCH 29.0 MCHC 33.2 RDW 16.1 H Plt Count 184 Neut % (Auto) 71.1 Lymph % (Auto) 16.8 L [place] % (Auto) 10.1 Eos % (Auto) 1.2 L Baso % (Auto) 0.8 Neut # (Auto) 4700 Lymph # (Auto) 1100 [place] # (Auto) 700 Eos # (Auto) 100 Baso # (Auto) 100 Blood Type AB Positive Antibody Screen Negative Crossmatch See Detail PFSH Medical History Elevated PSA Erectile dysfunction Lower urinary tract symptoms (LUTS) BPH w urinary obs/LUTS Vitamin B12 deficiency Opioid dependence with current use Throat irritation Central sleep apnea MARY[place] IGLOO (hard of hearing) Cardiac murmur Tachycardia Arachnoiditis Postoperative atrial fibrillation Statin intolerance (~07/2015) Obstructive sleep apnea of adult Atypical chest pain Serum lipase elevation Coronary artery disease Small bowel obstruction Leg edema, right GERD (gastroesophageal reflux disease) Hypertension Surgical History History of appendectomy History of bilateral knee arthroplasty History of fundoplication History of lumbar surgery Hx of sinus surgery (03/12/18) S/P CABG x 2 S/P insertion of spinal cord stimulator (~2002) S/P lumbar spinal fusion (11/10/18) S/P total knee arthroplasty Status post bilateral cataract extraction (~10/2014) Social History marital status: household members: spouse Smoking Status: Never smoker alcohol intake: never substance use type: does not use Assessment & Plan Assessment & Plan narrative: Pt is a 77yo man with chronic arachnoiditis with intrathecal pump and neurostimulator in place, CAD s/p CABG, CLARE who presented with worsening SOB and nausea. Found to have severe anemia in the ED. #Acute blood loss anemia Suspect upper GI bleed given melena Hx of GERD with hiatal hernia repair in 2022, asymptomatic since then. Hgb improved s/p transfusion 2Us prbcs, continue to trend IV pantoprazole, endoscopy pending c/o surgery #primary hypertension continue home coreg, hctz, amlodipine and losartan with prn hydralazine #CLARE uses pressure assist servo device at home, see what respiratory can arrange if he stays further #Chronic arachnoiditis Pump in place and functioning dispo: pending surgical exploration today. possibly home tomorrow if successful diet: NPO until procedure PCP: Elder code: full MDM: dvt ppx: SCDs
[2023-08-19] MEDS: LACTATED RINGERS 1,000 ML 100 ML IV (14:40)
--- NOTE | 2023-08-19 15:11 | CM.DANOTE ---
Patient is a 77 yo male who was admitted on 08/18/23 for Chest Pain/Nausea. Pt has [facility] and [employer] for insurance and his PCP is Dr. Ishmael Friedman. EMR was reviewed. Per MD, pt admitted with acute anemia and per Surgeon Consult plan is scope today to r/o further medical needs. Per RN, scope scheduled for around 1500 today and independent in room and no concerns noted at this time, pt remains NPO. SW met briefly bedside with pt and explained role and he confirms he lives in [place] with his spouse and both are active and independent at baseline, no DME for ambulation and pt enjoys gardening and primarily focuses on different strains of imgfavees. Pt denies any recent hx of HH or SNF and pt's preference is to d/c home via spouse POV when medically stable and pt does not anticipate any d/c needs at this time. Plan: SW to follow for Surgeon recommendations after scope this afternoon to confirm safe plan of discharge to home with spouse and outpt f/u. MIKEY Chand Discharge Planning/Care Management Advanced directive, confirm from FAMILY Start: 08/18/23 11:44 Freq: Q24H Status: Active Protocol: Document 08/18/23 14:00 DENISE (Rec: 08/18/23 14:02 DENISE [id number]) Advance Directive, confirm on record Time 14:02 Person contacted patient Copy received No CM Discharge Assessment Start: 08/19/23 15:10 Freq: Status: Active Protocol: Document 08/19/23 15:10 BF (Rec: 08/19/23 15:11 BF [id number]) Discharge Planning Assessment Assigned Supervisor Word Processing MIKEY Antoine DPOA/Assigned Designee Name spouse Tessy Contact Information [phone] Advance Directives? Yes Advance Directives on File Yes History Provided By Patient,Medical Record Has Patient been admitted in last 30 No days? Prior Living Arrangements House Household Members spouse Type of transporation used prior to Drives own vehicle admit Independent with ADL's Yes Is patient alert and oriented? Yes Caregiver for Another No Barriers to Discharge No Comment Patient has pain pump secondary to chronic back pain syndrome. Discharge Plan Home Transportation Arrangement Family to provide transportation. Referrals Initiated None needed Additional Comment Pending scope results Whiteboard Updated in Patient Room with Yes name and ext. # of Supervisor Word Processing Review Status In Process Please Provide Date Initial DC 08/19/23 Assessment Was Performed Next Review Type Continued Stay Review
--- NOTE | 2023-08-19 15:20 | PM.OP.EGD ---
Operative Date/Time/Diagnoses Date of procedure: 08/19/23 Time of procedure: 15:20 Pre-op diagnosis: Melena and anemia Post-op diagnosis: same Procedure & Clinicians Study performed: Esophagogastroduodenoscopy Same procedure as scheduled: Yes Surgeon: Valeriano Kumar Procedure Notes Procedure in detail: Surgeon: Valeriano Kumar MD Anesthesia: Antoine Coats MD A timeout was performed. A bite blocked was placed. The patient was positioned in the left lateral decubitus position. Anesthesia was administered. The endoscope was inserted through the bite block and passed through the esophagus and stomach and into the duodenum. The duodenal mucosa appeared normal. The scope was withdrawn into the duodenal bulb and no abnormalities were seen. The scope was withdrawn into the stomach. There was mild antritis right at the pyloric opening and random biopsies were taken. The rest of the stomach was normal. The scope was retroflexed and it appeared that the fundoplication was intact. The scope was withdrawn into the esophagus and no other abnormalities were seen. The remainder of the esophagus was normal. The scope was withdrawn. The patient was awakened and brought to recovery. Sedation time: 7 minutes Findings: Mild antritis, intact fundoplication Post-procedure Disposition: PACU
--- NOTE | 2023-08-19 16:19 | PM.DS.1 ---
History of Present Illness History of Present Illness Date Patient Seen: 08/19/23 Time Patient Seen: 16:19 Chief complaint: chest pain, nausea, SOB Narrative: CC: acute anemia s/p EGD without revelation regarding any bleeding source. He feels much better and denies further melena today. Next available colonoscopy date will be - in consultation with Dr. Kumar will plan to discharge today and get that study as outpatient. Discharge Providers Provider Date of admission: 08/18/23 09:59 Discharge Date: 08/19/23 Primary care physician: Ishmael Friedman MD Consults: 08/18/23 09:32 Consult to General Surgery Stat Comment: Consulting Provider: Diego Brito Reason for consultation: Gi bleed Has provider been notified: Yes 08/18/23 09:59 Consult to Physician Stat Comment: Consulting Provider: Wendy Corona Reason for consultation: admission Has provider been notified: Yes Consult to Physician Stat Comment: Consulting Provider: Ishmael Friedman Reason for consultation: admission Has provider been notified: No Discharge provider: Ishmael Friedman MD Summary Hospital Course Discharge Diagnosis: #Acute blood loss anemia #primary hypertension #CLARE #Chronic arachnoiditis Hospital Course: Mr. Boyd presented acutely weak to ED and was admitted for acute anemia and repleted with 2Us PRBCs. Given his complaint of melena he received EGD without actionable findings. He was feeling well afterwards and given next colonoscopy avilability would be he prefers to continue working on this as an outpatient. His vitals signs remain stable and he denied further episodes of melena today. Exam Vital Signs (past 8 hours): - 08/19/23 09:06 08/19/23 09:07 08/19/23 14:29 Temperature 98.6 F 98.2 F Pulse Rate 86 100 H 99 H Respiratory Rate 18 16 Blood Pressure 150/68 H 147/72 H 180/82 H Pulse Oximetry 99 99 Oxygen Delivery Method Room Air Oxygen Flow Rate 0 08/19/23 15:21 08/19/23 15:25 08/19/23 15:30 Temperature 97 F L Pulse Rate 101 H 96 H 94 H Respiratory Rate 12 12 16 Blood Pressure 92/40 L 88/46 L 120/61 Pulse Oximetry 94 94 95 Oxygen Delivery Method Room Air Room Air Room Air Oxygen Flow Rate 08/19/23 15:35 08/19/23 15:41 Temperature 97.1 F L Pulse Rate 98 H 93 H Respiratory Rate 17 16 Blood Pressure 116/63 118/66 Pulse Oximetry 98 94 Oxygen Delivery Method Room Air Room Air Oxygen Flow Rate Oxygen Delivery Method Room Air Oxygen Flow Rate 0 Narrative Exam Narrative: resting comfortably after EGD Resp Other: clear to auscultation bilaterally Cardio Other: regular rate, well perfused GI Other: soft nontender active bowel sounds Neuro Other: [id number] Objective Labs 08/18/23 20:08 08/18/23 09:03 Labs: Laboratory Results - last 24 hr 08/18/23 08/18/23 09:20 20:08 WBC 6.6 RBC 2.83 L Hgb 8.2 L Hct 24.7 L MCV 87.3 MCH 29.0 MCHC 33.2 RDW 16.1 H Plt Count 184 Neut % (Auto) 71.1 Lymph % (Auto) 16.8 L [place] % (Auto) 10.1 Eos % (Auto) 1.2 L Baso % (Auto) 0.8 Neut # (Auto) 4700 Lymph # (Auto) 1100 [place]ston # (Auto) 700 Eos # (Auto) 100 Baso # (Auto) 100 Crossmatch See Detail PFSH Medical History Elevated PSA Erectile dysfunction Lower urinary tract symptoms (LUTS) BPH w urinary obs/LUTS Vitamin B12 deficiency Opioid dependence with current use Throat irritation Central sleep apnea [place] (hard of hearing) Cardiac murmur Tachycardia Arachnoiditis Postoperative atrial fibrillation Statin intolerance (~07/2015) Obstructive sleep apnea of adult Atypical chest pain Serum lipase elevation Coronary artery disease Small bowel obstruction Leg edema, right GERD (gastroesophageal reflux disease) Hypertension Surgical History History of appendectomy History of bilateral knee arthroplasty History of fundoplication History of lumbar surgery Hx of sinus surgery (03/12/18) S/P CABG x 2 S/P insertion of spinal cord stimulator (~2002) S/P lumbar spinal fusion (11/10/18) S/P total knee arthroplasty Status post bilateral cataract extraction (~10/2014) Social History marital status: household members: spouse Smoking Status: Never smoker alcohol intake: never substance use type: does not use Discharge Assessment & Plan Assessment and Plan Assessment: Pt is a 77yo man with chronic arachnoiditis with intrathecal pump and neurostimulator in place, CAD s/p CABG, CLARE who presented with worsening SOB and nausea. Found to have severe anemia in the ED, repleted with 2Us prbcs, received EGD without actionable findings today. #Acute blood loss anemia Suspect upper GI bleed given melena Hx of GERD with hiatal hernia repair in 2022, asymptomatic since then. Hgb improved s/p transfusion 2Us prbcs, continue to trend EGD unrevealing today per discussion with Dr. Kumar will set up for outpatient colonoscopy next on - his office will coordinate ferrous sulfate and vit C in meanwhile #primary hypertension continue home coreg, hctz, amlodipine and losartan with prn hydralazine #CLARE stable with home device #Chronic arachnoiditis Pump in place and functioning dispo: home for outpt cscopy on diet: resume general diet as tolerated PCP: Elder code: full MDM: dvt ppx: SCDs Discharge Plan Discharge Plan Patient Disposition: Home Discharge orders & Medications Prescriptions: New ascorbic acid (vitamin C) [Vitamin C] 500 mg Tablet 500 mg PO DAILY Qty: 30 0RF ferrous sulfate 325 mg (65 mg iron) Tablet 325 mg PO DAILY Qty: 30 0RF Continued testosterone cypionate [Depo-Testosterone] 200 MG/1 ML oil 0.5 ml subcut SEEINSTR Qty: 9 Rx Instructions: Injects 3 times/month clonidine (PF) 1,000 mcg/10 mL (100 mcg/mL) Solution 180 mcg continuous epidural DAILY hydromorphone 4 mg tablet 4 mg PO Q4-6H PRN (Reason: Breakthrough Pain) Patient Comments: last dose 1-2 months ago carvedilol 6.25 mg tablet 6.25 mg PO QAM PRN (Reason: elevated blood pressure) Rx Instructions: 6.25mg qam- only if bp rises above 160 for a day or so , then takes a dose ketoconazole 2 % cream 1 applic topical 1XD losartan 50 mg tablet 50 mg PO DAILY hydromorphone (PF) 1 mg/mL solution 1 mg epidural Q4H PRN (Reason: Pain (Scale Score 7-10)) Rx Instructions: 2.7mg in pain pump daily bupivacaine (PF) [Sensorcaine-MPF] 0.5 % (5 mg/mL) solution 3 mg epidural CONT Rx Instructions: 3mg in pump daily prednisone 10 mg tablet 10 mg PO DAILY PRN (Reason: Pain (Scale Score 4-6)) Patient Comments: 6 months ago Rx Instructions: 40 mg PO qd x 7d, then 30 mg PO qd x 7d, then 20 mg PO qd x 7 d, then 10 mg PO qd x 7d tadalafil [Cialis] 5 mg tablet 20 mg PO DAILY (DME) Respironics Dreamstation CPAP Qty: 1 Dose Instruction: As directed Patient Comments: Pressure: IPAP 20 EPAP 10 DME: [facility] Rx Instructions: As directed mecobalamin (vitamin B12) 1,000 mcg tablet,chewable 1,000 mcg PO DAILY Follow up/Referrals: Ishmael Friedman MD [Primary Care Provider] - Visit Report/Discharge Packet Stand Alone Forms: Patient Portal/API, Stroke Signs & Symptoms Discharge Data Primary Care Provider: Ishmael Friedman
--- NOTE | 2023-08-19 16:35 | PC.NURSE ---
Addendum entered by Drake Cortez R.N. 08/19/23 17:05: Discharge paperwork reviewed with patient. IV removed intact. Patient has no further questions or concerns, states he has already been talking to the coordinator at [facility] to get his follow up scheduled. Patient taken out via wheelchair to discharge to home to his . Original Note: Patient seen by Dr. Kumar and Dr. Friedman post procedure, patient cleared for discharge with a plan for outpatient colonoscopy on . Patient had clear liquids post procedure, denies pain or other complaint at this time. VSS.
--- NOTE | 2023-08-20 07:49 | CM.DPC ---
DCP Discharge Home Per Surgeon and MD yesterday evening 08/19/23, pt's scope showed no signs of active bleed and pt feeling better and plan was discharge home last night with outpt colonoscopy with [facility] later this week. No barriers to discharge. Per RN, pt and spouse given d/c instructions last night and no concerns and pt was transported home via spouse POV after SW shift ended. MIKEY Chand
== END 2023-08-19 17:10 | disposition home or self-care (01) | DRG 378 ==
LOC: ED 09:18 → AC 10:00
PROVIDERS: Family Medicine; Surgery; Admitting Provider Family Medicine; Emergency Provider Emergency Medicine; PCP Family Medicine; Referring Provider Emergency Medicine; Visit Provider Family Medicine
PROC: 0DJ08ZZ Inspection of Upper Intestinal Tract, Via Natural or Artificial Opening Endoscopic (ICD-10-PCS; CPT 43235; principal; 2023-08-19 15:00)
DX: K92.2 Gastrointestinal hemorrhage, unspecified (principal); D62 Acute posthemorrhagic anemia; G03.1 Chronic meningitis; I25.10 Atherosclerotic heart disease of native coronary artery without angina pectoris; G89.29 Other chronic pain; M54.9 Dorsalgia, unspecified; I10 Essential (primary) hypertension; N40.0 Benign prostatic hyperplasia without lower urinary tract symptoms; K29.50 Unspecified chronic gastritis without bleeding; N52.9 Male erectile dysfunction, unspecified; Z95.1 Presence of aortocoronary bypass graft
CPT/HCPCS: 0241U; 36415; 36430; 43239; 71045; 80053; 82550; 83690; 83880; 84484; 85025; 85610; 85730; 86850; 86900; 86901; 93005; 93010; 99232; 99284; 99285; P9016; C9113; J2405; J2704

== ENCOUNTER 2023-08-22 14:47 | Day surgery (SDC) | payer MEDICARE, OTHER, SELFPAY ==
[2023-08-18 10:26] VITALS: BMI 30.8
[2023-08-22 15:10] VITALS: BP 150/73; PULSE 91; RESP 20; TEMP 36.9; O2SAT 99
[2023-08-22] MEDS: LACTATED RINGERS 1,000 ML 42 ML IV (15:14)
--- NOTE | 2023-08-22 15:24 | P.HP_ITS ---
History of Present Illness History of Present Illness Date Patient Seen: 08/22/23 Time Patient Seen: 15:24 Chief complaint: SDC Narrative: Darin is a 77-year-old man who was admitted recently for anemia. He had an EGD which was unremarkable. He has now come back for a colonoscopy. See prior notes for more details. 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[place] (hard of hearing) Cardiac murmur Tachycardia Arachnoiditis Postoperative atrial fibrillation Statin intolerance (~07/2015) Obstructive sleep apnea of adult Atypical chest pain Serum lipase elevation Coronary artery disease Small bowel obstruction Leg edema, right GERD (gastroesophageal reflux disease) Hypertension Surgical History History of appendectomy History of bilateral knee arthroplasty History of fundoplication History of lumbar surgery Hx of sinus surgery (03/12/18) S/P CABG x 2 S/P insertion of spinal cord stimulator (~2002) S/P lumbar spinal fusion (11/10/18) S/P total knee arthroplasty Status post bilateral cataract extraction (~10/2014) Social History marital status: household members: spouse Smoking Status: Never smoker alcohol intake: never substance use type: does not use Meds Home Medications and Allergies Home Medications Medication Instructions Recorded Confirmed Type testosterone cypionate 200 mg/mL 0.5 ml SUBCUT SEEINSTR ##9 06/13/17 08/22/23 History intramuscular oil (Depo-Testosterone) hydromorphone 4 mg tablet 4 mg PO Q4-6H PRN Breakthrough Pain 11/10/18 08/22/23 History Respironics Dreamstation CPAP #1 ea 11/27/18 08/18/23 History clonidine (PF) 1,000 mcg/10 mL 180 mcg continuous epidural DAILY 03/06/19 08/18/23 History (100 mcg/mL) epidural solution In pain pump mecobalamin (vitamin B12) 1,000 1,000 mcg PO DAILY 06/23/20 08/18/23 History mcg chewable tablet bupivacaine (PF) 0.5 % (5 mg/mL) 3 mg epidural CONT 03/16/21 08/19/23 History injection solution (Sensorcaine-MPF) hydromorphone (PF) 1 mg/mL 1 mg epidural Q4H PRN Pain (Scale 03/16/21 08/18/23 History injection solution Score 7-10) carvedilol 6.25 mg tablet 12.5 mg PO QAM PRN elevated blood 02/27/22 08/22/23 History pressure prednisone 10 mg tablet 10 mg PO DAILY PRN Pain (Scale 02/27/22 08/22/23 History Score 4-6) tadalafil 5 mg tablet (Cialis) 20 mg PO DAILY 02/27/22 08/22/23 History ketoconazole 2 % topical cream 1 applic topical 1XD 08/18/23 08/18/23 History losartan 50 mg tablet 50 mg PO DAILY PRN elevated BP 08/18/23 08/22/23 History ascorbic acid (vitamin C) 500 mg 500 mg PO DAILY #30 tabs 08/19/23 Rx tablet (Vitamin C) ferrous sulfate 325 mg (65 mg 325 mg PO DAILY #30 tabs 08/19/23 Rx iron) tablet amlodipine 5 mg tablet 5 mg PO DAILY PRN elevated Bp 08/22/23 08/22/23 History carvedilol 6.25 mg tablet 6.25 mg PO BID 08/22/23 08/22/23 History Allergies Allergy/AdvReac Type Severity Reaction Status Date / Time morphine [MORPHINE] Allergy Intermediate BLISTERS Verified 08/22/23 15:01 aspartame AdvReac Severe SEVERE Verified 08/22/23 14:57 [From NUTRASWEET ASPARTAME] HEADACHES banana AdvReac Severe Severe Verified 04/09/22 09:56 headaches chocolate flavor AdvReac Severe Headaches Verified 04/09/22 09:56 gabapentin [GABAPENTIN] AdvReac Severe SEVERE Verified 04/09/22 09:56 AGITATION, DEPRESSION, ANXIETY hydrochlorothiazide AdvReac Severe HEADACHES Verified 08/22/23 15:01 [HYDROCHLOROTHIAZIDE] hydrocodone [HYDROCODONE] AdvReac Severe SEVERE Verified 08/22/23 14:57 HEADACHES metoprolol [METOPROLOL] AdvReac Severe HEADACHES Verified 08/22/23 14:57 omeprazole [OMEPRAZOLE] AdvReac Severe SEVERE Verified 08/22/23 14:57 HEADACHES & DIZZINESS oxycodone [OXYCODONE] AdvReac Severe HEADACHES Verified 08/22/23 14:57 nifedipine [From Procardia] AdvReac Gastrointestinal Verified 08/22/23 14:57 Upset, headache [id number]-[id number]-NmR Reductase AdvReac Gastrointestinal Verified 08/22/23 14:57 Inhibitor Upset, [Ybgukwd-Jkl-Npj Reductase headache Inhibitor] Exam Vital Signs (past 8 hours): - 08/22/23 15:10 Temperature 98.5 F Pulse Rate 91 H Respiratory Rate 20 Blood Pressure 150/73 H Pulse Oximetry 99 Oxygen Delivery Method Room Air Oxygen Delivery Method Room Air Resp Effort & Inspection: normal respiratory effort Neuro General: patient alert Assessment & Plan Assessment and plan (1) Symptomatic anemia: Status: Acute Plan We will plan to proceed with a colonoscopy for anemia and melena. We reviewed the risks and benefits and he would like to proceed.
--- NOTE | 2023-08-22 15:36 | PM.OP.COLON ---
Operative Date/Time/Diagnoses Date of procedure: 08/22/23 Time of procedure: 15:36 Pre-op diagnosis: Anemia Post-op diagnosis: same Procedure & Clinicians Study performed: Colonoscopy attempted Same procedure as scheduled: Yes Surgeon: Valeriano Kumar Procedure Notes Procedure in detail: Surgeon: Valeriano Kumar MD Anesthesia: Antoine Coats MD Procedure: The patient was brought to the endoscopy suite, placed in left lateral decubitus position. The patient was connected to monitoring devices. A time-out was performed. Sedation was administered. Once the patient was adequately sedated, a digital rectal exam was performed and was normal. The scope was inserted into the rectum. There was solid and liquid stool in the rectum and the procedure was aborted. The patient was awakened and brought to recovery. Scope withdrawal time: Not applicable Sedation time: 2 minutes EBL: None Findings: Inadequate prep Post-procedure Disposition: PACU
[2023-08-22 15:43] VITALS: BP 107/75; PULSE 85; RESP 14; TEMP 37.7; O2SAT 96
[2023-08-22 15:48] VITALS: BP 113/76; PULSE 92; RESP 15; O2SAT 98
[2023-08-22 15:53] VITALS: BP 131/83; PULSE 86; RESP 16; TEMP 37.2; O2SAT 99
[2023-08-22 15:58] VITALS: BP 140/86; PULSE 84; RESP 18; O2SAT 95
== END 2023-08-22 16:10 | disposition home or self-care (01) ==
PROVIDERS: PCP Family Medicine; Referring Provider Surgery; Visit Provider Surgery
PROC: 0DJD8ZZ Inspection of Lower Intestinal Tract, Via Natural or Artificial Opening Endoscopic (ICD-10-PCS; CPT 45378; principal; 2023-08-22 15:30)
DX: D64.9 Anemia, unspecified (principal); K92.1 Melena; Z53.09 Procedure and treatment not carried out because of other contraindication
CPT/HCPCS: 45378; J2704

== ENCOUNTER 2023-08-27 11:58 | Day surgery (SDC) | payer MEDICARE, OTHER, SELFPAY ==
[2023-08-18 10:26] VITALS: BMI 30.8
[2023-08-27] MEDS: FLEETS ENEMA 1 EACH PR (12:13)
[2023-08-27] MEDS: LACTATED RINGERS 1,000 ML 42 ML IV (12:13)
[2023-08-27 12:39] VITALS: BP 134/70; PULSE 84; RESP 12; TEMP 36.9; O2SAT 99
--- NOTE | 2023-08-27 13:13 | P.HP_ITS ---
History of Present Illness History of Present Illness Date Patient Seen: 08/27/23 Time Patient Seen: 13:13 Chief complaint: FLC Narrative: Darin 77-year-old man with anemia of unclear etiology. His hemoglobin got down as low as 6.7 on August 19. He had an EGD on August 19 which did not demonstrate an obvious cause of the anemia. He had an attempted colonoscopy last week but the prep was inadequate and he has been rescheduled for today. His last colonoscopy was in [address] Bhatia and 1 small polyp was removed. It came back as a tubular adenoma. 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[place] (hard of hearing) Cardiac murmur Tachycardia Arachnoiditis Postoperative atrial fibrillation Statin intolerance (~07/2015) Obstructive sleep apnea of adult Atypical chest pain Serum lipase elevation Coronary artery disease Small bowel obstruction Leg edema, right GERD (gastroesophageal reflux disease) Hypertension Surgical History History of appendectomy History of bilateral knee arthroplasty History of fundoplication History of lumbar surgery Hx of sinus surgery (03/12/18) S/P CABG x 2 S/P insertion of spinal cord stimulator (~2002) S/P lumbar spinal fusion (11/10/18) S/P total knee arthroplasty Status post bilateral cataract extraction (~10/2014) Social History marital status: household members: spouse Smoking Status: Never smoker alcohol intake: never substance use type: does not use Meds Home Medications and Allergies Home Medications Medication Instructions Recorded Confirmed Type testosterone cypionate 200 mg/mL 0.5 ml SUBCUT SEEINSTR ##9 06/13/17 08/27/23 History intramuscular oil (Depo-Testosterone) hydromorphone 4 mg tablet 4 mg PO Q4-6H PRN Breakthrough Pain 11/10/18 08/27/23 History Respironics Dreamstation CPAP #1 ea 11/27/18 08/18/23 History clonidine (PF) 1,000 mcg/10 mL 180 mcg continuous epidural DAILY 03/06/19 08/27/23 History (100 mcg/mL) epidural solution In pain pump mecobalamin (vitamin B12) 1,000 1,000 mcg PO DAILY 06/23/20 08/18/23 History mcg chewable tablet bupivacaine (PF) 0.5 % (5 mg/mL) 3 mg epidural CONT 03/16/21 08/27/23 History injection solution (Sensorcaine-MPF) hydromorphone (PF) 1 mg/mL 1 mg epidural Q4H PRN Pain (Scale 03/16/21 08/27/23 History injection solution Score 7-10) carvedilol 6.25 mg tablet 12.5 mg PO QAM PRN elevated blood 02/27/22 08/27/23 History pressure prednisone 10 mg tablet 10 mg PO DAILY PRN Pain (Scale 02/27/22 08/27/23 History Score 4-6) tadalafil 5 mg tablet (Cialis) 20 mg PO DAILY PRN Sexual Activity 02/27/22 08/27/23 History ketoconazole 2 % topical cream 1 applic topical 1XD 08/18/23 08/18/23 History losartan 50 mg tablet 50 mg PO DAILY PRN elevated BP 08/18/23 08/27/23 History ascorbic acid (vitamin C) 500 mg 500 mg PO DAILY #30 tabs 08/19/23 Rx tablet (Vitamin C) ferrous sulfate 325 mg (65 mg 325 mg PO DAILY #30 tabs 08/19/23 08/27/23 Rx iron) tablet amlodipine 5 mg tablet 5 mg PO DAILY PRN elevated Bp 08/22/23 08/27/23 History carvedilol 6.25 mg tablet 6.25 mg PO BID 08/22/23 08/27/23 History evolocumab 140 mg/mL subcutaneous 140 mg SUBCUT Q2W 08/27/23 08/27/23 History pen injector (Repatha Venkat) Allergies Allergy/AdvReac Type Severity Reaction Status Date / Time morphine [MORPHINE] Allergy Intermediate BLISTERS Verified 08/27/23 12:21 aspartame AdvReac Severe SEVERE Verified 08/27/23 12:21 [From NUTRASWEET ASPARTAME] HEADACHES banana AdvReac Severe Severe Verified 08/27/23 12:21 headaches chocolate flavor AdvReac Severe Headaches Verified 08/27/23 12:21 gabapentin [GABAPENTIN] AdvReac Severe SEVERE Verified 08/27/23 12:21 AGITATION, DEPRESSION, ANXIETY hydrochlorothiazide AdvReac Severe HEADACHES Verified 08/27/23 12:21 [HYDROCHLOROTHIAZIDE] hydrocodone [HYDROCODONE] AdvReac Severe SEVERE Verified 08/27/23 12:21 HEADACHES metoprolol [METOPROLOL] AdvReac Severe HEADACHES Verified 08/27/23 12:21 omeprazole [OMEPRAZOLE] AdvReac Severe SEVERE Verified 08/27/23 12:21 HEADACHES & DIZZINESS oxycodone [OXYCODONE] AdvReac Severe HEADACHES Verified 08/27/23 12:21 nifedipine [From Procardia] AdvReac Gastrointestinal Verified 08/27/23 12:21 Upset, headache Dlixusx-NOS-YyB Reductase AdvReac Gastrointestinal Verified 08/27/23 12:21 Inhibitor Upset, [Kbhrhnr-Nzo-Ttc Reductase headache Inhibitor] Exam Vital Signs (past 8 hours): - 08/27/23 12:39 Temperature 98.5 F Pulse Rate 84 Respiratory Rate 12 Blood Pressure 134/70 Pulse Oximetry 99 Oxygen Delivery Method Room Air Oxygen Delivery Method Room Air Resp Effort & Inspection: normal respiratory effort Neuro General: patient alert and patient awake Assessment & Plan Assessment and plan (1) Symptomatic anemia: Status: Acute Plan Darin is a 77-year-old man with symptomatic anemia. We will proceed with a colonoscopy today.
[2023-08-27 13:59] VITALS: BP 99/51; PULSE 81; RESP 18; TEMP 37.6; O2SAT 98
--- NOTE | 2023-08-27 14:01 | PM.OP.COLON ---
Operative Date/Time/Diagnoses Date of procedure: 08/27/23 Time of procedure: 14:01 Pre-op diagnosis: Anemia Post-op diagnosis: same Procedure & Clinicians Study performed: Colonoscopy Same procedure as scheduled: Yes Surgeon: Valeriano Kumar Procedure Notes Procedure in detail: Surgeon: Valeriano Kumar MD Anesthesia: Julia Brian D.O. Procedure: The patient was brought to the endoscopy suite, placed in left lateral decubitus position. The patient was connected to monitoring devices. A time-out was performed. Sedation was administered. Once the patient was adequately sedated, a digital rectal exam was performed and was normal. The scope was then inserted and advanced to the cecum where the appendiceal orifice was identified and photographed. The scope was then slowly withdrawn over greater than 6 minutes. The mucosa was thoroughly inspected. No abnormalities were found. No traces of fresh or blood were found. The scope was retroflexed in the rectum. No other abnormalities were seen. The scope was straightened and removed. The patient was awakened and brought to recovery. Scope withdrawal time: 9 minutes Sedation time: 16 minutes EBL: 0 Findings: Normal colon Post-procedure Disposition: PACU
[2023-08-27 14:04] VITALS: BP 99/54; PULSE 76; RESP 12; O2SAT 95
[2023-08-27 14:09] VITALS: BP 136/68; PULSE 75; RESP 14; O2SAT 98
[2023-08-27 14:25] VITALS: BP 146/75; PULSE 74; RESP 14; TEMP 36.9; O2SAT 98
== END 2023-08-27 14:32 | disposition home or self-care (01) ==
PROVIDERS: PCP Family Medicine; Referring Provider Surgery; Visit Provider Surgery
PROC: 0DJD8ZZ Inspection of Lower Intestinal Tract, Via Natural or Artificial Opening Endoscopic (ICD-10-PCS; CPT 45378; principal; 2023-08-27 13:45)
DX: D64.9 Anemia, unspecified (principal); Z86.010 Personal history of colon polyps
CPT/HCPCS: 45378; J2704

== ENCOUNTER → 2023-08-29 12:20 | Outpatient (CLI) | payer MEDICARE, OTHER, SELFPAY ==
[2023-08-18 10:26] VITALS: BMI 30.8
--- NOTE | 2023-08-29 12:21 | DI.CT.S_ITS ---
PROCEDURE: CT CHEST ABD PEL W CON INDICATIONS: Anemia TECHNIQUE: After the administration of intravenous contrast, 5 mm thick sections acquired from the lung apices to the symphysis. 5 mm coronal and sagittal reformats were performed, with additional 7 mm MIP reformats through the lungs. For radiation dose reduction, the following was used: automated exposure control, adjustment of mA and/or kV according to patient size. COMPARISON: [facility], CT, CT ABDOMEN PELVIS W CON, 10/01/2020, 17:37. [facility], CT, ABDOMEN/PELVIS WITH CONTRAST, 11/25/2016, 20:04. [facility], CT, CT ABDOMEN PELVIS W CON, 02/13/2022, 10:27. [facility], CT, CT ANGIO CHEST ABDOMEN PELVIS, 08/12/2021, 2:38. FINDINGS: Image quality: Excellent. CHEST: Lower Neck: No enlarged lymph nodes. Thyroid: No thyroid nodules which require sonographic follow up, per consensus guidelines. Axillae: No enlarged lymph nodes. Chest Wall: Intact sternotomy wires. Lungs and Pleura: No pneumothorax or pleural effusions. No consolidation or suspicious nodules. The scattered bilateral linear atelectasis/scar, notably in the left lower lobe. Minimal dependent atelectasis. Heart: Heart size is normal. No pericardial effusion. Moderate to severe atherosclerotic calcification. Postsurgical changes of CABG. Thoracic Vessels: The aorta and pulmonary arteries demonstrate normal size. No filling defects in the central pulmonary vasculature. Mild calcification of the thoracic aorta. Mediastinum and Chery: No enlarged lymph nodes by size criteria. Esophagus: No wall thickening. Small hiatal hernia. ABDOMEN: Liver: No solid mass. Simple cyst in segment 6 measuring 1.4 cm (). Gallbladder: No radiopaque gallstones or wall thickening. Biliary ducts: No biliary dilation. Pancreas: No ductal dilation. Spleen: Size is within normal limits. Adrenal Glands: No adrenal nodules. Kidneys and Ureters: No hydronephrosis. No solid mass. No complex renal cystic lesion which requires follow up. Bilateral nonobstructive nephroliths in the lower poles measuring 5 mm on the right and 4 mm on the left (, 76). Left lower pole simple cysts. Stomach and Bowel: Small and large bowel is normal in caliber, without obstruction. No pneumatosis, pneumoperitoneum or portal venous gas. Appendix is not well seen; however, no acute inflammatory signs in the right lower quadrant. Peritoneum: No abnormal intraperitoneal fluid. No free air. Abdominal Wall: Tiny fat containing umbilical hernia. Compared to CT dated February 13, 2022, new right anterior abdominal wall neural stimulator. Fluid collection in the left anterior abdominal wall measuring 7.2 x 3.5 cm at site of prior neural stimulator through which the through which the stimulator wire courses. Right posterior neural stimulator at the level of the right SI joint stable to slightly decreased tiny fluid collection overlying the spinous process extending from L4-L5 measuring 1.1 cm (/83). Abdominal Nodes: No retroperitoneal or mesenteric adenopathy by size criteria. Vessels: Aorta and inferior vena cava are normal in size. 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 PELVIS: Pelvic Organs: Mild to moderate prostatomegaly. Bladder: No bladder wall thickening, accounting for underdistention. Pelvic Nodes: No enlarged lymph nodes. Miscellaneous: No inguinal hernias are seen. Bones: No aggressive osseous abnormality. No acute fracture. Posterior fusion hardware from T11-L3 is intact with no perihardware lucency to suggest hardware loosening. Interbody disc spacers at T12-L1 and L4-L5. Moderate to severe multilevel degenerative changes of the spine. Neural stimulator tip terminates at T9-T10. IMPRESSION: 1. No acute pathology in the abdomen or pelvis. 2. Compared to CT dated February 13, 2022, new right anterior abdominal wall neural stimulator. Fluid collection in the left anterior abdominal wall measuring 7.2 x 3.5 cm at site of prior neural stimulator through which the stimulator wire courses. 3. Bilateral nonobstructive nephroliths in the lower pole measuring 0.5 cm on the right and 0.4 cm on the left. 4. Stable posterior fusion hardware from T11-L3. Stable to slightly decreased tiny fluid collection overlying the spinous process extending from L4-L5 since December 01, 2020. Dictated by: Natalia Tellez M.D. on 08/29/2023 at 16:16 Approved by: Natalia Tellez M.D. on 08/29/2023 at 17:27
== END ==
PROVIDERS: PCP Family Medicine; Referring Provider Surgery; Visit Provider Surgery
DX: D64.9 Anemia, unspecified (principal); N20.0 Calculus of kidney; K76.89 Other specified diseases of liver; K44.9 Diaphragmatic hernia without obstruction or gangrene; I25.10 Atherosclerotic heart disease of native coronary artery without angina pectoris; Z95.1 Presence of aortocoronary bypass graft; Z98.1 Arthrodesis status; Z96.82 Presence of neurostimulator
CPT/HCPCS: 71260; 74177; Q9967

== ENCOUNTER → 2024-01-24 09:03 | Outpatient (CLI) | payer MEDICARE, OTHER, SELFPAY ==
[2023-08-18 10:26] VITALS: BMI 30.8
--- NOTE | 2024-01-24 09:04 | DI.US.S_ITS ---
PROCEDURE: US ABDOMEN LIMITED INDICATIONS: LUQ PAIN TECHNIQUE: Real-time focused scanning was performed of the abdomen, with image documentation. COMPARISON: [facility], US, US ABDOMEN COMPLETE, 02/07/2022, 9:53. FINDINGS: Spleen is 11.7 cm in length and is suboptimally imaged by ultrasound. The echotexture is within normal limits. Splenic veins patent. The left kidney measures 11.4 cm in length and demonstrates a simple cortical cyst arising in the inferior pole measuring 2.8 cm. No hydronephrosis. No free fluid in the left upper quadrant. IMPRESSION: No sonographic explanation for left upper quadrant pain. Dictated by: Ruma Spence M.D. on 01/24/2024 at 18:00 Approved by: Ruma Spence M.D. on 01/24/2024 at 18:01
== END ==
LOC: US 09:04
PROVIDERS: PCP Family Medicine; Referring Provider Family Medicine; Visit Provider Family Medicine
DX: R10.12 Left upper quadrant pain (principal)
CPT/HCPCS: 76705

== ENCOUNTER → 2024-02-20 11:23 | Outpatient (ROUT) | payer MEDICARE, OTHER, SELFPAY ==
[2023-08-18 10:26] VITALS: BMI 30.8
[2024-02-20 12:04] LABS: Influenza A - CEPHEID Flu A NEGATIVE (NEGATIVE); Influenza B - CEPHEID Flu B NEGATIVE (NEGATIVE); Respiratory Syncytial Virus Negative (Negative)
[2024-02-20 12:06] LABS: COVID-19 CEPHEID 4-PLEX PCR Negative (Negative)
== END ==
PROVIDERS: PCP Family Medicine; Visit Provider Family Medicine
DX: R05.1 Acute cough (principal); R50.9 Fever, unspecified; R09.81 Nasal congestion
CPT/HCPCS: 0241U

== ENCOUNTER → 2024-03-09 17:08 | Outpatient (CLI) | payer MEDICARE, OTHER, SELFPAY ==
[2024-02-24 11:36] VITALS: BMI 30.8
[2024-03-09 18:28] LABS: BUN Creatinine Ratio 20.2 (6-22); Blood Urea Nitrogen 23 mg/dL (9-20); Estimated Glomerular Filt Rate > 60 mL/min (>60)
== END ==
PROVIDERS: PCP Family Medicine; Referring Provider Surgery; Visit Provider Surgery
DX: R10.9 Unspecified abdominal pain (principal)
CPT/HCPCS: 36415; 82565; 84520

== ENCOUNTER → 2024-03-10 08:16 | Outpatient (CLI) | payer MEDICARE, OTHER, SELFPAY ==
[2024-02-24 11:36] VITALS: BMI 30.8
--- NOTE | 2024-03-10 08:16 | DI.CT.S_ITS ---
PROCEDURE: CT ABDOMEN PELVIS W CON INDICATIONS: Abdominal pain TECHNIQUE: After the administration of intravenous contrast, axial sections acquired from the lung bases to the pubic symphysis. Coronal and sagittal reformats were performed. For radiation dose reduction, the following was used: automated exposure control, adjustment of mA and/or kV according to patient size. COMPARISON: [facility], CT, CT CHEST ABD PEL W CON, 08/29/2023, 13:55. [facility], CT, CT ABDOMEN PELVIS W CON, 02/13/2022, 10:27. [facility], CT, CT ABDOMEN PELVIS W CON, 11/16/2021, 12:55. FINDINGS: Image quality: Diagnostic. Lower Chest: No significant findings. ABDOMEN: Liver: No solid mass. Stable benign appearing cyst at the inferior right hepatic lobe. Gallbladder: No radiopaque gallstones or wall thickening. Biliary ducts: No biliary dilation. Pancreas: No ductal dilation. Spleen: Size is within normal limits. Adrenal Glands: No adrenal nodules. Kidneys and Ureters: No hydronephrosis. No solid mass. No complex renal cystic lesion which requires follow up. Simple 2.6 cm cyst at the inferior pole of left kidney. 4 mm calculus is seen at the inferior pole of left kidney. Additional smaller bilateral nonobstructing renal calculi are present. Stomach and Bowel: Small hiatal hernia. Small bowel loops are unremarkable. No acute abnormality in the colon. Appendix is not well visualized. Peritoneum: No abnormal intraperitoneal fluid. No free air. Ventral Wall: No significant ventral hernia. Spinal stimulator device is seen with pulse generator in the right anterior abdominal wall. A fluid collection is again seen in the subcutaneous tissues of the left abdominal wall likely related to prior postsurgical changes, which has very mildly decreased in size when compared to the CT from 08/29/2023. Additional similar device is seen at the in the subcutaneous tissues at the right lower back. Abdominal Nodes: No retroperitoneal or mesenteric adenopathy by size criteria. Vessels: Aorta and inferior vena cava are normal in size. PELVIS: Pelvic Organs: Unremarkable. Bladder: No bladder wall thickening, accounting for underdistention. Pelvic Nodes: No enlarged lymph nodes. Miscellaneous: No inguinal hernias are seen. Bones: No aggressive osseous abnormality. Postsurgical changes are seen from prior posterior fixation at T11 through L3. Mild chronic L3 compression fracture appears unchanged. Degenerative changes are seen in the sacroiliac joints and hips. IMPRESSION: 1. No acute abnormality in the abdomen or pelvis. 2. Bilateral nonobstructing renal calculi. No hydronephrosis. 3. Subcutaneous fluid collection again seen in the left anterior abdomen surrounding a neurostimulator lead that does has mildly decreased in size when compared to the CT from 08/29/2023. Approved by: Mehdi Lopez M.D. on 03/10/2024 at 12:38
== END ==
PROVIDERS: PCP Family Medicine; Referring Provider Surgery; Visit Provider Surgery
DX: K76.89 Other specified diseases of liver (principal); N28.1 Cyst of kidney, acquired; N20.0 Calculus of kidney; K44.9 Diaphragmatic hernia without obstruction or gangrene; R10.9 Unspecified abdominal pain; Z96.82 Presence of neurostimulator
CPT/HCPCS: 74177; Q9967

== ENCOUNTER → 2024-06-18 08:31 | Outpatient (CLI) | payer MEDICARE, OTHER, SELFPAY ==
[2024-02-24 11:36] VITALS: BMI 30.8
--- NOTE | 2024-06-18 08:33 | DI.US.S_ITS ---
PROCEDURE: US ABDOMEN LIMITED INDICATIONS: POSTPRANDIAL PAIN. ?GALLSTONES. PAIN PUMP SUBCUTANEOUS RUQ. TECHNIQUE: Real-time scanning was performed of the abdominal and retroperitoneal organs, with image documentation. COMPARISON: [facility], , US ABDOMEN LIMITED, 01/24/2024, 9:16. FINDINGS: Liver: Liver is normal in size and diffusely increased in echogenicity. A simple Paddock cyst measuring up to 1.9 cm seen at the right lower lobe. Left buttock lobe is poorly visualized due to overlying bowel gas. Gallbladder: No gallstones. No wall thickening. No pericholecystic edema. Negative sonographic House's sign. Biliary ducts: Intrahepatic bile ducts are non-dilated. Extrahepatic bile duct caliber measures 6 mm. Distal common bile duct is not well visualized due to overlying bowel gas. Normal is 6-7 mm or less in diameter, or 10 mm or less post-cholecystectomy. Pancreas: Not well visualized due to overlying bowel gas. Miscellaneous: No free abdominal fluid. IMPRESSION: Diffusely increased hepatic echogenicity is nonspecific, but most commonly encountered in the setting of hepatic steatosis. However, other causes of hepatocellular disease are not excluded. Recommend clinical correlation. Approved by: Mehdi Lopez M.D. on 06/18/2024 at 16:12
== END ==
PROVIDERS: PCP Family Medicine; Referring Provider Surgery; Visit Provider Surgery
DX: K76.89 Other specified diseases of liver (principal); R10.9 Unspecified abdominal pain
CPT/HCPCS: 76705

== ENCOUNTER 2024-11-18 11:17 | Emergency (ER) | payer MEDICARE, OTHER, SELFPAY ==
[2024-02-24 11:36] VITALS: BMI 30.8
[2024-11-18] VITALS (18 sets, daily range): BP systolic 156–204; BP diastolic 88–119; PULSE 62–97; RESP 13–25; TEMP 36.9; O2SAT 94–98; BMI 29.8
--- NOTE | 2024-11-18 11:36 | ED_ITS ---
HPI - General Adult General Chief complaint: Abdominal Pain Stated complaint: Lower left stomach pain . moving to the middle Time Seen by Provider: 11/18/24 11:35 History of Present Illness HPI narrative: Significant PMHx include: BPH, CLARE, CAD, arachnoiditis s/p pain pump, GERD, HTN, anemia Chad presents with a chief complaint of abdominal pain. He has a history of arachnoiditis and has had a pain pump since 2004, which has been replaced multiple times. The patient reports experiencing left-sided abdominal pain that has worsened over the last few months. He describes sharp pains when lying down, particularly at night. The pain is accompanied by nausea, which started a couple of months ago. This morning at 5 AM, Chad experienced severe pain and nausea, prompting his visit today. He denies diarrhea and reports his last bowel movement was yesterday. The patient has a history of kidney stones but denies current flank pain. He had a normal colonoscopy about a year and a half ago. Chad's current treatment includes a pain pump delivering Dilaudid (2.5 mg over 24 hours), Clonidine, and bupivacaine. The pump dose was increased by 10% about a month ago due to increased pain. He also has a neurostimulator as well for arachnoiditis. The patient reports that while the pain medication helps with his arachnoiditis symptoms, it does not alleviate the abdominal pain he has been experiencing for about two years. At the time of the visit, Chad rates his abdominal pain as 4-5 out of 10, noting it was much more severe earlier in the morning. Related Data Home Medications Medication Instructions Recorded Confirmed testosterone cypionate 200 mg/mL 0.5 ml SUBCUT SEEINSTR ##9 06/13/17 06/08/24 intramuscular oil (Depo-Testosterone) RespirMLW Squareds Dreamstation CPAP #1 ea 11/27/18 06/08/24 clonidine (PF) 1,000 mcg/10 mL 180 mcg continuous epidural DAILY 03/06/19 06/08/24 (100 mcg/mL) epidural solution In pain pump mecobalamin (vitamin B12) 1,000 1,000 mcg PO DAILY 06/23/20 06/08/24 mcg chewable tablet bupivacaine (PF) 0.5 % (5 mg/mL) 3 mg epidural CONT 03/16/21 06/08/24 injection solution (Sensorcaine-MPF) hydromorphone (PF) 1 mg/mL 1 mg epidural Q4H PRN Pain (Scale 03/16/21 06/08/24 injection solution Score 7-10) ketoconazole 2 % topical cream 1 applic topical 1XD 08/18/23 06/08/24 losartan 50 mg tablet 50 mg PO DAILY PRN elevated BP 08/18/23 06/08/24 amlodipine 5 mg tablet 5 mg PO DAILY PRN elevated Bp 08/22/23 06/08/24 carvedilol 6.25 mg tablet 6.25 mg PO BID 08/22/23 06/08/24 evolocumab 140 mg/mL subcutaneous 140 mg SUBCUT Q2W 08/27/23 06/08/24 pen injector (Mary Alice Robledo) acyclovir 200 mg capsule 200 mg PO QID 06/08/24 06/08/24 carvedilol 25 mg tablet 25 mg PO ONCE PRN 06/08/24 06/08/24 hydromorphone 2 mg tablet 2 mg PO Q6H PRN 06/08/24 06/08/24 tadalafil 20 mg tablet 20 mg PO DAILY PRN 06/08/24 06/08/24 Previous Rx's Medication Instructions Recorded ascorbic acid (vitamin C) 500 mg 500 mg PO DAILY #30 tabs 08/19/23 tablet (Vitamin C) Allergies Allergy/AdvReac Type Severity Reaction Status Date / Time morphine [MORPHINE] Allergy Intermediate BLISTERS Verified 11/18/24 11:40 aspartame AdvReac Severe SEVERE Verified 11/18/24 11:40 [From NUTRASWEET ASPARTAME] HEADACHES banana AdvReac Severe Severe Verified 11/18/24 11:40 headaches chocolate flavor AdvReac Severe Headaches Verified 11/18/24 11:40 gabapentin [GABAPENTIN] AdvReac Severe SEVERE Verified 11/18/24 11:40 AGITATION, DEPRESSION, ANXIETY hydrochlorothiazide AdvReac Severe HEADACHES Verified 11/18/24 11:40 [HYDROCHLOROTHIAZIDE] hydrocodone [HYDROCODONE] AdvReac Severe SEVERE Verified 11/18/24 11:40 HEADACHES metoprolol [METOPROLOL] AdvReac Severe HEADACHES Verified 11/18/24 11:40 omeprazole [OMEPRAZOLE] AdvReac Severe SEVERE Verified 11/18/24 11:40 HEADACHES & DIZZINESS oxycodone [OXYCODONE] AdvReac Severe HEADACHES Verified 11/18/24 11:40 nifedipine [From Procardia] AdvReac Gastrointestinal Verified 11/18/24 11:40 Upset, headache Tzbrmxn-UBI-QuD Reductase AdvReac Gastrointestinal Verified 11/18/24 11:40 Inhibitor Upset, [Odnqllj-Dqi-Pal Reductase headache Inhibitor] Review of Systems Review of Systems Narrative: All systems reviewed and unremarkable except as noted in the HPI Patient History Medical History Abdominal pain Elevated PSA Erectile dysfunction Lower urinary tract symptoms (LUTS) BPH w urinary obs/LUTS Vitamin B12 deficiency Opioid dependence with current use Throat irritation Central sleep apnea [place] (hard of hearing) Cardiac murmur Tachycardia Arachnoiditis Postoperative atrial fibrillation Statin intolerance (~07/2015) Obstructive sleep apnea of adult Atypical chest pain Serum lipase elevation Coronary artery disease Small bowel obstruction Leg edema, right GERD (gastroesophageal reflux disease) Hypertension Surgical History S/P CABG x 2 S/P lumbar spinal fusion (11/10/18) Status post bilateral cataract extraction (~10/2014) History of bilateral knee arthroplasty History of lumbar surgery Hx of sinus surgery (03/12/18) S/P insertion of spinal cord stimulator (~2002) History of appendectomy S/P total knee arthroplasty History of fundoplication Social History marital status: household members: spouse lives independently: Yes occupational status: unemployed Smoking Status: Smoker, status unknown alcohol intake: never substance use type: does not use alcohol intake frequency: other Exam Narrative Exam Narrative: VS as noted above Focused physical exam as follows: General: Well developed, well nourished, no acute distress HEENT: pink palpebral conjunctiva, anicteric sclera, KAYLAH, moist mucous membranes, no JVD, no cervical lymphadenopathy Lungs: no respiratory distress, clear to auscultation without wheezes or crackles; equal breath sounds Heart: normal rate, regular rhythm, no appreciable murmurs Abdomen: soft, mild tenderness over the LUQ and LLQ, no rebound or rigidity; scar tissue noted in the abdominal wall (L side where pain pump had previously been) Musculoskeletal: no gross deformities with full ROM in all extremities, no pedal edema Skin: pink, warm; no rashes Neuro: AAOx3, GCS 15, nonfocal exam Psyche: no SI/HI, normal affect Initial Vital Signs Initial Vital Signs: Vital Signs Pulse Rate 92 H 11/18/24 11:32 Pulse Oximetry 97 11/18/24 11:32 Course Orders Ordered: ED Orders 11/18/24 11:36 EKG-12 Lead Routine 11/18/24 11:50 Complete Blood Count AUTO DIFF Stat Comprehensive Metabolic Panel Stat Lipase Stat 11/18/24 14:24 Urine Microscopic Stat 11/18/24 14:55 CT abdomen pelvis w con Stat Vital Signs Vital signs: Vital Signs - 8 hr 11/18/24 11:32 11/18/24 11:33 11/18/24 12:00 Temperature 98.5 F Pulse Rate 92 H 97 H 64 Respiratory Rate 16 Blood Pressure 196/115 H Pulse Oximetry 97 98 94 Oxygen Delivery Method Room Air 11/18/24 12:00 11/18/24 12:30 11/18/24 12:30 Temperature Pulse Rate 73 Respiratory Rate Blood Pressure 179/88 H 171/94 H Pulse Oximetry 94 Oxygen Delivery Method 11/18/24 13:00 11/18/24 13:00 11/18/24 13:30 Temperature Pulse Rate 68 67 Respiratory Rate Blood Pressure 156/104 H Pulse Oximetry 95 97 Oxygen Delivery Method 11/18/24 13:30 11/18/24 14:00 11/18/24 14:00 Temperature Pulse Rate 67 Respiratory Rate 17 Blood Pressure 186/98 H 188/104 H Pulse Oximetry 96 Oxygen Delivery Method 11/18/24 14:34 11/18/24 14:34 11/18/24 15:00 Temperature Pulse Rate 85 Respiratory Rate 19 Blood Pressure 204/115 H 204/95 H Pulse Oximetry 97 Oxygen Delivery Method 11/18/24 15:00 11/18/24 15:23 11/18/24 15:23 Temperature Pulse Rate 71 89 Respiratory Rate 25 H 22 Blood Pressure 193/106 H Pulse Oximetry 95 98 Oxygen Delivery Method 11/18/24 15:30 11/18/24 15:30 11/18/24 16:00 Temperature Pulse Rate 82 72 Respiratory Rate 16 14 Blood Pressure 181/103 H Pulse Oximetry 95 95 Oxygen Delivery Method 11/18/24 16:00 11/18/24 16:30 11/18/24 16:30 Temperature Pulse Rate 63 Respiratory Rate 16 Blood Pressure 167/101 H 170/98 H Pulse Oximetry 95 Oxygen Delivery Method 11/18/24 17:00 11/18/24 17:00 11/18/24 17:30 Temperature Pulse Rate 67 Respiratory Rate 17 Blood Pressure 187/97 H 200/92 H Pulse Oximetry 97 Oxygen Delivery Method 11/18/24 17:30 Temperature Pulse Rate 65 Respiratory Rate 13 Blood Pressure Pulse Oximetry 98 Oxygen Delivery Method Room Air Medical Decision Making Lab Data 11/18/24 11:50 11/18/24 11:50 Labs: Lab Results 11/18/24 11/18/24 Range/Units 11:50 14:24 WBC 5.7 (4.5-11.0) X10^3/uL RBC 5.06 (4.5-5.9) X10^6/uL Hgb 16.4 (13.5-17.5) g/dL Hct 49.1 (41-53) % MCV 97.1 (80-100) fL MCH 32.4 (26-34) PG MCHC 33.4 (30-36) % RDW 14.0 (11.6-14.8) % Plt Count 124 L (150-400) X10^3/uL Neut % (Auto) 67.9 (50-75) % Lymph % (Auto) 20.3 L (25-40) % Mclennan % (Auto) 9.2 (3-14) % Eos % (Auto) 2.1 (2-4) % Baso % (Auto) 0.5 (0-2) % Neut # (Auto) 3900 (2626-6331) /uL Lymph # (Auto) 1100 (5992-6762) /uL Mclennan # (Auto) 500 (0-900) /uL Eos # (Auto) 100 (0-450) /uL Baso # (Auto) 0 (0-100) /uL Sodium 140 (137-145) mmol/L Potassium 4.4 (3.4-5.1) mmol/L Chloride 107 (98-107) mmol/L Carbon Dioxide 24 (22-32) mmol/L BUN 18 (9-20) mg/dL Creatinine 1.08 (0.66-1.25) mg/dL Estimated GFR > 60 (>60) mL/min BUN/Creatinine Ratio 16.7 (6-22) Glucose 106 H (70-99) mg/dL Calcium 8.9 (8.4-10.2) mg/dL Total Bilirubin 1.6 H (0.2-1.3) mg/dL AST 40 (17-59) IU/L ALT 28 (<50) IU/L Alkaline Phosphatase 58 (38-126) U/L Total Protein 6.9 (6.3-8.2) g/dL Albumin 4.3 (3.5-5.0) g/dL Globulin 2.6 (1.7-4.1) g/dL Albumin/Globulin Ratio 1.7 (1.0-2.8) Lipase 56 (23-300) U/L Urine RBC 0-1/hpf (0-5/HPF) Urine WBC None seen (0-5/HPF) Ur Squamous Epith Cells None seen (0-5/HPF) Urine Bacteria None seen (None) Ur Culture Indicated? Cult not indicated Vol Urine Centrifuged 10ml (spun) Urine Dip Bedside Urine Glucose Negative Bedside Urine Bilirubin - Negative Bedside Urine Ketone - Negative Urine Specific Stigler 1.015 Bedside Urine Occult Blood +/- Bedside Urine pH 6.5 Bedside Urine Protein - Negative Bedside Urine Urobilinogen - Negative Bedside Urine Nitrite - Negative Bedside Urine Leukocytes - Negative Esterase Point of care testing: Urine Dip Bedside Urine Glucose Negative Bedside Urine Bilirubin - Negative Bedside Urine Ketone - Negative Urine Specific Stigler 1.015 Bedside Urine Occult Blood +/- Bedside Urine pH 6.5 Bedside Urine Protein - Negative Bedside Urine Urobilinogen - Negative Bedside Urine Nitrite - Negative Bedside Urine Leukocytes - Negative Esterase Imaging Data CT scan - abdomen/pelvis: Radiologist's Impression: IMPRESSION: 1. Small hiatal hernia with question polypoid lesion at the GE junction. 2. No acute abdominal process identified. 3. Large fecal load. Comment: Recommend nonemergent direct visualization of the GE junction to exclude a small polypoid mass. ECG Data Attestation: I personally reviewed and interpreted this ECG as follows: (1142 - NSR @ 85; LVH by voltage; nonspecific STTW changes; QTc 414) MDM Narrative Medical decision making narrative: HPI, PMHx, PSHx, Medication list, Allergies, ROS and Focused exam were reviewed above. ?Differential diagnosis as noted below. ?Social determinants affecting care considered. ?All of these were taken into consideration warranting above listed work up. ?Consultations as deemed necessary were documented below (if listed). Labs (if ordered and noted) were independently reviewed by me. Imaging studies (if ordered and noted) were independently reviewed by me EKG (if noted) was independently reviewed by me External documents (if reviewed) are documented above Initial VS noted above. ? Differential diagnosis considered include (but not limited to) the following: a bdominal wall cellulitis/scar tissue/nerve irritation, diverticulitis, colitis, constipation, gastritis, gastric ulcer, pancreatitis, cholelithiasis/cystitis, abdominal neoplasm, UTI, pyelo, ureteral calculus Pt interviewed and examined. Work up initiated. Labs reviewed. CT abd/pelvis ordered - see results above. Discussed work thus far and plan of care. Pt to see PCP/surgeon regarding recurrent pain and consideration for EGD considering findings @ GE junction. Stable for discharge. Discharge Plan Departure Patient Disposition: Home Clinical Impression: Generalized abdominal pain, Hiatal hernia Constipation Qualifiers: Constipation type: unspecified constipation type Qualified Code(s): K59.00 - Constipation, unspecified Instructions: DI for Abdominal Pain-Adult Activity Restrictions/Additional Instructions: Evaluation today was generally reassuring. You were found to be constipated. Use stool softeners. You also have a hiatal hernia. You will need an EGD to evaluate your stomach/esophagus. Follow up with your regular doctor as needed. Return to the ER if with worsening symptoms. Prescriptions: No Action testosterone cypionate [Depo-Testosterone] 200 MG/1 ML oil 0.5 ml subcut SEEINSTR Qty: 9 Rx Instructions: Injects 3 times/month carvedilol 25 mg tablet 25 mg PO ONCE PRN Rx Instructions: must administer with a meal/food hydromorphone 2 mg tablet 2 mg PO Q6H PRN tadalafil 20 mg tablet 20 mg PO DAILY PRN Rx Instructions: administer approximately 30min before sexual activity; do not use more than 1 dose per 24hrs acyclovir 200 mg capsule 200 mg PO QID clonidine (PF) 1,000 mcg/10 mL (100 mcg/mL) Solution 180 mcg continuous epidural DAILY carvedilol 6.25 mg tablet 6.25 mg PO BID amlodipine 5 mg tablet 5 mg PO DAILY PRN (Reason: elevated Bp) Repatha SureClick 140 mg/mL pen injector 140 mg SUBCUT Q2W ketoconazole 2 % cream 1 applic topical 1XD losartan 50 mg tablet 50 mg PO DAILY PRN (Reason: elevated BP) ascorbic acid (vitamin C) [Vitamin C] 500 mg Tablet 500 mg PO DAILY Qty: 30 0RF hydromorphone (PF) 1 mg/mL solution 1 mg epidural Q4H PRN (Reason: Pain (Scale Score 7-10)) Rx Instructions: 2.7mg in pain pump daily bupivacaine (PF) [Sensorcaine-MPF] 0.5 % (5 mg/mL) solution 3 mg epidural CONT Rx Instructions: 3mg in pump daily (DME) Respironics Dreamstation CPAP Qty: 1 Dose Instruction: As directed Patient Comments: Pressure: IPAP 20 EPAP 10 DME: [facility] Rx Instructions: As directed mecobalamin (vitamin B12) 1,000 mcg tablet,chewable 1,000 mcg PO DAILY Referrals: Ishmael Friedman MD [Primary Care Provider] - Stand Alone Forms: Patient Portal/API/Survey
--- NOTE | 2024-11-18 11:36 | EKG_ITS ---
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
[2024-11-18 12:05] LABS: Add Manual Diff / Slide Review NO; Basophils Absolute Auto 0 /uL (0-100); Basophils Percent Auto 0.5 % (0-2); Eosinophils Absolute Auto 100 /uL (0-450); Eosinophils Percent Auto 2.1 % (2-4); Hematocrit 49.1 % (41-53); Hemoglobin 16.4 g/dL (13.5-17.5); Lymphocytes Absolute Auto 1100 /uL (1100-4500); Lymphocytes Percent Auto 20.3 % (25-40); Mean Corpuscular HGB Conc 33.4 % (30-36); Mean Corpuscular Hemoglobin 32.4 PG (26-34); Mean Corpuscular Volume 97.1 fL (80-100); Monocytes Absolute Auto 500 /uL (0-900); Monocytes Percent Auto 9.2 % (3-14); Neutrophils Absolute Auto 3900 /uL (1500-7000); Neutrophils Percent Auto 67.9 % (50-75); Platelet Count 124 X10^3/uL (150-400); Red Blood Cell Count 5.06 X10^6/uL (4.5-5.9); White Blood Cell Count 5.7 X10^3/uL (4.5-11.0)
[2024-11-18 12:14] LABS: Alanine Aminotransferase 28 IU/L (<50); Albumin 4.3 g/dL (3.5-5.0); Albumin Globulin Ratio 1.7 (1.0-2.8); Alkaline Phosphatase 58 U/L (38-126); Aspartate Aminotransferase 40 IU/L (17-59); BUN Creatinine Ratio 16.7 (6-22); Bilirubin Total 1.6 mg/dL (0.2-1.3); Blood Urea Nitrogen 18 mg/dL (9-20); Calcium 8.9 mg/dL (8.4-10.2); Carbon Dioxide 24 mmol/L (22-32); Chloride 107 mmol/L (98-107); Estimated Glomerular Filt Rate > 60 mL/min (>60); Globulin 2.6 g/dL (1.7-4.1); Glucose 106 mg/dL (70-99); HEMOLYSIS 24 (0-50); Lipase 56 U/L (23-300); Potassium 4.4 mmol/L (3.4-5.1); Sodium 140 mmol/L (137-145); Total Protein 6.9 g/dL (6.3-8.2)
[2024-11-18 14:41] LABS: Urine Volume 10mL (spun)
[2024-11-18 14:43] LABS: Bacteria Urine None Seen; Culture Indicated Urine Cult Not Indicated; RBC Urine 0-1/HPF (0-5/HPF); Squamous Epithelial Cell Urine None Seen (0-5/HPF); WBC Urine None Seen (0-5/HPF)
--- NOTE | 2024-11-18 14:55 | DI.CT.S_ITS ---
PROCEDURE: CT ABDOMEN PELVIS W CON INDICATIONS: LUQ, LLQ abdominal pain TECHNIQUE: After the administration of intravenous contrast, axial sections acquired from the lung bases to the pubic symphysis. Coronal and sagittal reformats were performed. For radiation dose reduction, the following was used: automated exposure control, adjustment of mA and/or kV according to patient size. COMPARISON: [facility], CT, CT ABDOMEN PELVIS W CON, 03/10/2024, 9:36. FINDINGS: Image quality: Diagnostic. Lower Chest: Question luminal polypoid lesion at the GE junction. Small hiatal hernia. ABDOMEN: Liver: No solid mass. Gallbladder: No radiopaque gallstones or wall thickening. Biliary ducts: No biliary dilation. Pancreas: No ductal dilation. Spleen: Size is within normal limits. Adrenal Glands: No adrenal nodules. Kidneys and Ureters: No hydronephrosis. No solid mass. No complex renal cystic lesion which requires follow up. Multiple nonobstructing renal parenchymal stones bilaterally. Stomach and Bowel: Normal colonic caliber, without significant wall thickening. Mobile cecum. Normal appendix. Large fecal load. Peritoneum: No abnormal intraperitoneal fluid. No free air. Ventral Wall: No significant ventral hernia. Probable seroma, left ventral abdominal soft tissues, through which a dorsal column stimulator lead courses, unchanged from February,. Abdominal Nodes: No retroperitoneal or mesenteric adenopathy by size criteria. Vessels: Aorta and inferior vena cava are normal in size. PELVIS: Pelvic Organs: Unremarkable. Bladder: No bladder wall thickening, accounting for underdistention. Pelvic Nodes: No enlarged lymph nodes. Miscellaneous: No inguinal hernias are seen. Bones: No aggressive osseous abnormality. Multilevel thoracolumbar fusion hardware. Dorsal column stimulator. IMPRESSION: 1. Small hiatal hernia with question polypoid lesion at the GE junction. 2. No acute abdominal process identified. 3. Large fecal load. Comment: Recommend nonemergent direct visualization of the GE junction to exclude a small polypoid mass. Dictated by: London Watson M.D. on 11/18/2024 at 15:43 Approved by: London Watson M.D. on 11/18/2024 at 15:51
== END 2024-11-18 18:27 | disposition home or self-care (01) ==
PROVIDERS: Emergency Provider Emergency Medicine; PCP Family Medicine
DX: R10.84 Generalized abdominal pain (principal); K44.9 Diaphragmatic hernia without obstruction or gangrene; Z96.82 Presence of neurostimulator
CPT/HCPCS: 74177; 80053; 81003; 81015; 83690; 85025; 93005; 93010; 99282; 99284; Q9967

== ENCOUNTER 2024-12-09 08:47 | Day surgery (SDC) | payer MEDICARE, OTHER, SELFPAY ==
[2024-02-24 11:36] VITALS: BMI 30.8
[2024-11-30 14:43] VITALS: BMI 29.8
[2024-12-09] VITALS (7 sets, daily range): BP systolic 121–165; BP diastolic 63–95; PULSE 62–79; RESP 12–19; TEMP 36.3–37.4; O2SAT 94–98; BMI 29.0
[2024-12-09] MEDS: ACETAMINOPHEN 325 MG TABLET 975 MG PO (09:42)
[2024-12-09] MEDS: LACTATED RINGERS 1,000 ML 42 ML IV (09:43)
--- NOTE | 2024-12-09 10:06 | PM.PREOP ---
Pre-operative Note COVID-19 COVID-19 status: Not tested Interval Note History & Physical reviewed/Exam performed by Physician: Yes Changes to H&P: No ASA Class (for procedural sedation): II
[2024-12-09] MEDS: CEFAZOLIN 2 GM/100 ML PREMIX 100 ML IV (10:20)
[2024-12-09] MEDS: BUPIVACAINE 0.5% W/ EPI (PF) 30 ML VIAL INJ (10:33)
--- NOTE | 2024-12-09 11:03 | P.OP_ITS ---
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 The left abdomen was prepped and draped over the old port scar. After injection of local we dissected down through the scar and dissected along the lateral edge of the seroma cavity. Closer to the abdominal wall we found 2 catheters. The inferior catheter was larger in caliber and terminated in the musculature of the abdominal wall deep to the seroma. The smaller superior catheter traversed through the seroma. We excised the capsule around the termination of the larger inferior catheter. It did seem like the tip of the old catheter was imbedded in the musculature of the a bdominal wall. We trimmed the catheter back about 5 cm so that it is terminal and was now in the mid subcutaneous adipose tissue. We injected additional local into the abdominal wall. We then freed the scar tissue around the capsule of the seroma and in the process we did drain the seroma. We left the majority of the seroma capsule in situ. We injected some additional local into the dermis and closed in layers using multiple interrupted 3-0 Vicryl dermal sutures followed by running 4-0 Monocryl subcuticular stitch. Steri-Strips and gauze were applied to cover the wound. EBL: 10 mL Manuel BRIDGES provided assistance with exposure, retraction and closure of incisions. Complications: none Post-operative Condition: stable Disposition: PACU
== END 2024-12-09 11:56 | disposition home or self-care (01) ==
PROVIDERS: PCP Family Medicine; Referring Provider Surgery; Visit Provider Surgery
PROC: (CPT 62350; principal; 2024-12-09 10:15)
DX: G89.29 Other chronic pain (principal); L76.34 Postprocedural seroma of skin and subcutaneous tissue following other procedure; Z98.890 Other specified postprocedural states; Z95.1 Presence of aortocoronary bypass graft
CPT/HCPCS: 62350; J0690; J1100; J1885; J2405; J2704; J3010

== ENCOUNTER → 2024-12-23 14:09 | Outpatient (CLI) | payer MEDICARE, OTHER, SELFPAY ==
[2024-12-22 09:40] VITALS: BMI 30.8
[2024-12-23 14:47] LABS: Add Manual Diff / Slide Review NO; Basophils Absolute Auto 0 /uL (0-100); Basophils Percent Auto 0.4 % (0-2); Eosinophils Absolute Auto 100 /uL (0-450); Eosinophils Percent Auto 2.3 % (2-4); Hematocrit 49.5 % (41-53); Hemoglobin 16.8 g/dL (13.5-17.5); Lymphocytes Absolute Auto 1100 /uL (1100-4500); Lymphocytes Percent Auto 18.6 % (25-40); Mean Corpuscular Hemoglobin 33.4 PG (26-34); Mean Corpuscular Volume 98.3 fL (80-100); Monocytes Absolute Auto 500 /uL (0-900); Monocytes Percent Auto 8.6 % (3-14); Neutrophils Absolute Auto 4200 /uL (1500-7000); Neutrophils Percent Auto 70.1 % (50-75); Platelet Count 154 X10^3/uL (150-400); Red Blood Cell Count 5.04 X10^6/uL (4.5-5.9)
[2024-12-23 15:20] LABS: BUN Creatinine Ratio 19.6 (6-22); Blood Urea Nitrogen 22 mg/dL (9-20); Calcium 10.1 mg/dL (8.4-10.2); Carbon Dioxide 26 mmol/L (22-32); Chloride 107 mmol/L (98-107); Estimated Glomerular Filt Rate > 60 mL/min (>60); Glucose 67 mg/dL (70-99); HEMOLYSIS < 15 (0-50); Potassium 4.6 mmol/L (3.4-5.1); Sodium 142 mmol/L (137-145)
== END ==
PROVIDERS: PCP Family Medicine; Referring Provider Surgery; Visit Provider Surgery
DX: G89.28 Other chronic postprocedural pain (principal)
CPT/HCPCS: 36415; 80048; 85025

== ENCOUNTER → 2024-12-26 13:07 | Outpatient (CLI) | payer MEDICARE, OTHER, SELFPAY ==
[2024-12-22 09:40] VITALS: BMI 30.8
--- NOTE | 2024-12-26 13:08 | DI.CT.S_ITS ---
PROCEDURE: CT ABDOMEN PELVIS W CON INDICATIONS: abdominal pain TECHNIQUE: After the administration of intravenous contrast, axial sections acquired from the lung bases to the pubic symphysis. Coronal and sagittal reformats were performed. For radiation dose reduction, the following was used: automated exposure control, adjustment of mA and/or kV according to patient size. COMPARISON: [facility], CT, CT ABDOMEN PELVIS W CON, 11/18/2024, 15:16. FINDINGS: Image quality: Diagnostic. Lower Chest: Heart size is enlarged, no pericardial effusion. Median sternotomy wires and surgical clips are seen. Bilateral lung bases are clear. Moderate size hiatal hernia is again seen with suggestion of polypoid lesion in GE junction measures 1.5 x 1.5 cm in size series 2, image 20. ABDOMEN: Liver: No solid mass. Moderate hepatic steatosis. Gallbladder: No radiopaque gallstones or wall thickening. Biliary ducts: No biliary dilation. Pancreas: No ductal dilation. Spleen: Size is within normal limits. Adrenal Glands: No adrenal nodules. Kidneys and Ureters: No hydronephrosis. Nonobstructing stones are noted in bilateral kidneys unchanged from prior study. No solid mass. No complex renal cystic lesion which requires follow up. Stomach and Bowel: There is no bowel obstruction. No abnormal bowel wall thickening or mesenteric fat stranding. No abscess collection. Peritoneum: No abnormal intraperitoneal fluid. No free air. Ventral Wall: Right abdominal wall stimulator is seen with leads extending to left leg anterior abdominal wall through patient's known possible seroma now measures up to 10.9 x 2.6 cm in size compared to 6.4 x 2.6 cm in size on previous study. Mild adjacent subcutaneous fat stranding is seen. Abdominal Nodes: No retroperitoneal or mesenteric adenopathy by size criteria. Vessels: Aorta and inferior vena cava are normal in size. PELVIS: Pelvic Organs: Enlarged prostate gland with mass effect on floor of urinary bladder is seen. Bladder: No bladder wall thickening, accounting for underdistention. Pelvic Nodes: No enlarged lymph nodes. Miscellaneous: No inguinal hernias are seen. Bones: No aggressive osseous abnormality. Postsurgical changes are noted throughout lumbar spine. No acute vertebral body compression fracture. IMPRESSION: 1. Interval increase in size of patient's known possible seroma in left anterior abdominal wall with stimulator leads coursing through the middle of the collection as described above. Infected collection cannot be excluded suggest clinical correlation. 2. No peritoneal abscess collection. No free fluid or free air. No bowel obstruction or abnormal bowel wall thickening. 3. Stable possible polypoid lesion in the GE junction measures 1.5 cm in size suggest GI correlation. 4. Other findings are all unchanged from previous study. Dictated by: Yoseph Arellano M.D. on 12/27/2024 at 20:59 Approved by: Yoseph Arellano M.D. on 12/27/2024 at 21:04
== END ==
LOC: CT 13:07
PROVIDERS: PCP Family Medicine; Referring Provider Surgery; Visit Provider Surgery
DX: G89.28 Other chronic postprocedural pain (principal); N20.0 Calculus of kidney; K76.0 Fatty (change of) liver, not elsewhere classified; R10.9 Unspecified abdominal pain; I51.7 Cardiomegaly; K44.9 Diaphragmatic hernia without obstruction or gangrene; N40.0 Benign prostatic hyperplasia without lower urinary tract symptoms
CPT/HCPCS: 74177; Q9967

== ENCOUNTER 2025-01-12 13:57 | Emergency (ER) | payer MEDICARE, OTHER, SELFPAY ==
[2024-12-22 09:40] VITALS: BMI 30.8
[2025-01-12] VITALS (7 sets, daily range): BP systolic 135–187; BP diastolic 69–99; PULSE 54–82; RESP 18–20; TEMP 36.9–37.1; O2SAT 93–98; BMI 29.7
--- NOTE | 2025-01-12 14:06 | EKG_ITS ---
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
[2025-01-12 14:39] LABS: Add Manual Diff / Slide Review NO; Hematocrit 50.0 % (41-53); Hemoglobin 16.4 g/dL (13.5-17.5); Lymphocytes Absolute Auto 1100 /uL (1100-4500); Mean Corpuscular HGB Conc 32.8 % (30-36); Mean Corpuscular Hemoglobin 32.5 PG (26-34); Mean Corpuscular Volume 99.0 fL (80-100); Platelet Count 136 X10^3/uL (150-400)
[2025-01-12 14:53] LABS: Alanine Aminotransferase 28 IU/L (<50); Albumin 4.5 g/dL (3.5-5.0); Albumin Globulin Ratio 1.6 (1.0-2.8); Alkaline Phosphatase 67 U/L (38-126); Blood Urea Nitrogen 17 mg/dL (9-20); Calcium 9.4 mg/dL (8.4-10.2); Carbon Dioxide 26 mmol/L (22-32); Chloride 106 mmol/L (98-107); Estimated Glomerular Filt Rate > 60 mL/min (>60); Globulin 2.8 g/dL (1.7-4.1); Glucose 106 mg/dL (70-99); HEMOLYSIS 17 (0-50); Lipase 68 U/L (23-300); Potassium 4.4 mmol/L (3.4-5.1); Sodium 140 mmol/L (137-145); Total Protein 7.3 g/dL (6.3-8.2)
--- NOTE | 2025-01-12 15:58 | ED.ABDPAIN ---
HPI - Abdominal Pain General Chief Complaint: Abdominal Pain Stated Complaint: Lower left stomach pain X 19 days Time Seen by Provider: 01/12/25 15:58 Source: patient, RN notes reviewed and old records reviewed Mode of arrival: Family Vehicle Limitations: no limitations History of Present Illness HPI narrative: 79-year-old male history of CLARE, CAD with two-vessel bypass, BPH, arachnoiditis status post pain pump, patient also has no stimulator, GERD, hypertension and anemia presents with complaint of abdominal pain on the left side. Patient states he was had pain at that area with his intrathecal pump for some time ultimately was moved to the right side he had persistent pain and some of the tubing has been cut and was still present. About [address] Kumar in the local general surgeon took him to the OR and removed a portion of the area that was cut he states pain was improved but has since returned. He states it is localized to the left side where his prior pump was there was no longer pump present. Patient states pain seems to be much more associated with movement particularly lying backwards and certain positions. But notes it is just in the left anterior knot in his back. He was had multiple back surgeries in the past. He states he was had his pain pump revised 8 times in his neurostimulator revised 10 times. He notes in the last day he had some nausea but no vomiting. He states he has been having normal bowel movements no black or bloody stools. No dysuria urgency or frequency. No rash or skin changes. No fevers or chills. Denies any chest pain or shortness of breath. Patient notes he has oral Dilaudid for breakthrough pain which he states was not very helpful. He was not been taking anything regularly for pain management as he states it is very specific to movement but is also somewhat intermittent. Related Data Home Medications ?Medication ?Instructions ?Recorded ?Confirmed testosterone cypionate 200 mg/mL 0.5 ml SUBCUT SEEINSTR ##9 06/13/17 01/05/25 intramuscular oil (Depo-Testosterone) RespirPavlov Medias Dreamstation CPAP #1 ea 11/27/18 01/05/25 clonidine (PF) 1,000 mcg/10 mL 180 mcg continuous epidural DAILY 03/06/19 01/05/25 (100 mcg/mL) epidural solution In pain pump mecobalamin (vitamin B12) 1,000 1,000 mcg PO DAILY 06/23/20 01/05/25 mcg chewable tablet bupivacaine (PF) 0.5 % (5 mg/mL) 3 mg epidural CONT 03/16/21 01/05/25 injection solution (Sensorcaine-MPF) hydromorphone (PF) 1 mg/mL 1 mg epidural Q4H PRN Pain (Scale 03/16/21 01/05/25 injection solution Score 7-10) ketoconazole 2 % topical cream 1 applic topical 1XD 08/18/23 01/05/25 losartan 50 mg tablet 50 mg PO DAILY PRN elevated BP 08/18/23 01/05/25 amlodipine 5 mg tablet 5 mg PO DAILY PRN elevated Bp 08/22/23 01/05/25 carvedilol 6.25 mg tablet 6.25 mg PO BID 08/22/23 01/05/25 evolocumab 140 mg/mL subcutaneous 140 mg SUBCUT Q2W 08/27/23 01/05/25 pen injector (Mary Alice Robledo) acyclovir 200 mg capsule 200 mg PO QID 06/08/24 01/05/25 carvedilol 25 mg tablet 25 mg PO ONCE PRN 06/08/24 01/05/25 hydromorphone 2 mg tablet 2 mg PO Q6H PRN 06/08/24 01/05/25 tadalafil 20 mg tablet 20 mg PO DAILY PRN 06/08/24 01/05/25 ondansetron HCl 4 mg tablet 4 mg PO Q8H 11/30/24 01/05/25 tamsulosin 0.4 mg capsule 0.4 mg PO BEDTIME 11/30/24 01/05/25 Previous Rx's ?Medication ?Instructions ?Recorded ascorbic acid (vitamin C) 500 mg 500 mg PO DAILY #30 tabs 08/19/23 tablet (Vitamin C) Allergies Allergy/AdvReac Type Severity Reaction Status Date / Time morphine (MORPHINE) Allergy Intermediate BLISTERS Verified 01/05/25 10:17 aspartame (From NUTRASWEET AdvReac Severe SEVERE Verified 01/05/25 10:17 ASPARTAME) HEADACHES gabapentin (GABAPENTIN) AdvReac Severe SEVERE Verified 01/05/25 10:17 AGITATION, DEPRESSION, ANXIETY hydrochlorothiazide AdvReac Severe HEADACHES Verified 01/05/25 10:17 (HYDROCHLOROTHIAZIDE) hydrocodone (HYDROCODONE) AdvReac Severe SEVERE Verified 01/05/25 10:17 HEADACHES metoprolol (METOPROLOL) AdvReac Severe HEADACHES Verified 01/05/25 10:17 omeprazole (OMEPRAZOLE) AdvReac Severe SEVERE Verified 01/05/25 10:17 HEADACHES & DIZZINESS oxycodone (OXYCODONE) AdvReac Severe HEADACHES Verified 01/05/25 10:17 nifedipine (From Procardia) AdvReac Gastrointestinal Verified 01/05/25 10:17 Upset, headache Relwago-CQU-IhJ Reductase AdvReac Gastrointestinal Verified 01/05/25 10:17 Inhibitor (Ocmoofq-Lck-Yqp Upset, Reductase Inhibitor) headache Review of Systems Review of Systems ROS Unobtainable: All systems reviewed & are unremarkable except as noted in HPI and below Patient History Medical History Abdominal pain Elevated PSA Erectile dysfunction Lower urinary tract symptoms (LUTS) BPH w urinary obs/LUTS Vitamin B12 deficiency Opioid dependence with current use Throat irritation Central sleep apnea [place] (hard of hearing) Cardiac murmur Tachycardia Arachnoiditis Postoperative atrial fibrillation Statin intolerance (~07/2015) Obstructive sleep apnea of adult Atypical chest pain Serum lipase elevation Coronary artery disease Small bowel obstruction Leg edema, right GERD (gastroesophageal reflux disease) Hypertension Surgical History Hx of colonoscopy (08/27/23) History of esophagogastroduodenoscopy (EGD) (08/19/23) History of lumbar spinal fusion (03/09/19) History of orthopedic surgery (03/12/19) S/P CABG x 2 (2015) S/P lumbar spinal fusion (11/10/18) Status post bilateral cataract extraction (~10/2014) History of bilateral knee arthroplasty History of lumbar surgery Hx of sinus surgery (03/12/18) S/P insertion of spinal cord stimulator (~2002) History of appendectomy S/P total knee arthroplasty History of fundoplication Social History marital status: household members: spouse lives independently: Yes occupational status: unemployed alcohol intake: never substance use type: does not use Smoking Status: Never smoker alcohol intake frequency: other Exam Narrative Exam Narrative: GENERAL: Alert and oriented x three, male in mild distress HEENT: Head normocephalic, atraumatic, EOMI, pupils reactive, face symmetric, moist mucous membranes NECK: Supple, full range of motion CARDIOVASCULAR: Regular rate and rhythm without murmurs, rubs or gallops. RESPIRATORY: Breath sounds equal bilaterally, no wheezes rales or rhonchi. ABDOMEN: Soft, nontender to palpation. Normoactive bowel sounds all 4 quadrants. No guarding or rebound, rigidity, no mass, patient did stand and when he lays backwards or rotates he has increased pain at that location but not with palpation. He has scarring and an area of hard tissue where his prior pain pump was present. There was no fluctuance there was no erythema, no warmth. The incision from his most recent surgery appears to be clean dry and intact and healed with no surrounding signs of infection. : No CVA tenderness BACK: No cervical, thoracic or lumbar vertebral point tenderness. Patient was significant scarring to his posterior back no warmth or erythema. Has a palpable screw which he states is slowly backing out but it was at the TT 9 level as well as what feels like rods on exam. Patient has normal range of motion. Patient's gait is normal. 5/5 muscle strength bilateral lower extremities. Normal sensation. NEUROLOGICAL: Cranial nerves II through XII grossly intact. Moving all extremities SKIN: Warm, dry, no petechiae, no rashes or lesions. Initial Vital Signs Initial Vital Signs: Vital Signs Temperature 98.8 F 01/12/25 13:59 Pulse Rate 77 01/12/25 13:59 Respiratory Rate 20 01/12/25 13:59 Blood Pressure 187/99 H 01/12/25 13:59 Pulse Oximetry 97 01/12/25 13:59 Oxygen Delivery Method Room Air 01/12/25 13:59 Course Orders Ordered: Discontinued Medications Ondansetron HCl (Ondansetron 4 Mg/2 Ml Inj) 4 mg IV NOW PRN PRN Reason: Nausea And Vomiting Vital Signs Vital signs: Vital Signs - 8 hr 01/12/25 13:59 01/12/25 14:31 01/12/25 14:31 Temperature 98.8 F Pulse Rate 77 81 Respiratory Rate 20 Blood Pressure 187/99 H 167/83 H Pulse Oximetry 97 97 Oxygen Delivery Method Room Air 01/12/25 15:00 01/12/25 15:00 01/12/25 15:30 Temperature Pulse Rate 76 Respiratory Rate Blood Pressure 141/69 H 160/79 H Pulse Oximetry 93 Oxygen Delivery Method 01/12/25 15:30 01/12/25 16:00 01/12/25 16:00 Temperature Pulse Rate 66 54 L Respiratory Rate Blood Pressure 180/84 H Pulse Oximetry 94 94 Oxygen Delivery Method 01/12/25 16:12 01/12/25 16:12 Temperature Pulse Rate 82 Respiratory Rate 18 Blood Pressure 170/96 H Pulse Oximetry 97 Oxygen Delivery Method Room Air MDM - Abdominal Pain Lab Data 01/12/25 14:15 01/12/25 14:15 Labs: Lab Results 01/12/25 Range/Units 14:15 WBC 5.8 (4.5-11.0) X10^3/uL RBC 5.05 (4.5-5.9) X10^6/uL Hgb 16.4 (13.5-17.5) g/dL Hct 50.0 (41-53) % MCV 99.0 (80-100) fL MCH 32.5 (26-34) PG MCHC 32.8 (30-36) % RDW 14.3 (11.6-14.8) % Plt Count 136 L (150-400) X10^3/uL Neut % (Auto) 70.2 (50-75) % Lymph % (Auto) 18.3 L (25-40) % [place] % (Auto) 9.3 (3-14) % Eos % (Auto) 1.8 L (2-4) % Baso % (Auto) 0.4 (0-2) % Neut # (Auto) 4100 (5341-7897) /uL Lymph # (Auto) 1100 (2684-7125) /uL [place] # (Auto) 500 (0-900) /uL Eos # (Auto) 100 (0-450) /uL Baso # (Auto) 0 (0-100) /uL Sodium 140 (137-145) mmol/L Potassium 4.4 (3.4-5.1) mmol/L Chloride 106 (98-107) mmol/L Carbon Dioxide 26 (22-32) mmol/L BUN 17 (9-20) mg/dL Creatinine 1.06 (0.66-1.25) mg/dL Estimated GFR > 60 (>60) mL/min BUN/Creatinine Ratio 16.0 (6-22) Glucose 106 H (70-99) mg/dL Calcium 9.4 (8.4-10.2) mg/dL Total Bilirubin 1.2 (0.2-1.3) mg/dL AST 40 (17-59) IU/L ALT 28 (<50) IU/L Alkaline Phosphatase 67 (38-126) U/L Total Protein 7.3 (6.3-8.2) g/dL Albumin 4.5 (3.5-5.0) g/dL Globulin 2.8 (1.7-4.1) g/dL Albumin/Globulin Ratio 1.6 (1.0-2.8) Lipase 68 (23-300) U/L Point of care testing: Urine Dip Bedside Urine Glucose Negative Bedside Urine Bilirubin - Negative Bedside Urine Ketone - Negative Urine Specific [place] 1.015 Bedside Urine Occult Blood - Negative Bedside Urine pH 7.0 Bedside Urine Protein - Negative Bedside Urine Urobilinogen - Negative Bedside Urine Nitrite - Negative Bedside Urine Leukocytes - Negative Esterase ECG Data Attestation: I personally reviewed and interpreted this ECG as follows: Prior ECG tracings: available for review Interpretation: Normal sinus rhythm left axis deviation left ventricular hypertrophy rate of 61 DC 202 QRS of 112 QTC of 378, no acute ST elevation depression noted. Patient has prior from 11/18/2024 which appears similar to today's. [facility] Narrative Medical decision making narrative: EKG shows normal sinus rhythm rate of [address] changes Labs show normal white count hemoglobin, platelets are 136 patient has had intermittently thrombocytopenic last was 154 in December of 2024 but was 124 in November of 2024. Patient was normal electrolytes BUN creatinine glucose of 106 LFTs are negative lipase is 68. CT abdomen pelvis was obtained as patient had seroma of the left anterior abdominal wall December 27, 2024 patient notes it was drained by Dr. Kumar. We will repeat imaging today. CT imaging shows no acute evidence of diverticulitis or process which resolved left lower quadrant pain multiple bilateral nonobstructing renal stones, no hydronephrosis, continue presence of small bladder stone. Intrathecal pump present is in the right anterolateral subcutaneous tissue extends through the left subcutaneous seroma and catheter extends into the spinal canal it was also a 2nd generator pack in the right posterior pelvic subcutaneous fat possibly dorsal column stimulator. Spoke with general surgery Dr. Melton, patient does have a seroma still present in the left lower abdominal area is nontender to palpation no warmth erythema or signs of infection did have it drained by Dr. Kumar no other clear sources of pain. Patient was well-appearing, nontoxic. Discharge Plan Departure Patient Disposition: Home Clinical Impression: Abdominal wall seroma Activity Restrictions/Additional Instructions: Follow up with General surgery for rechecked you do still has a seroma present in the soft tissue of the abdomen. You do incidentally has a bladder stone. I did talk with the on-call general surgeon there happy to follow up with you please call the office tomorrow to follow up. You can take your home pain medications if you find that helpful. Please return for fevers, new or worsening abdominal back or flank pain, persistent vomiting, new redness, swelling or skin changes, black or bloody stools or other new GI or urinary symptoms. Prescriptions: No Action testosterone cypionate [Depo-Testosterone] 200 MG/1 ML oil 0.5 ml subcut SEEINSTR Qty: 9 Rx Instructions: Injects 3 times/month carvedilol 25 mg tablet 25 mg PO ONCE PRN Rx Instructions: must administer with a meal/food hydromorphone 2 mg tablet 2 mg PO Q6H PRN tadalafil 20 mg tablet 20 mg PO DAILY PRN Rx Instructions: administer approximately 30min before sexual activity; do not use more than 1 dose per 24hrs acyclovir 200 mg capsule 200 mg PO QID ondansetron HCl 4 mg tablet 4 mg PO Q8H tamsulosin 0.4 mg capsule 0.4 mg PO BEDTIME clonidine (PF) 1,000 mcg/10 mL (100 mcg/mL) Solution 180 mcg continuous epidural DAILY carvedilol 6.25 mg tablet 6.25 mg PO BID amlodipine 5 mg tablet 5 mg PO DAILY PRN (Reason: elevated Bp) Repatha SureClick 140 mg/mL pen injector 140 mg SUBCUT Q2W ketoconazole 2 % cream 1 applic topical 1XD losartan 50 mg tablet 50 mg PO DAILY PRN (Reason: elevated BP) ascorbic acid (vitamin C) [Vitamin C] 500 mg Tablet 500 mg PO DAILY Qty: 30 0RF hydromorphone (PF) 1 mg/mL solution 1 mg epidural Q4H PRN (Reason: Pain (Scale Score 7-10)) Rx Instructions: 2.7mg in pain pump daily bupivacaine (PF) [Sensorcaine-MPF] 0.5 % (5 mg/mL) solution 3 mg epidural CONT Rx Instructions: 3mg in pump daily (DME) Respironics Dreamstation CPAP Qty: 1 Dose Instruction: As directed Patient Comments: Pressure: IPAP 20 EPAP 10 DME: [facility] Rx Instructions: As directed mecobalamin (vitamin B12) 1,000 mcg tablet,chewable 1,000 mcg PO DAILY Referrals: Ishmael Friedman MD [Primary Care Provider, Family Practice] Stand Alone Forms: Patient Portal/API
--- NOTE | 2025-01-12 16:08 | DI.CT.S_ITS ---
PROCEDURE: CT ABDOMEN PELVIS W CON INDICATIONS: LLQ pain, has prior intrathecal pump removed, portion cut TECHNIQUE: After the administration of intravenous contrast, axial sections acquired from the lung bases to the pubic symphysis. Coronal and sagittal reformats were performed. For radiation dose reduction, the following was used: automated exposure control, adjustment of mA and/or kV according to patient size. COMPARISON: [facility], CT, CT ABDOMEN PELVIS W CON, 03/10/2024, 9:36. [facility], CT, CT ABDOMEN PELVIS W CON, 11/18/2024, 15:16. [facility], CT, CT ABDOMEN PELVIS W CON, 12/26/2024, 14:39. FINDINGS: Image quality: Diagnostic. Lower Chest: Severe triple-vessel coronary artery calcifications. Mild hiatal hernia. ABDOMEN: Liver: No solid mass. Gallbladder: No radiopaque gallstones or wall thickening. Biliary ducts: No biliary dilation. Pancreas: No ductal dilation. Spleen: Size is within normal limits. Adrenal Glands: No adrenal nodules. Kidneys and Ureters: No hydronephrosis. No solid mass. No complex renal cystic lesion which requires follow up. Both small bilateral nonobstructing renal stones. No hydronephrosis. Stomach and Bowel: Question GE junction region lipoma. Stomach is decompressed. Normal colonic caliber, without significant wall thickening. No evidence acute diverticulitis. Peritoneum: No abnormal intraperitoneal fluid. No free air. Ventral Wall: No significant ventral hernia. Intrathecal pump. The chamber is in the right anterolateral subcutaneous tissues. The catheter extends through a left subcutaneous seroma, and the catheter extends into the spinal canal. There is also a 2nd generator pack in the right posterior pelvic subcutaneous fat, potentially a dorsal column stimulator. Abdominal Nodes: No retroperitoneal or mesenteric adenopathy by size criteria. Vessels: Aorta and inferior vena cava are normal in size. PELVIS: Pelvic Organs: Prostatomegaly. Bladder: This study it was present on the previous study as well. Reference axial image 133 of series 2. Pelvic Nodes: No enlarged lymph nodes. Miscellaneous: No inguinal hernias are seen. Bones: No aggressive osseous abnormality. Remote multilevel decompression and posterior lateral fusion. No acute fractures. No lytic or blastic bony lesions. Old L3 compression. IMPRESSION: 1. In this patient with left lower quadrant pain, there is no evidence of acute diverticulitis or other process which would result in left lower quadrant pain. 2. Multiple bilateral nonobstructing renal stones. 3. No hydronephrosis. 4. Continued presence of a small bladder stone. Dictated by: London Watson M.D. on 01/12/2025 at 16:38 Approved by: London Watson M.D. on 01/12/2025 at 16:50
== END 2025-01-12 19:17 | disposition home or self-care (01) ==
PROVIDERS: Emergency Provider Emergency Medicine; PCP Family Medicine
DX: M79.81 Nontraumatic hematoma of soft tissue (principal); Z98.890 Other specified postprocedural states
CPT/HCPCS: 74177; 80053; 81003; 83690; 85025; 93005; 93010; 99283; 99284

== ENCOUNTER 2025-02-05 10:52 | Day surgery (SDC) | payer MEDICARE, OTHER, SELFPAY ==
[2024-12-22 09:40] VITALS: BMI 30.8
[2025-02-05] MEDS: LACTATED RINGERS 1,000 ML 42 ML IV (11:46)
[2025-02-05 11:47] VITALS: BP 177/96; PULSE 80; RESP 16; TEMP 36.5; O2SAT 98
--- NOTE | 2025-02-05 11:53 | PM.HP.IH.1 ---
History of Present Illness History of Present Illness Date Patient Seen: 02/05/25 Time Patient Seen: 11:53 Chief complaint: SDC Narrative: Darin is a 79-year-old man who had abnormal imaging of his stomach recently. See the [facility] office note for details. PFSH Medical History Abdominal pain Elevated PSA Erectile dysfunction Lower urinary tract symptoms (LUTS) BPH w urinary obs/LUTS Vitamin B12 deficiency Opioid dependence with current use Throat irritation Central sleep apnea [place] (hard of hearing) Cardiac murmur Tachycardia Arachnoiditis Postoperative atrial fibrillation Statin intolerance (~07/2015) Obstructive sleep apnea of adult Atypical chest pain Serum lipase elevation Coronary artery disease Small bowel obstruction Leg edema, right GERD (gastroesophageal reflux disease) Hypertension Surgical History Hx of colonoscopy (08/27/23) History of esophagogastroduodenoscopy (EGD) (08/19/23) History of lumbar spinal fusion (03/09/19) History of orthopedic surgery (03/12/19) S/P CABG x 2 (2015) S/P lumbar spinal fusion (11/10/18) Status post bilateral cataract extraction (~10/2014) History of bilateral knee arthroplasty History of lumbar surgery Hx of sinus surgery (03/12/18) S/P insertion of spinal cord stimulator (~2002) History of appendectomy S/P total knee arthroplasty History of fundoplication Social History marital status: household members: spouse lives independently: Yes occupational status: unemployed Smoking Status: Never smoker alcohol intake: never substance use type: does not use Meds Home Medications and Allergies Home Medications ?Medication ?Instructions ?Recorded ?Confirmed ?Type testosterone cypionate 200 mg/mL 0.5 ml SUBCUT SEEINSTR ##9 06/13/17 01/05/25 History intramuscular oil (Depo-Testosterone) Respironics Dreamstation CPAP #1 ea 11/27/18 01/05/25 History clonidine (PF) 1,000 mcg/10 mL 180 mcg continuous epidural DAILY 03/06/19 02/05/25 History (100 mcg/mL) epidural solution In pain pump mecobalamin (vitamin B12) 1,000 1,000 mcg PO DAILY 06/23/20 01/05/25 History mcg chewable tablet bupivacaine (PF) 0.5 % (5 mg/mL) 3 mg epidural CONT 03/16/21 02/05/25 History injection solution (Sensorcaine-MPF) hydromorphone (PF) 1 mg/mL 1 mg epidural Q4H PRN Pain (Scale 03/16/21 02/05/25 History injection solution Score 7-10) ketoconazole 2 % topical cream 1 applic topical 1XD 08/18/23 01/05/25 History ascorbic acid (vitamin C) 500 mg 500 mg PO DAILY #30 tabs 08/19/23 02/05/25 Rx tablet (Vitamin C) amlodipine 5 mg tablet 5 mg PO DAILY PRN elevated Bp 08/22/23 02/05/25 History carvedilol 6.25 mg tablet 6.25 mg PO BID 08/22/23 02/05/25 History evolocumab 140 mg/mL subcutaneous 140 mg SUBCUT Q2W 08/27/23 02/05/25 History pen injector (Mary Alice Robledo) carvedilol 25 mg tablet 25 mg PO ONCE PRN hypertension 06/08/24 02/05/25 History hydromorphone 2 mg tablet 2 mg PO Q6H PRN pain 06/08/24 02/05/25 History Held on 02/05/25. Instructions: Order Change tadalafil 20 mg tablet 20 mg PO DAILY PRN 06/08/24 01/05/25 History ondansetron HCl 4 mg tablet 4 mg PO Q8H 11/30/24 01/05/25 History tamsulosin 0.4 mg capsule 0.4 mg PO BEDTIME 11/30/24 01/05/25 History Allergies Allergy/AdvReac Type Severity Reaction Status Date / Time morphine (MORPHINE) Allergy Intermediate BLISTERS Verified 02/05/25 11:25 aspartame (From NUTRASWEET AdvReac Severe SEVERE Verified 02/05/25 11:25 ASPARTAME) HEADACHES gabapentin (GABAPENTIN) AdvReac Severe SEVERE Verified 02/05/25 11:25 AGITATION, DEPRESSION, ANXIETY hydrochlorothiazide AdvReac Severe HEADACHES Verified 02/05/25 11:25 (HYDROCHLOROTHIAZIDE) hydrocodone (HYDROCODONE) AdvReac Severe SEVERE Verified 02/05/25 11:25 HEADACHES metoprolol (METOPROLOL) AdvReac Severe HEADACHES Verified 02/05/25 11:25 omeprazole (OMEPRAZOLE) AdvReac Severe SEVERE Verified 02/05/25 11:25 HEADACHES & DIZZINESS oxycodone (OXYCODONE) AdvReac Severe HEADACHES Verified 02/05/25 11:25 nifedipine (From Procardia) AdvReac Gastrointestinal Verified 02/05/25 11:25 Upset, headache [id number] Reductase AdvReac Gastrointestinal Verified 02/05/25 11:25 Inhibitor ([id number] Upset, Reductase Inhibitor) headache Exam Vital Signs (past 8 hours): - 02/05/25 11:47 Temperature 97.7 F Pulse Rate 80 Respiratory Rate 16 Blood Pressure 177/96 H Pulse Oximetry 98 Oxygen Delivery Method Room Air Oxygen Delivery Method Room Air Const General: No acute distress Assessment & Plan Assessment and plan (1) Abnormal findings on imaging test: Status: Acute Plan Esophagogastroduodenoscopy Time-Based Coding :: [TOTAL MINUTES] spent with patient and on the chart (including review of chart, obtaining history, exam, reviewing outside data, placing orders, documenting exam and treatment plan, and counseling patient) on [DATE]. 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
--- NOTE | 2025-02-05 12:11 | P.OP.EGD_ITS ---
Operative Date/Time/Diagnoses Date of procedure: 02/05/25 Time of procedure: 12:11 Pre-op diagnosis: Abnormal imaging of the GI tract Post-op diagnosis: same Procedure & Clinicians Study performed: Esophagogastroduodenoscopy Same procedure(s) as scheduled: Yes Surgeon: Valeriano Kumar Anesthesia Type: MAC +/- Procedure Notes Procedure in detail: Surgeon: Valeriano Kumar MD Anesthesia: Navya Hamilton RESEARCH AND DEVELOPMENT SPECIALIST A timeout was performed. A bite blocked was placed. The patient was positioned in the left lateral decubitus position. Anesthesia was administered. The endoscope was inserted through the bite block and passed through the esophagus and stomach and into the duodenum. The duodenal mucosa appeared normal. The scope was withdrawn into the duodenal bulb and no abnormalities were seen. The scope was withdrawn into the stomach. No abnormalities were found in the stomach. The scope was retroflexed and there was a prominent fold of mucosa near the GE junction possibly related to prior Esequiel fundoplication versus paraesophageal hernia. There was a small opening next to the GE junction where the scope could be advanced into an additional chamber suggesting a paraesophageal hernia. No mucosal lesions were noted. The scope was withdrawn into the esophagus and no other abnormalities were found. The remainder of the esophagus was normal. The scope was withdrawn. The patient was awakened and brought to recovery. Sedation time: 5 minutes Findings: Prominent fold of mucosa near the GE junction and possible paraesophageal hernia Post-procedure Disposition: PACU
[2025-02-05 12:13] VITALS: BP 148/93; PULSE 75; RESP 16; TEMP 36.4; O2SAT 96
[2025-02-05 12:18] VITALS: BP 147/84; PULSE 79; RESP 16; O2SAT 94
[2025-02-05 12:23] VITALS: BP 142/81; PULSE 80; RESP 16; O2SAT 98
[2025-02-05 12:27] VITALS: BP 141/88; PULSE 80; RESP 16; TEMP 36.4; O2SAT 97
[2025-02-05 12:31] VITALS: BP 154/91; PULSE 78; RESP 16; TEMP 36.2; O2SAT 97
== END 2025-02-05 12:52 | disposition home or self-care (01) ==
PROVIDERS: PCP Family Medicine; Referring Provider Surgery; Visit Provider Surgery
PROC: 0DJ08ZZ Inspection of Upper Intestinal Tract, Via Natural or Artificial Opening Endoscopic (ICD-10-PCS; CPT 43235; principal; 2025-02-05 12:00)
DX: R93.5 Abnormal findings on diagnostic imaging of other abdominal regions, including retroperitoneum (principal); Z98.890 Other specified postprocedural states; K92.89 Other specified diseases of the digestive system
CPT/HCPCS: 43235; J2704

== ENCOUNTER 2025-04-17 08:00 | Emergency (ER) | payer MEDICARE, OTHER, SELFPAY ==
[2024-12-22 09:40] VITALS: BMI 30.8
[2025-04-17] VITALS (12 sets, daily range): BP systolic 164–224; BP diastolic 83–107; PULSE 75–82; RESP 11–29; TEMP 36.9; O2SAT 91–97
--- NOTE | 2025-04-17 07:42 | ED.ABDPAIN ---
HPI - Abdominal Pain General Chief Complaint: Abdominal Pain Stated Complaint: Lt Abd Px, Nausea History of Present Illness HPI narrative: 79-year-old gentleman history of obstructive sleep apnea, CAD with two-vessel bypass, BPH, arachnoiditis status post pain pump, GERD, hypertension, anemia, presents with left-sided abdominal pain along with nausea given Zofran by EMS prior to arrival. He reports doing yard work and having a mechanical fall yesterday but but denies any loss of consciousness headache, dizziness, chest pain, shortness of breath, dyspnea on exertion, fever, chills, body aches, urinary complaints, rectal bleeding. Other than what is stated 14 point review of system is negative. Related Data Home Medications ?Medication ?Instructions ?Recorded ?Confirmed testosterone cypionate 200 mg/mL 0.5 ml SUBCUT SEEINSTR ##9 06/13/17 01/05/25 intramuscular oil (Depo-Testosterone) RespirOnetoOnetexts Dreamstation CPAP #1 ea 11/27/18 01/05/25 clonidine (PF) 1,000 mcg/10 mL 180 mcg continuous epidural DAILY 03/06/19 02/05/25 (100 mcg/mL) epidural solution In pain pump mecobalamin (vitamin B12) 1,000 1,000 mcg PO DAILY 06/23/20 01/05/25 mcg chewable tablet bupivacaine (PF) 0.5 % (5 mg/mL) 3 mg epidural CONT 03/16/21 02/05/25 injection solution (Sensorcaine-MPF) hydromorphone (PF) 1 mg/mL 1 mg epidural Q4H PRN Pain (Scale 03/16/21 02/05/25 injection solution Score 7-10) ketoconazole 2 % topical cream 1 applic topical 1XD 08/18/23 01/05/25 amlodipine 5 mg tablet 5 mg PO DAILY PRN elevated Bp 08/22/23 02/05/25 carvedilol 6.25 mg tablet 6.25 mg PO BID 08/22/23 02/05/25 evolocumab 140 mg/mL subcutaneous 140 mg SUBCUT Q2W 08/27/23 02/05/25 pen injector (Mary Alice Robledo) carvedilol 25 mg tablet 25 mg PO ONCE PRN hypertension 06/08/24 02/05/25 hydromorphone 2 mg tablet 2 mg PO Q6H PRN pain 06/08/24 02/05/25 tadalafil 20 mg tablet 20 mg PO DAILY PRN 06/08/24 01/05/25 ondansetron HCl 4 mg tablet 4 mg PO Q8H 11/30/24 01/05/25 tamsulosin 0.4 mg capsule 0.4 mg PO BEDTIME 11/30/24 01/05/25 Previous Rx's ?Medication ?Instructions ?Recorded ascorbic acid (vitamin C) 500 mg 500 mg PO DAILY #30 tabs 08/19/23 tablet (Vitamin C) hydrocodone 5 mg-acetaminophen 325 1 tab PO Q4-6H PRN pain #20 tabs 04/17/25 mg tablet tamsulosin 0.4 mg capsule (Flomax) 0.4 mg PO BEDTIME #30 caps 04/17/25 Allergies Allergy/AdvReac Type Severity Reaction Status Date / Time morphine (MORPHINE) Allergy Intermediate BLISTERS Verified 02/05/25 11:25 aspartame (From NUTRASWEET AdvReac Severe SEVERE Verified 02/05/25 11:25 ASPARTAME) HEADACHES gabapentin (GABAPENTIN) AdvReac Severe SEVERE Verified 02/05/25 11:25 AGITATION, DEPRESSION, ANXIETY hydrochlorothiazide AdvReac Severe HEADACHES Verified 02/05/25 11:25 (HYDROCHLOROTHIAZIDE) hydrocodone (HYDROCODONE) AdvReac Severe SEVERE Verified 02/05/25 11:25 HEADACHES metoprolol (METOPROLOL) AdvReac Severe HEADACHES Verified 02/05/25 11:25 omeprazole (OMEPRAZOLE) AdvReac Severe SEVERE Verified 02/05/25 11:25 HEADACHES & DIZZINESS oxycodone (OXYCODONE) AdvReac Severe HEADACHES Verified 02/05/25 11:25 nifedipine (From Procardia) AdvReac Gastrointestinal Verified 02/05/25 11:25 Upset, headache [id number] Reductase AdvReac Gastrointestinal Verified 02/05/25 11:25 Inhibitor (Mesmasf-Xzr-[id number] Upset, Reductase Inhibitor) headache Review of Systems Review of Systems ROS Unobtainable: All systems reviewed & are unremarkable except as noted in HPI and below Patient History Medical History Abdominal pain Elevated PSA Erectile dysfunction Lower urinary tract symptoms (LUTS) BPH w urinary obs/LUTS Vitamin B12 deficiency Opioid dependence with current use Throat irritation Central sleep apnea QAWALANGIN (hard of hearing) Cardiac murmur Tachycardia Arachnoiditis Postoperative atrial fibrillation Statin intolerance (~07/2015) Obstructive sleep apnea of adult Atypical chest pain Serum lipase elevation Coronary artery disease Small bowel obstruction Leg edema, right GERD (gastroesophageal reflux disease) Hypertension Surgical History Hx of colonoscopy (08/27/23) History of esophagogastroduodenoscopy (EGD) (08/19/23) History of lumbar spinal fusion (03/09/19) History of orthopedic surgery (03/12/19) S/P CABG x 2 (2015) S/P lumbar spinal fusion (11/10/18) Status post bilateral cataract extraction (~10/2014) History of bilateral knee arthroplasty History of lumbar surgery Hx of sinus surgery (03/12/18) S/P insertion of spinal cord stimulator (~2002) History of appendectomy S/P total knee arthroplasty History of fundoplication Social History marital status: household members: spouse lives independently: Yes occupational status: unemployed alcohol intake: never substance use type: does not use Exam Narrative Exam Narrative: GENERAL: [79] year old patient appears stated age. Well-developed patient, in mild distress. HEAD: Atraumatic. Normocephalic. EYES: Pupils equal round and reactive. Extraocular motions intact. No scleral icterus. No injection or drainage. ENT: Nose without bleeding, purulent drainage. Throat without erythema, tonsillar hypertrophy or exudate. Airway patent. NECK: Trachea midline. Non tender CARDIOVASCULAR: Regular rate and rhythm without murmurs, gallops, or rubs. RESPIRATORY: Clear to auscultation. Breath sounds equal bilaterally. No wheezes, rales, or rhonchi. GASTROINTESTINAL: Abdomen soft, LLQ TTP but no rebound rigidity or guarding, nondistended. EXTREMITIES: No edema or joint tenderness. BACK: Nontender without deformity or crepitance. No flank tenderness. NEURO: AOx3. SKIN: No rash or erythema of visible areas Initial Vital Signs Initial Vital Signs: Vital Signs Pulse Rate 76 04/17/25 08:02 Pulse Oximetry 97 04/17/25 08:02 Course Orders Ordered: ED Orders 04/17/25 08:25 CT abdomen pelvis w con Stat 04/17/25 09:08 Urine Microscopic Stat 04/17/25 10:40 Complete Blood Count AUTO DIFF Stat Comprehensive Metabolic Panel Stat Lipase Stat Discontinued Medications Amlodipine Besylate (Amlodipine 5 Mg Tablet) 5 mg PO NOW ONE Stop: 04/17/25 09:38 Last Admin: 04/17/25 09:40 Dose: 5 mg Documented By: EB Clonidine HCl (Clonidine 0.1 Mg Tablet) 0.1 mg PO NOW ONE Stop: 04/17/25 09:38 Last Admin: 04/17/25 09:44 Dose: 0.1 mg Documented By: EB Hydromorphone HCl (Hydromorphone Hcl 0.5 Mg/0.5 Ml Syringe) 0.5 mg IV NOW ONE Stop: 04/17/25 08:27 Last Admin: 04/17/25 09:21 Dose: 0.5 mg Documented By: REY Hydromorphone HCl (Hydromorphone 1 Mg/Ml Syringe) 1 mg IV NOW ONE Stop: 04/17/25 09:31 Last Admin: 04/17/25 09:38 Dose: 1 mg Documented By: REY Lactated Ringer's (Lactated Ringers) 1,000 mls @ 1,000 mls/hr IV BOLUS ONE Stop: 04/17/25 09:24 Last Admin: 04/17/25 09:20 Dose: 1,000 mls/hr Documented By: EB Ketorolac Tromethamine (Ketorolac 30 Mg/Ml Vial) 15 mg IV NOW ONE Stop: 04/17/25 08:27 Last Admin: 04/17/25 09:21 Dose: 15 mg Documented By: REY Tamsulosin HCl (Tamsulosin 0.4 Mg Capsule) 0.4 mg PO NOW ONE Stop: 04/17/25 10:18 Last Admin: 04/17/25 10:22 Dose: 0.4 mg Documented By: REY Vital Signs Vital signs: Vital Signs - 8 hr 04/17/25 08:02 04/17/25 08:10 04/17/25 08:10 Temperature Pulse Rate 76 79 Respiratory Rate 21 Blood Pressure 202/107 H Pulse Oximetry 97 95 Oxygen Delivery Method Oxygen Flow Rate 04/17/25 08:12 04/17/25 08:30 04/17/25 08:30 Temperature 98.5 F Pulse Rate 76 77 Respiratory Rate 20 16 Blood Pressure 202/107 H 188/90 H Pulse Oximetry 95 Oxygen Delivery Method Room Air Oxygen Flow Rate 04/17/25 09:00 04/17/25 09:00 04/17/25 09:26 Temperature Pulse Rate 75 Respiratory Rate 17 Blood Pressure 182/87 H 224/100 H Pulse Oximetry 91 Oxygen Delivery Method Oxygen Flow Rate 04/17/25 09:26 04/17/25 09:30 04/17/25 09:32 Temperature Pulse Rate 82 80 78 Respiratory Rate 21 29 H Blood Pressure 200/94 H Pulse Oximetry 96 97 97 Oxygen Delivery Method Oxygen Flow Rate 04/17/25 09:32 04/17/25 10:00 04/17/25 10:00 Temperature Pulse Rate 79 Respiratory Rate 20 15 Blood Pressure 200/94 H 179/90 H Pulse Oximetry 94 Oxygen Delivery Method Nasal Cannula Oxygen Flow Rate 2 04/17/25 10:30 04/17/25 10:30 04/17/25 11:00 Temperature Pulse Rate 77 Respiratory Rate 11 L Blood Pressure 185/86 H 193/92 H Pulse Oximetry 96 Oxygen Delivery Method Oxygen Flow Rate 04/17/25 11:00 Temperature Pulse Rate 78 Respiratory Rate 19 Blood Pressure Pulse Oximetry 96 Oxygen Delivery Method Oxygen Flow Rate MDM - Abdominal Pain Lab Data 04/17/25 10:40 04/17/25 10:40 Labs: Lab Results 04/17/25 04/17/25 Range/Units 09:08 10:40 WBC 8.7 (4.5-11.0) X10^3/uL RBC 5.47 (4.5-5.9) X10^6/uL Hgb 17.3 (13.5-17.5) g/dL Hct 52.2 (41-53) % MCV 95.4 (80-100) fL MCH 31.7 (26-34) PG MCHC 33.2 (30-36) % RDW 13.8 (11.6-14.8) % Plt Count 106 L (150-400) X10^3/uL Neut % (Auto) 87.9 H (50-75) % Lymph % (Auto) 6.1 L (25-40) % Glenn % (Auto) 5.6 (3-14) % Eos % (Auto) 0.1 L (2-4) % Baso % (Auto) 0.3 (0-2) % Neut # (Auto) 7600 H (5354-3080) /uL Lymph # (Auto) 500 L (0330-3529) /uL Glenn # (Auto) 500 (0-900) /uL Eos # (Auto) 0 (0-450) /uL Baso # (Auto) 0 (0-100) /uL Sodium 136 L (137-145) mmol/L Potassium 4.3 (3.4-5.1) mmol/L Chloride 104 (98-107) mmol/L Carbon Dioxide 26 (22-32) mmol/L BUN 18 (9-20) mg/dL Creatinine 1.16 (0.66-1.25) mg/dL Estimated GFR > 60 (>60) mL/min BUN/Creatinine Ratio 15.5 (6-22) Glucose 123 H (70-99) mg/dL Calcium 8.8 (8.4-10.2) mg/dL Total Bilirubin 1.4 H (0.2-1.3) mg/dL AST 33 (17-59) IU/L ALT 23 (<50) IU/L Alkaline Phosphatase 58 (38-126) U/L Total Protein 6.7 (6.3-8.2) g/dL Albumin 3.9 (3.5-5.0) g/dL Globulin 2.8 (1.7-4.1) g/dL Albumin/Globulin Ratio 1.4 (1.0-2.8) Lipase 65 (23-300) U/L Urine RBC 5-10/hpf H (0-5/HPF) Urine WBC 0-1/hpf (0-5/HPF) Ur Squamous Epith Cells 0-1 /hpf (0-5/HPF) Urine Bacteria None seen (None) Ur Culture Indicated? Cult not indicated Vol Urine Centrifuged 10ml (spun) Point of care testing: Urine Dip Bedside Urine Glucose Negative Bedside Urine Bilirubin - Negative Bedside Urine Ketone - Negative Urine Specific [place] 1.015 Bedside Urine Occult Blood + Bedside Urine pH 6.0 Bedside Urine Protein - Negative Bedside Urine Urobilinogen - Negative Bedside Urine Nitrite - Negative Bedside Urine Leukocytes - Negative Esterase Imaging Data CT scan - abdomen/pelvis: Radiologist's Impression: [address] [address] [address] Scan Report Signed Patient: Chad Boyd MR#: [id number] : 1945 Acct:[id number] Age/Sex: 79 / M Date of Service: 04/17/25 Loc: ED Accession Number: [id number] Procedure: CT abdomen pelvis w con Ordering Provider: Danny Rebolledo D.O. PROCEDURE: CT ABDOMEN PELVIS W CON INDICATIONS: L sided abd pain TECHNIQUE: After the administration of intravenous contrast, axial sections acquired from the lung bases to the pubic symphysis. Coronal and sagittal reformats were performed. For radiation dose reduction, the following was used: automated exposure control, adjustment of mA and/or kV according to patient size. COMPARISON: [facility], CT, CT ABDOMEN PELVIS W CON, 01/12/2025, 16:14. FINDINGS: Image quality: Diagnostic. Lower Chest: Moderate hiatal hernia. Bibasilar atelectasis. ABDOMEN: Liver: No solid mass. Gallbladder: No radiopaque gallstones or wall thickening. Biliary ducts: No biliary dilation. Pancreas: No ductal dilation. Spleen: Size is within normal limits. Adrenal Glands: No adrenal nodules. Kidneys and Ureters: Left proximal ureteral stone measuring 7 mm with average density of 860 Hounsfield units. There are multiple bilateral renal stones the largest measuring up to 9 mm within the inferior right pole. Mild left-sided proximal hydronephrosis with slight fat stranding surrounding the left kidney. Stomach and Bowel: Normal colonic caliber, without significant wall thickening. Moderate stool volume. Peritoneum: No abnormal intraperitoneal fluid. No free air. Ventral Wall: Spinal stimulator implanted over the right abdominal wall. Within the left abdominal soft tissues there is a thick-walled fluid collection surrounding the stimulator lead measuring 6.3 by 2.3 by 3.1 cm Abdominal Nodes: No retroperitoneal or mesenteric adenopathy by size criteria. Vessels: Aorta and inferior vena cava are normal in size. PELVIS: Pelvic Organs: Unremarkable. Bladder: No bladder wall thickening, accounting for underdistention. Pelvic Nodes: No enlarged lymph nodes. Miscellaneous: No inguinal hernias are seen. Bones: No aggressive osseous abnormality. Posterior fixation of the thoracolumbar junction with multilevel intervertebral disc spacers. IMPRESSION: 1. Proximal left ureteral stone measuring 7 mm with subsequent mild proximal hydronephrosis and perirenal edema. 2. Stable appearance of thick walled fluid collection with the abdominal wall, unchanged likely reflecting seroma with infection not excluded. 3. Additional numerous renal stones. Dictated by: Tony Weber M.D. on 04/17/2025 at 8:46 Approved by: Tony Weber M.D. on 04/17/2025 at 9:01 [facility] Narrative Medical decision making narrative: All lab work, vital signs, nurse triage note, medication list, previous ER visits, and all imaging studies reviewed. WBC 8.7 hemoglobin 17.3 platelet 106 sodium 136 potassium 4.3 chloride 104 CO2 26 BUN 18 creatinine 1.16 glucose 123 T bili 1.4 rest of LFTs are normal UA shows 5-[address] scan showed proximal left ureteral stone measuring 7 mm with subsequent mild proximal hydronephrosis and perirenal edema. Stable appearance of thick wall fluid collection within the abdominal unchanged likely reflecting seroma with infection not excluded. Patient given fluids Toradol Dilaudid Flomax strainer. Patient will be discharged on [place] Flomax and to call urologist on Saturday for appointment for follow up. Differential diagnosis includes obstruction, constipation, diverticulitis, kidney stone, kidney infection. Discharge Plan Departure Patient Disposition: Home Clinical Impression: Kidney stone Instructions: DI for Kidney Stones Activity Restrictions/Additional Instructions: Return with new or worsening symptoms. Take your medicines directed. Keep hydrated. Call urologist on Saturday for appointment. ? Prescriptions: New tamsulosin [Flomax] 0.4 mg capsule 0.4 mg PO BEDTIME Qty: 30 0RF hydrocodone-acetaminophen 5-325 mg tablet 1 tab PO Q4-6H PRN (Reason: pain) Qty: 20 0RF No Action testosterone cypionate [Depo-Testosterone] 200 MG/1 ML oil 0.5 ml subcut SEEINSTR Qty: 9 Rx Instructions: Injects 3 times/month carvedilol 25 mg tablet 25 mg PO ONCE PRN (Reason: hypertension) Rx Instructions: must administer with a meal/food hydromorphone 2 mg tablet 2 mg PO Q6H PRN (Reason: pain) tadalafil 20 mg tablet 20 mg PO DAILY PRN Rx Instructions: administer approximately 30min before sexual activity; do not use more than 1 dose per 24hrs ondansetron HCl 4 mg tablet 4 mg PO Q8H tamsulosin 0.4 mg capsule 0.4 mg PO BEDTIME clonidine (PF) 1,000 mcg/10 mL (100 mcg/mL) Solution 180 mcg continuous epidural DAILY carvedilol 6.25 mg tablet 6.25 mg PO BID amlodipine 5 mg tablet 5 mg PO DAILY PRN (Reason: elevated Bp) Repatha SureClick 140 mg/mL pen injector 140 mg SUBCUT Q2W ketoconazole 2 % cream 1 applic topical 1XD ascorbic acid (vitamin C) [Vitamin C] 500 mg Tablet 500 mg PO DAILY Qty: 30 0RF hydromorphone (PF) 1 mg/mL solution 1 mg epidural Q4H PRN (Reason: Pain (Scale Score 7-10)) Rx Instructions: 2.7mg in pain pump daily bupivacaine (PF) [Sensorcaine-MPF] 0.5 % (5 mg/mL) solution 3 mg epidural CONT Rx Instructions: 3mg in pump daily (DME) Respironics Dreamstation CPAP Qty: 1 Dose Instruction: As directed Patient Comments: Pressure: IPAP 20 EPAP 10 DME: [facility] Rx Instructions: As directed mecobalamin (vitamin B12) 1,000 mcg tablet,chewable 1,000 mcg PO DAILY Referrals: Juan F Terry DO [Physician, Urology] Ishmael Friedman MD [Primary Care Provider, Family Practice] Stand Alone Forms: Patient Portal/API
--- NOTE | 2025-04-17 08:25 | DI.CT.S_ITS ---
PROCEDURE: CT ABDOMEN PELVIS W CON INDICATIONS: L sided abd pain TECHNIQUE: After the administration of intravenous contrast, axial sections acquired from the lung bases to the pubic symphysis. Coronal and sagittal reformats were performed. For radiation dose reduction, the following was used: automated exposure control, adjustment of mA and/or kV according to patient size. COMPARISON: [facility], CT, CT ABDOMEN PELVIS W CON, 01/12/2025, 16:14. FINDINGS: Image quality: Diagnostic. Lower Chest: Moderate hiatal hernia. Bibasilar atelectasis. ABDOMEN: Liver: No solid mass. Gallbladder: No radiopaque gallstones or wall thickening. Biliary ducts: No biliary dilation. Pancreas: No ductal dilation. Spleen: Size is within normal limits. Adrenal Glands: No adrenal nodules. Kidneys and Ureters: Left proximal ureteral stone measuring 7 mm with average density of 860 Hounsfield units. There are multiple bilateral renal stones the largest measuring up to 9 mm within the inferior right pole. Mild left-sided proximal hydronephrosis with slight fat stranding surrounding the left kidney. Stomach and Bowel: Normal colonic caliber, without significant wall thickening. Moderate stool volume. Peritoneum: No abnormal intraperitoneal fluid. No free air. Ventral Wall: Spinal stimulator implanted over the right abdominal wall. Within the left abdominal soft tissues there is a thick-walled fluid collection surrounding the stimulator lead measuring 6.3 by 2.3 by 3.1 cm Abdominal Nodes: No retroperitoneal or mesenteric adenopathy by size criteria. Vessels: Aorta and inferior vena cava are normal in size. PELVIS: Pelvic Organs: Unremarkable. Bladder: No bladder wall thickening, accounting for underdistention. Pelvic Nodes: No enlarged lymph nodes. Miscellaneous: No inguinal hernias are seen. Bones: No aggressive osseous abnormality. Posterior fixation of the thoracolumbar junction with multilevel intervertebral disc spacers. IMPRESSION: 1. Proximal left ureteral stone measuring 7 mm with subsequent mild proximal hydronephrosis and perirenal edema. 2. Stable appearance of thick walled fluid collection with the abdominal wall, unchanged likely reflecting seroma with infection not excluded. 3. Additional numerous renal stones. Dictated by: Tony Weber M.D. on 04/17/2025 at 8:46 Approved by: Tony Weber M.D. on 04/17/2025 at 9:01
[2025-04-17] MEDS: LACTATED RINGERS 1,000 ML 1000 ML IV (09:20)
[2025-04-17] MEDS: KETOROLAC 30 MG/ML VIAL 15 MG IV (09:21)
--- NOTE | 2025-04-17 09:55 | PC.NURSE ---
Presents to ER with sharp L side abdominal pain. Reports some sharp pain recently, but this AM at 0530 it was constant and more intense than previously. Pt reports last BM on in the afternoon. Attempted to produce BM this AM but was unable to do so. Pt also reports recent fall on (denies hitting head or other injuries) while tending to his yard. Reports the sharp pain occurred right after this but then went away. No tenderness on palpation of abdomen, and bowel tones are present.
[2025-04-17 10:08] LABS: Culture Indicated Urine Cult Not Indicated
[2025-04-17] MEDS: TAMSULOSIN 0.4 MG CAPSULE PO (10:22)
[2025-04-17 11:14] LABS: Add Manual Diff / Slide Review NO; Hematocrit 52.2 % (41-53); Hemoglobin 17.3 g/dL (13.5-17.5); Lymphocytes Absolute Auto 500 /uL (1100-4500); Mean Corpuscular HGB Conc 33.2 % (30-36); Mean Corpuscular Hemoglobin 31.7 PG (26-34); Mean Corpuscular Volume 95.4 fL (80-100); Platelet Count 106 X10^3/uL (150-400)
[2025-04-17 11:20] LABS: Alanine Aminotransferase 23 IU/L (<50); Albumin 3.9 g/dL (3.5-5.0); Albumin Globulin Ratio 1.4 (1.0-2.8); Alkaline Phosphatase 58 U/L (38-126); Blood Urea Nitrogen 18 mg/dL (9-20); Calcium 8.8 mg/dL (8.4-10.2); Carbon Dioxide 26 mmol/L (22-32); Chloride 104 mmol/L (98-107); Estimated Glomerular Filt Rate > 60 mL/min (>60); Globulin 2.8 g/dL (1.7-4.1); Glucose 123 mg/dL (70-99); HEMOLYSIS < 15 (0-50); Lipase 65 U/L (23-300); Potassium 4.3 mmol/L (3.4-5.1); Sodium 136 mmol/L (137-145); Total Protein 6.7 g/dL (6.3-8.2)
== END 2025-04-17 11:44 | disposition home or self-care (01) ==
PROVIDERS: Emergency Provider Family Medicine; PCP Family Medicine
DX: N20.1 Calculus of ureter (principal); R11.0 Nausea
CPT/HCPCS: 74177; 80053; 81003; 81015; 83690; 85025; 96374; 96375; 96376; 99284; J1171; J1885; J7120; Q9967